=== PATIENT | female | born 1935 | race Caucasian/White ===

== ENCOUNTER 2017-06-03 12:30 | Outpatient (RCR) | payer MEDICARE, OTHER, SELFPAY ==
--- NOTE | 2017-04-06 16:16 | HP.OTEVAL_ITS ---
Patient's Visit Information Francie CAAL is a 81 year old F, referred to Occupational Therapy by [facility] Doctor,LOWELL, with a diagnosis of R Closed fx of distal radius. Date of Evaluation: 04/06/17 Occupational Therapist: Preeti Weiss - Subjective Subjective: Pt. arrived with son. Son left at start of session. Jossie noted that inital injury occured . She noted she fell on ice while walking 3 doors down to friends house. She noted had cast on for about three-four weeks and noteds that wrist cock up was placed on two weeks ago. She noted she is to be in wrist cock up for another 3 weeks. - Pain Right Wrist 5 Pain Intensity Range: 1, 10 - Objective Objective/Observation: Increased ulnar bowing to volar side. Atrophy of forearm and thenar eminence. Increased nodule over CMC of R thumb. Increased pain with mvmt. Pain increased from 4 to 5-6/10 post mvmt. Signitifcantly decreased strength and ROM compared to L unaffected hadn at this time. - ROM Wrist: Flex R 0-28, L 0-79; ext R 0-29, L 0-50 Radial Abduction: R 0-17, L 0-38 MP: R 2nd- 5th: 32-65, 29-77, 30-81, 24-90; L 2nd- 5th: 20-77, 9-83, 0-73,-8-89 PIP: WFL - Strength Manager Marketing Communication: R unable, L 44 Lateral Pinch: R unable, L 3 Tripod Pinch: R unable, L 9 Tip-to-Tip Pinch: R unable, L 7 - Edema Wrist: slight edema over volar aspect of wrist. - Sensation Sensation Comments: Notes some numbness and tingling intermittently in all five fingers in thumb. No numbness and tingling at this time. Will be monitored and further assessment to occur. - DASH-Disabilities of Arm, Shoulder& Hand DASH Sum: 120 - Goals Goal:: Jossie to increase R auto suspension and steering mechanic that that of equal value of L nonaffected hand 2/ 3 trials 75% of the time by to promote increased ADL/IADls by d/c. Goal:: Jossie to increase wrist ROM to that of L unaffected hand 2/3 trials 75% of the time by d/c. Goal:: Jossie to have pain no more than 1/10 for ADl/IADL related activities 4/5 trials 80% of the time to promote (i0 and QOL by d/c. Goal:: Jossie to be (I) for all ADL/IALDs 4/5 trials 80% of the time to promote increased ROM, strength, and ability to returnt o PLOF by d/c. Goal:: Jossie to be mod I to consisently complete HEP 4/5 trials 80% of the time by d/c. - Rehabilitation General Assessment: Pt., Jossie, arrived and noted original injury 2017. She has significantly decreased ROM, strength, and increased pain with all movements at this time. She presents with some decreased alignment of ulnar. OT to work on decreasing pain while increasing strength and ROM for ADL/ IADLs by d/c. Rehabilitation Potential: Good - Anticipated Interventions Anticipated Interventions: A/AAROM/PROM, Strengthening, Edema Control, Scar Care , Modalities, Orthoses, Joint Protection/Energy Conservation, Ergonomic Education, Fine Motor Coord/Jose Manuel, ADL Training, Caregiver Training, Home Program - Visit Plan Frequency: 2x /Week Duration: 4-6 Weeks General Plan: Jossie to complete OT servceisf or modlaities as needed for pain management, edema mamagement techniques as needed, ROM, strengthening and completing tasks to return to PLOF and all ADL/IADLs by d/c. TEXT: Thank you for the opportunity to evaluate your patient. For Medicare and Medicare HMO plans, please review the plan of care and approve it. It will need to be FAXED BACK to us at [phone] for Medicare purposes. Please let me know if there are questions or concerns regarding this plan of care. Physician Signature: Date:
--- NOTE | 2017-05-19 16:55 | HP.OTREVAL ---
LOWELL DANIEL It has been my pleasure to treat Francie CAAL over the last 13 visits for R Closed fx of distal radius. Please see the progress note below for an update on the occupational therapy plan of care! Subjective: Arrived and noted that she is doing well. She had to dump dehumidifer this today and let it get too full. Notes she had pain when dumping but wasn't terrible. She noted son is in [place] and unable to help this week. Pain otherwise is minimal most days. Notes majoir limitation is weakness. Objective/Function: Reassessment completed on this day. Ulnar bowing present and increased adduction of thumb presne ton R hand. Age related changes from arthitis noted on B hands. ROM of R wrist is as follows: flexion R 0-39, L WFL; ext R 0-25, L WFL; SUP R 0-63, L WFL. Strength measurements are as follows: physical medicine physician R 10, L 42; lateral R 8, L 8; three jaw R 5, L 12; tip pinch R 3, L 9 lbs. She has progressed from inital evaluation. Plan Frequency: 2x /Week Duration: 2-4 Weeks Plan: continue POC for 2x weekly for 30 mins session for 2-4 weeks. She is to continue HEP and focus will be on strengthening. She has progressed with OT since intial evaluation. Goals - Goals Goal:: Jossie to increase R physical medicine physician that that of equal value of L nonaffected hand 2/3 trials 75% of the time by to promote increased ADL/IADls by d/c. Goal:: Jossie to increase wrist ROM to that of L unaffected hand 2/3 trials 75% of the time by d/c. Goal:: Jossie to have pain no more than 1/10 for ADl/IADL related activities 4/5 trials 80% of the time to promote (i0 and QOL by d/c. Goal:: Jossie to be (I) for all ADL/IALDs 4/5 trials 80% of the time to promote increased ROM, strength, and ability to returnt o PLOF by d/c. Goal:: Jossie to be mod I to consisently complete HEP 4/5 trials 80% of the time by d/c. Anticipated Interventions Anticipated Interventions: A/AAROM/PROM, Strengthening, Edema Control, Scar Care, Modalities, Orthoses, Joint Protection/Energy Conservation, Ergonomic Education, Fine Motor Coord/Jose Manuel, ADL Training, Caregiver Training, Home Program Please do not hesitate to contact me at [phone] by phone or if you have questions or concerns regarding this new plan of care! Sincerely, Preeti Weiss
--- NOTE | 2017-06-03 13:14 | HP.OTDCSUM_ITS ---
HP - OT D/C Summary It has been my pleasure to treat Francie CAAL under orders from MOHIT MCMILLAN, for the diagnosis of R Closed fx of distal radius for a total of 17 visit(s). Progress has plateaued at this time. She presents with muscle atrophy in forearm which has been continually addressed through OT as well as through HEP. She is to continue HEP. Jossie continues to have achiness over ulna due to malalignment. Notes fingers go numb on occasion. She is to return to see doctor if symptoms persist. Please see the following information for a summary of their discharge status. - Objective Objective/Function: ROM of R flex: 0-23; Ext 0-30; sup 0-36 degrees; radial dev 0-12; ulnar dev 0-10. Strength assistant public defender R 11, L 43; lateral R 6, L 9; three jaw R 5 , L 11 lbs; tip pinch R 4, L 7 lbs. Monofilament test completed on this date on R hand: 2nd 2.83, 3rd, 3.22, 4th 2.83, 5th 2.83, thumb 3.22. A score of 2.83 is normal. Progress has plateaued at this time. She is to return to doctor. - Goals Patient Goals: Regain Mobility, Regain Strength, Decrease Pain, Decrease Swelling/Stiffness, Improve Fine Motor Skills, Use Hand/Wrist/Arm Normally Again , Increase ROM, Be More Independent in ADLS, Resume Former Household Responsibilities (Cooking,Cleaning,Yard, etc.), Resume Hobbies Goal:: Jossie to increase R assistant public defender that that of equal value of L nonaffected hand 2/ 3 trials 75% of the time by to promote increased ADL/IADls by d/c. Goal:: Jossie to increase wrist ROM to that of L unaffected hand 2/3 trials 75% of the time by d/c. Goal:: Jossie to have pain no more than 1/10 for ADl/IADL related activities 4/5 trials 80% of the time to promote (i0 and QOL by d/c. Goal:: Jossie to be (I) for all ADL/IALDs 4/5 trials 80% of the time to promote increased ROM, strength, and ability to returnt o PLOF by d/c. Goal:: Jossie to be mod I to consisently complete HEP 4/5 trials 80% of the time by d/c. - Plan Plan: she will be d/c'd. She is to return to see Dr. Torres for further follow up. Progress has plateaued at this time. She is to continue HEP. Jossie continues to have achiness over ulna due to malalignment. - D/C Information Discharge Comments: Edcuated and provided handouts on joint protection techniques for knittign and general ADLs to help decrease any residual pain. Educated on wrist mechanics and body mechanics to promote increased alignment of wrist during daily tasks. She notes she is not wearing prefabricated brace at home but community only. Brace no provided by OT. If pain occurs with liftng heavy objects she is to wear brace for support. If there are questions or concerns regarding this patient's occupational therapy , please fell free to call me at [phone]. Thank you for the referral of this patient. Sincerely, Preeti Weiss
== END 2017-06-03 19:00 | disposition home or self-care (01) ==
LOC: OT 12:30
PROVIDERS: Family Provider Family Medicine; PCP Family Medicine
DX: S52.501D Unspecified fracture of the lower end of right radius, subsequent encounter for closed fracture with routine healing (principal)
CPT/HCPCS: 97035; 97110; 97140; 97166; 97168; 97530; G8987; G8988

== ENCOUNTER → 2017-06-07 08:45 | Outpatient (CLI) | payer MEDICARE, OTHER, SELFPAY ==
[2017-06-07 09:50] LABS: AST(SGOT) 15 U/L (15-37); Alanine Aminotransfer ALT/SGPT 15 U/L (13-56); Albumin, Serum 3.9 g/dL (3.2-5.0); Alkaline Phosphatase 51 U/L (45-117); Bilirubin, Direct 0.12 mg/dL (0.00-0.30); Cholesterol 183 mg/dL (200); Globulin 3.1 g/dL (2.2-4.2); High Density Lipoprotein 60 mg/dL; Triglycerides 82 mg/dL; Very Low Density Lipoprotein 16 mg/dL (5-40)
== END ==
PROVIDERS: Family Provider Family Medicine; PCP Family Medicine; Visit Provider Physician Assistant Medical
DX: E78.5 Hyperlipidemia, unspecified (principal); Z79.899 Other long term (current) drug therapy
CPT/HCPCS: 36415; 80061; 80076

== ENCOUNTER → 2017-07-08 16:25 | Outpatient (CLI) | payer MEDICARE, OTHER, SELFPAY | PROVIDERS: Visit Provider Obstetrics & Gynecology | DX: N39.0 Urinary tract infection, site not specified (principal) | CPT/HCPCS: 87086; 87088; 87186 ==

== ENCOUNTER → 2017-08-08 10:04 | Outpatient (CLI) | payer MEDICARE, OTHER, SELFPAY | PROVIDERS: Visit Provider Obstetrics & Gynecology | DX: N39.0 Urinary tract infection, site not specified (principal) | CPT/HCPCS: 87086; 87088 ==

== ENCOUNTER → 2017-08-19 16:14 | Outpatient (CLI) | payer MEDICARE, OTHER, SELFPAY ==
[2017-08-19 16:16] LABS: Mucous, Urine 0 SEEN /hpf (<or=2+); Squamous Epithelial Cells - UA 0 SEEN /hpf (5-10)
[2017-08-19 18:54] LABS: Color, Urine Yellow (Yellow); Glucose, Dipstick Normal (Normal); Ketone-Dipstick Negative (Negative); Leukocyte Esterase-Dipstick 500 /ul (Negative); Nitrite-Dipstick Positive (Negative); Occult Blood-Urine 50 /ul (Negative); Protein-Dipstick 30 mg/dl (Negative); Specific Gravity, Urine 1.015 (1.002-1.030); Urine Bilirubin Dipstick Negative (Negative); Urine Clarity Turbid (Clear); Urine Urobilinogen Normal (Normal)
[2017-08-19 19:15] LABS: Bacteria 2+ /hpf (None Seen); Red Blood Cells-Urine 0-5 SEEN /hpf (0-5); White Blood Cells >100 SEEN /hpf (0-5)
== END ==
PROVIDERS: Visit Provider Obstetrics & Gynecology
DX: N39.0 Urinary tract infection, site not specified (principal)
CPT/HCPCS: 81001; 87086; 87088; 87186

== ENCOUNTER → 2017-08-24 10:54 | Outpatient (CLI) | payer MEDICARE, OTHER, SELFPAY ==
--- NOTE | 2017-08-24 10:56 | US_ITS ---
STUDY: RENAL ULTRASOUND - COMPLETE REASON FOR EXAM: Female, 82 years old. Cystitis. TECHNIQUE: Ultrasound evaluation of the kidneys was performed with real-time and static welch-scale imaging. COMPARISON: None. FINDINGS: RIGHT KIDNEY: Normal location of the right kidney, which is normal in size. The right kidney measures 8.6 cm. There is a normal cortex of the right kidney. The renal cortex measures 1.2 cm. There is no right renal mass or cyst. There are no right renal calculi. There is no right hydronephrosis. DISTAL RIGHT URETER: There is non-visualization of the distal right ureter. There is no demonstrated right ureterovesical junction calculus. There is no demonstrated right ureteral jet. LEFT KIDNEY: Normal location of the left kidney, which is normal in size. The left kidney measures 9.4 cm. There is a normal cortex of the left kidney. The renal cortex measures 1.5 cm. There is no left renal mass or cyst. There are no left renal calculi. There is no left hydronephrosis. DISTAL LEFT URETER: There is non-visualization of the distal left ureter. There is no demonstrated left ureterovesical junction calculus. There is a visualized left ureteral jet. BLADDER: The distended urinary bladder has a volume of 202 ml. There is a normal wall thickness of the distended urinary bladder. There is no demonstrated mass within the urinary bladder. There are no demonstrated bladder calculi. US/Kidney and Bladder IMPRESSION: Normal ultrasound of the kidneys and urinary bladder. Electronically Signed: Diaz Gambino MD at 0:16 EDT , Service support ,
== END ==
PROVIDERS: Family Provider Family Medicine; PCP Family Medicine; Visit Provider Obstetrics & Gynecology
DX: N30.00 Acute cystitis without hematuria (principal)
CPT/HCPCS: 76770

== ENCOUNTER → 2017-09-16 11:44 | Outpatient (CLI) | payer MEDICARE, OTHER, SELFPAY | PROVIDERS: Family Provider Family Medicine; PCP Family Medicine; Visit Provider Nurse Practitioner Adult Health | DX: R82.99 Other abnormal findings in urine (principal) | CPT/HCPCS: 87086; 87088; 87186 ==

== ENCOUNTER → 2017-10-31 15:09 | Outpatient (CLI) | payer MEDICARE, OTHER, SELFPAY | PROVIDERS: Family Provider Family Medicine; PCP Family Medicine; Visit Provider Nurse Practitioner Adult Health | DX: R30.0 Dysuria (principal) | CPT/HCPCS: 87086; 87088; 87186 ==

== ENCOUNTER → 2017-11-11 10:56 | Outpatient (CLI) | payer MEDICARE, OTHER, SELFPAY ==
--- NOTE | 2017-11-11 11:00 | ECHOD_ITS ---
Reason For Study: MV Insufficiency Procedure This was a 2D Doppler, Color Flow transthoracic echocardiogram. The exam was of adequate technical quality. Exam performed in department. Left Ventricle Normal LV size. Mid cavitary false tendon noted. Left ventricular systolic function is hyperdynamic. The estimated ejection fraction is 75 %. No regional wall motion abnormalities noted. Right Ventricle Normal RV size. Normal systolic function. Atria The left atrium is mildly enlarged. Normal right atrium. No doppler evidence for ASD. Mitral Valve There is no mitral annular calcification. Anterior leaflet diffuse mitral valve thickening. Severe (4+) mitral valve insufficiency. Tricuspid Valve Normal tricuspid valve. Trivial tricuspid valve insufficiency. Right ventricular systolic pressure estimated to be 22 mmHg. Aortic Valve Trisinus/trileaflet aortic valve. Mild diffuse aortic valve thickening. Mild aortic stenosis. Trivial aortic valve insufficiency. Pulmonic Valve The pulmonic valve is not well visualized. Trivial pulmonic valve insufficiency. Great Vessels Normal sized aortic root. Pericardium/Pleural No pericardial effusion. MMode/2D Measurements & Calculations LVIDd: 3.5 cm IVSd: 1.2 cm LVOT diam: 1.7 cm LVIDs: 2.2 cm LVPWd: 1.1 cm LVOT area: 2.2 cm2 RVDd: 2.7 cm FS: 37.4 % Ao root diam: 2.0 cm LAV(MOD-bp): 42.4 ml EDV(MOD-sp4): 44.1 ml LAV(MOD-bp) Indexed: 29.0 ml/m2 ESV(MOD-sp4): 12.8 ml LAV(MOD-sp2): 51.2 ml EF(MOD-sp4): 71.1 % LAV(MOD-sp4): 29.8 ml SV(MOD-sp4): 31.3 ml LA A4 area: 12.8 cm2 RA A4 area: 12.1 cm2 Doppler Measurements & Calculations MV E max david: 104.2 cm/sec Lat Peak E' David: 6.3 cm/sec Med Peak E' David: 3.5 cm/sec MV A max david: 86.9 cm/sec E/E' lat: 16.6 E/E' med: 29.3 MV E/A: 1.2 Ao V2 max: 281.3 cm/sec LV V1 max: 218.3 cm/sec SV(LVOT): 120.7 ml Ao max P.1 mmHg LV V1 max P.1 mmHg Ao V2 mean: 199.6 cm/sec LV V1 mean P.9 mmHg Ao mean P.2 mmHg LV V1 mean: 164.2 cm/sec Ao V2 VTI: 67.0 cm LV V1 VTI: 54.8 cm ANTONIO(I,D): 1.8 cm2 ANTONIO(V,D): 1.7 cm2 PA V2 max: 130.8 cm/sec TR max david: 218.1 cm/sec TR max P.0 mmHg Interpretation Summary Left ventricular systolic function is hyperdynamic. The estimated ejection fraction is 75 %. Mid cavitary false tendon noted. The left atrium is mildly enlarged. Anterior leaflet diffuse mitral valve thickening. Severe (4+) mitral valve insufficiency. Trivial tricuspid valve insufficiency. Mild aortic stenosis. Trivial aortic valve insufficiency. Trivial pulmonic valve insufficiency. Right ventricular systolic pressure estimated to be 22 mmHg. Transmitral diastolic flow velocities suggest diastolic dysfunction (pseudonormal pattern). Ordering Physician: Ran Nguyen Referring Physician: Frantz Mckinney Performed By: Sindy Murillo, ALLEN, RVT
== END ==
PROVIDERS: Family Provider Family Medicine; PCP Family Medicine; Referring Provider Thoracic Surgery (Cardiothoracic Vascular Surgery); Visit Provider Thoracic Surgery (Cardiothoracic Vascular Surgery)
DX: I34.0 Nonrheumatic mitral (valve) insufficiency (principal)
CPT/HCPCS: 93306

== ENCOUNTER → 2017-12-12 09:15 | Outpatient (CLI) | payer MEDICARE, OTHER, SELFPAY ==
[2017-12-12 10:27] LABS: AST(SGOT) 17 U/L (15-37); Alanine Aminotransfer ALT/SGPT 16 U/L (13-56); Alkaline Phosphatase 51 U/L (45-117); Bilirubin, Direct 0.16 mg/dL (0.00-0.30); Cholesterol 184 mg/dL (200); Globulin 3.3 g/dL (2.2-4.2); High Density Lipoprotein 56 mg/dL; Protein, Total 7.3 g/dL (6.4-8.2); Triglycerides 97 mg/dL; Very Low Density Lipoprotein 19 mg/dL (5-40)
== END ==
PROVIDERS: Nurse Practitioner Family; Family Provider Family Medicine; PCP Family Medicine; Referring Provider Internal Medicine Cardiovascular Disease; Visit Provider Internal Medicine Cardiovascular Disease
DX: E78.5 Hyperlipidemia, unspecified (principal)
CPT/HCPCS: 36415; 80061; 80076

== ENCOUNTER → 2018-04-14 11:14 | Outpatient (CLI) | payer MEDICARE, OTHER, SELFPAY ==
[2018-04-14 10:43] VITALS: BMI 23.0
--- NOTE | 2018-04-14 11:18 | RAD_ITS ---
STUDY: X-RAY - LEFT HAND, ATTENTION SECOND FINGER REASON FOR EXAM: Female, 83 years old. Soft tissue nodule TECHNIQUE: 3 view(s) of the finger were obtained. COMPARISON: None. FINDINGS: Normal metacarpal head. Normal metacarpophalangeal joint. Normal proximal phalanx. Normal middle phalanx. Normal distal phalanx. Normal proximal interphalangeal joint. Normal distal interphalangeal joint. There is minimal soft tissue swelling of the dorsal aspect of the distal second finger overlying the proximal shaft of the second distal phalanx. No radiopaque soft tissue foreign body is noted. RAD/Finger(s) Min 2 Views IMPRESSION: The osseous structures appear normal. There is minimal soft tissue swelling of the dorsal aspect of the distal second finger overlying the proximal shaft of the second distal phalanx. No radiopaque soft tissue foreign body is seen. Electronically Signed: Delgado Andrews MD at 23:56 EST , Service support ,
== END ==
PROVIDERS: Family Provider Family Medicine; PCP Family Medicine; Referring Provider Orthopaedic Surgery; Visit Provider Orthopaedic Surgery
DX: M79.645 Pain in left finger(s) (principal)
CPT/HCPCS: 73140

== ENCOUNTER → 2018-05-08 09:51 | Outpatient (CLI) | payer MEDICARE, OTHER, SELFPAY ==
[2018-04-24 07:54] VITALS: BMI 23.0
--- NOTE | 2018-05-08 09:56 | ECHOD_ITS ---
Reason For Study: MR Procedure This was a 2D Doppler, Color Flow transthoracic echocardiogram. Exam performed in department. Left Ventricle Normal LV size. Mid cavitary false tendon noted. Left ventricular systolic function is hyperdynamic. The estimated ejection fraction is 75 %. No regional wall motion abnormalities noted. Right Ventricle Normal RV size. Normal systolic function. Atria The left atrium is mildly enlarged. Normal right atrium. No doppler evidence for ASD. Mitral Valve There is no mitral annular calcification. Anterior leaflet diffuse mitral valve thickening. Severe (4+) mitral valve insufficiency. Tricuspid Valve Normal tricuspid valve. Mild tricuspid valve insufficiency. Right ventricular systolic pressure estimated to be 31 mmHg. Aortic Valve Trisinus/trileaflet aortic valve. Mild diffuse aortic valve thickening. Mild aortic stenosis. Trivial aortic valve insufficiency. Pulmonic Valve The pulmonic valve is not well visualized. Great Vessels Normal sized aortic root. Pericardium/Pleural No pericardial effusion. MMode/2D Measurements & Calculations LVIDd: 3.1 cm IVSd: 0.89 cm LVOT diam: 1.7 cm LVIDs: 1.8 cm LVPWd: 0.96 cm LVOT area: 2.2 cm2 RVDd: 3.1 cm FS: 44.2 % Ao root diam: 2.4 cm LAV(MOD-bp): 40.5 ml LVAd ap4: 18.5 cm2 LAV(MOD-bp) Indexed: 27.4 ml/m2 EDV(MOD-sp4): 41.7 ml LAV(MOD-sp2): 50.3 ml EDV(sp4-el): 43.3 ml LAV(MOD-sp4): 28.3 ml LVAs ap4: 9.0 cm2 ESV(MOD-sp4): 11.5 ml ESV(sp4-el): 11.4 ml EF(MOD-sp4): 72.5 % EF(sp4-el): 73.6 % SV(MOD-sp4): 30.2 ml SV(sp4-el): 31.9 ml LA A4 area: 12.7 cm2 LA dimension(2D): 4.3 cm RA A4 area: 12.2 cm2 Doppler Measurements & Calculations MV E max david: 110.5 cm/sec Lat Peak E' David: 7.0 cm/sec Med Peak E' David: 4.3 cm/sec MV A max david: 90.1 cm/sec E/E' lat: 15.9 E/E' med: 26.0 MV E/A: 1.2 MV V2 max: 134.4 cm/sec Ao V2 max: 253.3 cm/sec LV V1 max: 221.6 cm/sec MV max P.2 mmHg Ao max P.7 mmHg LV V1 max P.6 mmHg MV V2 mean: 70.7 cm/sec Ao V2 mean: 182.8 cm/sec LV V1 mean P.5 mmHg MV mean P.4 mmHg Ao mean P.6 mmHg LV V1 mean: 174.8 cm/sec MV V2 VTI: 44.7 cm Ao V2 VTI: 60.3 cm LV V1 VTI: 66.1 cm MVA(VTI): 3.2 cm2 ANTONIO(I,D): 2.4 cm2 ANTONIO(V,D): 1.9 cm2 SV(LVOT): 142.9 ml PA V2 max: 112.5 cm/sec TR max david: 262.5 cm/sec TR max P.6 mmHg Interpretation Summary Left ventricular systolic function is hyperdynamic. The estimated ejection fraction is 75 %. Mid cavitary false tendon noted. The left atrium is mildly enlarged. Anterior leaflet diffuse mitral valve thickening. Severe (4+) mitral valve insufficiency. Mild tricuspid valve insufficiency. Mild diffuse aortic valve thickening. Mild aortic stenosis. Trivial aortic valve insufficiency. Right ventricular systolic pressure estimated to be 31 mmHg. Transmitral diastolic flow velocities suggest diastolic dysfunction (pseudonormal pattern). Ordering Physician: Pelon Referring Physician: Frantz Mckinney Performed By: Sindy Murillo RDCS, RVT
== END ==
PROVIDERS: Family Provider Family Medicine; PCP Family Medicine; Referring Provider Thoracic Surgery (Cardiothoracic Vascular Surgery); Visit Provider Thoracic Surgery (Cardiothoracic Vascular Surgery)
DX: I34.0 Nonrheumatic mitral (valve) insufficiency (principal)
CPT/HCPCS: 93306

== ENCOUNTER 2018-06-04 17:37 | Observation (INO) | payer MEDICARE, OTHER, SELFPAY ==
[2018-04-24 07:54] VITALS: BMI 23.0
[2018-06-04] VITALS (10 sets, daily range): BP systolic 105–172; BP diastolic 47–71; PULSE 57–84; RESP 15–18; TEMP 36.4–36.8; O2SAT 96–977; BMI 22.4; BMI 23.1; BMI 23.2
--- NOTE | 2018-06-04 17:50 | EKG12_ITS ---
Test Reason : CP Blood Pressure : / mmHG Vent. Rate : 063 BPM Atrial Rate : 063 BPM P-R Int : 186 ms QRS Dur : 100 ms QT Int : 422 ms P-R-T Axes : 073 025 081 degrees QTc Int : 431 ms Normal sinus rhythm Left ventricular hypertrophy with repolarization abnormality Cannot rule out Septal infarct , age undetermined Abnormal ECG Confirmed by RENAE NGUYEN, SHAN ([id number]), scientific editor ODETTE GUILLERMO ([id number]) on 06/07/2018 1:25:46 PM Referred By: Ran Milan Confirmed By:SHAN MACDONALD MD
--- NOTE | 2018-06-04 17:51 | CT_ITS ---
STUDY: CTA CHEST REASON FOR EXAM: Female, 83 years old. Midsternal pain. Pain radiates to the back. Shortness of breath. Elevated d-dimer. RADIATION DOSAGE (If Supplied By Facility): CTDIvol = ( 5.2 ) mGy, DLP = ( 406.62 ) mGycm TECHNIQUE: The examination was performed with the intravenous administration of 75ML IV Isovue 370. Post-processing of the angiographic images was performed, with multiplanar reformation and 3D reconstruction. Individualized dose optimization techniques were used for this CT. COMPARISON: X-ray dated September 01, 2016. FINDINGS: HEART: Coronary artery disease. Mild cardiomegaly. No pericardial effusion. Valve calcifications. AORTA/GREAT VESSELS: Normal caliber aorta. No visualized dissection flap. Atherosclerotic disease. Normal caliber great vessels with atherosclerotic calcifications predominating at the left subclavian artery. Adequate contrast enhancement. PULMONARY ARTERIES: No acute pulmonary embolism. Adequate contrast enhancement. No pulmonary arterial hypertension. LUNGS/AIRWAYS/PLEURA: Mild paraseptal emphysema. No focal patchy airspace opacities. Right middle lobe granuloma. Central airways patent. Minimal subpleural atelectasis/scar. Rounded subpleural nodule measuring 7 mm (axial image 64 series 2) at the left lower lobe. Right middle lobe subpleural 5 mm nodule (axial image 75 series 2). No lung mass. No pleural effusion. No pneumothorax. MEDIASTINUM/THYROID: No pneumomediastinum. Normal-appearing thyroid. Shotty mediastinal lymph nodes, none of which appear pathologically enlarged. Shotty right hilar lymph node (axial image 59 series 2). SOFT TISSUES: Punctate right breast calcification (axial image 62 series 2). No acute process. OSSEOUS STRUCTURES: Slightly increased thoracic kyphosis. Mild degenerative changes with T1 hemangioma. Osteopenia/osteoporosis. No acute process. UPPER ABDOMEN/ESOPHAGUS: Normal esophagus. Nonvisualized gallbladder (possibly surgically absent). Remainder of the upper abdomen unremarkable. 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 Detected Incidentally at non-screening CT Nodule size > 6 - 8 mm low risk patients: initial follow-up CT at 6 - 12 months and then at 18 - 24 months if no change high risk patients: initial follow-up CT at 3 - 6 months and then at 9 - 12 and 24 months if no change Electronically Signed: Héctor Porter DO at 19:10 EDT Tel , Service support ,
--- NOTE | 2018-06-04 17:51 | CT_ITS ---
STUDY: CT ABDOMEN/PELVIS WITH/WITHOUT CONTRAST (ANGIOGRAM) REASON FOR EXAM: Female, 83 years old. Midsternal pain. Back pain. Elevated d-dimer. RADIATION DOSAGE (If Supplied By Facility): CTDIvol = ( 5.2 ) mGy, DLP = ( 406.62 ) mGycm. Individualized dose optimization techniques were used for this CT.? TECHNIQUE: Axial multidetector CT scan of the abdomen and pelvis. Coronal and sagittal reformatted images. 3-D reconstructions. Intravenous contrast demonstration with 75 mL Isovue-370. COMPARISON: None. FINDINGS: Lung bases: See dedicated chest CT. Heart: See dedicated chest CT. Liver: Unremarkable. Gallbladder/biliary ducts: Underdistended without biliary ductal dilatation or inflammatory changes (axial image 121 series 2). Pancreas: Mild atrophy. Spleen: Unremarkable. Adrenal glands: Unremarkable. Kidneys/ureters/bladder: Nondistended bladder. Nondistended ureters. Symmetric renal parenchymal enhancement. Uterus/adnexa/prostate: Bulky uterus with calcifications (axial image 168 series 2). Relatively symmetric adnexal regions. Air within the vagina. Large bowel/small bowel: Moderate constipation. Air distended rectum. No perforation. No pneumatosis. No obstruction. No significant bowel wall thickening. Appendix: Normal (axial image 172 series 2). Gastroesophageal junction/stomach: Distended stomach without focal wall thickening or inflammatory changes. Retroperitoneum/lymph nodes: No intra-abdominal free air. No ascites. No pathologically enlarged lymph nodes. Vascular: Vascular calcifications. No aneurysm. No dissection flap. No vascular occlusion. Osseous structures: Grade 1 spondylolisthesis at L4-5. Vacuum phenomenon at L4-5. Exaggerated lumbar lordosis. Osteopenia/osteoporosis. No acute process. Nonaggressive appearing sclerosis of the left iliac. Subcutaneous/soft tissues: Mild rectus diastasis. No acute process. CT/CT ANGIO ABD&PEL W/O&W/DYE IMPRESSION: No acute aortic aneurysm or dissection Moderate constipation without acute bowel findings RESOLUTION SPECIALIST structures statistically physiologic (suspected fibroid uterus; consider follow-up nonemergent ultrasound) Electronically Signed: Héctor Porter DO at 19:20 EDT Tel , Service support ,
--- NOTE | 2018-06-04 17:53 | ED.VISSUMM ---
- ER Visit Summary Date of Service: 06/04/18 Chief Complaint: Chest pain and shortness of breath History of Present Illness: The patient is a 83 F who presents for intermittent chest pain or shortness of breath for the last 3 hours. Patient was at dinner when she began having right-sided chest pressure and associated shortness of breath. She thought it was gas and did have associated belching. It lasted approximately 20 minutes and then subsided. Symptoms returned approximately 80 minutes ago and have been constant since. Patient is having waxing and waning right-sided pressure radiating into the mid back. She also continues to feel short of breath. She denies nausea, vomiting or any current abdominal pain. History of hypertension, hypercholesterolemia and coronary artery disease. He has history of left lung surgery. She took a baby aspirin today. Physical Examination: Vital signs: afebrile, hemodynamically stable, no hypoxia on room air General: well nourished, well developed, in mild distress Skin: warm, dry, no rash, no pallor HEENT: normocephalic and atraumatic; PERRL, EOMI, moist mucous membranes Cardiovascular: regular rate and rhythm without murmurs, no peripheral edema, 2+ pulses all distal extremities Respiratory: Mild increased work of breathing, tachypneic, lungs are clear to auscultation bilaterally, no rales, rhonchi or wheezing Abdominal: Abdomen is soft, nontender, mildly distended with constant hyperactive bowel sounds, no guarding or rebound, no masses MSK: Moves all extremities, no deformities, normal strength Neuro: Awake and alert, oriented ?4. No facial droop, sensation and motor function intact and symmetric Test Results: Abnormal Lab Results 06/04/18 06/04/18 06/04/18 18:00 18:00 18:00 WBC 6.7 RBC 3.51 L Hgb 11.2 L Hct 33.5 L MCV 95.4 MCH 31.9 MCHC 33.4 RDW 12.5 RDW Differential 43.2 Plt Count 215 MPV 9.9 Immature Gran % (Auto) 0.100 Neut % (Auto) 66.7 Lymph % (Auto) 19.9 Braxton % (Auto) 10.2 H Eos % (Auto) 2.8 Baso % (Auto) 0.3 Absolute Neuts (auto) 4.5 Absolute Lymphs (auto) 1.33 Total Counted Not Reportable PT 13.4 INR 1.0 APTT 26.6 D-Dimer Quant (PE/DVT) 3.25 H* Sodium 137 Potassium 4.1 Chloride 106 Carbon Dioxide 26.0 Anion Gap 5 BUN 27 H Creatinine 1.62 H Estim Creat Clear Calc 19.56 Est GFR (MDRD) Af Amer 39 L Est GFR (MDRD) Non-Af 32 L BUN/Creatinine Ratio 16.7 Glucose 122 H Calcium 9.0 Magnesium 2.2 Total Bilirubin 0.40 AST 18 ALT 16 Alkaline Phosphatase 57 Troponin I < 0.015 Total Protein 6.9 Albumin 3.7 Globulin 3.2 Albumin/Globulin Ratio 1.2 Lipase 168 Clinical Impression(s) from Imaging Studies Abdomen/Pelvis CTA 06/04/18 17:51 IMPRESSION: No acute aortic aneurysm or dissection Moderate constipation without acute bowel findings [employer] structures statistically physiologic (suspected fibroid uterus; consider follow-up nonemergent ultrasound) Electronically Signed: Héctor Porter DO at 19:20 EDT Tel , Service support , Chest CTA 06/04/18 17:51 IMPRESSION: No acute pulmonary embolism, aortic aneurysm or aortic dissection No pneumonia, pleural effusion or pneumothorax Cardiovascular disease, as above Punctate right breast calcification (correlate recent/nonemergent mammogram) 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 Detected Incidentally at non-screening CT Nodule size > 6 - 8 mm low risk patients: initial follow-up CT at 6 - 12 months and then at 18 - 24 months if no change high risk patients: initial follow-up CT at 3 - 6 months and then at 9 - 12 and 24 months if no change Electronically Signed: Héctor Porter DO at 19:10 EDT Tel , Service support , Medications Given Discontinued Medications Aspirin (Aspirin, Baby) 324 mg PO X1 STA Stop: 06/04/18 17:51 Last Admin: 06/04/18 18:18 Dose: Not Given Nitroglycerin (Nitrostat) 0.4 mg [facility]BL[facility] Q[facility] Stop: 06/04/18 18:01 Last Admin: 06/04/18 18:35 Dose: Not Given Admin: 06/04/18 18:35 Dose: Not Given Admin: 06/04/18 18:21 Dose: 0.4 mg Emergency Department Course and Treatment: Patient presents with episodic right-sided chest pain radiating into the back and shortness of breath. Patient appears uncomfortable and short of breath on initial evaluation. Differential includes cardiac etiology, vascular emergency, and pulmonary embolism. Patient had received aspirin prehospital. She received 1 nitroglycerin and had full resolution of her pain. EKG showed a sinus rhythm with LVH. No ischemic changes. Troponin negative. Because of the concern for possible pulmonary embolism or vascular etiology of her pain, a CTA of the chest abdomen pelvis was performed. It was negative for dissection or pulmonary embolism. It also showed no other acute process to explain patient's acute symptoms. There is no evidence of any bowel obstruction or other intra-abdominal process. Labs were otherwise unremarkable. On reevaluation patient remained pain-free. She appeared comfortable and had no further appearance of shortness of breath or tachypnea. Given patient's medical risk factors, age, and her concerning presentation, she would benefit from further chest pain workup and was discussed with the hospitalist for admission. Treatment Plan: [] Disposition: [] Impression: chest pain; shortness of breath This note was generated with [employer] dictation software. It may contain incorrect words, spelling, and punctuation that were not noted in review of the chart prior to signing ED Disposition - Plan for ED Patient: Disposition: Acute Care Hospital [facility]
[2018-06-04 18:07] LABS: Absolute Lymphocyte Count 1.33 X10^3/ul (0.83-4.51); Absolute Neutrophil Count 4.5 X10^3/uL (2.0-7.7); Basophil# 0.02 X10^3/uL; Basophil% 0.3 % (0-1); Eosinophil# 0.19 X10^3/uL; Eosinophils% 2.8 % (0-5); Hematocrit 33.5 % (37-47); Hemoglobin 11.2 g/dl (12.0-15.0); Lymphocyte # 1.33 X10^3/ul (4.0); Lymphocyte % 19.9 % (19-41); Mean Corp Hgb Conc 33.4 g/gl (32-36); Mean Corpuscular Hgb 31.9 pg (27.0-32.0); Mean Corpuscular Volume 95.4 fL (81-99); Mean Platelet Vol. 9.9 fl (6.2-12.0); Monocyte# 0.68 X10^3/uL; Monocyte% 10.2 % (0-10); Neutrophil # 4.45 X10^3/uL (2.7-7.7); Neutrophil % 66.7 % (47-70); Platelet Count 215 K/mm3 (150-450); RBC Distribution Width CV 12.5 % (11.6-14.6); RBC Distribution Width SD 43.2 fl (35.1-43.9); Red Blood Count 3.51 M/mm3 (4.2-5.4); White Blood Count 6.7 K/mm3 (4.4-11.0)
[2018-06-04 18:11] LABS: POSITIVE COUNT NO; POSITIVE DIFFERENTIAL NO; POSITIVE MORPHOLOGY NO
[2018-06-04 18:16] LABS: Partial Thromboplast Time 26.6 Seconds (24.1-36.2); Prothrombin Time (Protime)PT. 13.4 SECONDS (11.7-14.9)
[2018-06-04 18:24] LABS: D-Dimer Quantitative (DVT/PE) 3.25 FEU/ug/m (0.27-0.49)
[2018-06-04 18:25] LABS: BUN 27 mg/dL (7-18); Creatinine, Serum 1.62 mg/dL (0.55-1.02); Estimated Creatinine Clearance 19.56 ml/min; Glucose 122 mg/dL (74-106)
[2018-06-04 18:26] LABS: ALB/GLOB Ratio 1.2 RATIO (0.9-2.4); AST(SGOT) 18 U/L (15-37); Alanine Aminotransfer ALT/SGPT 16 U/L (13-56); Albumin, Serum 3.7 g/dL (3.2-5.0); Alkaline Phosphatase 57 U/L (45-117); Anion Gap 5 (5-15); BUN/Creat Ratio 16.7 RATIO (10-20); Chloride 106 mmol/L (98-107); EST Glomerular Filtration Rate 32 mL/min (>60); Est Glom Filt Rate - Afr Amer 39 mL/min (>60); Globulin 3.2 g/dL (2.2-4.2); Lipase 168 U/L (73-393); Magnesium 2.2 mg/dL (1.6-2.6); Potassium 4.1 mmol/L (3.5-5.1); Protein, Total 6.9 g/dL (6.4-8.2); Sodium Level 137 mmol/L (136-145)
--- NOTE | 2018-06-04 19:58 | HP.PCM_ITS ---
Problem List (1) Chest pain Status: Acute Qualifiers: Chest pain type: precordial pain Qualified Code(s): R07.2 - Precordial pain History of Present Illness Date of Admission: 06/04/18 Chief Complaint: chest pain The patient is a 83 year old F with a significant history of mitral valve disease; hypertension who presented to the emergency department with 2 episodes of excruciating substernal chest pain that started few hours before presentation. Her chest pain radiated to her back. It began while at the lunch table. Her initial chest pain resolved by itself only to re-occur. She denies any aggravating factor. She denies any nausea, vomiting or diaphoresis. Associated with her chest pain was shortness of breath. Her chest pain radiated to her back. She took her regular aspirin on the day of presentation. And upon instruction from paramedics she took four extra doses of baby aspirin. She was given nitroglycerin by the paramedics and then at the hospital. Reportedly the nitroglycerin helped with her chest pain. Also she reports some episodes of belching. At the emergency department d-dimer was elevated but CTPA was unremarkable. EKG was noted to have left ventricular hypertrophy which is unchanged from previous. Troponin was negative. A CTPA showed 2 lung nodules. At the time of my evaluation patient denied any chest pain. Past Medical History Past Medical History (Chronic Problems): Chronic Problems (Last Reviewed 06/04/18 @ 20:38 by Ran Milan MD) Non-rheumatic mitral valve disease (Chronic) Essential hypertension (Chronic) Atherosclerotic heart disease of [place] coronary artery without angina pectoris (Chronic) Palpitations (Chronic) Carotid bruit (Chronic) Nonrheumatic mitral valve regurgitation (Chronic) Aortic valve sclerosis (Chronic) HLD (hyperlipidemia) (Chronic) Lung abnormality (Chronic) left lung abrasion 1973 Arthritis (Chronic) GERD (gastroesophageal reflux disease) (Chronic) Medical History: Medical History (Last Reviewed 06/04/18 @ 20:38 by Ran Milan MD) Non-rheumatic mitral valve disease (Chronic) I34.9 Essential hypertension (Chronic) I10 Atherosclerotic heart disease of [place] coronary artery without angina pectoris (Chronic) I25.10 Palpitations (Chronic) R00.2 Carotid bruit (Chronic) R09.89 Nonrheumatic mitral valve regurgitation (Chronic) I34.0 Aortic valve sclerosis (Chronic) I35.8 HLD (hyperlipidemia) (Chronic) E78.5 Abnormal stress test (Acute) Encounter for long-term current use of high risk medication Z79.899 Hiatal hernia K44.9 IBS (irritable bowel syndrome) K58.9 CAD (coronary artery disease) (Inactive) I25.10 Hypertension (Inactive) I10 Mitral valve disease (Inactive) I05.9 Allergies chlorhexidine Allergy (Verified 02/27/18 14:59) Rash venom-honey bee [bee venom (honey bee)] Allergy (Verified 02/27/18 14:59) Anaphylaxis hydrocodone bitartrate [From Vicodin] Adverse Reaction (Verified 02/27/18 14:59) Other BLOATED AND CONSTIPATION quinine Adverse Reaction (Verified 02/27/18 14:59) Diarrhea Sulfa (Sulfonamide Antibiotics) Adverse Reaction (Verified 02/27/18 14:59) Unknown hospital bath blankets Allergy (Uncoded 02/27/18 14:59) Unknown Home Medications: Ambulatory Orders Medication Instructions Recorded Aspirin [Aspirin, Baby] 81 mg PO DAILY@0800 09/01/16 B Complex with Vitamin C 1 ea PO DAILY 09/01/16 [B-Complex Plus Vitamin C] Biotin 2,500 mcg PO DAILY 09/01/16 Calcium Carb/Mag Ox/Zinc Sulf 2 ea PO DAILY 09/01/16 [Qmiuzws-Kbziiuvyw-Bgtp Tablet] Cholecalciferol (Vitamin D3) 2,000 unit PO DAILY 09/01/16 [Vitamin D3] Flaxseed Oil 1,000 mg PO DAILY 09/01/16 Lactobac 41/B.bifid,Lactis/Fos 1 ea PO DAILY 09/01/16 [Ultimate Probiotic-10 25 Billn] Multivit-Min/Iron/Folic/Lutein 1 ea PO DAILY 09/01/16 [Centrum Silver Women Tablet] Oxybutynin [Ditropan] 5 mg PO DAILY 09/01/16 Pantoprazole Sodium [Protonix] 40 mg PO DAILY 09/01/16 krill oil 500 mg capsule mg PO 04/15/17 lisinopril 10 mg tablet 10 mg PO BID #180 tab 09/06/17 metoprolol tartrate 25 mg tablet 25 mg PO BID #180 tab 09/06/17 ascorbic acid (vitamin C) 500 mg 500 mg PO DAILY cap 01/14/19 capsule desonide 0.05 % lotion 1 applic TOPICAL BID 02/27/18 methenamine hippurate 1 gram tablet 1 g PO DAILY tab 02/27/18 metronidazole 0.75 % lotion 1 applic TOPICAL BID 02/27/18 selenium sulfide 2.25 % shampoo 5 ml TOPICAL 2XW 02/27/18 simvastatin 20 mg tablet 40 mg PO QHS tab 02/27/18 Surgical History: Surgical History (Last Reviewed 06/04/18 @ 20:38 by Ran Milan MD) History of hernia repair Onset Date: ~12/2006 Z98.890, Z87.19 History of tubal ligation Z98.51 Surgical History: cataract, - - D&C, pleurodesis of the long secondary to ruptured bleb Psychiatric History: No pertinent psych hx [employer]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 Smoking Status: Former smoker Alcohol: Occasional - *Family History Maternal Family History: Family History (Last Reviewed 06/04/18 @ 20:39 by Ran Milan MD) Father CAD (coronary artery disease) Myocardial infarction Mother Myocardial infarction CAD (coronary artery disease) History Items: No pertinent history Paternal Family History: Family History (Last Reviewed 06/04/18 @ 20:39 by Ran Milan MD) Father CAD (coronary artery disease) Myocardial infarction Mother Myocardial infarction CAD (coronary artery disease) History Items: No pertinent history Review of Systems Constitutional: Denies: Chills, Fever, Weight Change HEENT: Denies: Head Aches, Sinus Congestion, Sinus Drainage Cardiovascular: Reports: Chest Pain. Denies: Palpitations Respiratory: Reports: Shortness of Breath. Denies: Cough, Sputum production Gastrointestinal: Denies: Abdominal Pain, Nausea, Vomiting Genitourinary: Denies: Dysuria Musculoskeletal: Denies: Joint Pain, Joint Tenderness Skin: Denies: Rash, Wounds Neurological: Denies: Numbness, Tingling, Focal weakness Psychiatric: Denies: Anxiety, Depression, Homicidal Ideations, Suicidal Ideations Hematologic/ Lymphatic: Denies: Easy Bruising, Easy Bleeding VTE Information - Inpt Only VTE Present on Admission: No VTE Mechan Device Prophylaxis: None VTE Pharm Prophylaxis ordered?: Yes - Physical Exam General: Alert, Oriented x3, Cooperative HEENT: Atraumatic, PERRLA, EOMI, Normocephalic Neck: Supple, No JVD, Negative Carotid Bruits Lungs: Clear to auscultation, Normal air movement Cardiovascular: Regular rate, Murmur Abdomen: Bowel Sounds Present, Soft, Non Tender Extremities: No edema, Capillary Refill Less than 3 Seconds Skin: No rashes, No breakdown Musculoskeletal: No Tenderness to Palpation of Joints or Extremities Neurological: Cranial nerves II-XII grossly intact Psych/Mental Status: Normal Affect, Appropriate Vital Signs Temp Pulse Resp BP Pulse Ox 98.3 F 69 16 165/52 H 100 06/04/18 17:38 06/04/18 18:54 06/04/18 18:54 06/04/18 18:54 06/04/18 18:54 Oxygen Flow Rate (L/min) 98 Oxygen Delivery Method Room Air Weight: 52.163 kg Body Mass Index (BMI) 22.4 Laboratory Tests Past 24 Hrs 06/04/18 06/04/18 06/04/18 18:00 18:00 18:00 WBC 6.7 RBC 3.51 L Hgb 11.2 L Hct 33.5 L MCV 95.4 MCH 31.9 MCHC 33.4 RDW 12.5 RDW Differential 43.2 Plt Count 215 MPV 9.9 Immature Gran % (Auto) 0.100 Neut % (Auto) 66.7 Lymph % (Auto) 19.9 [place] % (Auto) 10.2 H Eos % (Auto) 2.8 Baso % (Auto) 0.3 Absolute Neuts (auto) 4.5 Absolute Lymphs (auto) 1.33 Total Counted Not Reportable PT 13.4 INR 1.0 APTT 26.6 D-Dimer Quant (PE/DVT) 3.25 H* Sodium 137 Potassium 4.1 Chloride 106 Carbon Dioxide 26.0 Anion Gap 5 BUN 27 H Creatinine 1.62 H Estim Creat Clear Calc 19.56 Est GFR (MDRD) Af Amer 39 L Est GFR (MDRD) Non-Af 32 L BUN/Creatinine Ratio 16.7 Glucose 122 H Calcium 9.0 Magnesium 2.2 Total Bilirubin 0.40 AST 18 ALT 16 Alkaline Phosphatase 57 Troponin I < 0.015 Total Protein 6.9 Albumin 3.7 Globulin 3.2 Albumin/Globulin Ratio 1.2 Lipase 168 Assessment/Plan All Active Problems (Last Reviewed 06/04/18 @ 20:38 by Ran Milan MD) Abnormal stress test (Acute) Chest pain (Acute) The patient is a 83 year old F with a significant history of mitral valve disease; hypertension who presented to the emergency department because with 2 episodes of excruciating substernal chest pain associated with shortness of breath.. Chest pain Admit to a monitored bed on PCU LETICIA score is 4 points: 20% all cause mortality risk. Age more equal to 65; >= 3 CAD risk factors (hypertension, hyperlipidemia, family history); aspirin use in the past 7 days; severe angina (more than 2 episodes in 24 hours). HEART Score: 5 points, Moderate score. Moderately suspicious; EKG was unchanged; age is more than or equal to 65; risk factors of >=3; initial troponin was normal. A chest CT showed 2 discrete subpleural lung nodules measuring up to [address] abdomen showed moderate constipation. However patient reports normal bowel movement on the same day of presentation. EKG independently reviewed confirms left ventricular hypertrophy. Review of previous records shows that EKG is unchanged. ASA 81 mg p.o. daily SL NTG 0.4 mg prn as needed for chest pain Morphine as needed for pain We will check lipid panel. We will change her home simvastatin to high intensity Lipitor. Serial cardiac enzymes Stat EKG as needed for chest pain Chemical Stress test in the AM if the cardiac enzymes are negative LEÓN On presentation her creatinine was was 1.62. Review of old records shows creatinine baseline of 0.8-1.0. BUN over creatinine was 16.7. We will check urine sodium; urine creatinine ; urine osmolality and serum osmolality. Gentle IV hydration ordered. Avoid nephrotoxics. Trend BMP. Lung nodules. Discussed with patient. Patient to follow-up longitudinally. GERD Protonix continued Hypertension: on presentation her blood pressure was not within goal Lisinopril continued PRN Hydralazine IV ordered. Trend blood pressure and adjust blood pressure meds Mitral valve Regurgitation Patient follows up with , CT surgery at [facility] and Dr. Shabazz. Review of old records: echocardiogram on 05/08/2018 showed hyperdynamic left ventricle with ejection fraction of 75%. Severe 4+ mitral valve insufficiency. Patient is a well established patient of Dr. Shabazz. Consider discussing case with Dr. Shabazz as her symptoms may be from mitral valve disease. DVT prophylaxis Subcutaneous heparin ordered. Code Visit OBSV E&M: 06694 Initial observation care L3
--- NOTE | 2018-06-04 21:05 | EKG12_ITS ---
Test Reason : ADMIT Blood Pressure : / mmHG Vent. Rate : 068 BPM Atrial Rate : 068 BPM P-R Int : 200 ms QRS Dur : 104 ms QT Int : 410 ms P-R-T Axes : 070 016 110 degrees QTc Int : 435 ms Normal sinus rhythm Left ventricular hypertrophy with repolarization abnormality Cannot rule out Septal infarct , age undetermined Abnormal ECG When compared with ECG of 03-SEP-2016 05:54, No significant change was found Confirmed by ISABEL SHAW ([id number]), fan mail editor ODETTE GUILLERMO ([id number]) on 06/08/2018 11:09:46 AM Referred By: Ran Milan Confirmed By:ISABEL SHAW
[2018-06-04 21:53] LABS: Osmolality, Serum 293 mOsm/KG (280-301)
[2018-06-04 22:57] LABS: Urine Sodium 57 mmol/L (Not Establ.)
[2018-06-04 23:06] LABS: Osmolality, Urine 444 mOsm/KG
[2018-06-04] MEDS: 0.9% Normal Saline 1,000 ML 75 ML IV (23:25)
[2018-06-04] MEDS: Atorvastatin Calcium 40 MG Tablet PO (23:26)
[2018-06-04] MEDS: Heparin Injection (Vial) 5,000 UNIT/ML VIAL 5000 UNIT SC (23:26)
[2018-06-04] MEDS: Metoprolol Tartrate 25 MG Tablet PO (23:26)
[2018-06-04] MEDS: Lisinopril 10 MG Tablet PO (23:26)
[2018-06-05 03:00] VITALS: PULSE 56
[2018-06-05 03:43] VITALS: BP 147/57; PULSE 61; RESP 18; TEMP 36.9; O2SAT 95
[2018-06-05 05:47] LABS: International Normalized Ratio 1.2; Prothrombin Time (Protime)PT. 14.6 SECONDS (11.7-14.9)
--- NOTE | 2018-06-05 05:55 | EKG12_ITS ---
Test Reason : AM EKG Blood Pressure : / mmHG Vent. Rate : 066 BPM Atrial Rate : 066 BPM P-R Int : 216 ms QRS Dur : 102 ms QT Int : 426 ms P-R-T Axes : 073 025 107 degrees QTc Int : 446 ms Sinus rhythm with 1st degree A-V block Left ventricular hypertrophy with repolarization abnormality Abnormal ECG When compared with ECG of 04-JUN-2018 22:25, MANUAL COMPARISON REQUIRED, DATA IS UNCONFIRMED Confirmed by ISABEL SHAW ([id number]), continuity editor ODETTE GUILLERMO ([id number]) on 06/08/2018 11:10:23 AM Referred By: Ran Milan Confirmed By:ISABEL SHAW
[2018-06-05 05:57] LABS: Absolute Lymphocyte Count 1.84 X10^3/ul (0.83-4.51); Absolute Neutrophil Count 3.6 X10^3/uL (2.0-7.7); Basophil# 0.03 X10^3/uL; Basophil% 0.5 % (0-1); Eosinophil# 0.35 X10^3/uL; Eosinophils% 5.5 % (0-5); Hematocrit 31.7 % (37-47); Hemoglobin 10.7 g/dl (12.0-15.0); Lymphocyte # 1.84 X10^3/ul (4.0); Mean Corp Hgb Conc 33.8 g/gl (32-36); Mean Corpuscular Hgb 32.2 pg (27.0-32.0); Mean Corpuscular Volume 95.5 fL (81-99); Mean Platelet Vol. 10.3 fl (6.2-12.0); Monocyte% 7.9 % (0-10); Neutrophil % 56.8 % (47-70); Platelet Count 193 K/mm3 (150-450); RBC Distribution Width CV 12.6 % (11.6-14.6); RBC Distribution Width SD 43.2 fl (35.1-43.9); Red Blood Count 3.32 M/mm3 (4.2-5.4); White Blood Count 6.3 K/mm3 (4.4-11.0)
[2018-06-05 06:07] LABS: Anion Gap 7 (5-15); BUN 22 mg/dL (7-18); BUN/Creat Ratio 22.9 RATIO (10-20); Calcium,Total 8.4 mg/dL (8.5-10.1); Chloride 111 mmol/L (98-107); Cholesterol 144 mg/dL (200); Creatinine, Serum 0.96 mg/dL (0.55-1.02); EST Glomerular Filtration Rate 59 mL/min (>60); Est Glom Filt Rate - Afr Amer 72 mL/min (>60); Estimated Creatinine Clearance 33.01 ml/min; Glucose 91 mg/dL (74-106); High Density Lipoprotein 49 mg/dL; Sodium Level 143 mmol/L (136-145); Triglycerides 77 mg/dL; Very Low Density Lipoprotein 15 mg/dL (5-40)
[2018-06-05 06:15] LABS: POSITIVE COUNT NO; POSITIVE DIFFERENTIAL NO; POSITIVE MORPHOLOGY NO
[2018-06-05 06:48] VITALS: PULSE 68
[2018-06-05 08:50] VITALS: BP 150/48; PULSE 70; RESP 16; TEMP 37; O2SAT 98
--- NOTE | 2018-06-05 09:43 | STRESSREP_ITS ---
Stress Test Report Date: Procedure: Exercise tolerance test/imaging study Indications: Chest pain; mitral valve regurgitation Consent: Per the patient Procedure: The patient exercised on a Frank protocol for 4 minutes completing Stage I and 1 minute of Stage II achieving a peak heart rate of 123 bpm (88 % predicted maximal heart rate) with a peak blood pressure 192/62 mmHg and a peak MET capacity of 6 METs. The baseline ECG demonstrated normal sinus rhythm; nonspecific ST/T wave abnormality. The peak exercise ECG demonstrated continued sinus rhythm with nonspecific ST/T wave abnormality appearing somewhat more prominent compared with baseline. There were no cardiac dysrhythmias pretest, during exercise, or recovery. The functional capacity was considered average. There was no complaint of chest discomfort during exercise or recovery. The examination was discontinued secondary to dyspnea. Impression: 1. Technically adequate (percent predicted maximal heart rate greater than 85%) exercise tolerance test 2. Peak exercise ECG with sinus rhythm with nonspecific ST/T wave abnormality appearing somewhat more prominent compared with baseline 3. There were no cardiac dysrhythmias pretest, during exercise, or recovery 4. Nuclear images pending Myocardial perfusion imaging study: Technique: The patient was injected with 12 mCi of technetium 99m Cardiolite and subsequently rest SPECT Cardiolite nuclear imaging was obtained in the horizontal long, vertical long, and short axis views. The patient exercised on a Frank protocol for 4 minutes completing Stage I and 1 minute of Stage II achieving a peak heart rate of 123 bpm (88 % predicted maximal heart rate) with a peak blood pressure 192/62 mmHg and a peak MET capacity of 6 METs. The patient was injected with 33 mCi of technetium 99m Cardiolite and subsequently stress SPECT Cardiolite nuclear imaging was obtained in the horizontal long, vertical long, and short axis views. A gated Cardiolite study at peak stress was obtained. Interpretation: Rest and stress SPECT Cardiolite nuclear imaging status post realignment, normalization, and attenuation correction, demonstrates relative uniform tracer uptake and myocardial perfusion appearing within normal limits. There is end systolic thickening and brightening. The gated Cardiolite study demonstrates myocardial thickening and inward wall motion. The reported LVEF is 71 %. Impression: 1. Rest and stress SPECT Cardiolite nuclear imaging demonstrate relative uniform tracer uptake and myocardial perfusion appearing within normal limits. 2. The gated Cardiolite study reports an LVEF of 71 %. This note was generated with [employer] software. It may contain incorrect words, spelling, and punctuation that were not noted in checking the note before signing.
[2018-06-05 10:10] VITALS: PULSE 72
[2018-06-05] MEDS: Vitamin B Comp W-C Capsule 1 CAP PO (10:10)
[2018-06-05] MEDS: Aspirin E.C. 81 MG Tablet PO (10:10)
[2018-06-05] MEDS: Pantoprazole Sodium 40 MG Tablet PO (10:10)
[2018-06-05] MEDS: Lisinopril 10 MG Tablet PO (10:10)
[2018-06-05] MEDS: Metoprolol Tartrate 25 MG Tablet PO (10:10)
[2018-06-05] MEDS: Tolterodine Tartrate 2 MG CAP.SA PO (10:10)
--- NOTE | 2018-06-05 11:30 | DCINST_ITS ---
You will use the following diet at home:: Cardiac Your food should be the consistency of: Regular Your liquids should be the consistency of: Regular/Thin Discharge Activity: Return to Normal Activity Allergies/Adverse Reactions: Allergies chlorhexidine Allergy (Verified 02/27/18 14:59) Rash venom-honey bee [bee venom (honey bee)] Allergy (Verified 02/27/18 14:59) Anaphylaxis hydrocodone bitartrate [From Vicodin] Adverse Reaction (Verified 02/27/18 14:59) Other BLOATED AND CONSTIPATION quinine Adverse Reaction (Verified 02/27/18 14:59) Diarrhea Sulfa (Sulfonamide Antibiotics) Adverse Reaction (Verified 02/27/18 14:59) Unknown hospital bath blankets Allergy (Uncoded 02/27/18 14:59) Unknown Medications to take at Discharge Aspirin [Aspirin, Baby] 81 mg PO DAILY@0800 09/01/16 B Complex with Vitamin C [B-Complex Plus Vitamin C] 1 ea PO DAILY 09/01/16 Biotin 2,500 mcg PO DAILY 09/01/16 Calcium Carb/Mag Ox/Zinc Sulf [Ypzziif-Bmbvkgtuw-Ohlp Tablet] 2 ea PO DAILY 09/01/16 Cholecalciferol (Vitamin D3) [Vitamin D3] 2,000 unit PO DAILY 09/01/16 Flaxseed Oil 1,000 mg PO DAILY 09/01/16 Lactobac 41/B.bifid,Lactis/Fos [Ultimate Probiotic-10 25 Billn] 1 ea PO DAILY 09/01/16 Multivit-Min/Iron/Folic/Lutein [Centrum Silver Women Tablet] 1 ea PO DAILY 09/01/16 Oxybutynin [Ditropan] 5 mg PO DAILY 09/01/16 Pantoprazole Sodium [Protonix] 40 mg PO DAILY 09/01/16 krill oil 500 mg capsule mg PO 04/15/17 lisinopril 10 mg tablet 10 mg PO BID #180 tab 09/06/17 metoprolol tartrate 25 mg tablet 25 mg PO BID #180 tab 09/06/17 ascorbic acid (vitamin C) 500 mg capsule 500 mg PO DAILY cap 02/27/18 desonide 0.05 % lotion 1 applic TOPICAL BID 02/27/18 methenamine hippurate 1 gram tablet 1 g PO DAILY tab 02/27/18 metronidazole 0.75 % lotion 1 applic TOPICAL BID 02/27/18 selenium sulfide 2.25 % shampoo 5 ml TOPICAL 2XW 02/27/18 simvastatin 20 mg tablet 40 mg PO QHS tab 02/27/18 Primary Care Physician: Frantz Mckinney MD [Primary Care Provider] - Please follow up with your Primary Care Physician in: 2 weeks Test Results: Test results from this visit will be discussed in further detail at your follow- up appointment, if applicable. Please Follow Up With: Shon Shabazz MD When: As directed Proposed Discharge Date: 06/05/18
--- NOTE | 2018-06-05 12:38 | PHA.DC.MR ---
Pharmacy Service has performed discharge medication reconciliation for this patient. No new medications given at time of discharge The patient's discharge medication list was reviewed for discrepancies and discrepancies were resolved. Home Medications Aspirin [Aspirin, Baby] 81 mg PO DAILY@0800 09/01/16 B Complex with Vitamin C [B-Complex Plus Vitamin C] 1 ea PO DAILY 09/01/16 Biotin 2,500 mcg PO DAILY 09/01/16 Calcium Carb/Mag Ox/Zinc Sulf [Okqvfzw-Avustaxxg-Nxic Tablet] 2 ea PO DAILY 09/01/16 Cholecalciferol (Vitamin D3) [Vitamin D3] 2,000 unit PO DAILY 09/01/16 Flaxseed Oil 1,000 mg PO DAILY 09/01/16 Lactobac 41/B.bifid,Lactis/Fos [Ultimate Probiotic-10 25 Billn] 1 ea PO DAILY 09/01/16 Multivit-Min/Iron/Folic/Lutein [Centrum Silver Women Tablet] 1 ea PO DAILY 09/01/16 Oxybutynin [Ditropan] 5 mg PO DAILY 09/01/16 Pantoprazole Sodium [Protonix] 40 mg PO DAILY 09/01/16 krill oil 500 mg capsule mg PO 04/15/17 lisinopril 10 mg tablet 10 mg PO BID #180 tab 09/06/17 metoprolol tartrate 25 mg tablet 25 mg PO BID #180 tab 09/06/17 ascorbic acid (vitamin C) 500 mg capsule 500 mg PO DAILY cap 02/27/18 desonide 0.05 % lotion 1 applic TOPICAL BID 02/27/18 methenamine hippurate 1 gram tablet 1 g PO DAILY tab 02/27/18 metronidazole 0.75 % lotion 1 applic TOPICAL BID 02/27/18 selenium sulfide 2.25 % shampoo 5 ml TOPICAL 2XW 02/27/18 simvastatin 20 mg tablet 40 mg PO QHS tab 02/27/18
--- NOTE | 2018-06-05 14:47 | PCM.DC.SUM ---
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) Palpitations (Chronic) Carotid bruit (Chronic) Nonrheumatic mitral valve regurgitation (Chronic) Aortic valve sclerosis (Chronic) HLD (hyperlipidemia) (Chronic) Lung abnormality (Chronic) left lung abrasion 1974 Arthritis (Chronic) GERD (gastroesophageal reflux disease) (Chronic) Hospital Course and Treatment Imaging Results: DIAGNOSTICS: CT/CT ANGIO ABD&PEL W/O&W/DYE IMPRESSION: No acute aortic aneurysm or dissection Moderate constipation without acute bowel findings [employer] END FINDER structures statistically physiologic (suspected fibroid uterus; consider follow-up nonemergent ultrasound) 06/05/18 05:55 Nuclear Stress Test - Treadmil [NM] Routine Interpretation: Rest and stress SPECT Cardiolite nuclear imaging status post realignment, normalization, and attenuation correction, demonstrates relative uniform tracer uptake and myocardial perfusion appearing within normal limits. There is end systolic thickening and brightening. The gated Cardiolite study demonstrates myocardial thickening and inward wall motion. The reported LVEF is 71 %. Impression: 1. Rest and stress SPECT Cardiolite nuclear imaging demonstrate relative uniform tracer uptake and myocardial perfusion appearing within normal limits. 2. The gated Cardiolite study reports an LVEF of 71 %. This note was generated with [employer] dictation software. It may contain incorrect words, spelling, and punctuation that were not noted in checking the note before signing. 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 Detected Incidentally at non-screening CT Operations: None Procedures: Stress test Summary of Care Provided: Hospital Course: The patient is a 83 year old F with past medical history of severe mitral insufficiency, hypertension, GERD, hyperlipidemia, hypertension, who presented to the emergency room with complaints of chest pain. She stated she had to episodes of excruciating substernal chest pain that occurred while she was eating lunch first, the other while she was standing. Both occurred the day of presentation. She has had associated shortness of breath and radiation to the back. It was relieved by sitting down at home. She was given nitro and aspirin and did have relief with this 2. In the emergency room she had CTA of the chest and abdomen. She had 2 lung nodules discovered that should be followed up as an outpatient. She had no PE. CTA showed evidence of emphysema. EKG and troponin were negative. Her creatinine was elevated and was felt to be acute kidney injury. She was given IV fluids for this and it resolved by the following day. D-dimer was checked which was negative. She was admitted to the PCU on telemetry for chest pain workup. Troponin was cycled and remained negative. She had no events on telemetry. Her EKGs remain negative. She underwent a stress test the following day which was negative. She had no further chest pain the following day. Her chest pain was felt to be musculoskeletal in nature. It may be also related to underlying GERD, as the pain occurred while eating, and she reported discontinuing zantac. She has never had a scope. I advised her to discuss this with her PCP. She was discharged home in stable condition. She need to follow-up with her medication assistant as directed and follow-up with her PCP in 1-2 weeks. This patient was seen by Bassem Fisher PA-C under the supervision of Doctor Leonard. [] - Physical Exam General: Alert, Oriented x3, Cooperative HEENT: Atraumatic, PERRLA, EOMI, Normocephalic Neck: Supple, No JVD, Negative Carotid Bruits Lungs: Clear to auscultation, Normal air movement Cardiovascular: Regular rate, No murmurs Abdomen: Bowel Sounds Present, Soft, Non Tender Extremities: No edema, Capillary Refill Less than 3 Seconds Skin: No rashes, No breakdown Musculoskeletal: No Tenderness to Palpation of Joints or Extremities Neurological: Cranial nerves II-XII grossly intact Psych/Mental Status: Appropriate, Anxious Vital Signs Temp Pulse Resp BP Pulse Ox 98.6 F 72 16 150/48 H 98 06/05/18 08:50 06/05/18 10:10 06/05/18 08:50 06/05/18 08:50 06/05/18 08:50 Oxygen Flow Rate (L/min) 98 Oxygen Delivery Method Room Air Weight: 118 lb 9.739 oz Body Mass Index (BMI) 23.1 Intake and Output for Last 24 Hours 06/03/18 06/04/18 06/05/18 23:59 23:59 23:59 Intake Total 240 / 240 465 / 465 Output Total 1450 / 1450 Balance 240 / 240 -985 / -985 Laboratory Tests Past 24 Hrs 06/04/18 06/04/18 06/04/18 18:00 18:00 18:00 WBC 6.7 RBC 3.51 L Hgb 11.2 L Hct 33.5 L MCV 95.4 MCH 31.9 MCHC 33.4 RDW 12.5 RDW Differential 43.2 Plt Count 215 MPV 9.9 Immature Gran % (Auto) 0.100 Neut % (Auto) 66.7 Lymph % (Auto) 19.9 Throckmorton % (Auto) 10.2 H Eos % (Auto) 2.8 Baso % (Auto) 0.3 Absolute Neuts (auto) 4.5 Absolute Lymphs (auto) 1.33 Total Counted Not Reportable PT 13.4 INR 1.0 APTT 26.6 D-Dimer Quant (PE/DVT) 3.25 H* Sodium 137 Potassium 4.1 Chloride 106 Carbon Dioxide 26.0 Anion Gap 5 BUN 27 H Creatinine 1.62 H Estim Creat Clear Calc 19.56 Est GFR (MDRD) Af Amer 39 L Est GFR (MDRD) Non-Af 32 L BUN/Creatinine Ratio 16.7 Glucose 122 H Serum Osmolality Calcium 9.0 Magnesium 2.2 Total Bilirubin 0.40 AST 18 ALT 16 Alkaline Phosphatase 57 Troponin I < 0.015 Total Protein 6.9 Albumin 3.7 Globulin 3.2 Albumin/Globulin Ratio 1.2 Triglycerides Cholesterol LDL Cholesterol VLDL Cholesterol HDL Cholesterol Lipase 168 Urine Osmolality Ur Random Sodium Urine Creatinine 06/04/18 06/04/18 06/04/18 21:20 21:20 22:25 WBC RBC Hgb Hct MCV MCH MCHC RDW RDW Differential Plt Count MPV Immature Gran % (Auto) Neut % (Auto) Lymph % (Auto) Throckmorton % (Auto) Eos % (Auto) Baso % (Auto) Absolute Neuts (auto) Absolute Lymphs (auto) Total Counted PT INR APTT D-Dimer Quant (PE/DVT) Sodium Potassium Chloride Carbon Dioxide Anion Gap BUN Creatinine Estim Creat Clear Calc Est GFR (MDRD) Af Amer Est GFR (MDRD) Non-Af BUN/Creatinine Ratio Glucose Serum Osmolality 293 Calcium Magnesium Total Bilirubin AST ALT Alkaline Phosphatase Troponin I < 0.015 Total Protein Albumin Globulin Albumin/Globulin Ratio Triglycerides Cholesterol LDL Cholesterol VLDL Cholesterol HDL Cholesterol Lipase Urine Osmolality Ur Random Sodium Urine Creatinine 67.60 06/04/18 06/04/18 06/05/18 22:25 22:25 00:15 WBC RBC Hgb Hct MCV MCH MCHC RDW RDW Differential Plt Count MPV Immature Gran % (Auto) Neut % (Auto) Lymph % (Auto) Throckmorton % (Auto) Eos % (Auto) Baso % (Auto) Absolute Neuts (auto) Absolute Lymphs (auto) Total Counted PT INR APTT D-Dimer Quant (PE/DVT) Sodium Potassium Chloride Carbon Dioxide Anion Gap BUN Creatinine Estim Creat Clear Calc Est GFR (MDRD) Af Amer Est GFR (MDRD) Non-Af BUN/Creatinine Ratio Glucose Serum Osmolality Calcium Magnesium Total Bilirubin AST ALT Alkaline Phosphatase Troponin I < 0.015 Total Protein Albumin Globulin Albumin/Globulin Ratio Triglycerides Cholesterol LDL Cholesterol VLDL Cholesterol HDL Cholesterol Lipase Urine Osmolality 444 Ur Random Sodium 57 Urine Creatinine 06/05/18 06/05/18 06/05/18 05:00 05:00 05:00 WBC 6.3 RBC 3.32 L Hgb 10.7 L Hct 31.7 L MCV 95.5 MCH 32.2 H MCHC 33.8 RDW 12.6 RDW Differential 43.2 Plt Count 193 MPV 10.3 Immature Gran % (Auto) 0.300 Neut % (Auto) 56.8 Lymph % (Auto) 29.0 Throckmorton % (Auto) 7.9 Eos % (Auto) 5.5 H Baso % (Auto) 0.5 Absolute Neuts (auto) 3.6 Absolute Lymphs (auto) 1.84 Total Counted Not Reportable PT 14.6 INR 1.2 APTT 32.0 D-Dimer Quant (PE/DVT) Sodium 143 Potassium 4.0 Chloride 111 H Carbon Dioxide 25.0 Anion Gap 7 BUN 22 H Creatinine 0.96 Estim Creat Clear Calc 33.01 Est GFR (MDRD) Af Amer 72 Est GFR (MDRD) Non-Af 59 L BUN/Creatinine Ratio 22.9 H Glucose 91 Serum Osmolality Calcium 8.4 L Magnesium Total Bilirubin AST ALT Alkaline Phosphatase Troponin I Total Protein Albumin Globulin Albumin/Globulin Ratio Triglycerides 77 Cholesterol 144 LDL Cholesterol 80 VLDL Cholesterol 15 HDL Cholesterol 49 Lipase Urine Osmolality Ur Random Sodium Urine Creatinine Discharge Diet: Low fat/ Low Cholesterol, 2000 mg Sodium Diet Discharge Activity: Return to Normal Activity Home Medications: Medications to take at Discharge Aspirin [Aspirin, Baby] 81 mg PO DAILY@0800 09/01/16 B Complex with Vitamin C [B-Complex Plus Vitamin C] 1 ea PO DAILY 09/01/16 Biotin 2,500 mcg PO DAILY 09/01/16 Calcium Carb/Mag Ox/Zinc Sulf [Coakfbq-Imqsdrcto-Mqzd Tablet] 2 ea PO DAILY 09/01/16 Cholecalciferol (Vitamin D3) [Vitamin D3] 2,000 unit PO DAILY 09/01/16 Flaxseed Oil 1,000 mg PO DAILY 09/01/16 Lactobac 41/B.bifid,Lactis/Fos [Ultimate Probiotic-10 25 Billn] 1 ea PO DAILY 09/01/16 Multivit-Min/Iron/Folic/Lutein [Centrum Silver Women Tablet] 1 ea PO DAILY 09/01/16 Oxybutynin [Ditropan] 5 mg PO DAILY 09/01/16 Pantoprazole Sodium [Protonix] 40 mg PO DAILY 09/01/16 krill oil 500 mg capsule mg PO 04/15/17 lisinopril 10 mg tablet 10 mg PO BID #180 tab 09/06/17 metoprolol tartrate 25 mg tablet 25 mg PO BID #180 tab 09/06/17 ascorbic acid (vitamin C) 500 mg capsule 500 mg PO DAILY cap 02/27/18 desonide 0.05 % lotion 1 applic TOPICAL BID 02/27/18 methenamine hippurate 1 gram tablet 1 g PO DAILY tab 02/27/18 metronidazole 0.75 % lotion 1 applic TOPICAL BID 02/27/18 selenium sulfide 2.25 % shampoo 5 ml TOPICAL 2XW 02/27/18 simvastatin 20 mg tablet 40 mg PO QHS tab 02/27/18 Primary Care Physician: Frantz Mckinney MD [Primary Care Provider] - Please follow up with your Primary Care Physician in: 2 weeks Please Follow Up With: Shon Shabazz MD When: As directed Disposition: Home Minutes spent on discharge:: 35 Patient Condition:: Stable Medical Necessity - Tobacco Use Smoking Status: Former smoker Meaningful Use Info Meaningful Use Diagnoses (Choose all that apply): None applicable <Trent Leonard - Last Filed: 06/05/18 17:33> Discharge Date and Diagnosis - Secondary Discharge Diagnosis Chronic Problems (Last Reviewed 06/04/18 @ 20:38 by Ran Milan MD) Non-rheumatic mitral valve disease (Chronic) Essential hypertension (Chronic) 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 I have independently interviewed and examined the patient and reviewed pertinent history, examination findings, laboratory and plan of management. I have reviewed the note and agree with the documented findings with the few additional points. In brief, patient is admitted for chest pain. She had serial troponin enzymes done which were negative. Thereafter she had pharmacological nuclear stress test which reported as negative stress-induced ischemia. She has history of GERD and was taking Protonix in the morning and Zantac in the evening and her symptoms of burping and belching and heartburn were well controlled. Recently received discontinued Zantac. She was advised to restart Zantac [id number] and follow with PCP in 1 to 2 weeks. Discharge medication reconciliation done. Discharge follow-up instructions completed. Discharge process discussed with the patient and all questions were answered to patient's satisfaction. Discharge plan was discussed with patient, patient's son and daughter near the bedside. I have discussed my assessment with Bassem SANTILLAN and orders have been reviewed. [] Subjective: Seen and examined. Patient is on baseline. No chest pain or shortness of breath. - Physical Exam General: Alert, Oriented x3, Cooperative HEENT: Atraumatic, PERRLA, EOMI, Normocephalic Neck: Supple, No JVD, Negative Carotid Bruits Lungs: Clear to auscultation, Normal air movement, No rhonchi, No wheeze, No rales Cardiovascular: Regular rate, Regular Rhythm, Normal S1, Normal S2, No murmurs Abdomen: Bowel Sounds Present, Soft, Non Tender, Non-Distended Extremities: No edema, Capillary Refill Less than 3 Seconds Skin: No rashes, No breakdown Musculoskeletal: No Tenderness to Palpation of Joints or Extremities, Arthritic Changes Neurological: Cranial nerves II-XII grossly intact, Deep Tendon Reflexes 2+/4 and Symmetrical, Neuro grossly intact Psych/Mental Status: Normal Affect, Appropriate Vital Signs Temp Pulse Resp BP Pulse Ox 98.6 F 72 16 150/48 H 98 06/05/18 08:50 06/05/18 10:10 06/05/18 08:50 06/05/18 08:50 06/05/18 08:50 Oxygen Flow Rate (L/min) 98 Oxygen Delivery Method Room Air Weight: 118 lb 9.739 oz Body Mass Index (BMI) 23.1 Intake and Output for Last 24 Hours 06/03/18 06/04/18 06/05/18 23:59 23:59 23:59 Intake Total 240 / 240 465 / 465 Output Total 1450 / 1450 Balance 240 / 240 -985 / -985 Laboratory Tests Past 24 Hrs 06/04/18 06/04/18 06/04/18 18:00 18:00 18:00 WBC 6.7 RBC 3.51 L Hgb 11.2 L Hct 33.5 L MCV 95.4 MCH 31.9 MCHC 33.4 RDW 12.5 RDW Differential 43.2 Plt Count 215 MPV 9.9 Immature Gran % (Auto) 0.100 Neut % (Auto) 66.7 Lymph % (Auto) 19.9 Throckmorton % (Auto) 10.2 H Eos % (Auto) 2.8 Baso % (Auto) 0.3 Absolute Neuts (auto) 4.5 Absolute Lymphs (auto) 1.33 Total Counted Not Reportable PT 13.4 INR 1.0 APTT 26.6 D-Dimer Quant (PE/DVT) 3.25 H* Sodium 137 Potassium 4.1 Chloride 106 Carbon Dioxide 26.0 Anion Gap 5 BUN 27 H Creatinine 1.62 H Estim Creat Clear Calc 19.56 Est GFR (MDRD) Af Amer 39 L Est GFR (MDRD) Non-Af 32 L BUN/Creatinine Ratio 16.7 Glucose 122 H Serum Osmolality Calcium 9.0 Magnesium 2.2 Total Bilirubin 0.40 AST 18 ALT 16 Alkaline Phosphatase 57 Troponin I < 0.015 Total Protein 6.9 Albumin 3.7 Globulin 3.2 Albumin/Globulin Ratio 1.2 Triglycerides Cholesterol LDL Cholesterol VLDL Cholesterol HDL Cholesterol Lipase 168 Urine Osmolality Ur Random Sodium Urine Creatinine 06/04/18 06/04/18 06/04/18 21:20 21:20 22:25 WBC RBC Hgb Hct MCV MCH MCHC RDW RDW Differential Plt Count MPV Immature Gran % (Auto) Neut % (Auto) Lymph % (Auto) Throckmorton % (Auto) Eos % (Auto) Baso % (Auto) Absolute Neuts (auto) Absolute Lymphs (auto) Total Counted PT INR APTT D-Dimer Quant (PE/DVT) Sodium Potassium Chloride Carbon Dioxide Anion Gap BUN Creatinine Estim Creat Clear Calc Est GFR (MDRD) Af Amer Est GFR (MDRD) Non-Af BUN/Creatinine Ratio Glucose Serum Osmolality 293 Calcium Magnesium Total Bilirubin AST ALT Alkaline Phosphatase Troponin I < 0.015 Total Protein Albumin Globulin Albumin/Globulin Ratio Triglycerides Cholesterol LDL Cholesterol VLDL Cholesterol HDL Cholesterol Lipase Urine Osmolality Ur Random Sodium Urine Creatinine 67.60 06/04/18 06/04/18 06/05/18 22:25 22:25 00:15 WBC RBC Hgb Hct MCV MCH MCHC RDW RDW Differential Plt Count MPV Immature Gran % (Auto) Neut % (Auto) Lymph % (Auto) Throckmorton % (Auto) Eos % (Auto) Baso % (Auto) Absolute Neuts (auto) Absolute Lymphs (auto) Total Counted PT INR APTT D-Dimer Quant (PE/DVT) Sodium Potassium Chloride Carbon Dioxide Anion Gap BUN Creatinine Estim Creat Clear Calc Est GFR (MDRD) Af Amer Est GFR (MDRD) Non-Af BUN/Creatinine Ratio Glucose Serum Osmolality Calcium Magnesium Total Bilirubin AST ALT Alkaline Phosphatase Troponin I < 0.015 Total Protein Albumin Globulin Albumin/Globulin Ratio Triglycerides Cholesterol LDL Cholesterol VLDL Cholesterol HDL Cholesterol Lipase Urine Osmolality 444 Ur Random Sodium 57 Urine Creatinine 06/05/18 06/05/18 06/05/18 05:00 05:00 05:00 WBC 6.3 RBC 3.32 L Hgb 10.7 L Hct 31.7 L MCV 95.5 MCH 32.2 H MCHC 33.8 RDW 12.6 RDW Differential 43.2 Plt Count 193 MPV 10.3 Immature Gran % (Auto) 0.300 Neut % (Auto) 56.8 Lymph % (Auto) 29.0 Throckmorton % (Auto) 7.9 Eos % (Auto) 5.5 H Baso % (Auto) 0.5 Absolute Neuts (auto) 3.6 Absolute Lymphs (auto) 1.84 Total Counted Not Reportable PT 14.6 INR 1.2 APTT 32.0 D-Dimer Quant (PE/DVT) Sodium 143 Potassium 4.0 Chloride 111 H Carbon Dioxide 25.0 Anion Gap 7 BUN 22 H Creatinine 0.96 Estim Creat Clear Calc 33.01 Est GFR (MDRD) Af Amer 72 Est GFR (MDRD) Non-Af 59 L BUN/Creatinine Ratio 22.9 H Glucose 91 Serum Osmolality Calcium 8.4 L Magnesium Total Bilirubin AST ALT Alkaline Phosphatase Troponin I Total Protein Albumin Globulin Albumin/Globulin Ratio Triglycerides 77 Cholesterol 144 LDL Cholesterol 80 VLDL Cholesterol 15 HDL Cholesterol 49 Lipase Urine Osmolality Ur Random Sodium Urine Creatinine Code Visit OBSV E&M: [id number] Observation care discharge
== END 2018-06-05 11:30 | disposition home or self-care (01) ==
LOC: ED 18:07 → PCU 20:43
PROVIDERS: Admitting Provider Hospitalist; Emergency Provider Emergency Medicine; Family Provider Family Medicine; PCP Family Medicine; Referring Provider Hospitalist; Visit Provider Internal Medicine
DX: R07.89 Other chest pain (principal); R06.02 Shortness of breath; I10 Essential (primary) hypertension; I25.10 Atherosclerotic heart disease of native coronary artery without angina pectoris; J44.9 Chronic obstructive pulmonary disease, unspecified; R91.8 Other nonspecific abnormal finding of lung field; E78.5 Hyperlipidemia, unspecified; K21.9 Gastro-esophageal reflux disease without esophagitis; M19.90 Unspecified osteoarthritis, unspecified site; Z79.899 Other long term (current) drug therapy; Z79.82 Long term (current) use of aspirin; Z87.891 Personal history of nicotine dependence; N17.9 Acute kidney failure, unspecified; I34.0 Nonrheumatic mitral (valve) insufficiency
CPT/HCPCS: 36415; 71275; 74174; 78452; 80048; 80053; 80061; 82570; 83690; 83735; 83930; 83935; 84300; 84484; 85025; 85379; 85610; 85730; 93005; 93017; 96360; 96361; 96372; 99218; 99285; A9500; J7030; Q9967; A4216; G0378

== ENCOUNTER → 2018-06-15 | Outpatient (CLI) | payer MEDICARE, OTHER, SELFPAY ==
[2018-06-04 21:43] VITALS: BMI 23.1
[2018-06-15 10:02] LABS: Absolute Lymphocyte Count 1.54 X10^3/ul (0.83-4.51); Absolute Neutrophil Count 3.4 X10^3/uL (2.0-7.7); Basophil# 0.04 X10^3/uL; Basophil% 0.6 % (0-1); Eosinophil# 0.47 X10^3/uL; Eosinophils% 7.6 % (0-5); Hematocrit 37.1 % (37-47); Hemoglobin 12.2 g/dl (12.0-15.0); Lymphocyte # 1.54 X10^3/ul (4.0); Lymphocyte % 24.9 % (19-41); Mean Corp Hgb Conc 32.9 g/gl (32-36); Mean Corpuscular Hgb 31.9 pg (27.0-32.0); Mean Corpuscular Volume 96.9 fL (81-99); Monocyte# 0.67 X10^3/uL; Monocyte% 10.8 % (0-10); Neutrophil # 3.44 X10^3/uL (2.7-7.7); Neutrophil % 55.8 % (47-70); Platelet Count 194 K/mm3 (150-450); RBC Distribution Width CV 12.3 % (11.6-14.6); RBC Distribution Width SD 42.2 fl (35.1-43.9); Red Blood Count 3.83 M/mm3 (4.2-5.4); White Blood Count 6.2 K/mm3 (4.4-11.0)
[2018-06-15 10:04] LABS: POSITIVE COUNT NO; POSITIVE DIFFERENTIAL NO; POSITIVE MORPHOLOGY NO
[2018-06-15 10:48] LABS: ALB/GLOB Ratio 1.1 RATIO (0.9-2.4); AST(SGOT) 21 U/L (15-37); Alanine Aminotransfer ALT/SGPT 18 U/L (13-56); Alkaline Phosphatase 60 U/L (45-117); Anion Gap 7 (5-15); BUN 24 mg/dL (7-18); BUN/Creat Ratio 17.9 RATIO (10-20); Bilirubin, Direct 0.15 mg/dL (0.00-0.30); Calcium,Total 9.1 mg/dL (8.5-10.1); Chloride 105 mmol/L (98-107); Cholesterol 176 mg/dL (200); Creatinine, Serum 1.34 mg/dL (0.55-1.02); EST Glomerular Filtration Rate 40 mL/min (>60); Est Glom Filt Rate - Afr Amer 49 mL/min (>60); Globulin 3.5 g/dL (2.2-4.2); Glucose 91 mg/dL (74-106); High Density Lipoprotein 53 mg/dL; Potassium 4.5 mmol/L (3.5-5.1); Protein, Total 7.5 g/dL (6.4-8.2); Sodium Level 140 mmol/L (136-145); Triglycerides 104 mg/dL; Very Low Density Lipoprotein 21 mg/dL (5-40)
== END | disposition home or self-care (01) ==
LOC: LAB 08:55
PROVIDERS: Family Provider Family Medicine; PCP Family Medicine; Referring Provider Nurse Practitioner Family; Visit Provider Nurse Practitioner Family
DX: I10 Essential (primary) hypertension (principal); E78.49 Other hyperlipidemia
CPT/HCPCS: 36415; 80053; 80061; 82248; 85025

== ENCOUNTER → 2018-09-11 | Outpatient (CLI) | payer MEDICARE, OTHER, SELFPAY ==
[2018-09-01 10:52] VITALS: BMI 22.6
--- NOTE | 2018-09-11 09:52 | CDU_ITS ---
Reason For Study: Carotid artery disease Rt. Velocities/BP Lt. Velocities/BP Prox CCA 98.6/9 cm/sec. Prox CCA 116.1/9.3 cm/sec. Mid CCA 83.9/6.5 cm/sec. Mid CCA 106.5/7.9 cm/sec. Dist CCA 79/9 cm/sec. Dist CCA 101/7.9 cm/sec. Prox ICA 59.7/8 cm/sec. Prox ICA 153.7/16.3 cm/sec. Mid ICA 94.8/13.5 cm/sec. Mid ICA 138.9/11.6 cm/sec. Dist ICA 124.8/11.3 cm/sec. Dist ICA 132.2/21.9 cm/sec. Rt. ICA/CCA = 1.5. Lt. ICA/CCA = 1.4. Prox ECA 107.2 cm/sec. Prox ECA 354.2 cm/sec. Rt. Vert. 70.6/8 cm/sec. Lt. Vert. 48.5/8.8 cm/sec. Right Extracranial There is homogeneous, smooth atherosclerotic plaque noted in the right common carotid artery. There is homogeneous, smooth atherosclerotic plaque noted in the right internal carotid artery. There is intimal thickening but no significant atherosclerotic plaque noted in the right external carotid artery. Antegrade flow is noted in the right vertebral artery. There is heterogeneous, irregular atherosclerotic plaque noted in the right bulb. Left Extracranial There is heterogeneous, irregular atherosclerotic plaque noted in the left common carotid artery. There is homogeneous, smooth atherosclerotic plaque noted in the left internal carotid artery. There is heterogeneous, irregular atherosclerotic plaque noted in the left external carotid artery. Antegrade flow is noted in the left vertebral artery. There is heterogeneous, irregular atherosclerotic plaque noted in the left bulb. Procedure Carotid Duplex 62027. Exam performed in department. Interpretation Summary Irregular calcific plague at the proximal right internal carotid with <50% stenosis. <50% stenosis right external carotid Calcific irregular plague at the proximal left internal and external carotids 50-69% stenosis left internal carotid >50% stenosis left external carotid Patent, antegrade, <50% stenosis bilateral vertebrals Findings are similar to 12/21/16 Ordering Physician: Shon Shabazz Referring Physician: Frantz Mckinney Performed By: Eden Kaplan RVT
== END | disposition home or self-care (01) ==
PROVIDERS: Family Provider Family Medicine; PCP Family Medicine; Referring Provider Internal Medicine Cardiovascular Disease; Visit Provider Internal Medicine Cardiovascular Disease
DX: I65.23 Occlusion and stenosis of bilateral carotid arteries (principal)
CPT/HCPCS: 93880

== ENCOUNTER → 2018-12-22 08:25 | Outpatient (CLI) | payer MEDICARE, OTHER, SELFPAY ==
[2018-09-01 10:52] VITALS: BMI 22.6
[2018-12-22 10:23] LABS: AST(SGOT) 19 U/L (15-37); Alanine Aminotransfer ALT/SGPT 18 U/L (13-56); Albumin, Serum 3.9 g/dL (3.2-5.0); Alkaline Phosphatase 49 U/L (45-117); Bilirubin, Direct 0.13 mg/dL (0.00-0.30); Cholesterol 200 mg/dL (200); Globulin 3.6 g/dL (2.2-4.2); High Density Lipoprotein 72 mg/dL; Protein, Total 7.5 g/dL (6.4-8.2); Triglycerides 74 mg/dL; Very Low Density Lipoprotein 15 mg/dL (5-40)
== END ==
PROVIDERS: Family Provider Family Medicine; PCP Family Medicine; Referring Provider Nurse Practitioner Family; Visit Provider Nurse Practitioner Family
DX: E78.5 Hyperlipidemia, unspecified (principal)
CPT/HCPCS: 36415; 80061; 80076

== ENCOUNTER → 2019-03-05 13:47 | Outpatient (CLI) | payer MEDICARE, OTHER, SELFPAY ==
[2018-09-01 10:52] VITALS: BMI 22.6
[2019-03-05 14:09] LABS: D-Dimer Quantitative (DVT/PE) 3.65 FEU/ug/m (0.27-0.49)
== END ==
PROVIDERS: PCP Family Medicine; Referring Provider Family Medicine; Visit Provider Family Medicine
DX: R07.9 Chest pain, unspecified (principal)
CPT/HCPCS: 84484; 85379

== ENCOUNTER → 2019-03-05 15:02 | Outpatient (CLI) | payer MEDICARE, OTHER, SELFPAY ==
[2018-09-01 10:52] VITALS: BMI 22.6
--- NOTE | 2019-03-05 15:14 | CT_ITS ---
STUDY: CTA CHEST REASON FOR EXAM: Female, 83 years old. CHEST AND BACK PAIN. Elevated d-dimer. Prev lt lung surgery. Mitral valve prolapse, arrythmia and HTN RADIATION DOSAGE (If Supplied By Facility): CTDIvol = ( 6.51 ) mGy, DLP = ( 129.24 ) mGycm TECHNIQUE: The examination was performed with the intravenous administration of Isovue 370 75ml. Post-processing of the angiographic images was performed, with multiplanar reformation and 3D reconstruction. Individualized dose optimization techniques were used for this CT. COMPARISON: 06/04/2018 FINDINGS: Normal enhancement of the main pulmonary artery and right and left pulmonary arteries. Normal enhancement of the bilateral peripheral pulmonary arteries. There is no demonstrated pulmonary embolism. There is atherosclerotic calcification of the aortic arch with tortuosity. There is no demonstrated aortic dissection. There is mild cardiac enlargement. There are coronary calcifications. Normal mediastinum. Normal hilar regions. There is stable atelectasis and/or peripheral thickening in the lingula. Normal visualized trachea and bronchi. There is stable biapical scarring. There few scattered emphysematous blebs. There is no focal consolidation. Normal pleura. Normal chest wall structures. The bones are osteopenic patient is kyphotic. Normal visualized upper abdomen. CT/CTA Chest W/WO Contrast IMPRESSION: Chronic apical scarring scattered areas of emphysematous change could consider chronic obstructive pulmonary disease. No evidence of pulmonary embolism. Mild cardiac enlargement. No evidence of aortic dissection. Electronically Signed: Halley Poole MD at 16:55 EST Tel , Service support ,
== END ==
PROVIDERS: PCP Family Medicine; Referring Provider Family Medicine; Visit Provider Family Medicine
DX: R07.89 Other chest pain (principal); R79.89 Other specified abnormal findings of blood chemistry
CPT/HCPCS: 71275; 84484; 85379; Q9967

== ENCOUNTER → 2019-04-04 12:54 | Outpatient (CLI) | payer MEDICARE, OTHER, SELFPAY ==
[2019-03-21 10:42] VITALS: BMI 22.9
--- NOTE | 2019-04-04 12:55 | ECHOD_ITS ---
Reason For Study: MURMUR Procedure This was a 2D Doppler, Color Flow transthoracic echocardiogram. The study was technically difficult. Exam performed in department. Left Ventricle Normal LV size. Mid cavitary false tendon noted. Left ventricular systolic function is hyperdynamic. The estimated ejection fraction is 75 %. No regional wall motion abnormalities noted. Right Ventricle Normal RV size. Normal systolic function. Atria Normal left atrium. Normal right atrium. No doppler evidence for ASD. Mitral Valve There is no mitral annular calcification. Anterior leaflet diffuse mitral valve thickening. Moderately severe (3+) mitral valve insufficiency. Tricuspid Valve Normal tricuspid valve. Trivial tricuspid valve insufficiency. Right ventricular systolic pressure estimated to be 43 mmHg. Aortic Valve Trisinus/trileaflet aortic valve. Mild diffuse aortic valve thickening. Mild aortic stenosis. Pulmonic Valve The pulmonic valve is not well visualized. Great Vessels Normal sized aortic root. Pericardium/Pleural No pericardial effusion. MMode/2D Measurements & Calculations LVIDd: 3.2 cm IVSd: 0.99 cm LVOT diam: 1.8 cm LVIDs: 1.9 cm LVPWd: 1.1 cm LVOT area: 2.6 cm2 RVDd: 3.0 cm FS: 40.0 % Ao root diam: 2.5 cm LAV(MOD-bp): 41.2 ml LVAd ap4: 25.0 cm2 LAV(MOD-bp) Indexed: 27.9 ml/m2 EDV(MOD-sp4): 67.8 ml LAV(MOD-sp2): 41.8 ml EDV(sp4-el): 71.1 ml LAV(MOD-sp4): 34.7 ml LVAs ap4: 11.4 cm2 ESV(MOD-sp4): 18.2 ml ESV(sp4-el): 18.5 ml EF(MOD-sp4): 73.2 % EF(sp4-el): 74.0 % SV(MOD-sp4): 49.6 ml SV(sp4-el): 52.6 ml LA A4 area: 14.1 cm2 LA dimension(2D): 3.2 cm RA A4 area: 11.8 cm2 Time Measurements MV dec time: 0.29 sec Doppler Measurements & Calculations MV E max david: 166.2 cm/sec Lat Peak E' David: 7.4 cm/sec Med Peak E' David: 4.4 cm/sec MV A max david: 85.3 cm/sec E/E' lat: 22.4 E/E' med: 37.8 MV E/A: 1.9 PA V2 max: 123.4 cm/sec TR max david: 316.5 cm/sec TR max P.2 mmHg Interpretation Summary The study was technically difficult. Left ventricular systolic function is hyperdynamic. The estimated ejection fraction is 75 %. Mid cavitary false tendon noted. Anterior leaflet diffuse mitral valve thickening. Moderately severe (3+) mitral valve insufficiency. Trivial tricuspid valve insufficiency. Mild aortic stenosis. (Planimetery: 1.9 cm^2) Right ventricular systolic pressure estimated to be 43 mmHg. Transmitral diastolic flow velocities suggest diastolic dysfunction (pseudonormal pattern). Ordering Physician: Shon Shabazz Referring Physician: PITA RICHARDS Performed By: Sybil Vieira RDCS
== END ==
PROVIDERS: PCP Family Medicine; Referring Provider Internal Medicine Cardiovascular Disease; Visit Provider Internal Medicine Cardiovascular Disease
DX: I25.10 Atherosclerotic heart disease of native coronary artery without angina pectoris (principal)
CPT/HCPCS: 93306

== ENCOUNTER 2019-04-10 10:34 | Inpatient (IN) | payer MEDICARE, OTHER, SELFPAY ==
[2019-03-21 10:42] VITALS: BMI 22.9
[2019-04-10] VITALS (9 sets, daily range): BP systolic 104–149; BP diastolic 37–66; PULSE 57–87; RESP 18–22; TEMP 36.6–37.7; O2SAT 88–99; BMI 22.4; BMI 22.7
--- NOTE | 2019-04-10 11:03 | RAD_ITS ---
STUDY: X-RAY CHEST REASON FOR EXAM: Female, 83 years old. DYSPNEA, SOB TECHNIQUE: Single AP portable view of the chest. COMPARISON: 09/01/2016 FINDINGS: Patchy alveolar opacities in the right lung including the right upper lobe and in the right cardiophrenic angle suggestive of multifocal pneumonia. There is no demonstrated pleural abnormality. There is moderate cardiac enlargement. Normal mediastinum and delfina. Normal visualized pulmonary arteries. Normal visualized aortic arch and descending thoracic aorta. Normal visualized thoracic spine. Normal visualized ribs, clavicles, and shoulders. There is no demonstrated abnormality of the visualized soft tissue structures of the upper abdomen. RAD/Chest 1 View (Portable) IMPRESSION: Multifocal right upper lobe and right lower lobe pneumonia. Electronically Signed: Omar Echols MD at 11:54 EST Tel , Service support ,
[2019-04-10 11:28] LABS: Absolute Lymphocyte Count 0.52 X10^3/uL (0.83-4.51); Absolute Neutrophil Count 4.4 X10^3/uL (2.0-7.7); Eosinophil# 0.16 X10^3/uL; Eosinophils% 2.8 % (0-5); Hemoglobin 11.1 g/dL (12.0-15.0); Lymphocyte # 0.52 X10^3/ul (4.0); Mean Corp Hgb Conc 33.6 g/dL (32-36); Mean Corpuscular Hgb 33.1 pg (27.0-32.0); Mean Corpuscular Volume 98.5 fL (81-99); Mean Platelet Vol. 10.4 fl (6.2-12.0); Monocyte# 0.67 X10^3/uL; Monocyte% 11.6 % (0-10); NRBC Flagged by Analyzer 0 % (0-5); Neutrophil # 4.38 X10^3/uL (2.7-7.7); Neutrophil % 76.1 % (47-70); POSITIVE DIFFERENTIAL YES; POSITIVE MORPHOLOGY YES; Platelet Count 131 K/mm3 (150-450); RBC Distribution Width CV 12.6 % (11.6-14.6); RBC Distribution Width SD 45.3 fl (35.1-43.9); Red Blood Count 3.35 M/mm3 (4.2-5.4); White Blood Count 5.8 K/mm3 (4.4-11.0)
[2019-04-10 11:30] LABS: Differential Indicated SCAN CRITERIA MET
[2019-04-10 11:39] LABS: Anion Gap 6 (5-15); BUN 29 mg/dL (7-18); BUN/Creat Ratio 23.4 RATIO (10-20); Calcium,Total 8.4 mg/dL (8.5-10.1); Chloride 104 mmol/L (98-107); Creatinine, Serum 1.24 mg/dL (0.55-1.02); EST Glomerular Filtration Rate 44 mL/min (>60); Est Glom Filt Rate - Afr Amer 53 mL/min (>60); Estimated Creatinine Clearance 25.56 ml/min; Glucose 108 mg/dL (74-106); Potassium 4.2 mmol/L (3.5-5.1); Sodium Level 136 mmol/L (136-145)
[2019-04-10 11:52] LABS: Ovalocyte RARE
--- NOTE | 2019-04-10 12:07 | ED.VISSUMM ---
- ER Visit Summary Date of Service: 04/10/19 Chief Complaint: [Shortness of breath] History of Present Illness: The patient is a 83 F [presents to the emergency department with 2-day history of shortness of breath. Patient complains of a cough. She is had fever up to 102 yesterday. Patient was seen by primary care physician's office yesterday and she had an influenza screen and chest x-ray. Patient tells me the chest x-ray looked clear. Today she was called and told that her influenza was positive for influenza A. After discussing with the patient how she was feeling today she was advised to come to the emergency department. Patient denies any chest pain. She does describe some dyspnea especially with activity. Patient does have history of hypertension. No prior surgical history.] Physical Examination: [HEENT-PERRLA, EOMI. Cranial nerves II through XII grossly intact. TMs clear. Mucous membranes moist. No adenopathy. Cardiovascular-regular rate and rhythm without murmur or ectopy Lungs-clear to auscultation, chest wall stable without crepitus or subcu emphysema Abdomen-normoactive bowel sounds, soft, nontender, no rebound or rigidity, no peritoneal signs. Extremities-intact ?4, normal range of motion, normal pulses, atraumatic] Test Results: [CBC with differential obtained showed a white count of 5.8, hemoglobin 11.1, hematocrit 33. Chemistries unremarkable. Chest x-ray showed right upper lobe and right lower lobe infiltrates] Emergency Department Course and Treatment: [Patient was started on Tamiflu 75 mg p.o. IV line established and patient was given normal saline. Patient had blood cultures ordered. Patient started on Rocephin and Zithromax IV. Lactate ordered and pending. Clinically I do not feel patient is septic.] Treatment Plan: [Admit for oxygen and IV antibiotics] Disposition: [Admit] Impression: [Influenza Community-acquired pneumonia Hypoxemia] This note was generated with [employer] dictation software. It may contain incorrect words, spelling, and punctuation that were not noted in review of the chart prior to signing ED Disposition - Plan for ED Patient: Referrals: Frantz Mckinney MD [Primary Care Provider] -
--- NOTE | 2019-04-10 12:08 | NURSING ---
MED SURG KITTOE HYPOXIA, PNEUMONIA, INFLUENZA
--- NOTE | 2019-04-10 12:15 | PCM.HP.STD ---
Problem List (1) Influenza A Status: Acute (2) Pneumonia Status: Acute (3) Bilateral carotid artery stenosis Status: Chronic (4) Pure hypercholesterolemia Status: Chronic (5) Non-rheumatic mitral valve disease Status: Chronic (6) Essential hypertension Status: Chronic (7) Atherosclerotic heart disease of [place] coronary artery without angina pectoris Status: Chronic Qualifiers: [place] vs. transplanted heart: [place] heart Qualified Code(s): I25.10 - Atherosclerotic heart disease of [place] coronary artery without angina pectoris (8) Palpitations Status: Chronic (9) Carotid bruit Status: Chronic (10) Nonrheumatic mitral valve regurgitation Status: Chronic (11) Aortic valve sclerosis Status: Chronic (12) Abnormal stress test Status: Acute (13) Lung abnormality Status: Chronic Comment: left lung abrasion 1974 (14) Arthritis Status: Chronic (15) GERD (gastroesophageal reflux disease) Status: Chronic (16) Chest pain Status: Acute Qualifiers: Chest pain type: precordial pain Qualified Code(s): R07.2 - Precordial pain History of Present Illness Date of Admission: 04/10/19 Chief Complaint: Generalized weakness and difficulty breathing The patient is a 83 year old F with multiple comorbidities who presented to the emergency department with generalized weakness and shortness of breathing. Patient symptoms started a couple of days prior to her admission. She did develop upper respiratory tract symptoms which she attributed to a cold. She also had a nonproductive cough. She did experience fever as well as chills. In view of worsening symptoms patient did follow-up with her PCP. As part of her management acute influenza assay was ordered. Patient was called the following day to present to the emergency department after the assay came back positive for acute influenza A. She presented to the emergency department where patient was found to be relatively hypoxic. Chest x-ray obtained in the ED demonstrated multi focal right upper lobe and right lower lobe pneumonia. Antibiotics were initiated per protocol admitted to regular nursing floor for further management Past Medical History Past Medical History (Chronic Problems): Chronic Problems (Last Reviewed 04/10/19 @ 12:[address] Bao Maher MD) Bilateral carotid artery stenosis (Chronic) Pure hypercholesterolemia (Chronic) Non-rheumatic mitral valve disease (Chronic) Essential hypertension (Chronic) Atherosclerotic heart disease of [place] coronary artery without angina pectoris (Chronic) Palpitations (Chronic) Carotid bruit (Chronic) Nonrheumatic mitral valve regurgitation (Chronic) Aortic valve sclerosis (Chronic) Lung abnormality (Chronic) left lung abrasion 1974 Arthritis (Chronic) GERD (gastroesophageal reflux disease) (Chronic) Medical History: Medical History (Last Reviewed 04/10/19 @ 12:[address] Bao Maher MD) Bilateral carotid artery stenosis (Chronic) I65.23 Pure hypercholesterolemia (Chronic) E78.00 Non-rheumatic mitral valve disease (Chronic) I34.9 Essential hypertension (Chronic) I10 Atherosclerotic heart disease of [place] coronary artery without angina pectoris (Chronic) I25.10 Palpitations (Chronic) R00.2 Carotid bruit (Chronic) R09.89 Nonrheumatic mitral valve regurgitation (Chronic) I34.0 Aortic valve sclerosis (Chronic) I35.8 Abnormal stress test (Acute) Encounter for long-term current use of high risk medication Z79.899 Hiatal hernia K44.9 IBS (irritable bowel syndrome) K58.9 CAD (coronary artery disease) (Inactive) I25.10 Hypertension (Inactive) I10 Mitral valve disease (Inactive) I05.9 Allergies chlorhexidine Allergy (Verified 04/10/19 10:38) Rash venom-honey bee [bee venom (honey bee)] Allergy (Verified 04/10/19 10:38) Anaphylaxis hydrocodone bitartrate [From Vicodin] Adverse Reaction (Verified 04/10/19 10:38) Other BLOATED AND CONSTIPATION quinine Adverse Reaction (Verified 04/10/19 10:38) Diarrhea Sulfa (Sulfonamide Antibiotics) Adverse Reaction (Verified 04/10/19 10:38) Unknown hospital bath blankets Allergy (Uncoded 04/10/19 10:38) Unknown Home Medications: Ambulatory Orders Medication Instructions Recorded Aspirin [Aspirin, Baby] 81 mg PO DAILY@0800 09/01/16 B Complex with Vitamin C 1 ea PO DAILY 09/01/16 [B-Complex Plus Vitamin C] Biotin 2,500 mcg PO DAILY 09/01/16 Calcium Carb/Mag Ox/Zinc Sulf 2 ea PO DAILY 09/01/16 [Tafwxpd-Dypjvitam-Jgam Tablet] Cholecalciferol (Vitamin D3) 2,000 unit PO DAILY 09/01/16 [Vitamin D3] Flaxseed Oil 1,000 mg PO DAILY 09/01/16 Lactobac 41/B.bifid,Lactis/Fos 1 ea PO DAILY 07/19/17 [Ultimate Probiotic-10 25 Billn] Multivit-Min/Iron/Folic/Lutein 1 ea PO DAILY 09/01/16 [Centrum Silver Women Tablet] Oxybutynin [Ditropan] 5 mg PO DAILY 09/01/16 ascorbic acid (vitamin C) 500 mg 500 mg PO DAILY cap 02/27/18 capsule desonide 0.05 % lotion 1 applic TOPICAL BID 02/27/18 methenamine hippurate 1 gram tablet 1 g PO DAILY tab 02/27/18 metronidazole 0.75 % lotion 1 applic TOPICAL BID 02/27/18 selenium sulfide 2.25 % shampoo 5 ml TOPICAL 2XW 02/27/18 lisinopril 20 mg tablet 20 mg PO BID #180 tab 09/26/18 metoprolol tartrate 25 mg tablet 25 mg PO BID #180 tab 09/26/18 simvastatin 20 mg tablet 20 mg PO QHS #90 tab 09/26/18 krill oil 500 mg capsule 500 mg PO DAILY cap 03/21/19 pantoprazole 40 mg tablet,delayed 80 mg PO DAILY tab 03/21/19 release Surgical History: Surgical History (Last Updated 03/21/19 @ 10:49 by Karuna Dixon) History of hernia repair Onset Date: ~12/2006 Z98.890, Z87.19 History of local excision of skin lesion Z98.890 Nose History of tubal ligation Z98.51 Surgical History: cataract, - - D&C, pleurodesis of the long secondary to ruptured bleb Psychiatric History: No pertinent psych hx [employer]ER History: No pertinent [employer] history Smoking Status: Former smoker - *Family History Maternal Family History: Family History (Last Reviewed 04/10/19 @ 12:[address] Bao Maher MD) Father CAD (coronary artery disease) Myocardial infarction Mother Myocardial infarction CAD (coronary artery disease) History Items: No pertinent history Paternal Family History: Family History (Last Reviewed 04/10/19 @ 12:[address] Bao Maher MD) Father CAD (coronary artery disease) Myocardial infarction Mother Myocardial infarction CAD (coronary artery disease) History Items: No pertinent history Review of Systems Constitutional: Reports: Chills, Fever, Malaise, Weakness HEENT: Reports: Sinus Congestion. Denies: Head Aches, Sinus Drainage Cardiovascular: Denies: Chest Pain, Orthopnea, Palpitations, Paroxysmal Noc. Dyspnea Respiratory: Reports: Cough, Shortness of Breath Gastrointestinal: Denies: Abdominal Pain, Hematemesis, Hematochezia, Nausea, Melena, Vomiting Genitourinary: Denies: Dysuria, Frequency, Hematuria, Urgency Musculoskeletal: Denies: Joint Pain, Joint Tenderness Skin: Denies: Rash Neurological: Denies: Focal weakness, Numbness, Tingling Psychiatric: Denies: Homicidal Ideations, Suicidal Ideations VTE Information - Inpt Only VTE Present on Admission: No VTE Mechan Device Prophylaxis: None VTE Pharm Prophylaxis ordered?: Yes Patient Problems: Active and Suspected Problems (Last Reviewed 04/10/19 @ 12:[address] Bao Maher MD) Influenza A (Acute) Pneumonia (Acute) Objective: GENERAL: Appears ill looking HEENT: Atraumatic; EYES; Anicteric, Normal Conjunctiva NECK; supple, normal thyroid, RESPIRATORY: Diminished to auscultation CARDIOVASCULAR: Regular S1 S2, GI: soft, normoactive bowel sounds, : No Renal angle tenderness; EXTREMITIES: No edema, no clubbing, MUSCULOSKELETAL: no muscle waisting NEURO: Awake; no lateralizing signs. SKIN: No Rash PSYCH; Flat affect - Physical Exam Vitals/I&O's: Vital Signs Temp Pulse Resp BP Pulse Ox 99.8 F H 87 20 H 149/54 H 91 04/10/19 10:38 04/10/19 10:38 04/10/19 10:38 04/10/19 10:38 04/10/19 10:38 Oxygen Delivery Method Room Air Weight: 52.163 kg Body Mass Index (BMI) 22.4 Laboratory Results 04/10/19 11:20: WBC 5.8, RBC 3.35 L, Hgb 11.1 L, Hct 33.0 L, MCV 98.5, MCH 33.1 H, MCHC 33.6, RDW Std Deviation 45.3 H, RDW Coeff of Wilner 12.6, Plt Count 131 L, MPV 10.4, Immature Gran % (Auto) 0.500, Neut % (Auto) 76.1 H, Lymph % (Auto) 9.0 L, [place] % (Auto) 11.6 H, Eos % (Auto) 2.8, Baso % (Auto) 0.0, Absolute Neuts (auto) 4.4, Absolute Lymphs (auto) 0.52 L, Nucleated RBC % 0, Ovalocytes RARE 04/10/19 11:20: Sodium 136, Potassium 4.2, Chloride 104, Carbon Dioxide 26.0, Anion Gap 6, BUN 29 H, Creatinine 1.24 H, Estim Creat Clear Calc 25.56, Est GFR (MDRD) Af Amer 53 L, Est GFR (MDRD) Non-Af 44 L, BUN/Creatinine Ratio 23.4 H, Glucose 108 H, Calcium 8.4 L Current Medications Sodium Chloride () 1,000 mls @ 150 mls/hr IV .Q6H40M KENDRA Ceftriaxone Sodium (Rocephin) 1 gm in 50 mls @ 100 mls/hr IV X1 ONE Stop: 04/10/19 12:24 Azithromycin 500 mg/ Dextrose 255 mls @ 250 mls/hr IV X1 ONE Stop: 04/10/19 12:56 Assessment/Plan All Active Problems (Last Reviewed 04/10/19 @ 12:[address] Bao Maher MD) Influenza A (Acute) Pneumonia (Acute) Abnormal stress test (Acute) Chest pain (Acute) An 83-year-old lady presented with progressive generalized weakness found to have acute influenza A with superimposed multifocal pneumonia 1. Acute respiratory insufficiency -secondary to combination of acute influenza A infection as well as superimposed pneumonia 2. Acute influenza A infection ?Admitted to regular nursing floor patient started on Tamiflu 3. Community-acquired pneumonia ?Patient is at risk for suspected MRSA in view of the underlying pneumonia with extensive infiltrate. Blood and sputum cultures sent. Patient placed on Rocephin and Zithromax in addition to vancomycin, MRSA PCR sent and placed on oxygen titrated to keep also is greater than 90 4. Valvular heart disease ?With history of aortic valve sclerosis as well as mitral valve insufficiency . Essential hypertension ?Patient blood pressure stable did continue with home meds 6. Dyslipidemia ~patient is on statin therapy, continued at home dose 7. DVT prophylaxis ?Lovenox Advance planning; did discuss with the patient and family regarding advanced directives as well as CODE STATUS. Did explain the various scenarios involved ( FULL CODE, DNR CCA, DNR CCA with no intubation, and DNR CC and what each meant) patient elected to be full code. Order was placed. Time spent on discussion 18 minutes. Code Visit Inpatient E&M: 31624 Subs Hosp L3 Procedures: 39806 Advncd Care Plan 30 Min
[2019-04-10] MEDS: 0.9% Normal Saline 1,000 ML 150 ML IV ×2 (12:47→21:30)
[2019-04-10] MEDS: Oseltamivir Phosphate 75 MG Capsule PO (12:47)
[2019-04-10] MEDS: Ceftriaxone 1 GM/50 ML BAG IV (12:48)
[2019-04-10 13:11] LABS: Lactic Acid 0.9 mmol/L (0.4-1.9)
[2019-04-10] MEDS: Albuterol 2.5 MG/3 ML VIAL.NEB. INHALATION (14:07)
[2019-04-10 16:47] LABS: M R Staph aureus DNA By PCR Negative (Negative); Probe Check PASS; Specimen Processing Control PASS
[2019-04-10] MEDS: Methenamine Hippurate 1 GM Tablet PO (18:19)
[2019-04-10] MEDS: Metoprolol Tartrate 25 MG Tablet PO (21:27)
[2019-04-10] MEDS: Atorvastatin Calcium 10 MG Tablet PO (21:27)
[2019-04-10] MEDS: Lisinopril 20 MG Tablet PO (21:28)
[2019-04-11] VITALS (12 sets, daily range): BP systolic 142–148; BP diastolic 55–88; PULSE 75–89; RESP 16–26; TEMP 36.4–37.5; O2SAT 92–98
[2019-04-11] MEDS: 0.9% Normal Saline 1,000 ML 150 ML IV ×3 (04:11→17:04)
[2019-04-11] MEDS: Albuterol 2.5 MG/3 ML VIAL.NEB. INHALATION (04:31)
[2019-04-11 06:10] LABS: Absolute Lymphocyte Count 1.16 X10^3/uL (0.83-4.51); Absolute Neutrophil Count 4.3 X10^3/uL (2.0-7.7); Basophil# 0.02 X10^3/uL; Basophil% 0.3 % (0-1); Eosinophil# 0.02 X10^3/uL; Eosinophils% 0.3 % (0-5); Hematocrit 32.8 % (37-47); Hemoglobin 10.6 g/dL (12.0-15.0); Lymphocyte # 1.16 X10^3/ul (4.0); Lymphocyte % 19.5 % (19-41); Mean Corp Hgb Conc 32.3 g/dL (32-36); Mean Corpuscular Hgb 32.5 pg (27.0-32.0); Mean Corpuscular Volume 100.6 fL (81-99); Mean Platelet Vol. 10.8 fl (6.2-12.0); Monocyte% 6.7 % (0-10); NRBC Flagged by Analyzer 0 % (0-5); Neutrophil # 4.32 X10^3/uL (2.7-7.7); Neutrophil % 72.7 % (47-70); POSITIVE MORPHOLOGY YES; Platelet Count 119 K/mm3 (150-450); RBC Distribution Width CV 12.9 % (11.6-14.6); RBC Distribution Width SD 47.7 fl (35.1-43.9); Red Blood Count 3.26 M/mm3 (4.2-5.4)
[2019-04-11 06:25] LABS: Differential Indicated SCAN CRITERIA MET
[2019-04-11 06:35] LABS: Anion Gap 7 (5-15); BUN 23 mg/dL (7-18); BUN/Creat Ratio 23.5 RATIO (10-20); Calcium,Total 7.8 mg/dL (8.5-10.1); Chloride 107 mmol/L (98-107); Creatinine, Serum 0.98 mg/dL (0.55-1.02); EST Glomerular Filtration Rate 58 mL/min (>60); Est Glom Filt Rate - Afr Amer 70 mL/min (>60); Estimated Creatinine Clearance 32.34 ml/min; Glucose 95 mg/dL (74-106); Potassium 3.8 mmol/L (3.5-5.1); Sodium Level 137 mmol/L (136-145)
[2019-04-11 06:53] LABS: Differential Comment SCANNED; Platelet Estimate SLT DEC (ADEQ); Red Cell Morphology NORM C+C NORMAL (NORM C&C)
[2019-04-11 06:54] LABS: Atypical Lymphocyte RARE %; Reactive Lymphocyte 1+
--- NOTE | 2019-04-11 09:42 | NURSING ---
O2 SAT 98% ON 3L NC - DECREASED TO 2L
[2019-04-11] MEDS: Metoprolol Tartrate 25 MG Tablet PO ×2 (09:43→21:36)
[2019-04-11] MEDS: Tolterodine Tartrate 2 MG CAP.SA PO (09:43)
[2019-04-11] MEDS: Aspirin 81 MG TAB.CHEW PO (09:43)
[2019-04-11] MEDS: Multivitamins,Ther W-Minerals Tablet 1 TABLET PO (09:43)
[2019-04-11] MEDS: Vitamin B Comp W-C Capsule 1 CAP PO (09:43)
[2019-04-11] MEDS: Pantoprazole Sodium 40 MG Tablet 80 MG PO (09:44)
[2019-04-11] MEDS: Calcium Carb/Vitamin D 1 TABLET Tablet PO (09:44)
[2019-04-11] MEDS: Enoxaparin 30 MG/0.3 ML Syringe SC (09:44)
[2019-04-11] MEDS: Oseltamivir Phosphate 30 MG Capsule PO (09:44)
[2019-04-11] MEDS: Lisinopril 20 MG Tablet PO ×2 (09:44→21:37)
--- NOTE | 2019-04-11 09:45 | PCM.PN.HOSP ---
Patient Problems: Active and Suspected Problems (Last Reviewed 04/10/19 @ 12:[address] Bao Maher MD) Influenza A (Acute) Pneumonia (Acute) Reason for Visit: Follow-up acute influenza A infection with superimposed pneumonia Subjective: An 83-year-old lady presented with progressive generalized weakness found to have acute influenza A with superimposed multifocal pneumonia ?Patient admitted to regular nursing floor started on Tamiflu in addition to Zithromax and Rocephin. Vancomycin was initiated on admission subsequently discontinued following her negative MRSA PCR. Patient still remains significantly dyspneic at rest using accessory muscles and breathing Objective: GENERAL: Appears ill looking HEENT: Atraumatic; EYES; Anicteric, Normal Conjunctiva NECK; supple, normal thyroid, RESPIRATORY: Diminished to auscultation CARDIOVASCULAR: Regular S1 S2, GI: soft, normoactive bowel sounds, : No Renal angle tenderness; EXTREMITIES: No edema, no clubbing, MUSCULOSKELETAL: no muscle waisting NEURO: Awake; no lateralizing signs. SKIN: No Rash PSYCH; Flat affect Vitals/I&O's: Vital Signs Temp Pulse Resp BP Pulse Ox 99.5 F H 83 24 H 142/64 H 98 04/11/19 09:37 04/11/19 09:43 04/11/19 09:37 04/11/19 09:43 04/11/19 09:37 Oxygen Flow Rate (L/min) 3 Oxygen Delivery Method Nasal Cannula Weight: 54.8 kg Body Mass Index (BMI) 22.7 Intake and Output for Last 24 Hours 04/09/19 04/10/19 04/11/19 23:59 23:59 23:59 Intake Total 2290 / 2290 1947.5 / 1947.5 Output Total 500 / 500 Balance 2290 / 2290 1447.5 / 1447.5 Microbiology Past 72 Hours 04/10/19 14:04 Mucosa - Nose Respiratory Panel (PCR) - Final Influenza A (Subtype H1) 04/10/19 14:32 Urine, Clean Catch Streptococcus pneumoniae Antigen (M - Final 04/10/19 14:32 Urine, Clean Catch Legionella Antigen - Final Laboratory Results 04/10/19 11:20: WBC 5.8, RBC 3.35 L, Hgb 11.1 L, Hct 33.0 L, MCV 98.5, MCH 33.1 H, MCHC 33.6, RDW Std Deviation 45.3 H, RDW Coeff of [place] 12.6, Plt Count 131 L, MPV 10.4, Immature Gran % (Auto) 0.500, Neut % (Auto) 76.1 H, Lymph % (Auto) 9.0 L, [place] % (Auto) 11.6 H, Eos % (Auto) 2.8, Baso % (Auto) 0.0, Absolute Neuts (auto) 4.4, Absolute Lymphs (auto) 0.52 L, Nucleated RBC % 0, Ovalocytes RARE 04/10/19 11:20: Sodium 136, Potassium 4.2, Chloride 104, Carbon Dioxide 26.0, Anion Gap 6, BUN 29 H, Creatinine 1.24 H, Estim Creat Clear Calc 25.56, Est GFR (MDRD) Af Amer 53 L, Est GFR (MDRD) Non-Af 44 L, BUN/Creatinine Ratio 23.4 H, Glucose 108 H, Calcium 8.4 L 04/10/19 12:40: Lactic Acid 0.9 04/10/19 14:32: MRSA (PCR) Negative 04/11/19 05:15: WBC 6.0, RBC 3.26 L, Hgb 10.6 L, Hct 32.8 L, MCV 100.6 H, MCH 32.5 H, MCHC 32.3, RDW Std Deviation 47.7 H, RDW Coeff of [place] 12.9, Plt Count 119 L, MPV 10.8, Immature Gran % (Auto) 0.500, Neut % (Auto) 72.7 H, Lymph % (Auto) 19.5, [place] % (Auto) 6.7, Eos % (Auto) 0.3, Baso % (Auto) 0.3, Absolute Neuts (auto) 4.3, Absolute Lymphs (auto) 1.16, Nucleated RBC % 0, Differential Comment SCANNED, Atypical Lymphocytes RARE, Reactive Lymphocytes 1+, Platelet Estimate SLT DEC, RBC Morphology NORM C+C 04/11/19 05:15: Sodium 137, Potassium 3.8, Chloride 107, Carbon Dioxide 23.0, Anion Gap 7, BUN 23 H, Creatinine 0.98, Estim Creat Clear Calc 32.34, Est GFR (MDRD) Af Amer 70, Est GFR (MDRD) Non-Af 58 L, BUN/Creatinine Ratio 23.5 H, Glucose 95, Calcium 7.8 L Current Medications Acetaminophen (Tylenol) 650 mg PO Q6H PRN PRN PRN Reason: Pain Score 1-10/Temp > 100.7 F Al Hydroxide/Mg Hydroxide (Mylanta Ii) 30 ml PO Q6H PRN PRN PRN Reason: Gastric Burning Albuterol Sulfate (Ventolin Aerosols) 2.5 mg INHALATION Q2H PRN PRN PRN Reason: Shortness of Breath/Wheezing Last Admin: 04/11/19 04:31 Dose: 2.5 mg Documented by: Ascorbic Acid (Vitamin C) 500 mg PO QODAY@1800 [facility] [place] Aspirin (Aspirin, Baby) 81 mg PO DAILY@0800 [facility] [place] Last Admin: 04/11/19 09:43 Dose: 81 mg Documented by: Atorvastatin Calcium (Lipitor) 10 mg PO QHS [facility] Last Admin: 04/10/19 21:27 Dose: 10 mg Documented by: Calcium/Vitamin D (Os-Emery 500mg + D) 1 tablet PO DAILY [facility] Last Admin: 04/11/19 09:44 Dose: 1 tablet Documented by: Cholecalciferol (Vitamin D (25mcg)) 2,000 unit PO DAILY [facility] Last Admin: 04/11/19 09:44 Dose: 2,000 unit Documented by: Enoxaparin Sodium (Lovenox) 30 mg SC DAILY [facility] [place] Last Admin: 04/11/19 09:44 Dose: 30 mg Documented by: Guaifenesin (Robitussin) 20 ml PO Q4H PRN PRN PRN Reason: COUGH Sodium Chloride () 1,000 mls @ 150 mls/hr IV .Q6H40M [facility] Last Admin: 04/11/19 09:42 Dose: 150 mls/hr Documented by: Ceftriaxone Sodium 2 gm/ (Sodium Chloride) 50 mls @ 100 mls/hr IV Q24 [facility] Stop: 04/18/19 10:01 Last Admin: 04/11/19 09:43 Dose: 100 mls/hr Documented by: Azithromycin 500 mg/ Dextrose 255 mls @ 250 mls/hr IV Q24 [facility] [place] Stop: 04/16/19 10:01 Vancomycin IV Pharmacy to Dose (1 ea/ Sodium Chloride) 500 mls @ 250 mls/hr IV X1 PRN; Protocol PRN Reason: Rx to Dose Vancomycin HCl () 500 mg in 100 mls @ 100 mls/hr IV Q24H [facility] Sodium Chloride () 250 mls @ 15 mls/hr IV .[id number] PRN PRN Reason: Saline Flush Sodium Chloride () 250 mls @ 15 mls/hr IV .[id number] PRN PRN Reason: Additional IVPB Infusion Lactobacillus Acidophilus (Acidophilus) 1 tablet PO DAILY [facility] [place] Last Admin: 04/11/19 09:43 Dose: 1 tablet Documented by: Lisinopril (Zestril) 20 mg PO BID [facility] [place] Last Admin: 04/11/19 09:44 Dose: 20 mg Documented by: Magnesium Hydroxide (Milk Of Magnesia) 30 ml PO DAILY PRN PRN PRN Reason: Constipation Melatonin (Melatonin) 3 mg PO QHS PRN PRN PRN Reason: INSOMNIA Methenamine Hippurate (Hiprex) 1 gm PO QODAY [facility] [place] Last Admin: 04/10/19 18:19 Dose: 1 gm Documented by: Metoprolol Tartrate (Lopressor (Beta Sagrario)) 25 mg PO BID [facility] [place] Last Admin: 04/11/19 09:43 Dose: 25 mg Documented by: Multivitamins (Allbee W/C Caplet, Thera B Comp/C) 1 capsule PO DAILY [facility] [place] Last Admin: 04/11/19 09:43 Dose: 1 capsule Documented by: Multivitamins/Minerals (Multivitamin With Minerals (Bkc)) 1 tablet PO DAILY@0800 [facility] [place] Last Admin: 04/11/19 09:43 Dose: 1 tablet Documented by: Ondansetron HCl (Zofran) 4 mg IV Q8H PRN PRN PRN Reason: NAUSEA/VOMITING Oseltamivir Phosphate (Tamiflu) 30 mg PO DAILY [facility] [place] Stop: 04/15/19 10:01 Last Admin: 04/11/19 09:44 Dose: 30 mg Documented by: Pantoprazole Sodium (Protonix) 80 mg PO DAILY [facility] [place] Last Admin: 04/11/19 09:44 Dose: 80 mg Documented by: Prochlorperazine Edisylate (Compazine Iv) 5 mg IV Q4H PRN PRN PRN Reason: Breakthrough nausea/vomiting Sodium Chloride () 10 - 40 ml IV UD PRN PRN Reason: SALINE FLUSH Throat Lozenges (Cepacol Sore Throat Lozenge) 1 lozenge MUCOUS MEM Q2H PRN PRN PRN Reason: SORE THROAT Tolterodine Tartrate (Detrol La) 2 mg PO DAILY KENDRA Last Admin: 04/11/19 09:43 Dose: 2 mg Documented by: STROKE Vital Signs/Narrative: Vital Signs Temp Pulse Resp BP Pulse Ox 04/11/19 09:43 83 142/64 H 04/11/19 09:37 99.5 F H 83 24 H 142/64 H 98 04/11/19 07:01 93 Medical Necessity - Tobacco Use Smoking Status: Former smoker Assessment/Plan All Active Problems (Last Reviewed 04/10/19 @ 12:[address] Bao Maher MD) Influenza A (Acute) Pneumonia (Acute) Abnormal stress test (Acute) Chest pain (Acute) An 83-year-old lady presented with progressive generalized weakness found to have acute influenza A with superimposed multifocal pneumonia 1. Acute respiratory insufficiency -secondary to combination of acute influenza A infection as well as superimposed pneumonia 04/11/2019 no clinical improvement in condition, Vancomycin was initiated on admission subsequently discontinued following her negative MRSA PCR. Patient still remains significantly dyspneic at rest using accessory muscles and breathing patient remains on supplemental oxygen as well as bronchodilator therapy as needed 2. Acute influenza A infection ?Admitted to regular nursing floor patient started on Tamiflu 3. Community-acquired pneumonia ?Patient is at risk for suspected MRSA in view of the underlying pneumonia with extensive infiltrate. Blood and sputum cultures sent. Patient placed on Rocephin and Zithromax in addition to vancomycin, MRSA PCR sent and placed on oxygen titrated to keep also is greater than 90 ?04/11/2019; vancomycin discontinued following negative MRSA PCR 4. Acute renal insufficiency ?Started on IV fluids with subsequent monitoring of electrolytes 5. Valvular heart disease ?With history of aortic valve sclerosis as well as mitral valve insufficiency 6. Essential hypertension ?Patient blood pressure stable did continue with home meds 7. Dyslipidemia ~patient is on statin therapy, continued at home dose 8. DVT prophylaxis ?Lovenox Code Visit Inpatient E&M: 17001 [facility] Hosp L3
--- NOTE | 2019-04-11 13:45 | CASEMGMT ---
RN CM Assessment Introduced role of RN CM to patient.? Patient is alert, oriented and able?to participate in RN CM Assessment. ?Care providers, pharmacy, and demographics verified. Presentation: Generalized weakness, SOB Admit Dx: Influenza A, Superimposed PNA Re-Admit: No Barriers/Issues: None, states that she has a good support system, four children. Son Hugo is retired and helps a lot and moved here to [place] from [place]- [facility] this is her primary HPOA. Dtr lives in [place], boogie Powell works over 60hrs/week, son Perico lives in [place], [place]. PCP: Frantz Mckinney or Guillermina Lee NP Specialists: Cardio- Dr Shabazz, Uro- Guillermina Coley. Elda Stockton, JENNIFER- has not seen in [facility]. Preferred Pharmacy: [facility] [place] Insurance: [employer], [employer] Rx Benefit:?Yes. Uses [facility] for maintenance medicaitons. ?LNOK: Boogie Rodriguez and boogie Rodriguez LW/HPOA: Both HPOA/LW on file. HPOA listed as boogie Rodriguez- however patient states now that her son Huog lives here in [place] he is her primary HPOA. Living Arrangements:? Lives alone in a SSH w/basement. 2 steps to enter the home. ADL?s: Independent with ambulation and ADLs Transportation: Patient drives DME: None HHC: None SNF: None Goal: Home and does not think will have any needs. DME list provided for possible Home O2- if needing preference is [employer]. Denies any concerns, issues, questions, or needs with DC planning at this time. Aware CM remains available for any emerging needs. DC PLAN: Home with possible Home O2. BRISSA Blanc
[2019-04-11] MEDS: Atorvastatin Calcium 10 MG Tablet PO (21:37)
[2019-04-12] VITALS (11 sets, daily range): BP systolic 109–167; BP diastolic 47–76; PULSE 66–87; RESP 16–24; TEMP 36.6–37.1; O2SAT 91–97
[2019-04-12] MEDS: 0.9% Normal Saline 1,000 ML 150 ML IV (00:15)
[2019-04-12] MEDS: Albuterol 2.5 MG/3 ML VIAL.NEB. INHALATION ×2 (02:26→18:37)
--- NOTE | 2019-04-12 03:08 | NURSING ---
dr called and notified of the pts sob, scattered crackels with insp/exp wheezing. pt assisted to the restroom. ivf dc'd, lasix iv x1 ordered with mucinex ordered. resp called for a breathing treatment. pt sitting up in the recliner chair to breath better.
[2019-04-12] MEDS: Furosemide 40 MG/4 ML Vial IV (03:20)
[2019-04-12 05:49] LABS: Absolute Lymphocyte Count 1.01 X10^3/uL (0.83-4.51); Absolute Neutrophil Count 5.9 X10^3/uL (2.0-7.7); Basophil# 0.02 X10^3/uL; Basophil% 0.3 % (0-1); Eosinophil# 0.01 X10^3/uL; Eosinophils% 0.1 % (0-5); Hematocrit 33.8 % (37-47); Hemoglobin 11.3 g/dL (12.0-15.0); Lymphocyte # 1.01 X10^3/ul (4.0); Mean Corp Hgb Conc 33.4 g/dL (32-36); Mean Corpuscular Hgb 32.8 pg (27.0-32.0); Mean Platelet Vol. 10.8 fl (6.2-12.0); Monocyte# 0.82 X10^3/uL; Monocyte% 10.5 % (0-10); NRBC Flagged by Analyzer 0 % (0-5); Neutrophil % 75.7 % (47-70); POSITIVE MORPHOLOGY YES; Platelet Count 150 K/mm3 (150-450); RBC Distribution Width CV 12.7 % (11.6-14.6); RBC Distribution Width SD 45.5 fl (35.1-43.9); Red Blood Count 3.45 M/mm3 (4.2-5.4); White Blood Count 7.8 K/mm3 (4.4-11.0)
[2019-04-12 05:50] LABS: Differential Indicated SCAN CRITERIA MET
[2019-04-12 06:08] LABS: Anion Gap 9 (5-15); BUN 15 mg/dL (7-18); BUN/Creat Ratio 16.7 RATIO (10-20); Chloride 104 mmol/L (98-107); EST Glomerular Filtration Rate 64 mL/min (>60); Est Glom Filt Rate - Afr Amer 78 mL/min (>60); Estimated Creatinine Clearance 35.21 ml/min; Glucose 94 mg/dL (74-106); Potassium 3.6 mmol/L (3.5-5.1); Sodium Level 133 mmol/L (136-145)
[2019-04-12 06:18] LABS: Differential Comment SCANNED; Platelet Estimate ADEQUATE (ADEQ); Reactive Lymphocyte RARE
[2019-04-12] MEDS: guaiFENesin 1,200 MG Tablet 1200 MG PO ×2 (08:52→21:02)
[2019-04-12] MEDS: Pantoprazole Sodium 40 MG Tablet 80 MG PO (08:52)
--- NOTE | 2019-04-12 08:54 | NURSING ---
Pt requesting to take only protonix and mucinex at this time and to wait for others until after she eats breakfast. Pt assisted with ordering breakfast at this time and assisted to bathroom. up to recliner and denies further needs.
--- NOTE | 2019-04-12 09:14 | PCM.PN.HOSP ---
Patient Problems: Active and Suspected Problems (Last Reviewed 04/10/19 @ 12:[address] Bao Maher MD) Influenza A (Acute) Pneumonia (Acute) Reason for Visit: Follow-up acute influenza A infection with superimposed pneumonia Subjective: Patient seen still remains dyspneic at rest. Patient also complains of feeling weak. Did discuss with patient about possibility of going to a group home facility for rehab when ready for discharge Objective: GENERAL: Appears ill looking HEENT: Atraumatic; EYES; Anicteric, Normal Conjunctiva NECK; supple, normal thyroid, RESPIRATORY: Diminished to auscultation CARDIOVASCULAR: Regular S1 S2, GI: soft, normoactive bowel sounds, : No Renal angle tenderness; EXTREMITIES: No edema, no clubbing, MUSCULOSKELETAL: no muscle waisting NEURO: Awake; no lateralizing signs. SKIN: No Rash PSYCH; Flat affect Vitals/I&O's: Vital Signs Temp Pulse Resp BP Pulse Ox 98.6 F 81 18 133/55 H 97 04/12/19 08:25 04/12/19 08:25 04/12/19 08:25 04/12/19 08:25 04/12/19 08:31 Oxygen Flow Rate (L/min) 2 Oxygen Delivery Method Nasal Cannula Weight: 57.2 kg Body Mass Index (BMI) 22.7 Intake and Output for Last 24 Hours 04/10/19 04/11/19 04/12/19 23:59 23:59 23:59 Intake Total 2290 / 2290 4952.5 / 4952.5 1000 / 1000 Output Total 1000 / 1900 2500 / 2500 Balance 2290 / 2290 3952.5 / 3052.5 -1500 / -1500 Microbiology Past 72 Hours 04/10/19 12:42 Blood Culture (Wb) - Left Hand Blood Culture - Preliminary No growth in 48 hours. 04/10/19 12:40 Blood Culture (Wb) - Anticubital Right Blood Culture - Preliminary No growth in 48 hours. 04/10/19 14:04 Mucosa - Nose Respiratory Panel (PCR) - Final Influenza A (Subtype H1) 04/10/19 14:32 Urine, Clean Catch Streptococcus pneumoniae Antigen (M - Final 04/10/19 14:32 Urine, Clean Catch Legionella Antigen - Final Laboratory Results 04/12/19 05:20: WBC 7.8, RBC 3.45 L, Hgb 11.3 L, Hct 33.8 L, MCV 98.0, MCH 32.8 H, MCHC 33.4, RDW Std Deviation 45.5 H, RDW Coeff of Wilner 12.7, Plt Count 150, MPV 10.8, Immature Gran % (Auto) 0.400, Neut % (Auto) 75.7 H, Lymph % (Auto) 13.0 L, [place] % (Auto) 10.5 H, Eos % (Auto) 0.1, Baso % (Auto) 0.3, Absolute Neuts (auto) 5.9, Absolute Lymphs (auto) 1.01, Nucleated RBC % 0, Differential Comment SCANNED, Reactive Lymphocytes RARE, Platelet Estimate ADEQUATE 04/12/19 05:20: Sodium 133 L, Potassium 3.6, Chloride 104, Carbon Dioxide 20.0 L, Anion Gap 9, BUN 15, Creatinine 0.90, Estim Creat Clear Calc 35.21, Est GFR (MDRD) Af Amer 78, Est GFR (MDRD) Non-Af 64, BUN/Creatinine Ratio 16.7, Glucose 94, Calcium 8.0 L Current Medications Acetaminophen (Tylenol) 650 mg PO Q6H PRN PRN PRN Reason: Pain Score 1-10/Temp > 100.7 F Al Hydroxide/Mg Hydroxide (Mylanta Ii) 30 ml PO Q6H PRN PRN PRN Reason: Gastric Burning Albuterol Sulfate (Ventolin Aerosols) 2.5 mg INHALATION Q2H PRN PRN PRN Reason: Shortness of Breath/Wheezing Last Admin: 04/12/19 02:26 Dose: 2.5 mg Documented by: Ascorbic Acid (Vitamin C) 500 mg PO QODAY@1800 [facility] Aspirin (Aspirin, Baby) 81 mg PO DAILY@0800 [facility] Last Admin: 04/11/19 09:43 Dose: 81 mg Documented by: Atorvastatin Calcium (Lipitor) 10 mg PO QHS [facility] Last Admin: 04/11/19 21:37 Dose: 10 mg Documented by: Calcium/Vitamin D (Os-Emery 500mg + D) 1 tablet PO DAILY [facility] Last Admin: 04/11/19 09:44 Dose: 1 tablet Documented by: Cholecalciferol (Vitamin D (25mcg)) 2,000 unit PO DAILY [facility] Last Admin: 04/11/19 09:44 Dose: 2,000 unit Documented by: Enoxaparin Sodium (Lovenox) 30 mg SC DAILY [facility] Last Admin: 04/11/19 09:44 Dose: 30 mg Documented by: Guaifenesin (Robitussin) 20 ml PO Q4H PRN PRN PRN Reason: COUGH Guaifenesin (Mucinex) 1,200 mg PO BID [facility] Last Admin: 04/12/19 08:52 Dose: 1,200 mg Documented by: Sodium Chloride () 1,000 mls @ 150 mls/hr IV .Q6H40M [facility] Last Infusion: 04/12/19 03:22 Dose: Infused Documented by: Ceftriaxone Sodium 2 gm/ (Sodium Chloride) 50 mls @ 100 mls/hr IV Q24 [facility] Stop: 04/18/19 10:01 Last Infusion: 04/11/19 10:13 Dose: Infused Documented by: Azithromycin 500 mg/ Dextrose 255 mls @ 250 mls/hr IV Q24 [facility] Stop: 04/16/19 10:01 Last Infusion: 04/11/19 11:02 Dose: Infused Documented by: Sodium Chloride () 250 mls @ 15 mls/hr IV .[id number] PRN PRN Reason: Saline Flush Sodium Chloride () 250 mls @ 15 mls/hr IV .[id number] PRN PRN Reason: Additional IVPB Infusion Lactobacillus Acidophilus (Acidophilus) 1 tablet PO DAILY [facility] Last Admin: 04/11/19 09:43 Dose: 1 tablet Documented by: Lisinopril (Zestril) 20 mg PO BID [facility] Last Admin: 04/11/19 21:37 Dose: 20 mg Documented by: Magnesium Hydroxide (Milk Of Magnesia) 30 ml PO DAILY PRN PRN PRN Reason: Constipation Melatonin (Melatonin) 3 mg PO QHS PRN PRN PRN Reason: INSOMNIA Methenamine Hippurate (Hiprex) 1 gm PO QODAY [facility] Last Admin: 04/10/19 18:19 Dose: 1 gm Documented by: Metoprolol Tartrate (Lopressor (Beta Sagrario)) 25 mg PO BID [facility] Last Admin: 04/11/19 21:36 Dose: 25 mg Documented by: Multivitamins (Allbee W/C Caplet, Thera B Comp/C) 1 capsule PO DAILY [facility] Last Admin: 04/11/19 09:43 Dose: 1 capsule Documented by: Multivitamins/Minerals (Multivitamin With Minerals (Bkc)) 1 tablet PO DAILY@0800 [facility] Last Admin: 04/11/19 09:43 Dose: 1 tablet Documented by: Ondansetron HCl (Zofran) 4 mg IV Q8H PRN PRN PRN Reason: NAUSEA/VOMITING Oseltamivir Phosphate (Tamiflu) 30 mg PO DAILY [facility] Stop: 04/15/19 10:01 Last Admin: 04/11/19 09:44 Dose: 30 mg Documented by: Pantoprazole Sodium (Protonix) 80 mg PO DAILY [facility] Last Admin: 04/12/19 08:52 Dose: 80 mg Documented by: Prochlorperazine Edisylate (Compazine Iv) 5 mg IV Q4H PRN PRN PRN Reason: Breakthrough nausea/vomiting Sodium Chloride () 10 - 40 ml IV UD PRN PRN Reason: SALINE FLUSH Throat Lozenges (Cepacol Sore Throat Lozenge) 1 lozenge MUCOUS MEM Q2H PRN PRN PRN Reason: SORE THROAT Tolterodine Tartrate (Detrol La) 2 mg PO DAILY [facility] Last Admin: 04/11/19 09:43 Dose: 2 mg Documented by: STROKE Vital Signs/Narrative: Vital Signs Temp Pulse Resp BP Pulse Ox 04/12/19 08:31 97 04/12/19 08:25 98.6 F 81 18 133/55 H 96 Medical Necessity - Tobacco Use Smoking Status: Former smoker Assessment/Plan All Active Problems (Last Reviewed 04/10/19 @ 12:[address] Bao Maher MD) Influenza A (Acute) Pneumonia (Acute) Abnormal stress test (Acute) Chest pain (Acute) An 83-year-old lady presented with progressive generalized weakness found to have acute influenza A with superimposed multifocal pneumonia 1. Acute respiratory insufficiency -secondary to combination of acute influenza A infection as well as superimposed pneumonia 04/11/2019 no clinical improvement in condition, Vancomycin was initiated on admission subsequently discontinued following her negative MRSA PCR. Patient still remains significantly dyspneic at rest using accessory muscles and breathing patient remains on supplemental oxygen as well as bronchodilator therapy as needed ?04/12/2019. Patient progress has rather been slow. Added inhaled corticosteroids to her treatments 2. Acute influenza A infection ?Admitted to regular nursing floor patient started on Tamiflu 3. Community-acquired pneumonia ?Patient is at risk for suspected MRSA in view of the underlying pneumonia with extensive infiltrate. Blood and sputum cultures sent. Patient placed on Rocephin and Zithromax in addition to vancomycin, MRSA PCR sent and placed on oxygen titrated to keep also is greater than 90 ?04/11/2019; vancomycin discontinued following negative MRSA PCR 4. Acute renal insufficiency ?Started on IV fluids with subsequent monitoring of electrolytes 5. Valvular heart disease ?With history of aortic valve sclerosis as well as mitral valve insufficiency 6. Essential hypertension ?Patient blood pressure stable did continue with home meds 7. Dyslipidemia ~patient is on statin therapy, continued at home dose 8. DVT prophylaxis ?Lovenox Code Visit Inpatient E&M: 30354 Subs Hosp L2
[2019-04-12] MEDS: Aspirin 81 MG TAB.CHEW PO (11:17)
[2019-04-12] MEDS: Metoprolol Tartrate 25 MG Tablet PO ×2 (11:17→21:02)
[2019-04-12] MEDS: Calcium Carb/Vitamin D 1 TABLET Tablet PO (11:17)
[2019-04-12] MEDS: Multivitamins,Ther W-Minerals Tablet 1 TABLET PO (11:17)
[2019-04-12] MEDS: Tolterodine Tartrate 2 MG CAP.SA PO (11:17)
[2019-04-12] MEDS: Oseltamivir Phosphate 30 MG Capsule PO (11:18)
[2019-04-12] MEDS: Methenamine Hippurate 1 GM Tablet PO (11:18)
[2019-04-12] MEDS: Enoxaparin 30 MG/0.3 ML Syringe SC (11:18)
[2019-04-12] MEDS: Vitamin B Comp W-C Capsule 1 CAP PO (11:18)
[2019-04-12] MEDS: 0.9% Saline Lock 10 ML Syringe IV (11:19)
--- NOTE | 2019-04-12 15:24 | CASEMGMT ---
Patient has a Healthcare POA and Healthcare LW on file at [facility]. Ronda [employer]
[2019-04-12] MEDS: Ascorbic Acid 500 MG Tablet PO (16:52)
[2019-04-12] MEDS: Budesonide Respules 0.5 MG/2 ML AMPUL.NEB. INHALATION (18:37)
[2019-04-12] MEDS: Lisinopril 20 MG Tablet PO (21:02)
[2019-04-12] MEDS: Atorvastatin Calcium 10 MG Tablet PO (21:02)
[2019-04-13 05:00] VITALS: BP 156/59; PULSE 74; RESP 20; TEMP 36.9; O2SAT 93
[2019-04-13 05:21] VITALS: PULSE 78; RESP 22
[2019-04-13] MEDS: Budesonide Respules 0.5 MG/2 ML AMPUL.NEB. INHALATION (05:21)
[2019-04-13] MEDS: Albuterol 2.5 MG/3 ML VIAL.NEB. INHALATION (05:21)
[2019-04-13 05:23] VITALS: O2SAT 88
[2019-04-13 06:55] LABS: Absolute Lymphocyte Count 1.25 X10^3/uL (0.83-4.51); Absolute Neutrophil Count 2.7 X10^3/uL (2.0-7.7); Basophil# 0.01 X10^3/uL; Basophil% 0.2 % (0-1); Eosinophil# 0.07 X10^3/uL; Eosinophils% 1.5 % (0-5); Hematocrit 28.1 % (37-47); Hemoglobin 9.5 g/dL (12.0-15.0); Lymphocyte # 1.25 X10^3/ul (4.0); Mean Corp Hgb Conc 33.8 g/dL (32-36); Mean Corpuscular Hgb 32.1 pg (27.0-32.0); Mean Corpuscular Volume 94.9 fL (81-99); Mean Platelet Vol. 10.3 fl (6.2-12.0); Monocyte# 0.54 X10^3/uL; Monocyte% 11.7 % (0-10); NRBC Flagged by Analyzer 0 % (0-5); Neutrophil # 2.74 X10^3/uL (2.7-7.7); Neutrophil % 59.2 % (47-70); Platelet Count 139 K/mm3 (150-450); RBC Distribution Width CV 12.5 % (11.6-14.6); RBC Distribution Width SD 44.1 fl (35.1-43.9); Red Blood Count 2.96 M/mm3 (4.2-5.4); White Blood Count 4.6 K/mm3 (4.4-11.0)
[2019-04-13 07:12] LABS: Anion Gap 8 (5-15); BUN 15 mg/dL (7-18); BUN/Creat Ratio 19.9 RATIO (10-20); Calcium,Total 8.3 mg/dL (8.5-10.1); Chloride 104 mmol/L (98-107); Creatinine, Serum 0.75 mg/dL (0.55-1.02); EST Glomerular Filtration Rate 78 mL/min (>60); Est Glom Filt Rate - Afr Amer 95 mL/min (>60); Estimated Creatinine Clearance 31.69 ml/min; Glucose 106 mg/dL (74-106); Potassium 3.4 mmol/L (3.5-5.1); Sodium Level 136 mmol/L (136-145)
[2019-04-13] MEDS: Multivitamins,Ther W-Minerals Tablet 1 TABLET PO (09:54)
[2019-04-13] MEDS: Lisinopril 20 MG Tablet PO (09:54)
[2019-04-13 09:55] VITALS: PULSE 72
[2019-04-13] MEDS: Metoprolol Tartrate 25 MG Tablet PO (09:55)
[2019-04-13] MEDS: Aspirin 81 MG TAB.CHEW PO (09:55)
[2019-04-13] MEDS: Calcium Carb/Vitamin D 1 TABLET Tablet PO (09:57)
[2019-04-13] MEDS: Tolterodine Tartrate 2 MG CAP.SA PO (09:57)
[2019-04-13] MEDS: Vitamin B Comp W-C Capsule 1 CAP PO (09:57)
[2019-04-13] MEDS: Oseltamivir Phosphate 30 MG Capsule PO (09:58)
[2019-04-13 10:05] VITALS: BP 162/69; PULSE 71; RESP 18; TEMP 36.9; O2SAT 100
[2019-04-13] MEDS: Pantoprazole Sodium 40 MG Tablet 80 MG PO (10:05)
[2019-04-13] MEDS: Enoxaparin 30 MG/0.3 ML Syringe SC (10:11)
[2019-04-13] MEDS: guaiFENesin 1,200 MG Tablet 1200 MG PO (10:52)
--- NOTE | 2019-04-13 10:58 | PCM.DC ---
- Discharge Diagnoses Current Active Problems: Current Active and Chronic Problems (Last Reviewed 04/10/19 @ 12:[address] Bao Maher MD) Influenza A (Acute) Pneumonia (Acute) You will use the following diet at home:: No restrictions Discharge Activity: Return to Normal Activity Allergies/Adverse Reactions: Allergies chlorhexidine Allergy (Verified 04/10/19 10:38) Rash venom-honey bee [bee venom (honey bee)] Allergy (Verified 04/10/19 10:38) Anaphylaxis hydrocodone bitartrate [From Vicodin] Adverse Reaction (Verified 04/10/19 10:38) Other BLOATED AND CONSTIPATION quinine Adverse Reaction (Verified 04/10/19 10:38) Diarrhea Sulfa (Sulfonamide Antibiotics) Adverse Reaction (Verified 04/10/19 10:38) Unknown hospital bath blankets Allergy (Uncoded 04/10/19 10:38) Unknown Medications to take at Discharge Aspirin [Aspirin, Baby] 81 mg PO DAILY@0800 09/01/16 B Complex with Vitamin C [B-Complex Plus Vitamin C] 1 ea PO DAILY 09/01/16 Biotin 2,500 mcg PO DAILY 09/01/16 Calcium Carb/Mag Ox/Zinc Sulf [Bifutyf-Naboyswiq-Ahep Tablet] 1 ea PO DAILY 09/01/16 Cholecalciferol (Vitamin D3) [Vitamin D3] 2,000 unit PO DAILY 09/01/16 Lactobac 41/B.bifid,Lactis/Fos [Ultimate Probiotic-10 25 Billn] 1 ea PO DAILY 09/01/16 Multivit-Min/Iron/Folic/Lutein [Centrum Silver Women Tablet] 1 ea PO DAILY 09/01/16 Oxybutynin [Ditropan] 5 mg PO DAILY 09/01/16 ascorbic acid (vitamin C) 500 mg capsule 500 mg PO QODAY cap 02/27/18 desonide 0.05 % lotion 1 applic TOPICAL DAILY 02/27/18 methenamine hippurate 1 gram tablet 1 g PO QODAY tab 02/27/18 metoprolol tartrate 25 mg tablet 25 mg PO BID #180 tab 09/26/18 simvastatin 20 mg tablet 20 mg PO QHS #90 tab 09/26/18 pantoprazole 40 mg tablet,delayed release 80 mg PO DAILY tab 03/21/19 Lisinopril 20 mg PO BID 04/10/19 Ranitidine HCl [Zantac 75] 10 mg PO DAILY 04/10/19 Acetaminophen [Tylenol Tablet] 650 mg PO Q6H PRN PRN tablet 04/13/19 Albuterol IH (ProAir) [Proair Hfa] 2 puff INHALATION Q4H PRN PRN #1 inhaler 04/13/19 Cefdinir 300 mg PO BID #10 cap 04/13/19 Guaifenesin [Mucinex] 1,200 mg PO BID #14 tab 04/13/19 Oseltamivir Phosphate [Tamiflu] 30 mg PO DAILY #2 cap 04/13/19 Prednisone 20 mg PO DAILY #5 tab 04/13/19 The following prescriptions were given: Cefdinir 300 mg PO BID #10 cap Transmission Status: Pending to [facility] Guaifenesin [Mucinex] 1,200 mg PO BID #14 tab Transmission Status: Pending to [facility] Prednisone 20 mg PO DAILY #5 tab Transmission Status: Pending to [facility] Albuterol IH (ProAir) [Proair Hfa] 2 puff INHALATION Q4H PRN PRN #1 inhaler PRN Reason: Dyspnea/Wheezing/Sob Transmission Status: Pending to [facility] Oseltamivir Phosphate [Tamiflu] 30 mg PO DAILY #2 cap Transmission Status: Pending to [facility] Primary Care Physician: Frantz Mckinney MD [Primary Care Provider] - Please follow up with your Primary Care Physician in: in 5-7 days Test Results: Test results from this visit will be discussed in further detail at your follow-up appointment, if applicable. Proposed Discharge Date: 04/13/19
--- NOTE | 2019-04-13 11:04 | PCM.DC.SUM ---
Discharge Date and Diagnosis Date of Admission: 04/10/19 Date of Discharge: 04/13/19 - Primary Discharge Diagnosis Active and Suspected Problems (Last Reviewed 04/10/19 @ 12:[address] Bao Maher MD) Influenza A (Acute) Pneumonia (Acute) - Secondary Discharge Diagnosis Chronic Problems (Last Reviewed 04/10/19 @ 12:[address] Bao Maher MD) Bilateral carotid artery stenosis (Chronic) Pure hypercholesterolemia (Chronic) Non-rheumatic mitral valve disease (Chronic) Essential hypertension (Chronic) Atherosclerotic heart disease of [place] coronary artery without angina pectoris (Chronic) Palpitations (Chronic) Carotid bruit (Chronic) Nonrheumatic mitral valve regurgitation (Chronic) Aortic valve sclerosis (Chronic) Lung abnormality (Chronic) left lung abrasion 1974 Arthritis (Chronic) GERD (gastroesophageal reflux disease) (Chronic) Hospital Course and Treatment Imaging Results: Clinical Impression(s) from Imaging Studies Chest X-Ray 04/10/19 11:03 IMPRESSION: Multifocal right upper lobe and right lower lobe pneumonia. Electronically Signed: Omar Echols MD at 11:54 EST Tel , Service support , Operations: None Summary of Care Provided: An 83-year-old lady presented with progressive generalized weakness found to have acute influenza A with superimposed multifocal pneumonia 1. Acute respiratory insufficiency -secondary to combination of acute influenza A infection as well as superimposed pneumonia 04/11/2019 no clinical improvement in condition, Vancomycin was initiated on admission subsequently discontinued following her negative MRSA PCR. Patient still remains significantly dyspneic at rest using accessory muscles and breathing patient remains on supplemental oxygen as well as bronchodilator therapy as needed ?04/12/2019. Patient progress has rather been slow. Added inhaled corticosteroids to her treatments -04/13/2019: Patient seen clinical condition remarkably improved compared to the day prior did discuss with patient about discharge. Plan is for patient to be discharged home with home PT. Prescription was written for prednisone 20 mg p.o. daily for 5 days, Tamiflu for 2 days and cefdinir for 5 days and albuterol HFA as needed. -Patient was assessed for home oxygen which she did qualify subsequently discharged home on oxygen. She will need portability at home as well as in the community since patient is mobile in both places. 2. Acute influenza A infection ?Admitted to regular nursing floor patient started on Tamiflu 3. Community-acquired pneumonia ?Patient is at risk for suspected MRSA in view of the underlying pneumonia with extensive infiltrate. Blood and sputum cultures sent. Patient placed on Rocephin and Zithromax in addition to vancomycin, MRSA PCR sent and placed on oxygen titrated to keep also is greater than 90 ?04/11/2019; vancomycin discontinued following negative MRSA PCR 4. Acute renal insufficiency ?Started on IV fluids with subsequent monitoring of electrolytes 5. Valvular heart disease ?With history of aortic valve sclerosis as well as mitral valve insufficiency 6. Essential hypertension ?Patient blood pressure stable did continue with home meds 7. Dyslipidemia ~patient is on statin therapy, continued at home dose 8. DVT prophylaxis ?Lovenox Objective: GENERAL: Appears ill looking HEENT: Atraumatic; EYES; Anicteric, Normal Conjunctiva NECK; supple, normal thyroid, RESPIRATORY: Diminished to auscultation CARDIOVASCULAR: Regular S1 S2, GI: soft, normoactive bowel sounds, : No Renal angle tenderness; EXTREMITIES: No edema, no clubbing, MUSCULOSKELETAL: no muscle waisting NEURO: Awake; no lateralizing signs. SKIN: No Rash PSYCH; Flat affect - Physical Exam Vitals/I&O's: Vital Signs Temp Pulse Resp BP Pulse Ox 98.5 F 72 22 H 156/59 H 88 04/13/19 05:00 04/13/19 09:55 04/13/19 05:21 04/13/19 05:00 04/13/19 05:23 Oxygen Flow Rate (L/min) 2 Oxygen Delivery Method Room Air Weight: 54.5 kg Body Mass Index (BMI) 22.7 Intake and Output for Last 24 Hours 04/11/19 04/12/19 04/13/19 23:59 23:59 23:59 Intake Total 4952.5 / 4952.5 2355 / 2555 458 / 458 Output Total 1000 / 1900 4700 / 5600 1300 / 1300 Balance 3952.5 / 3052.5 -2345 / -3045 -842 / -842 Microbiology Past 72 Hours 04/10/19 12:42 Blood Culture (Wb) - Left Hand Blood Culture - Preliminary No growth in 48 hours. 04/10/19 12:40 Blood Culture (Wb) - Anticubital Right Blood Culture - Preliminary No growth in 48 hours. 04/10/19 14:04 Mucosa - Nose Respiratory Panel (PCR) - Final Influenza A (Subtype H1) 04/10/19 14:32 Urine, Clean Catch Streptococcus pneumoniae Antigen (M - Final 04/10/19 14:32 Urine, Clean Catch Legionella Antigen - Final Laboratory Results 04/13/19 06:00: WBC 4.6, RBC 2.96 L, Hgb 9.5 L, Hct 28.1 L, MCV 94.9, MCH 32.1 H, MCHC 33.8, RDW Std Deviation 44.1 H, RDW Coeff of Wilner 12.5, Plt Count 139 L, MPV 10.3, Immature Gran % (Auto) 0.400, Neut % (Auto) 59.2, Lymph % (Auto) 27.0, Izard % (Auto) 11.7 H, Eos % (Auto) 1.5, Baso % (Auto) 0.2, Absolute Neuts (auto) 2.7, Absolute Lymphs (auto) 1.25, Nucleated RBC % 0 04/13/19 06:00: Sodium 136, Potassium 3.4 L, Chloride 104, Carbon Dioxide 24.0, Anion Gap 8, BUN 15, Creatinine 0.75, Estim Creat Clear Calc 31.69, Est GFR (MDRD) Af Amer 95, Est GFR (MDRD) Non-Af 78, BUN/Creatinine Ratio 19.9, Glucose 106, Calcium 8.3 L Current Medications Acetaminophen (Tylenol) 650 mg PO Q6H PRN PRN PRN Reason: Pain Score 1-10/Temp > 100.7 F Al Hydroxide/Mg Hydroxide (Mylanta Ii) 30 ml PO Q6H PRN PRN PRN Reason: Gastric Burning Albuterol Sulfate (Ventolin Aerosols) 2.5 mg INHALATION Q2H PRN PRN PRN Reason: Shortness of Breath/Wheezing Last Admin: 04/13/19 05:21 Dose: 2.5 mg Documented by: Ascorbic Acid (Vitamin C) 500 mg PO QODAY@1800 [facility] Last Admin: 04/12/19 16:52 Dose: 500 mg Documented by: Aspirin (Aspirin, Baby) 81 mg PO DAILY@0800 [facility] Last Admin: 04/13/19 09:55 Dose: 81 mg Documented by: Atorvastatin Calcium (Lipitor) 10 mg PO QHS [facility] Last Admin: 04/12/19 21:02 Dose: 10 mg Documented by: Budesonide (Pulmicort Aerosol) 0.5 mg INHALATION BID.RT [facility] Last Admin: 04/13/19 05:21 Dose: 0.5 mg Documented by: Calcium/Vitamin D (Os-Emery 500mg + D) 1 tablet PO DAILY [facility] Last Admin: 04/13/19 09:57 Dose: 1 tablet Documented by: Cholecalciferol (Vitamin D (25mcg)) 2,000 unit PO DAILY [facility] Last Admin: 04/13/19 09:54 Dose: 2,000 unit Documented by: Enoxaparin Sodium (Lovenox) 30 mg SC DAILY [facility] Last Admin: 04/13/19 10:11 Dose: 30 mg Documented by: Guaifenesin (Robitussin) 20 ml PO Q4H PRN PRN PRN Reason: COUGH Guaifenesin (Mucinex) 1,200 mg PO BID [facility] Last Admin: 04/13/19 10:52 Dose: 1,200 mg Documented by: Ceftriaxone Sodium 2 gm/ (Sodium Chloride) 50 mls @ 100 mls/hr IV Q24 [facility] Stop: 04/18/19 10:01 Last Infusion: 04/13/19 10:23 Dose: Infused Documented by: Azithromycin 500 mg/ Dextrose 255 mls @ 250 mls/hr IV Q24 [facility] Stop: 04/16/19 10:01 Last Admin: 04/13/19 10:52 Dose: 250 mls/hr Documented by: Sodium Chloride () 250 mls @ 15 mls/hr IV .[id number] PRN PRN Reason: Saline Flush Last Infusion: 04/13/19 10:52 Dose: 0 mls/hr Documented by: Sodium Chloride () 250 mls @ 15 mls/hr IV .[id number] PRN PRN Reason: Additional IVPB Infusion Lactobacillus Acidophilus (Acidophilus) 1 tablet PO DAILY [facility] Last Admin: 04/13/19 09:54 Dose: 1 tablet Documented by: Lisinopril (Zestril) 20 mg PO BID [facility] Last Admin: 04/13/19 09:54 Dose: 20 mg Documented by: Magnesium Hydroxide (Milk Of Magnesia) 30 ml PO DAILY PRN PRN PRN Reason: Constipation Melatonin (Melatonin) 3 mg PO QHS PRN PRN PRN Reason: INSOMNIA Methenamine Hippurate (Hiprex) 1 gm PO QODAY [facility] Last Admin: 04/12/19 11:18 Dose: 1 gm Documented by: Metoprolol Tartrate (Lopressor (Beta Sagrario)) 25 mg PO BID [facility] Last Admin: 04/13/19 09:55 Dose: 25 mg Documented by: Multivitamins (Allbee W/C Caplet, Thera B Comp/C) 1 capsule PO DAILY [facility] Last Admin: 04/13/19 09:57 Dose: 1 capsule Documented by: Multivitamins/Minerals (Multivitamin With Minerals (Bkc)) 1 tablet PO DAILY@0800 [facility] Last Admin: 04/13/19 09:54 Dose: 1 tablet Documented by: Ondansetron HCl (Zofran) 4 mg IV Q8H PRN PRN PRN Reason: NAUSEA/VOMITING Oseltamivir Phosphate (Tamiflu) 30 mg PO DAILY [facility] Stop: 04/15/19 10:01 Last Admin: 04/13/19 09:58 Dose: 30 mg Documented by: Pantoprazole Sodium (Protonix) 80 mg PO DAILY [facility] Last Admin: 04/13/19 10:05 Dose: 80 mg Documented by: Prochlorperazine Edisylate (Compazine Iv) 5 mg IV Q4H PRN PRN PRN Reason: Breakthrough nausea/vomiting Sodium Chloride () 10 - 40 ml IV UD PRN PRN Reason: SALINE FLUSH Last Admin: 04/12/19 11:19 Dose: 10 ml Documented by: Throat Lozenges (Cepacol Sore Throat Lozenge) 1 lozenge MUCOUS MEM Q2H PRN PRN PRN Reason: SORE THROAT Tolterodine Tartrate (Detrol La) 2 mg PO DAILY [facility] Last Admin: 04/13/19 09:57 Dose: 2 mg Documented by: Discharge Diet: No Restrictions Discharge Activity: Return to Normal Activity Home Medications: Medications to take at Discharge Aspirin [Aspirin, Baby] 81 mg PO DAILY@0800 09/01/16 B Complex with Vitamin C [B-Complex Plus Vitamin C] 1 ea PO DAILY 09/01/16 Biotin 2,500 mcg PO DAILY 09/01/16 Calcium Carb/Mag Ox/Zinc Sulf [Uewxioy-Apyekuacr-Nsdp Tablet] 1 ea PO DAILY 09/01/16 Cholecalciferol (Vitamin D3) [Vitamin D3] 2,000 unit PO DAILY 09/01/16 Lactobac 41/B.bifid,Lactis/Fos [Ultimate Probiotic-10 25 Billn] 1 ea PO DAILY 09/01/16 Multivit-Min/Iron/Folic/Lutein [Centrum Silver Women Tablet] 1 ea PO DAILY 09/01/16 Oxybutynin [Ditropan] 5 mg PO DAILY 09/01/16 ascorbic acid (vitamin C) 500 mg capsule 500 mg PO QODAY cap 02/27/18 desonide 0.05 % lotion 1 applic TOPICAL DAILY 02/27/18 methenamine hippurate 1 gram tablet 1 g PO QODAY tab 02/27/18 metoprolol tartrate 25 mg tablet 25 mg PO BID #180 tab 09/26/18 simvastatin 20 mg tablet 20 mg PO QHS #90 tab 09/26/18 pantoprazole 40 mg tablet,delayed release 80 mg PO DAILY tab 03/21/19 Lisinopril 20 mg PO BID 04/10/19 Ranitidine HCl [Zantac 75] 10 mg PO DAILY 04/10/19 Acetaminophen [Tylenol Tablet] 650 mg PO Q6H PRN PRN tab 04/13/19 Albuterol IH (ProAir) [Proair Hfa] 2 puff INHALATION Q4H PRN PRN #1 inhaler 04/13/19 Cefdinir 300 mg PO BID #10 cap 04/13/19 Guaifenesin [Mucinex] 1,200 mg PO BID #14 tab 04/13/19 Oseltamivir Phosphate [Tamiflu] 30 mg PO DAILY #2 cap 04/13/19 Prednisone 20 mg PO DAILY #5 tab 04/13/19 Following Prescrptions Were Given to Patient: Cefdinir 300 mg PO BID #10 cap Transmission Status: Received by NITA MARVIN RD Guaifenesin [Mucinex] 1,200 mg PO BID #14 tab Transmission Status: Received by NITA MARVIN RD Prednisone 20 mg PO DAILY #5 tab Transmission Status: Received by NITA MARVIN RD Albuterol IH (ProAir) [Proair Hfa] 2 puff INHALATION Q4H PRN PRN #1 inhaler PRN Reason: Dyspnea/Wheezing/Sob Transmission Status: Received by NITA MARVIN RD Oseltamivir Phosphate [Tamiflu] 30 mg PO DAILY #2 cap Transmission Status: Received by NITA IGNACIO-[address] YON ALVAREZ Primary Care Physician: Frantz Mckinney MD [Primary Care Provider] - Please follow up with your Primary Care Physician in: in 5-7 days Disposition: Home Minutes spent on discharge:: 35 Patient Condition:: Stable Medical Necessity - Tobacco Use Smoking Status: Former smoker Meaningful Use Info Meaningful Use Diagnoses (Choose all that apply): None applicable Code Visit Inpatient E&M: 49938 Disch Hosp
--- NOTE | 2019-04-13 11:38 | CASEMGMT ---
Addendum entered by Eden De La Fuente 04/13/19 12:01: Pt states she would like [facility] at this time and order placed for SN, PT/OT at this time. Call to Karuna at [facility] and she is aware of referral at this time and states they can take pt. Pt/son updated at this time and provided with [facility] pamphlet at this time. Pt/son voice no further questions/concerns/needs at this time. CM to follow for any further discharge planning/needs. Álvaro CHAPA CM Original Note: Therapy is recommending additional therapy at discharge and pt is agreeable to [facility] for SN, PT/OT at this time. List of local [facility] agencies to pt at this time and this RN ROSALINA will check back in regards to decision for [facility] agency. Pt is requesting local senior resources at this time and pt provided with senior resource book at this time. Cheryl CHAPA to do an ambulatory pulse ox for pt but pt does not have any qualifying chronic lung dx's at this time. Pt is aware of this at this time, voices understanding. Álvaro CHAPA CM
--- NOTE | 2019-04-13 11:47 | PHA.DC.MC ---
Pharmacy Service has performed discharge medication reconciliation and counseling for this patient. 1. ALBUTEROL INHALER 2PUFF Q4H PRN WHEEZING/SOB 2. CEFDINIR 300MG PO BID X 5 DAYS 3. GUAIFENESIN 1200MG PO BID X 7 DAYS 4. OSELTAMIVIR 30MG PO DAILY X 2 DAYS 5. PREDNISONE 20MG PO DAILY X 5 DAYS The patient's discharge medication list was reviewed for discrepancies and discrepancies were resolved. Home Medications Aspirin [Aspirin, Baby] 81 mg PO DAILY@0800 09/01/16 B Complex with Vitamin C [B-Complex Plus Vitamin C] 1 ea PO DAILY 09/01/16 Biotin 2,500 mcg PO DAILY 09/01/16 Calcium Carb/Mag Ox/Zinc Sulf [Ypqlubb-Qifzsmlei-Yftv Tablet] 1 ea PO DAILY 09/01/16 Cholecalciferol (Vitamin D3) [Vitamin D3] 2,000 unit PO DAILY 09/01/16 Lactobac 41/B.bifid,Lactis/Fos [Ultimate Probiotic-10 25 Billn] 1 ea PO DAILY 09/01/16 Multivit-Min/Iron/Folic/Lutein [Centrum Silver Women Tablet] 1 ea PO DAILY 09/01/16 Oxybutynin [Ditropan] 5 mg PO DAILY 09/01/16 ascorbic acid (vitamin C) 500 mg capsule 500 mg PO QODAY cap 02/27/18 desonide 0.05 % lotion 1 applic TOPICAL DAILY 02/27/18 methenamine hippurate 1 gram tablet 1 g PO QODAY tab 02/27/18 metoprolol tartrate 25 mg tablet 25 mg PO BID #180 tab 09/26/18 simvastatin 20 mg tablet 20 mg PO QHS #90 tab 09/26/18 pantoprazole 40 mg tablet,delayed release 80 mg PO DAILY tab 03/21/19 Lisinopril 20 mg PO BID 04/10/19 Ranitidine HCl [Zantac 75] 10 mg PO DAILY 04/10/19 Acetaminophen [Tylenol Tablet] 650 mg PO Q6H PRN PRN tab 04/13/19 Albuterol IH (ProAir) [Proair Hfa] 2 puff INHALATION Q4H PRN PRN #1 inhaler 04/13/19 Cefdinir 300 mg PO BID #10 cap 04/13/19 Guaifenesin [Mucinex] 1,200 mg PO BID #14 tab 04/13/19 Oseltamivir Phosphate [Tamiflu] 30 mg PO DAILY #2 cap 04/13/19 Prednisone 20 mg PO DAILY #5 tab 04/13/19 The patient was counseled on the following discharge medications and changes in medications for homegoing were reviewed. The Reason for Use, instructions for use, and potential side effects were reviewed for all new medications. The patient's questions regarding all of their medications were answered. The patient was able to verbally demonstrate an understanding of their discharge medications.
[2019-04-13 12:31] VITALS: O2SAT 93; O2SAT 95
== END 2019-04-13 13:46 | disposition home or self-care (01) | DRG 195 ==
LOC: ED 11:23 → PCU 12:32
PROVIDERS: Admitting Provider Internal Medicine; Emergency Provider Emergency Medicine; PCP Family Medicine; Visit Provider Internal Medicine
DX: J10.00 Influenza due to other identified influenza virus with unspecified type of pneumonia (principal); N28.9 Disorder of kidney and ureter, unspecified; I35.8 Other nonrheumatic aortic valve disorders; I34.0 Nonrheumatic mitral (valve) insufficiency; K58.9 Irritable bowel syndrome, unspecified; E78.00 Pure hypercholesterolemia, unspecified; I10 Essential (primary) hypertension; I65.23 Occlusion and stenosis of bilateral carotid arteries; I25.10 Atherosclerotic heart disease of native coronary artery without angina pectoris; M19.90 Unspecified osteoarthritis, unspecified site; K21.9 Gastro-esophageal reflux disease without esophagitis; Z79.82 Long term (current) use of aspirin; Z79.899 Other long term (current) drug therapy; Z87.891 Personal history of nicotine dependence
CPT/HCPCS: 36415; 71045; 80048; 83605; 85025; 87040; 87449; 87633; 87641; 94640; 94667; 94668; 97161; 97166; 99251; 99285; J7030; J7050; A4216; G0463; J0696; J1940

== ENCOUNTER 2019-05-07 15:35 | Emergency (ER) | payer MEDICARE, OTHER, SELFPAY ==
[2019-04-10 13:18] VITALS: BMI 22.7
[2019-05-07 15:36] VITALS: BP 152/67; PULSE 72; RESP 16; TEMP 36.7; O2SAT 98; BMI 23.5
--- NOTE | 2019-05-07 15:53 | RAD_ITS ---
STUDY: X-RAY CHEST REASON FOR EXAM: Female, 84 years old. chest pain,sob TECHNIQUE: AP portable COMPARISON: April 10, 2018 FINDINGS: The lungs are clear and expanded. There is no demonstrated pleural abnormality. Normal size heart. Normal mediastinum and delfina. Normal visualized pulmonary arteries. Mildly calcified aortic arch and descending thoracic aorta. Normal visualized thoracic spine. Normal visualized ribs, clavicles, and shoulders. There is no demonstrated abnormality of the visualized soft tissue structures of the upper abdomen. RAD/Chest 1 View (Portable) IMPRESSION: No acute cardiopulmonary pathology Electronically Signed: Villa Linares MD at 16:11 EDT , Service support ,
--- NOTE | 2019-05-07 15:53 | EKG12_ITS ---
Test Reason : SHORTNESS OF BREATH Blood Pressure : / mmHG Vent. Rate : 065 BPM Atrial Rate : 065 BPM P-R Int : 186 ms QRS Dur : 104 ms QT Int : 418 ms P-R-T Axes : 048 002 083 degrees QTc Int : 434 ms Sinus rhythm with occasional Premature ventricular complexes Left ventricular hypertrophy with repolarization abnormality Cannot rule out Septal infarct , age undetermined Abnormal ECG Confirmed by ROGER NGUYEN, FRANCINE ([id number]), fashion editor MARINE COSBY ([id number]) on 05/10/2019 1:07:11 PM Referred By: HEIDI Confirmed By:FRANCINE DURAN MD
--- NOTE | 2019-05-07 15:58 | ED.DCSUM_ITS ---
History of Present Illness Chief Complaint: Shortness of Breath Detail of Chief Complaint: Chest pain, shortness of breath cough Informant: Patient Onset: Today, Yesterday Context: Sudden Onset Timing: Intermittent Quality: Mid chest pressure Location: Mid central chest Current Severity: - - Presently no pain Maximum Severity: Moderate Worsened by: 2 episodes yesterday occurred after eating today after going down steps Relieved by: Nothing Associated Symptoms: Yesterday shortness of breath, nausea and diaphoresis today shortness of br Narrative: Patient is a 84-year-old woman who presents because of chest pain and shortness of breath. Patient was diagnosed in March with influenza. She has had a cough since then. She does not have a new cough. She has not had a fever in the last week. Yesterday approximately an hour after eating lunch she developed severe abdominal pain and made the, I think it is my gallbladder . She does not have history of gallbladder disease nor does she have history of intolerance to greasy or fried foods. The pain migrated to her chest and was associated with shortness of breath, nausea and diaphoresis. There is no radiation through to the back. This episode lasted 3 hours. Approximately 0.5 to 1-hour after eating dinner which was remarkable for her scrambling hamburger meat and having potatoes with butter. She developed again chest tightness with nausea and d iaphoresis. The pain did not radiate to her back. This lasted for approximately 2 hours. Today after eating lunch she went downstairs. She states she had to stop because she was afraid she was going to fall. She had to crawl up the steps because she did not feel well and was short of breath. Pain did not radiate through to her back. There was no other associated symptoms. She denies black or maroon-colored stool. She presently has no symptoms. She denies leg pain, swelling or discoloration. There is no history of VTE. She denies orthopnea or PND. She denies history of GERD. She states she had a cardiac catheterization May last year. There is record of a stress nuclear test that was normal. She also had an echo March 2019 that revealed mitral valve regurgitation, 3+. 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 (4) Bilateral carotid artery stenosis Status: Chronic (5) Essential hypertension Status: Chronic (6) GERD (gastroesophageal reflux disease) Status: Chronic (7) Lung abnormality Status: Chronic Comment: left lung abrasion 1974 (8) Nonrheumatic mitral valve regurgitation Status: Chronic (9) Pure hypercholesterolemia Status: Chronic Past Medical History - Allergies and Home Meds Allergies/Adverse Reactions: Allergies chlorhexidine Allergy (Verified 05/07/19 15:39) Rash venom-honey bee [bee venom (honey bee)] Allergy (Verified 05/07/19 15:39) Anaphylaxis hydrocodone bitartrate [From Vicodin] Adverse Reaction (Verified 05/07/19 15:39) Other BLOATED AND CONSTIPATION quinine Adverse Reaction (Verified 05/07/19 15:39) Diarrhea Sulfa (Sulfonamide Antibiotics) Adverse Reaction (Verified 05/07/19 15:39) Unknown hospital bath blankets Allergy (Uncoded 05/07/19 15:39) Unknown Primary Care Physician: Frantz Mckinney MD [Primary Care Provider] - Prior records reviewed: Yes - 2 spontaneous pneumothorax requiring VATS procedure Surgical History: noncontributory, cataract, - - D&C, pleurodesis of the long secondary to ruptured bleb Lives: Alone Smoking Status: Former smoker Alcohol: None Drugs: None - Family History Maternal Family History: Family History (Last Reviewed 04/10/19 @ 12:[address] Bao Maher MD) Father CAD (coronary artery disease) Myocardial infarction Mother Myocardial infarction CAD (coronary artery disease) Family History: Reports: No pertinent history Paternal Family History: Family History (Last Reviewed 04/10/19 @ 12:[address] Bao Maher MD) Father CAD (coronary artery disease) Myocardial infarction Mother Myocardial infarction CAD (coronary artery disease) Family History: Reports: No pertinent history Review of Systems General: Denies: Chills, Fever, Malaise, Subjective, Sweats Eyes: Denies: Visual changes - bilaterally, Blurred Vision - bilaterally ENT: Denies: Bilateral ear pain, Rhinorrhea, Sore throat Cardiovascular: Reports: Chest pain. Denies: Palpitations, Heart racing Respiratory: Reports: Dyspnea, Cough. Denies: Sputum, Dyspnea on exertion, Orthopnea, Paroxysmal nocturnal dyspnea Gastrointestinal: Reports: Nausea. Denies: Abdominal pain, Vomiting, Diarrhea, Constipation, Melena, Hematochezia Genitourinary: Denies: Dysuria, Hematuria, Frequency Musculoskeletal: Denies: Myalgias, Arthralgias, Neck pain, Back pain, Swelling, Extremity Pain, -, - Skin: Denies: Rash, Wounds Neurological: Denies: Headache, Weakness, Numbness Endocrine: Denies: Polyuria, Polydipsia Hematologic: Denies: Easy bruising, Easy bleeding Physical Exam Vital Signs/Narrative: Vital Signs Temp Pulse Resp BP Pulse Ox 05/07/19 15:36 98.1 F 72 16 152/67 H 98 Inital Vital Signs reviewed: Yes General: Well nourished, Well developed, No Acute Distress Head: Normocephalic, Atraumatic Eyes: Perrl, EOMI ENT: Moist mucous membranes, No rhinorrhea Neck: Supple, Nontender Cardiovascular: Regular rate, Regular rhythm, Normal S1, Normal S2, Murmur - Grade 2-3 systolic murmur heard best at the left lower sternal border with radiation to the axilla. Respiratory: No distress, CTA bilaterally, Chest nontender Abdomen: Soft, Nontender, Nondistended, Normal bowel sounds, No masses. Negative for: Rovsig's sign, Dickinson's sign Rectal: Deferred Back: Nontender, Normal Inspection. Negative for: CVA tenderness, Spinal tenderness Extremities: Nontender, No edema, - - There is no asymmetry, swelling, discolo ration, leg vein distention, palpable cords or tenderness along the distribution of the deep venous system.. Negative for: Calf Tenderness Skin: Normal color, No rash, No Trauma. Negative for: Cyanosis, Diaphoresis, Jaundice Neurological: Alert, Oriented x3, Cranial nerves II-XII grossly intact, Normal Strength, Normal Sensation Psychological: Normal affect, Normal Mood Diagnostic/Tx/Re-eval Chest X-Ray - ED: 1 View, Normal, Heart, Mediastinum, Bony Structures, No Acute Disease, Chronic Changes Impressions Chest X-Ray 05/07/19 15:53 IMPRESSION: No acute cardiopulmonary pathology Electronically Signed: Villa Linares MD at 16:11 EDT , Service support , 05/07/19 15:53 Chest 1 View (Portable) [RAD] Stat Laboratory Results 05/07/19 05/07/19 16:05 16:05 WBC 7.6 RBC 3.61 L Hgb 11.7 L Hct 35.1 L MCV 97.2 MCH 32.4 H MCHC 33.3 RDW Std Deviation 45.4 H RDW Coeff of Wilner 12.9 Plt Count 179 MPV 10.6 Immature Gran % (Auto) 0.400 Neut % (Auto) 61.0 Lymph % (Auto) 20.6 [place] % (Auto) 9.9 Eos % (Auto) 7.7 H Baso % (Auto) 0.4 Absolute Neuts (auto) 4.6 Absolute Lymphs (auto) 1.56 Nucleated RBC % 0 Sodium 136 Potassium 4.4 Chloride 104 Carbon Dioxide 25.0 Anion Gap 7 BUN 24 H Creatinine 1.12 H Estim Creat Clear Calc 32.28 Est GFR (MDRD) Af Amer 60 Est GFR (MDRD) Non-Af 50 L BUN/Creatinine Ratio 21.4 H Glucose 89 Calcium 9.1 Total Bilirubin 0.50 Direct Bilirubin 0.15 AST 20 ALT 19 Alkaline Phosphatase 50 Troponin I < 0.015 Total Protein 7.0 Albumin 3.7 Globulin 3.3 Lipase 189 Patient's work-up is unremarkable. Case was discussed with Dr. Abad on-call for Dr. Shon Shabazz. Plan is a delta troponin. If negative outpatient work- up - EKG Initial EKG Interpretation: Sinus Rhythm - EKG performed at 1545 reveals a sinus rhythm rate of 68. NV interval is 160 ms. QRS duration 96 ms. QT duration 398 ms. [place] is normal. There is evidence of LVH with repolarization changes. There is decreased anterior force. Follow-up EKG Interpretation: Sinus Rhythm - AG performed at 1908 reveals sinus rhythm with a ventricular rate of 65 and there is a premature ventricular beat noted. NV interval 186 ms. QRS duration 104 ms. QT duration 418 ms. [place] is normal. There is decreased anterior progression/forces. There is evidence of LVH. The EKG is essentially unchanged from first EKG. - Medical Decision Making Differential diagnosis includes biliary colic, cholelithiasis, cholecystitis, esophageal reflux, esophageal spasm, peptic ulcer disease also need to obtain possibility of coronary disease since she has history of coronary disease, which she denied. Work-up included EKG, CBC, hepatic panel, lipase, and basic metabolic panel. Patient work-up including troponin is normal. Liver panel and lipase normal. Case was discussed with Dr. Abad on-call for Dr. Samayoa. He states he does not have access to cath report either. I informed him that I found her last 2 str ess test but was not able to find her last cath authorization report. He requested a 3-hour delta. If the 3-hour delta is negative based on the results of her most recent nuclear stress test she can be followed up as an outpatient and have an outpatient work-up. 3-hour troponin is less than 0.015 with a delta of 0. Per discussion with Dr. Gonzalez patient to be discharged to home with outpatient follow-up. ED Disposition - Plan for ED Patient: Disposition: Home or Assisted Living Diagnosis: Central chest pain Instructions: CHEST PAIN, Uncertain Cause Referrals: Frantz Mckinney MD [Primary Care Provider] - Bandar Samayoa MD [STAFF PHYSICIAN] - 3-5 Days Additional Instructions: Call Dr. Samayoa's office in the morning for outpatient follow-up in the next several days.
[2019-05-07 16:18] LABS: Absolute Lymphocyte Count 1.56 X10^3/uL (0.83-4.51); Absolute Neutrophil Count 4.6 X10^3/uL (2.0-7.7); Basophil# 0.03 X10^3/uL; Basophil% 0.4 % (0-1); Eosinophil# 0.58 X10^3/uL; Eosinophils% 7.7 % (0-5); Hematocrit 35.1 % (37-47); Hemoglobin 11.7 g/dL (12.0-15.0); Lymphocyte # 1.56 X10^3/ul (4.0); Lymphocyte % 20.6 % (19-41); Mean Corp Hgb Conc 33.3 g/dL (32-36); Mean Corpuscular Hgb 32.4 pg (27.0-32.0); Mean Corpuscular Volume 97.2 fL (81-99); Mean Platelet Vol. 10.6 fl (6.2-12.0); Monocyte# 0.75 X10^3/uL; Monocyte% 9.9 % (0-10); NRBC Flagged by Analyzer 0 % (0-5); Neutrophil # 4.62 X10^3/uL (2.7-7.7); Platelet Count 179 K/mm3 (150-450); RBC Distribution Width CV 12.9 % (11.6-14.6); RBC Distribution Width SD 45.4 fl (35.1-43.9); Red Blood Count 3.61 M/mm3 (4.2-5.4); White Blood Count 7.6 K/mm3 (4.4-11.0)
[2019-05-07 16:37] LABS: AST(SGOT) 20 U/L (15-37); Alanine Aminotransfer ALT/SGPT 19 U/L (13-56); Albumin, Serum 3.7 g/dL (3.2-5.0); Alkaline Phosphatase 50 U/L (45-117); Anion Gap 7 (5-15); BUN 24 mg/dL (7-18); BUN/Creat Ratio 21.4 RATIO (10-20); Bilirubin, Direct 0.15 mg/dL (0.00-0.30); Calcium,Total 9.1 mg/dL (8.5-10.1); Chloride 104 mmol/L (98-107); Creatinine, Serum 1.12 mg/dL (0.55-1.02); EST Glomerular Filtration Rate 50 mL/min (>60); Est Glom Filt Rate - Afr Amer 60 mL/min (>60); Estimated Creatinine Clearance 32.28 ml/min; Globulin 3.3 g/dL (2.2-4.2); Glucose 89 mg/dL (74-106); Lipase 189 U/L (73-393); Potassium 4.4 mmol/L (3.5-5.1); Sodium Level 136 mmol/L (136-145)
[2019-05-07 19:00] VITALS: BP 148/76; PULSE 69; RESP 16; O2SAT 97
--- NOTE | 2019-05-07 19:00 | EKG12_ITS ---
Test Reason : CP Blood Pressure : / mmHG Vent. Rate : 068 BPM Atrial Rate : 068 BPM P-R Int : 168 ms QRS Dur : 096 ms QT Int : 398 ms P-R-T Axes : 068 034 076 degrees QTc Int : 423 ms Normal sinus rhythm Left ventricular hypertrophy with repolarization abnormality Abnormal ECG Confirmed by ROGER NGUYEN, FRANCINE ([id number]), food expeditor MARINE COSBY ([id number]) on 05/10/2019 1:07:23 PM Referred By: HEIDI Confirmed By:FRANCINE DURAN MD
[2019-05-07 20:23] VITALS: BP 151/86; PULSE 70; RESP 17; O2SAT 97
== END 2019-05-07 20:24 | disposition home or self-care (01) ==
PROVIDERS: Emergency Provider Emergency Medicine; PCP Family Medicine
DX: R07.89 Other chest pain (principal); I25.10 Atherosclerotic heart disease of native coronary artery without angina pectoris; I10 Essential (primary) hypertension; I34.0 Nonrheumatic mitral (valve) insufficiency; I65.23 Occlusion and stenosis of bilateral carotid arteries; E78.00 Pure hypercholesterolemia, unspecified; K21.9 Gastro-esophageal reflux disease without esophagitis; Z79.82 Long term (current) use of aspirin; Z79.899 Other long term (current) drug therapy; Z87.891 Personal history of nicotine dependence
CPT/HCPCS: 36415; 71045; 80048; 80076; 83690; 84484; 85025; 93005; 99283

== ENCOUNTER → 2019-06-07 13:30 | Outpatient (CLI) | payer MEDICARE, OTHER, SELFPAY | PROVIDERS: PCP Family Medicine; Referring Provider Urology; Visit Provider Urology | DX: N39.0 Urinary tract infection, site not specified (principal) | CPT/HCPCS: 87077; 87086; 87088; 87186 ==

== ENCOUNTER → 2019-07-04 08:11 | Outpatient (CLI) | payer MEDICARE, OTHER, SELFPAY ==
[2019-07-04 09:12] LABS: AST(SGOT) 19 U/L (15-37); Alanine Aminotransfer ALT/SGPT 18 U/L (13-56); Albumin, Serum 3.9 g/dL (3.2-5.0); Alkaline Phosphatase 48 U/L (45-117); Bilirubin, Direct 0.14 mg/dL (0.00-0.30); Cholesterol 189 mg/dL (200); Globulin 3.3 g/dL (2.2-4.2); High Density Lipoprotein 71 mg/dL; Protein, Total 7.2 g/dL (6.4-8.2); Triglycerides 74 mg/dL; Very Low Density Lipoprotein 15 mg/dL (5-40)
== END ==
PROVIDERS: PCP Family Medicine; Referring Provider Internal Medicine Cardiovascular Disease; Visit Provider Internal Medicine Cardiovascular Disease
DX: E78.00 Pure hypercholesterolemia, unspecified (principal)
CPT/HCPCS: 36415; 80061; 80076

== ENCOUNTER → 2019-09-28 09:49 | Outpatient (CLI) | payer MEDICARE, OTHER, SELFPAY ==
[2019-09-24 10:18] VITALS: BMI 22.8
--- NOTE | 2019-09-28 09:50 | CDU_ITS ---
Reason For Study: BRUIT Rt. Velocities/BP Lt. Velocities/BP Prox CCA 139/8 cm/sec. Prox CCA 179/19 cm/sec. Mid CCA 126/12 cm/sec. Mid CCA 109/12 cm/sec. Dist CCA 101/10 cm/sec. Dist CCA 111/12 cm/sec. Prox ICA 96/12 cm/sec. Prox ICA 160/22 cm/sec. Mid ICA 103/18 cm/sec. Mid ICA 153/20 cm/sec. Dist ICA 98/16 cm/sec. Dist ICA 97/13 cm/sec. Rt. ICA/CCA = .8. Lt. ICA/CCA = 1.4. Prox ECA 96/12 cm/sec. Prox ECA 304/0 cm/sec. Rt. Vert. 67/7 cm/sec. Lt. Vert. 101/0 cm/sec. Right Extracranial There is homogeneous, smooth atherosclerotic plaque noted in the right common carotid artery. There is homogeneous, smooth atherosclerotic plaque noted in the right internal carotid artery. There is heterogeneous, irregular atherosclerotic plaque noted in the right external carotid artery. Antegrade flow is noted in the right vertebral artery. There is heterogeneous, irregular atherosclerotic plaque noted in the right bulb. Left Extracranial There is homogeneous, smooth atherosclerotic plaque noted in the left common carotid artery. There is heterogeneous, irregular atherosclerotic plaque noted in the left internal carotid artery. There is heterogeneous, irregular atherosclerotic plaque noted in the left external carotid artery. Antegrade flow is noted in the left vertebral artery. There is heterogeneous, irregular atherosclerotic plaque noted in the left bulb. Procedure Carotid Duplex 21490. Exam performed in department. Interpretation Summary Minimal calcific plaque at the proximal right internal carotid artery with less than 50% stenosis. <50% stenosis right external carotid Irregular calcific plaque at the proximal left internal and external carotid arteries 50-69% stenosis left internal carotid >50% stenosis left external carotid Patent and antegrade vertebrals bilaterally with increased velocity on the left Ordering Physician: Karuna Gimenez Referring Physician: PITA RICHARDS Performed By: Sweta Salcedo, ALLEN, RVT
== END ==
PROVIDERS: PCP Family Medicine; Referring Provider Physician Assistant Medical; Visit Provider Physician Assistant Medical
DX: I65.23 Occlusion and stenosis of bilateral carotid arteries (principal)
CPT/HCPCS: 93880

== ENCOUNTER → 2019-11-01 14:18 | Outpatient (CLI) | payer MEDICARE, OTHER, SELFPAY ==
[2019-09-24 10:18] VITALS: BMI 22.8
== END ==
PROVIDERS: PCP Family Medicine; Referring Provider Nurse Practitioner Adult Health; Visit Provider Nurse Practitioner Adult Health
DX: R30.9 Painful micturition, unspecified (principal)
CPT/HCPCS: 87086; 87088; 87186

== ENCOUNTER 2019-11-07 08:51 | Emergency (ER) | payer MEDICARE, OTHER, SELFPAY ==
[2019-09-24 10:18] VITALS: BMI 22.8
[2019-11-07 08:52] VITALS: BP 153/50; PULSE 74; RESP 16; TEMP 36.1; O2SAT 99; BMI 23.2
--- NOTE | 2019-11-07 09:21 | ED.VIS.GEN ---
History of Present Illness Chief Complaint: Nosebleed Informant: Patient Narrative: Patient states that yesterday she intermittently had some nasal bleeding from the right naris through most of the day. It resolved and this morning she had bleeding from the left nostril. She states that it was continue to drop so she called her doctor's office. They recommended that she come to the emergency room. She has had some nosebleeds in the past but none recently. She has never had any intranasal surgery. She is not on blood thinners. She denies any trauma. Nasal clamp was applied in triage. - Past Medical History (1) Aortic valve sclerosis Status: Chronic (2) Atherosclerotic heart disease of [place] coronary artery without angina pectoris Status: Chronic (3) Bilateral carotid artery stenosis Status: Chronic (4) Essential hypertension Status: Chronic (5) GERD (gastroesophageal reflux disease) Status: Chronic (6) Pure hypercholesterolemia Status: Chronic Past Medical History - Allergies and Home Meds Allergies/Adverse Reactions: Allergies chlorhexidine Allergy (Verified 11/07/19 08:51) Rash venom-honey bee [bee venom (honey bee)] Allergy (Verified 11/07/19 08:51) Anaphylaxis hydrocodone bitartrate [From Vicodin] Adverse Reaction (Verified 11/07/19 08:51) Other BLOATED AND CONSTIPATION quinine Adverse Reaction (Verified 11/07/19 08:51) Diarrhea Sulfa (Sulfonamide Antibiotics) Adverse Reaction (Verified 11/07/19 08:51) Unknown hospital bath blankets Allergy (Uncoded 11/07/19 08:51) Unknown Primary Care Physician: Franck Moncada MD [STAFF PHYSICIAN] - (call to arrange early follow up) Surgical History: noncontributory, cataract, - - D&C, pleurodesis of the long secondary to ruptured bleb Lives: Alone Smoking Status: Never smoker Drugs: None - Family History Maternal Family History: Family History (Last Reviewed 09/24/19 @ 10:32 by Karuna SANTILLAN, PA) Father CAD (coronary artery disease) Myocardial infarction Mother Myocardial infarction CAD (coronary artery disease) Family History: Reports: No pertinent history Paternal Family History: Family History (Last Reviewed 09/24/19 @ 10:32 by Karuna SANTILLAN, PA) Father CAD (coronary artery disease) Myocardial infarction Mother Myocardial infarction CAD (coronary artery disease) Family History: Reports: No pertinent history Review of Systems General: Denies: Chills, Fever, Sweats Eyes: Denies: Visual changes - bilaterally, Diplopia ENT: Reports: - - Epistaxis. Denies: Rhinorrhea, Sore throat Cardiovascular: Denies: Chest pain, Palpitations Respiratory: Denies: Dyspnea, Cough, Dyspnea on exertion Gastrointestinal: Denies: Abdominal pain, Nausea, Vomiting, Diarrhea, Melena, Hematochezia Genitourinary: Denies: Dysuria, Hematuria, Frequency Musculoskeletal: Denies: Back pain, Extremity Pain Skin: Denies: Rash, Wounds Neurological: Denies: Headache, Weakness, Numbness Physical Exam Vital Signs/Narrative: Vital Signs Temp Pulse Resp BP Pulse Ox 11/07/19 08:52 97 F L 74 16 153/50 H 99 Inital Vital Signs reviewed: Yes General: Well nourished, Well developed, No Acute Distress Head: Normocephalic, Atraumatic Eyes: Perrl, EOMI ENT: Moist mucous membranes, No rhinorrhea, - - I do not see any blood active or dried in the right nares. The left nares has some old blood. There is a clot on the very inferior aspect of the naris in the anterior plexus region. There is a blood vessel that appears to have recently bled. I do not see any active bleeding from the anterior plexus. No blood in the oropharynx. Neck: Supple, Nontender Cardiovascular: Regular rate, Regular rhythm, No murmurs Respiratory: No distress, CTA bilaterally, Chest nontender Abdomen: Soft, Nontender, Nondistended, Normal bowel sounds Back: Nontender, Normal Inspection Extremities: Nontender, No edema Skin: Normal color, No rash Neurological: Alert, Oriented x3, Cranial nerves II-XII grossly intact, Normal Strength, Normal Sensation Psychological: Normal affect, Normal Mood Diagnostic/Tx/Re-eval - Medical Decision Making Matter max was placed in a cottonball instilled into the left naris. Nasal pincer was applied for 10 minutes. Cottonball was removed and patient reassessed. Silver nitrate was used to cauterize the vessel. She was observed for 30 minutes and there is been no further bleeding. She will be discharged home. I gave her home instructions for what to do if she starts to bleed again including phenylephrine soaked cotton ball and nasal pincers for 15 minutes. ED Disposition - Plan for ED Patient: Disposition: Home or Assisted Living Diagnosis: Left-sided epistaxis Instructions: ED Epistaxis Adult Referrals: Franck Moncada MD [STAFF PHYSICIAN] - (call to arrange early follow up) Additional Instructions: Please orange picking supervisor a bottle of Afrin from the drugstore. If bleeding returns, place phenylephrine soaked cottonball into the naris and apply nasal pincers for a minimum of 15 minutes without touching your nose. If bleeding continues return to emergency department and you would most likely require nasal packing at that time.
[2019-11-07 10:59] VITALS: BP 142/64; PULSE 62; RESP 17
[2019-11-07] MEDS: Mixture 30 ML Bottle TOPICAL (11:00)
[2019-11-07] MEDS: Silver Nitrate (BKC) 1 EACH TOPICAL (11:01)
== END 2019-11-07 11:01 | disposition home or self-care (01) ==
LOC: ED 09:42
PROVIDERS: Emergency Provider Emergency Medicine
DX: R04.0 Epistaxis (principal); I25.10 Atherosclerotic heart disease of native coronary artery without angina pectoris; I65.23 Occlusion and stenosis of bilateral carotid arteries; I35.8 Other nonrheumatic aortic valve disorders; I10 Essential (primary) hypertension; K21.9 Gastro-esophageal reflux disease without esophagitis; E78.00 Pure hypercholesterolemia, unspecified; Z82.49 Family history of ischemic heart disease and other diseases of the circulatory system; Z88.2 Allergy status to sulfonamides; Z88.5 Allergy status to narcotic agent
CPT/HCPCS: 30901; 99282

== ENCOUNTER → 2019-12-14 13:46 | Outpatient (CLI) | payer MEDICARE, OTHER, SELFPAY | PROVIDERS: Visit Provider Obstetrics & Gynecology | DX: N30.01 Acute cystitis with hematuria (principal); Z87.440 Personal history of urinary (tract) infections | CPT/HCPCS: 87077; 87086; 87088; 87186 ==

== ENCOUNTER → 2020-01-01 08:52 | Outpatient (CLI) | payer MEDICARE, OTHER, SELFPAY ==
[2020-01-01 09:58] LABS: AST(SGOT) 18 U/L (15-37); Alanine Aminotransfer ALT/SGPT 20 U/L (13-56); Albumin, Serum 3.8 g/dL (3.2-5.0); Alkaline Phosphatase 53 U/L (45-117); Bilirubin, Direct 0.17 mg/dL (0.00-0.30); Cholesterol 191 mg/dL (200); Globulin 3.2 g/dL (2.2-4.2); High Density Lipoprotein 70 mg/dL; Triglycerides 68 mg/dL; Very Low Density Lipoprotein 14 mg/dL (5-40)
== END ==
PROVIDERS: Referring Provider Internal Medicine Cardiovascular Disease; Visit Provider Internal Medicine Cardiovascular Disease
DX: E78.00 Pure hypercholesterolemia, unspecified (principal)
CPT/HCPCS: 36415; 80061; 80076

== ENCOUNTER → 2020-03-26 10:46 | Outpatient (CLI) | payer MEDICARE, OTHER, SELFPAY ==
--- NOTE | 2020-03-26 10:49 | ECHOD_ITS ---
Reason For Study: MV DISEASE Procedure This was a 2D Doppler, Color Flow transthoracic echocardiogram. The study was technically difficult. Exam performed in department. Left Ventricle Normal LV size. Moderate concentric left ventricular hypertrophy. Left ventricular systolic function is hyperdynamic. The estimated ejection fraction is 75 %. Diastolic function is indeterminate. No regional wall motion abnormalities noted. Right Ventricle Normal RV size. Normal systolic function. Atria Normal left atrium. Normal right atrium. No doppler evidence for ASD. Mitral Valve There is mild mitral annular calcification. Anterior leaflet diffuse mitral valve thickening. Moderately severe (3+) mitral valve insufficiency. Tricuspid Valve Normal tricuspid valve. Trivial tricuspid valve insufficiency. Right ventricular systolic pressure estimated to be 22 mmHg. Aortic Valve Trisinus/trileaflet aortic valve. Mild diffuse aortic valve thickening. Mild focal aortic valve calcification. Mild aortic stenosis. Trivial aortic valve insufficiency. Pulmonic Valve The pulmonic valve is not well visualized. Great Vessels Normal sized aortic root. Pericardium/Pleural No pericardial effusion. MMode/2D Measurements & Calculations LVIDd: 3.6 cm IVSd: 1.3 cm LVOT diam: 1.8 cm LVIDs: 2.3 cm LVPWd: 1.3 cm LVOT area: 2.5 cm2 RVDd: 3.3 cm FS: 35.8 % Ao root diam: 2.9 cm LAV(MOD-bp): 42.9 ml LVAd ap4: 24.3 cm2 LAV(MOD-bp) Indexed: 29.1 ml/m2 EDV(MOD-sp4): 63.1 ml LAV(MOD-sp2): 39.7 ml EDV(sp4-el): 65.7 ml LAV(MOD-sp4): 41.4 ml LVAs ap4: 10.8 cm2 ESV(MOD-sp4): 15.0 ml ESV(sp4-el): 15.9 ml EF(MOD-sp4): 76.3 % EF(sp4-el): 75.7 % SV(MOD-sp4): 48.2 ml SV(sp4-el): 49.8 ml LA A4 area: 15.7 cm2 LA dimension(2D): 3.5 cm RA A4 area: 10.8 cm2 Time Measurements MV dec time: 0.32 sec Doppler Measurements & Calculations MV E max david: 91.0 cm/sec Lat Peak E' David: 6.3 cm/sec Med Peak E' David: 3.8 cm/sec MV A max david: 89.5 cm/sec E/E' lat: 14.5 E/E' med: 23.9 MV E/A: 1.0 Ao V2 max: 233.9 cm/sec AI max david: 345.5 cm/sec LV V1 max: 142.4 cm/sec Ao max P.9 mmHg AI max P.8 mmHg LV V1 max P.2 mmHg Ao V2 mean: 155.2 cm/sec LV V1 mean P.3 mmHg Ao mean P.2 mmHg AI dec slope: 314.6 cm/sec2 LV V1 mean: 83.8 cm/sec Ao V2 VTI: 44.6 cm AI P1/2t: 321.6 msec LV V1 VTI: 35.2 cm ANTONIO(I,D): 2.0 cm2 ANTONIO(V,D): 1.5 cm2 SV(LVOT): 87.4 ml TR max david: 219.9 cm/sec TR max P.3 mmHg Interpretation Summary The study was technically difficult. Left ventricular systolic function is hyperdynamic. The estimated ejection fraction is 75 %. Moderate concentric left ventricular hypertrophy. There is mild mitral annular calcification. Anterior leaflet diffuse mitral valve thickening. Moderately severe (3+) mitral valve insufficiency. Trivial tricuspid valve insufficiency. Mild aortic stenosis. Trivial aortic valve insufficiency. Right ventricular systolic pressure estimated to be 22 mmHg. Diastolic function is indeterminate. Ordering Physician: Karuna Gimenez Referring Physician: PITA RICHARDS Performed By: Sweta Salcedo, ALLEN, RVT
== END ==
PROVIDERS: Referring Provider Physician Assistant Medical; Visit Provider Physician Assistant Medical
DX: I25.10 Atherosclerotic heart disease of native coronary artery without angina pectoris (principal)
CPT/HCPCS: 93306

== ENCOUNTER 2020-05-10 14:21 | Emergency (ER) | payer MEDICARE, OTHER, SELFPAY ==
[2020-05-10 14:22] VITALS: BP 141/55; PULSE 65; RESP 14; TEMP 36.4; O2SAT 97; BMI 24.3
--- NOTE | 2020-05-10 14:39 | US_ITS ---
STUDY: ABDOMINAL ULTRASOUND - RIGHT UPPER QUADRANT REASON FOR VISIT: Female, 85 years old intermittent nausea with right upper quadrant pain TECHNIQUE: Ultrasound evaluation of the right upper quadrant was performed with real-time and static tran-scale imaging. TECHNICAL QUALITY: Limited. Examination limited by bowel gas. COMPARISON: None. FINDINGS: Liver: The liver measures 12.8 cm. There is normal echogenicity of the liver. The bile ducts are within normal limits. There is hepatic color flow. The direction of portal flow is hepatopetal. There is no demonstrated mass lesion. Gallbladder: Normal distended gallbladder. The gallbladder wall measures mm. There is a negative sonographic Dickinson''s sign. There is no pericholecystic fluid. There are no gallstones. Common Bile Duct (C.B.D.): The common bile duct measures 8.3 mm. Pancreas: Pancreatic ductal dilation measuring 3 mm. 10 mm anechoic cyst of the pancreatic body. Right Kidney: Normal size of the right kidney. There is no demonstrated renal mass or cyst. There is no right hydronephrosis. US/Gallbladder IMPRESSION: 1. No gallstones. 2. Mild intrahepatic and extrahepatic (including pancreatic duct) bile duct dilation may suggest central biliary obstruction. MRCP recommended. 3. 10 mm pancreatic body cyst. Electronically Signed: Glen Sousa MD ([place]) at 16:03 EDT , Service support ,
--- NOTE | 2020-05-10 14:39 | EKG12_ITS ---
Test Reason : Blood Pressure : / mmHG Vent. Rate : 064 BPM Atrial Rate : 064 BPM P-R Int : 204 ms QRS Dur : 096 ms QT Int : 416 ms P-R-T Axes : 077 036 078 degrees QTc Int : 429 ms Normal sinus rhythm Left ventricular hypertrophy with repolarization abnormality Abnormal ECG Confirmed by ROGER NGUYEN, FRANCINE ([id number]), video tape editor ODETTE GUILLERMO ([id number]) on 05/12/2020 1:42:03 PM Referred By: KEHINDE Confirmed By:FRANCINE DURAN MD
[2020-05-10] MEDS: Metoclopramide 10 MG/2 ML Vial IV (14:55)
[2020-05-10] MEDS: 0.9% Normal Saline 1,000 ML 125 ML IV (14:58)
[2020-05-10] MEDS: Morphine 4 MG/ML Syringe IV (15:00)
[2020-05-10 15:08] LABS: Basophil# 0.04 X10^3/uL; Basophil% 0.6 % (0-1); Eosinophil# 0.31 X10^3/uL; Eosinophils% 4.5 % (0-5); Hemoglobin 12.6 g/dL (12.0-15.0); Lymphocyte % 24.4 % (19-41); Mean Corp Hgb Conc 34.1 g/dL (32-36); Mean Corpuscular Hgb 33.2 pg (27.0-32.0); Mean Corpuscular Volume 97.4 fL (81-99); Mean Platelet Vol. 10.7 fl (6.2-12.0); Monocyte# 0.93 X10^3/uL; Monocyte% 13.4 % (0-10); NRBC Flagged by Analyzer 0 % (0-5); Neutrophil # 3.95 X10^3/uL (2.7-7.7); Neutrophil % 56.7 % (47-70); Platelet Count 167 K/mm3 (150-450); RBC Distribution Width SD 43.5 fl (35.1-43.9)
[2020-05-10 15:11] LABS: Mucous, Urine 0 SEEN /hpf (<or=2+)
[2020-05-10 15:19] LABS: Color, Urine Yellow (Yellow); Glucose, Dipstick Normal (Normal); Ketone-Dipstick Negative (Negative); Leukocyte Esterase-Dipstick 500 /ul (Negative); Nitrite-Dipstick Negative (Negative); Occult Blood-Urine 10 /ul (Negative); Protein-Dipstick 15 mg/dl (Negative); Urine Bilirubin Dipstick Negative (Negative); Urine Clarity Cloudy (Clear); Urine Urobilinogen Normal (Normal)
[2020-05-10 15:23] LABS: ALB/GLOB Ratio 1.2 RATIO (0.9-2.4); AST(SGOT) 14 U/L (15-37); Alanine Aminotransfer ALT/SGPT 21 U/L (13-56); Albumin, Serum 4.1 g/dL (3.2-5.0); Alkaline Phosphatase 59 U/L (45-117); Anion Gap 6 (5-15); BUN 42 mg/dL (7-18); Calcium,Total 9.4 mg/dL (8.5-10.1); Chloride 98 mmol/L (98-107); Creatinine, Serum 1.75 mg/dL (0.55-1.02); EST Glomerular Filtration Rate 30 mL/min (>60); Est Glom Filt Rate - Afr Amer 36 mL/min (>60); Estimated Creatinine Clearance 21.03 ml/min; Globulin 3.5 g/dL (2.2-4.2); Glucose 121 mg/dL (74-106); Lipase 199 U/L (73-393); Protein, Total 7.6 g/dL (6.4-8.2); Sodium Level 134 mmol/L (136-145)
[2020-05-10 15:30] LABS: Red Blood Cells-Urine 0 SEEN /hpf (0-5); Squamous Epithelial Cells - UA 10-25 SEEN /hpf (5-10); White Blood Cells 10-25 SEEN /hpf (0-5)
[2020-05-10 15:31] LABS: Bacteria 1+ /hpf (None Seen); Hyaline Cast 0-5 SEEN /lpf (0-5)
[2020-05-10 15:32] LABS: Yeast-Urine 1+ /hpf (None Seen)
--- NOTE | 2020-05-10 15:34 | ED.DCSUM_ITS ---
- ER Visit Summary Date of Service: 05/10/20 Chief Complaint: Abdominal pain History of Present Illness: The patient is a [address] Shabazz and Dr. Mckinney. She reports has been nauseated on and off for the past 6 days. However, she has epigastric and right upper quadrant abdominal pain that began yesterday. She had an episode yesterday last approximately 30 minutes. States that at 1230 today she had cranberry bread, lopez, and fried eggs an approximate hour later the pain began again. The sharp pain is 10 of 10 at worst and 4-10 currently. Is worsened by nothing. She took antacids with minimal relief. Patient has had nausea without vomiting. No diarrhea. Her last bowel was yesterday. No mono medic easier. No dysuria or frequency. Physical Examination: Vitals: Stable. Afebrile. General: Well-nourished and well-developed. Head: Normocephalic atraumatic. Neck: Supple, no lymphadenopathy. No JVD. Nontender. Cardiovascular: Regular rate and rhythm. 2 out of 6 systolic murmur. Respiratory: No respiratory distress. Clear to auscultation bilaterally. Abdominal: Soft, moderate epigastric and right upper quadrant tenderness to palpation, nondistended, normal bowel sounds. No guarding, rebound, or peritoneal signs. Back: Nontender. Extremities: Nontender, no edema. Skin: Normal color, no rash. Neurologic: Alert and oriented ?3. Cranial nerves II through XII are intact. Normal strength and sensation. Psych: Normal affect. Test Results: EKG is sinus at 64. Has LVH with repolarization changes. It is unchanged from previous. CBC shows monocytes 13. Chem-7 shows sodium 134, glucose 121, again a 42, creatinine 1.75. LFTs show any T AST of 14. Lipase is normal. UA shows 10-25 white blood cells, but also 10-25 epithelial cells and no bacteria. Troponin is negative. Clinical Impression(s) from Imaging Studies Gallbladder Ultrasound 05/10/20 14:39 IMPRESSION: 1. No gallstones. 2. Mild intrahepatic and extrahepatic (including pancreatic duct) bile duct dilation may suggest central biliary obstruction. MRCP recommended. 3. 10 mm pancreatic body cyst. Electronically Signed: Glen Sousa MD (Brooks) at 16:03 EDT , Service support , Abdomen/Pelvis CT 05/10/20 16:11 IMPRESSION: 1. No CT evidence of pancreatic mass or pancreatitis. 2. Mild biliary distention. Nondistended gallbladder. Recommend correlating with laboratory values/bilirubin levels for clinical significance. Electronically Signed: Glen Sousa MD (Brooks) at 17:03 EDT , Service support , Emergency Department Course and Treatment: Patient was given a single dose of morphine and Zofran IV. She is resting comfortably. She denies any pain at this time. Treatment Plan: Patient was discussed with Dr. Jackson. She will be discharged with [place], Zofran, and senna. Instructed to follow-up with Dr. Jackson in 3 days for another exam. Return to the emergency department for any worsening symptoms. Disposition: To home in improved and stable condition. Impression: 1. Abdominal pain, suspect biliary. This note was generated with [employer] dictation software. It may contain incorrect words, spelling, and punctuation that were not noted in review of the chart prior to signing ED Disposition - Plan for ED Patient: Instructions: ED Abdominal Pain Unkn Cause Fem Prescriptions: Oxycodone HCl/Acetaminophen [Percocet 5/325] 1 tablet PO Q6H PRN PRN 3 Days #12 tablet PRN Reason: Pain Sennosides [Senna] 8.6 mg PO QHS #10 tablet Ondansetron [Zofran Odt] 4 mg PO Q8H PRN PRN #10 tablet PRN Reason: Nausea Referrals: Sade Jackson MD [STAFF PHYSICIAN] - 05/13/20
--- NOTE | 2020-05-10 16:11 | CT_ITS ---
STUDY: CT ABDOMEN AND PELVIS WITH CONTRAST REASON FOR EXAM: Female, 85 years old. Epigastric pain -- IV PO Contrast RADIATION DOSAGE (If Supplied By Facility): CTDIvol = ( 7.49 ) mGy, DLP = ( 380.31 ) mGycm TECHNIQUE: Transaxial images were obtained from the dome of the diaphragm to the symphysis pubis with oral contrast. 75mL Isovue-370 was administered. Sagittal and coronal images were reconstructed. Individualized dose optimization techniques were used for this CT. COMPARISON: None. FINDINGS: The visualized lung bases are unremarkable. The visualized portions of the heart are within normal limits. No hepatic masses. Gallbladder is contracted but no gallbladder wall thickening. Minimal fullness of the intrahepatic bile ducts but the common duct is normal for age measuring 6.2 mm. No pancreatic head mass. Normal spleen. Mild dilation of the pancreatic body/tail duct. Normal bilateral adrenal glands. Normal right kidney. Normal left kidney. Normal visualized stomach. Normal small intestine. Normal colon. The appendix is visualized and appears normal. There is diffuse atherosclerotic calcification of the abdominal aorta, without a demonstrated aneurysm. Normal inferior vena cava. Normal retroperitoneum. Normal urinary bladder. Uterus is retroverted. Normal abdominal wall. Grade 1 anterolisthesis of L4-L5 due to facet arthropathy. CT/Abdomen/Pelvis WITH Contrast IMPRESSION: 1. No CT evidence of pancreatic mass or pancreatitis. 2. Mild biliary distention. Nondistended gallbladder. Recommend correlating with laboratory values/bilirubin levels for clinical significance. Electronically Signed: Glen Sousa MD (Brooks) at 17:03 EDT , Service support ,
[2020-05-10 18:07] VITALS: BP 134/54; PULSE 67; RESP 16; O2SAT 98
== END 2020-05-10 18:08 | disposition home or self-care (01) ==
LOC: ED 15:08
PROVIDERS: Emergency Provider Emergency Medicine
DX: R10.11 Right upper quadrant pain (principal); R10.13 Epigastric pain; R11.0 Nausea; M54.9 Dorsalgia, unspecified; R06.00 Dyspnea, unspecified; R07.9 Chest pain, unspecified; R53.1 Weakness; I10 Essential (primary) hypertension; E78.00 Pure hypercholesterolemia, unspecified
CPT/HCPCS: 74177; 76705; 80053; 81001; 83690; 84484; 85025; 93005; 96361; 96374; 96375; 99283; J7030; Q9967; A4216

== ENCOUNTER → 2020-07-25 08:17 | Outpatient (CLI) | payer MEDICARE, OTHER, SELFPAY ==
[2020-07-21 11:30] VITALS: BMI 23.8
[2020-07-25 10:11] LABS: AST(SGOT) 16 U/L (15-37); Alanine Aminotransfer ALT/SGPT 19 U/L (13-56); Alkaline Phosphatase 48 U/L (45-117); Bilirubin, Direct 0.19 mg/dL (0.00-0.30); Cholesterol 206 mg/dL (200); Globulin 3.4 g/dL (2.2-4.2); High Density Lipoprotein 71 mg/dL; Protein, Total 7.4 g/dL (6.4-8.2); Triglycerides 92 mg/dL; Very Low Density Lipoprotein 18 mg/dL (5-40)
== END ==
PROVIDERS: Referring Provider Internal Medicine Cardiovascular Disease; Visit Provider Internal Medicine Cardiovascular Disease
DX: E78.00 Pure hypercholesterolemia, unspecified (principal)
CPT/HCPCS: 36415; 80061; 80076

== ENCOUNTER 2020-07-31 16:12 | Emergency (ER) | payer MEDICARE, OTHER, SELFPAY ==
[2020-07-21 11:30] VITALS: BMI 23.8
[2020-07-31 16:12] VITALS: BP 137/38
[2020-07-31 16:13] VITALS: BP 130/38; PULSE 60; RESP 18; TEMP 36.4; O2SAT 100; BMI 24.7
--- NOTE | 2020-07-31 16:27 | EKG12_ITS ---
Test Reason : ABNL PAIN Blood Pressure : / mmHG Vent. Rate : 063 BPM Atrial Rate : 063 BPM P-R Int : 218 ms QRS Dur : 102 ms QT Int : 436 ms P-R-T Axes : 073 034 082 degrees QTc Int : 446 ms Sinus rhythm with 1st degree A-V block Left ventricular hypertrophy with repolarization abnormality Abnormal ECG Confirmed by BJ NGUYEN, SANJAY ([id number]), continuity editor ODETTE GUILLERMO ([id number]) on 08/04/2020 10:53:20 A M Referred By: ARI Confirmed By:VICKIE LORENZO MD
--- NOTE | 2020-07-31 16:28 | ED.VIS.GI ---
HPI HPI - GI History of Present Illness Chief Complaint: Abd Pain Informant: patient Abdominal Pain/Flank Pain Onset: Today Context: Sudden Onset Timing: Intermittent Quality: Cramping, Sharp and Stabbing Location: Diffuse Current Severity: Gone Maximum Severity: Moderate Worsened by: Nothing Nausea/Vomiting/Emesis GI Symptom: Positive for Nausea; Negative for Vomiting Onset: Today Severity: Mild Diarrhea/Melena/Hematochezia GI Symptom: Negative for Diarrhea, Melena and Hematochezia Associated Symptoms Associated Symptoms: Negative for Dysuria and Frequency Narrative Narrative: 85-year-old female past medical history of CAD and hypertension. Prior umbilical hernia surgery and prior lung surgery for pneumothorax. Still has her gallbladder appendix and her uterus. Patient states she has been having normal bowel movements. Denies any blood or melena. Denies any dysuria or fever. Today after lunch had crampy abdominal pain and 3 bowel movements. Denied any fever. She had chills. She had nausea but no vomiting no diarrhea or recent constipation. States she is feeling much better now. Had a similar episode in April and was evaluated at that time. No specific diagnosis at that time. Prior similar symptoms: Yes Recent Illness/Hospitalization: No [facility] Medical History (Updated 07/31/20 @ 18:[address] Richard Haile MD) Abnormal stress test Aortic valve sclerosis Atherosclerotic heart disease of [place] coronary artery without angina pectoris Bilateral carotid artery stenosis CAD (coronary artery disease) Carotid bruit Encounter for long-term current use of high risk medication Essential hypertension Hiatal hernia Hypertension IBS (irritable bowel syndrome) Mitral valve disease Non-rheumatic mitral valve disease Nonrheumatic mitral valve regurgitation Palpitations Pure hypercholesterolemia Home Medications B-complex with vitamin C 1 each PO DAILY 09/01/16 [History Last Taken 04/09/19] Lactobac 41-B.bifid,lactis-FOS 1 each PO DAILY 09/01/16 [History Last Taken 04/09/19] aspirin 81 mg PO DAILY@0800 09/01/16 [History Last Taken 04/09/19] biotin 2,500 mcg PO DAILY 09/01/16 [History Last Taken 04/09/19] calcium carb-mag ox-zinc sulf 1 each PO DAILY 09/01/16 [History Last Taken 04/09/19] aiblacnq-cdn-xpda-FA-lutein 1 each PO DAILY 09/01/16 [History Last Taken 04/09/19] oxybutynin chloride 5 mg PO DAILY 09/01/16 [History Last Taken 04/09/19] ascorbic acid (vitamin C) 500 mg capsule 500 mg PO QODAY cap 02/27/18 [History Last Taken 04/09/19] desonide 0.05 % lotion 1 applic TOPICAL DAILY 02/27/18 [History Last Taken 04/09/19] methenamine hippurate 1 gram tablet 1 gm PO QODAY tablet 02/27/18 [History Last Taken 04/08/19] simvastatin 20 mg tablet 20 mg PO QHS #90 tablet 09/10/19 [Rx Last Taken Unknown] famotidine 20 mg tablet 20 mg PO DAILY 09/24/19 [History Last Taken Unknown] metoprolol tartrate 25 mg tablet 25 mg PO BID #180 tablet 12/07/19 [Rx Last Taken Unknown] lisinopril 20 mg PO BID 05/10/20 [History Last Taken Unknown] furosemide 40 mg tablet 40 mg PO Q OTHER DAY #90 tablet 05/19/20 [Rx Last Taken Unknown] cholecalciferol (vitamin D3) 25 mcg (1,000 unit) tablet 25 mcg PO DAILY 07/21/20 [History Last Taken Unknown] metronidazole 0.75 % topical gel 1 applic TOPICAL BID PRN 07/21/20 [History Last Taken Unknown] pantoprazole 40 mg tablet,delayed release 40 mg PO DAILY 07/21/20 [History Last Taken Unknown] selenium sulfide 2.5 % shampoo 1 ea TOPICAL 2XW 07/21/20 [History Last Taken Unknown] Allergy/AdvReac Type Severity Reaction Status Date / Time chlorhexidine Allergy Rash Verified 07/31/20 16:19 venom-honey bee Allergy Anaphylaxis Verified 07/31/20 16:19 [bee venom (honey bee)] hydrocodone bitartrate AdvReac Other Verified 07/31/20 16:19 [From Vicodin] quinine AdvReac Diarrhea Verified 07/31/20 16:19 Sulfa (Sulfonamide AdvReac Unknown Verified 07/31/20 16:19 Antibiotics) hospital bath blankets Allergy Unknown Uncoded 07/31/20 16:19 Family History Father CAD (coronary artery disease) Hx CABG Myocardial infarction Mother Myocardial infarction CAD (coronary artery disease) Surgical History History of hernia repair (~12/2006) History of local excision of skin lesion History of tubal ligation Social History Smoking Status: Former smoker alcohol intake: current alcohol intake frequency: 0-2 drinks per day Alcohol type: other details: Few swigs of Kendal's per day substance use type: does not use caffeine: Yes Type: carbonated beverages and tea what type of physical activity do you participate in: other frequency: daily duration: 15-30 minutes/day seatbelt use: always do you feel safe at home: Yes ROS ROS ED ROS Narrative Denies any recent illness. Review of Systems ROS Unobtainable: Denies due to encephalopathy Constitutional Constitutional ED: Reports chills; Denies fever(s) ENT ENT ED: Denies ear pain or sore throat Cardiovascular Cardiovascular: Denies chest pain Respiratory/Chest Respiratory/Chest: Denies cough or dyspnea Gastrointestinal Gastrointestinal: Reports abdominal pain and nausea; Denies constipation, diarrhea, melena or vomiting Genitourinary Genitourinary ED: Denies dysuria or hematuria Musculoskeletal Musculoskeletal: Denies arthralgias or myalgias Integumentary Denies rash Neurologic Neurologic: Denies headache(s) Psychiatric Psychiatric: Denies depression Endocrine Endocrinology: Denies polyuria Hematologic/Lymphatic Hematologic/Lymphatic: Denies easy bruising Allergic/Immunologic Allergic/Immunologic ED: Denies urticaria EXAM Physical Exam Narrative Exam Narrative: Older female no acute distress. HEENT exam unremarkable. Lungs are clear equal symmetrical bilaterally. Heart regular rate and rhythm no murmur. Abdomen soft. Nondistended. Normal bowel sounds. No peritoneal signs. No signs of obstruction. Right upper and right lower quadrants are unremarkable. There is no hernia or mass. No pulsatile mass. No peritoneal signs. Moving all 4 extremities. Back nontender. Neurologically awake and alert. Benign exam. Const Vital Signs: 07/31/20 16:12 07/31/20 16:13 Temperature 97.6 F L Temperature Source Oral Pulse Rate 60 Respiratory Rate 18 Blood Pressure 137/38 H 130/38 H Blood Pressure Mean 71 68 Pulse Ox 100 HEENT Reports moist mucous membranes normocephalic and atraumatic; Negative for trauma or tenderness Eyes PERRL and EOMs intact bilaterally Neck no lymphadenopathy, supple and no JVD General: Negative for tenderness Resp normal respiratory effort and clear to auscultation bilaterally Cardio regular rate, regular rhythm and no murmurs GI non-tender, non-distended and no masses Inspection: Negative for abdominal distention Auscultation: normoactive bowel sounds Palpation: soft; Negative for tender, guarding, rigid or rebound tenderness present Back/Spine no CVA tenderness Extremity full ROM General Extremety ED: Negative for edema or tenderness General Extremity: Negative for edema Neuro CN's II-XII intact bilaterally and moves all extremities Sensorium / Orientation: alert, oriented to person, oriented to place and oriented to time Motor Exam: strength 5/5 throughout Psych mental status grossly normal and thought process normal Skin Lesions: no lesions Rashes: no rashes MDM MDM MDM Narrative Medical decision making narrative: Elderly female with abdominal pain today and multiple bowel movements. Currently feeling much better. Currently is not nauseated. She has no reproducible abdominal pain and is currently pain-free. Screening labs are being obtained. I will review her prior work-up for similar event in April. Repeat exam at 6:25 PM patient is doing well abdomen is benign. She and I discussed all of her test results and she wants to be discharged to home. Clinically I am comfortable with that and she will follow-up with her primary care physician if not improving return if worse. Currently she is pain-free, Lab Data Attestation: I reviewed the patient's lab results. Lab results narrative: CBC unremarkable white count 7. H&H 11 and 35 consistent with prior anemia. Electrolytes unremarkable gap 11. BUN of 56 creatinine 2.1. Liver enzymes normal. Lipase normal. UA 5-10 white cells otherwise unremarkable. No bacteria or nitrites I will send a culture but she is not to treat her at this time with no urinary symptoms. I also reviewed her CAT scan results from late April and they were unremarkable. I do not think she needs repeat imaging. Labs: Laboratory Results - last 24 hr 07/31/20 07/31/20 07/31/20 16:15 16:15 16:31 WBC 7.8 RBC 3.57 L Hgb 11.8 L Hct 35.6 L MCV 99.7 H MCH 33.1 H MCHC 33.1 RDW Std Deviation 45.2 H RDW Coeff of Wilner 12.2 Plt Count 201 MPV 11.0 Immature Gran % (Auto) 0.400 Neut % (Auto) 68.5 Lymph % (Auto) 18.5 L Cataño % (Auto) 7.8 Eos % (Auto) 4.0 Baso % (Auto) 0.8 Absolute Neuts (auto) 5.4 Absolute Lymphs (auto) 1.45 Nucleated RBC % 0 Sodium 136 Potassium 4.6 Chloride 103 Carbon Dioxide 22.0 Anion Gap 11 BUN 56 H Creatinine 2.10 H Estim Creat Clear Calc 14.58 Est GFR (MDRD) Af Amer 29 L Est GFR (MDRD) Non-Af 24 L BUN/Creatinine Ratio 26.7 H Glucose 133 H Calcium 9.4 Total Bilirubin 0.50 AST 17 ALT 15 Alkaline Phosphatase 48 Total Protein 7.4 Albumin 3.9 Globulin 3.5 Albumin/Globulin Ratio 1.1 Lipase 210 Urine Color Yellow Urine Clarity Sl. Cloudy Urine pH 6.0 Ur Specific [place] 1.010 Urine Protein Negative Urine Glucose (UA) Normal Urine Ketones Negative Urine Occult Blood 10 H Urine Nitrite Negative Urine Bilirubin Negative Urine Urobilinogen Normal Ur Leukocyte Esterase 100 H Urine RBC 0-5 SEEN Urine WBC 5-10 SEEN Ur Squamous Epith Cells 0-5 SEEN Amorphous Sediment 1+ URATE Urine Bacteria 0 SEEN Urine Mucus 0 SEEN Rhythm Strip Rhythm Strip: Sinus Rhythm Rate: 63 Ectopy: None EKG Initial EKG: Attestation: I personally reviewed and interpreted this EKG as follows: Interpretation: Sinus Rhythm and No Acute Injury Pattern Comments: Sinus rhythm rate of 63 first-degree AV block. LVH. Prior EKG tracings: not available for review Discharge Plan Triage Chief Complaint: Abd Pain ED Provider: Richard Haile Dx/Rx/DC Orders Clinical Impression: Abdominal pain Instructions: ED Abdominal Pain Unkn Cause Fem Prescriptions: No Action desonide 0.05 % lotion 1 applic TOPICAL DAILY RF: 0 methenamine hippurate [Hiprex] 1 gram tablet 1 gm PO QODAY RF: 0 ascorbic acid (vitamin C) 500 mg capsule 500 mg PO QODAY RF: 0 famotidine [Acid Miter Grinder Operator (famotidine)] 20 mg tablet 20 mg PO DAILY RF: 0 metronidazole 0.75 % gel 1 applic topical BID PRN (Reason: Itching) RF: 0 pantoprazole 40 mg tablet,delayed release (DR/EC) 40 mg PO DAILY RF: 0 selenium sulfide 2.5 % shampoo 1 ea topical 2XW RF: 0 cholecalciferol (vitamin D3) 25 mcg (1,000 unit) tablet 25 mcg PO DAILY RF: 0 furosemide 40 mg tablet 40 mg PO Q OTHER DAY Qty: 90 RF: 3 aspirin 81 MG tablet,chewable 81 mg PO DAILY@0800 RF: 0 oxybutynin chloride 5 MG tablet 5 mg PO DAILY RF: 0 B-complex with vitamin C 1 EACH tablet 1 each PO DAILY RF: 0 biotin 2,500 MCG capsule 2,500 mcg PO DAILY RF: 0 adwxarar-nyz-qjhk-FA-lutein 1 EACH tablet 1 each PO DAILY RF: 0 calcium carb-mag ox-zinc sulf 1 EACH tablet 1 each PO DAILY RF: 0 Lactobac 41-B.bifid,lactis-FOS 1 EACH capsule 1 each PO DAILY RF: 0 lisinopril 20 MG tablet 20 mg PO BID RF: 0 simvastatin 20 mg tablet 20 mg PO QHS Qty: 90 RF: 3 metoprolol tartrate 25 mg tablet 25 mg PO BID Qty: 180 RF: 3 Primary Care Provider: Frantz Mckinney Referrals: Frantz Mckinney [Primary Care Provider] - 3-5 Days if not improving Activity Restrictions/Additional Instructions: May resume a regular diet. Disposition Disposition: Home, self care
[2020-07-31] MEDS: 0.9% Normal Saline 1,000 ML 1000 ML IV (16:38)
[2020-07-31 16:42] LABS: Absolute Lymphocyte Count 1.45 X10^3/uL (0.83-4.51); Absolute Neutrophil Count 5.4 X10^3/uL (2.0-7.7); Basophil# 0.06 X10^3/uL; Basophil% 0.8 % (0-1); Eosinophil# 0.31 X10^3/uL; Hematocrit 35.6 % (37-47); Hemoglobin 11.8 g/dL (12.0-15.0); Lymphocyte # 1.45 X10^3/ul (0.83-4.51); Lymphocyte % 18.5 % (19-41); Mean Corp Hgb Conc 33.1 g/dL (32-36); Mean Corpuscular Hgb 33.1 pg (27.0-32.0); Mean Corpuscular Volume 99.7 fL (81-99); Monocyte# 0.61 X10^3/uL; Monocyte% 7.8 % (0-10); NRBC Flagged by Analyzer 0 % (0-5); Neutrophil # 5.37 X10^3/uL (2.7-7.7); Neutrophil % 68.5 % (47-70); Platelet Count 201 K/mm3 (150-450); RBC Distribution Width CV 12.2 % (11.6-14.6); RBC Distribution Width SD 45.2 fl (35.1-43.9); Red Blood Count 3.57 M/mm3 (4.2-5.4); White Blood Count 7.8 K/mm3 (4.4-11.0)
[2020-07-31 16:46] LABS: Bacteria 0 SEEN /hpf (None Seen); Mucous, Urine 0 SEEN /hpf (<or=2+)
[2020-07-31 16:49] LABS: Color, Urine Yellow (Yellow); Glucose, Dipstick Normal (Normal); Ketone-Dipstick Negative (Negative); Leukocyte Esterase-Dipstick 100 /ul (Negative); Nitrite-Dipstick Negative (Negative); Occult Blood-Urine 10 /ul (Negative); Protein-Dipstick Negative (Negative); Urine Bilirubin Dipstick Negative (Negative); Urine Clarity Sl. Cloudy (Clear); Urine Urobilinogen Normal (Normal)
[2020-07-31 16:59] LABS: ALB/GLOB Ratio 1.1 RATIO (0.9-2.4); AST(SGOT) 17 U/L (15-37); Alanine Aminotransfer ALT/SGPT 15 U/L (13-56); Albumin, Serum 3.9 g/dL (3.2-5.0); Alkaline Phosphatase 48 U/L (45-117); Anion Gap 11 (5-15); BUN 56 mg/dL (7-18); BUN/Creat Ratio 26.7 RATIO (10-20); Calcium,Total 9.4 mg/dL (8.5-10.1); Chloride 103 mmol/L (98-107); EST Glomerular Filtration Rate 24 mL/min (>60); Est Glom Filt Rate - Afr Amer 29 mL/min (>60); Estimated Creatinine Clearance 14.58 ml/min; Globulin 3.5 g/dL (2.2-4.2); Glucose 133 mg/dL (74-106); Lipase 210 U/L (73-393); Potassium 4.6 mmol/L (3.5-5.1); Protein, Total 7.4 g/dL (6.4-8.2); Sodium Level 136 mmol/L (136-145)
[2020-07-31 17:09] LABS: Red Blood Cells-Urine 0-5 SEEN /hpf (0-5); Squamous Epithelial Cells - UA 0-5 SEEN /hpf (5-10); White Blood Cells 5-10 SEEN /hpf (0-5)
[2020-07-31 17:10] LABS: Amorphous Sediment 1+ URATE
[2020-07-31 18:48] VITALS: BP 132/46; PULSE 73; RESP 14; O2SAT 98
== END 2020-07-31 18:49 | disposition home or self-care (01) ==
PROVIDERS: Emergency Provider Emergency Medicine
DX: R10.9 Unspecified abdominal pain (principal); I44.0 Atrioventricular block, first degree; Z87.891 Personal history of nicotine dependence; I25.10 Atherosclerotic heart disease of native coronary artery without angina pectoris; E78.00 Pure hypercholesterolemia, unspecified; I10 Essential (primary) hypertension; Z79.82 Long term (current) use of aspirin
CPT/HCPCS: 80053; 81001; 83690; 85025; 87086; 87088; 93005; 96360; 99285; J7030; A4216

== ENCOUNTER 2020-10-20 11:36 | Emergency (ER) | payer MEDICARE, OTHER, SELFPAY ==
[2020-10-20 11:37] VITALS: BP 110/44; PULSE 50; RESP 16; TEMP 36.8; O2SAT 100; BMI 22.4
--- NOTE | 2020-10-20 12:33 | CT_ITS ---
HISTORY: dizziness TECHNIQUE: Multiple axial images were obtained of the brain without intravenous contrast. A radiation dose optimization technique was used for this scan. IV Contrast dosage and agent: None. COMPARISON: None FINDINGS: # of images incl. paperwork: 227 PARANASAL SINUSES AND MASTOID AIR CELLS: Clear. INTRACRANIAL HEMORRHAGE: None. BRAIN PARENCHYMA: No CT evidence of stroke. No intracranial masses. There is preservation of the tran/white matter interface. Posterior fossa structures are unremarkable. There is hypoattenuation of the periventricular white matter. Chronic involutional changes are noted. CSF SPACES: Appropriate for age. There is no hydrocephalus. MASS EFFECT: None. CALVARIUM: No acute fracture. CT/Brain/Head without Contrast IMPRESSION: Chronic involutional and white matter changes. No acute intracranial process. Individualized dose optimization techniques were used for this CT. at 1353 Reported and signed by: Bryson Edwards MD Electronically Signed: Bryson Edwards MD at 13:52 EDT Tel , Service support ,
--- NOTE | 2020-10-20 12:34 | EKG12_ITS ---
Test Reason : DIZZINESS Blood Pressure : / mmHG Vent. Rate : 045 BPM Atrial Rate : 045 BPM P-R Int : 200 ms QRS Dur : 110 ms QT Int : 488 ms P-R-T Axes : 067 012 059 degrees QTc Int : 422 ms Sinus bradycardia Left ventricular hypertrophy Nonspecific ST and T wave abnormality Abnormal ECG Confirmed by RENAE NGUYEN, SHAN ([id number]), script editor ODETTE GUILLERMO ([id number]) on 10/22/2020 9:11:50 AM Referred By: VERITO Confirmed By:SHAN MACDONALD MD
[2020-10-20 12:53] LABS: Absolute Neutrophil Count 3.5 X10^3/uL (2.0-7.7); Basophil# 0.05 X10^3/uL; Basophil% 0.8 % (0-1); Eosinophil# 0.43 X10^3/uL; Hematocrit 32.4 % (37-47); Hemoglobin 10.6 g/dL (12.0-15.0); Lymphocyte % 25.9 % (19-41); Mean Corp Hgb Conc 32.7 g/dL (32-36); Mean Corpuscular Hgb 33.1 pg (27.0-32.0); Mean Corpuscular Volume 101.3 fL (81-99); Mean Platelet Vol. 10.4 fl (6.2-12.0); Monocyte# 0.59 X10^3/uL; Monocyte% 9.6 % (0-10); NRBC Flagged by Analyzer 0 % (0-5); Neutrophil # 3.48 X10^3/uL (2.7-7.7); Neutrophil % 56.4 % (47-70); Platelet Count 166 K/mm3 (150-450); RBC Distribution Width CV 12.1 % (11.6-14.6); RBC Distribution Width SD 45.1 fl (35.1-43.9); White Blood Count 6.2 K/mm3 (4.4-11.0)
--- NOTE | 2020-10-20 12:55 | RAD_ITS ---
STUDY: X-RAY CHEST REASON FOR EXAM: Female, 85 years old. Dizziness. TECHNIQUE: Single frontal view of the chest. COMPARISON: 05/07/2019. FINDINGS: Stable mild hyperexpansion. Stable cardiomegaly with aortic tortuosity and calcification. There is no demonstrated abnormality of the visualized soft tissue structures of the upper abdomen. RAD/Chest 1 View (Portable) IMPRESSION: Cardiomegaly with mild hyperexpansion unchanged. No active or acute cardiopulmonary disease. Electronically Signed: Bar Quach MD at 13:14 EDT , Service support ,
[2020-10-20 13:09] LABS: Anion Gap 4 (5-15); BUN 39 mg/dL (7-18); BUN/Creat Ratio 26.9 RATIO (10-20); Calcium,Total 9.3 mg/dL (8.5-10.1); Chloride 108 mmol/L (98-107); Creatinine, Serum 1.45 mg/dL (0.55-1.02); EST Glomerular Filtration Rate 37 mL/min (>60); Est Glom Filt Rate - Afr Amer 44 mL/min (>60); Estimated Creatinine Clearance 21.12 ml/min; Glucose 100 mg/dL (74-106); Potassium 4.7 mmol/L (3.5-5.1); Sodium Level 139 mmol/L (136-145); Troponin-I HS 14 pg/mL (3.0-54.0)
[2020-10-20 15:11] LABS: Mucous, Urine 0 SEEN /hpf (<or=2+)
[2020-10-20 15:12] LABS: Color, Urine Yellow (Yellow); Glucose, Dipstick Normal (Normal); Ketone-Dipstick Negative (Negative); Leukocyte Esterase-Dipstick 100 /ul (Negative); Nitrite-Dipstick Negative (Negative); Occult Blood-Urine Negative /ul (Negative); Protein-Dipstick Negative (Negative); Urine Bilirubin Dipstick Negative (Negative); Urine Clarity Sl. Cloudy (Clear); Urine Urobilinogen Normal (Normal)
[2020-10-20 15:25] LABS: Bacteria RARE /hpf (None Seen); Red Blood Cells-Urine 0-5 SEEN /hpf (0-5); Squamous Epithelial Cells - UA 0-5 SEEN /hpf (5-10); White Blood Cells 5-10 SEEN /hpf (0-5)
--- NOTE | 2020-10-20 15:31 | EX.ED.DYSGE1 ---
HPI History of Present Illness Chief Complaint: Dizziness Informant: patient and family Narrative Narrative: Patient presents for vertigo symptoms at 7:50 AM this morning. States the like she is spinning. Increasing tinnitus from her chronic tinnitus symptoms. Denies chest pains. Denies shortness of breath. She states she has had previous similar symptoms however would not be as significant. Denies any stroke history. Denies ear pain or sinus congestion. Denies vomiting or diarrhea. Denies any urinary symptoms. She reports she called the hospital line was referred over and spoke with her director epidemiology Dr. Shabazz was told to come to the hospital for evaluation. She states she has history of mitral valve prolapse, denies any coronary disease history. Prior similar symptoms: Yes [facility] Medical History (Updated 10/20/20 @ 15:[address] Bob Becerril DO) Abnormal stress test Aortic valve sclerosis Atherosclerotic heart disease of robinson coronary artery without angina pectoris Bilateral carotid artery stenosis CAD (coronary artery disease) Carotid bruit Encounter for long-term current use of high risk medication Essential hypertension Hiatal hernia Hypertension IBS (irritable bowel syndrome) Mitral valve disease Non-rheumatic mitral valve disease Nonrheumatic mitral valve regurgitation Palpitations Pure hypercholesterolemia Home Medications B-complex with vitamin C 1 each PO DAILY 09/01/16 [History Last Taken 04/09/19] Lactobac 41-B.bifid,lactis-FOS 1 each PO DAILY 09/01/16 [History Last Taken 04/09/19] aspirin 81 mg PO DAILY@0800 09/01/16 [History Last Taken 04/09/19] biotin 2,500 mcg PO DAILY 09/01/16 [History Last Taken 04/09/19] calcium carb-mag ox-zinc sulf 1 each PO DAILY 09/01/16 [History Last Taken 04/09/19] pviujccf-fon-mrtz-FA-lutein 1 each PO DAILY 09/01/16 [History Last Taken 04/09/19] oxybutynin chloride 5 mg PO DAILY 09/01/16 [History Last Taken 04/09/19] ascorbic acid (vitamin C) 500 mg capsule 500 mg PO QODAY cap 02/27/18 [History Last Taken 04/09/19] desonide 0.05 % lotion 1 applic TOPICAL DAILY 02/27/18 [History Last Taken 04/09/19] methenamine hippurate 1 gram tablet 1 gm PO QODAY tablet 02/27/18 [History Last Taken 04/08/19] famotidine 20 mg tablet 20 mg PO DAILY 09/24/19 [History Last Taken Unknown] metoprolol tartrate 25 mg tablet 25 mg PO BID #180 tablet 12/07/19 [Rx Last Taken Unknown] lisinopril 20 mg PO BID 05/10/20 [History Last Taken Unknown] furosemide 40 mg tablet 40 mg PO Q OTHER DAY #90 tablet 05/19/20 [Rx Last Taken Unknown] cholecalciferol (vitamin D3) 25 mcg (1,000 unit) tablet 25 mcg PO DAILY 07/21/20 [History Last Taken Unknown] metronidazole 0.75 % topical gel 1 applic TOPICAL BID PRN 07/21/20 [History Last Taken Unknown] pantoprazole 40 mg tablet,delayed release 40 mg PO DAILY 07/21/20 [History Last Taken Unknown] selenium sulfide 2.5 % shampoo 1 ea TOPICAL 2XW 07/21/20 [History Last Taken Unknown] simvastatin 20 mg tablet 20 mg PO QHS #90 tablet 09/02/20 [Rx Last Taken Unknown] Allergy/AdvReac Type Severity Reaction Status Date / Time chlorhexidine Allergy Rash Verified 10/20/20 11:38 venom-honey bee Allergy Anaphylaxis Verified 10/20/20 11:38 [bee venom (honey bee)] hydrocodone bitartrate AdvReac Other Verified 10/20/20 11:38 [From Vicodin] quinine AdvReac Diarrhea Verified 10/20/20 11:38 Sulfa (Sulfonamide AdvReac Unknown Verified 10/20/20 11:38 Antibiotics) hospital bath blankets Allergy Unknown Uncoded 10/20/20 11:38 Family History Father CAD (coronary artery disease) Hx CABG Myocardial infarction Mother Myocardial infarction CAD (coronary artery disease) Surgical History History of hernia repair (~12/2006) History of local excision of skin lesion History of tubal ligation Social History Smoking Status: Former smoker alcohol intake: current alcohol intake frequency: 0-2 drinks per day Alcohol type: other details: Few swigs of Kendal's per day substance use type: does not use caffeine: Yes Type: carbonated beverages and tea what type of physical activity do you participate in: other frequency: daily duration: 15-30 minutes/day seatbelt use: always do you feel safe at home: Yes ROS ROS ED Constitutional Constitutional ED: Denies chills, fever(s) or sweats Eyes Eyes: Denies change in vision ENT ENT ED: Denies dysphagia or sore throat Cardiovascular Cardiovascular: Denies chest pain, leg edema, palpitations or racing heartbeat Respiratory/Chest Respiratory/Chest: Denies cough, dyspnea or dyspnea on exertion Gastrointestinal Gastrointestinal: Denies abdominal pain, diarrhea, nausea or vomiting Genitourinary Genitourinary ED: Denies dysuria, hematuria or urinary frequency Musculoskeletal Musculoskeletal: Denies back pain, extremity pain or neck pain Integumentary Denies rash or wounds Neurologic Neurologic: Reports other Details: Dizziness ; Denies headache(s), paresthesias or weakness EXAM Physical Exam Const Vital Signs: 10/20/20 11:37 10/20/20 12:49 Temperature 98.2 F Temperature Source Temporal Pulse Rate 50 L Respiratory Rate 16 Respiratory Effort Normal Non-Labored Respiratory Pattern Normal Blood Pressure 110/44 L Blood Pressure Mean 66 Pulse Ox 100 Oxygen Delivery Method Room Air Positive well nourished and well developed General Appearance ED: well developed and NAD HEENT Reports moist mucous membranes normocephalic and atraumatic Eyes PERRL, EOMs intact bilaterally and conjunctivae normal General Eye ED: Yes normal appearance of both eyes Neck no lymphadenopathy and supple General: Negative for tenderness Chest Wall Chest: Negative for tenderness Resp normal respiratory effort and normal air movement Effort and Inspection: symmetric chest movement; Negative for respiratory distress Cardio regular rate, regular rhythm and no murmurs Peripheral Pulses: pulses 2+ throughout GI normal to inspection, nondistended, normoactive bowel sounds and non-tender Palpation: Negative for guarding or rebound tenderness present Back/Spine no CVA tenderness and no thoracic nor lumbar tenderness Extremity normal to inspection General Extremety ED: Negative for edema or tenderness General Extremity: Negative for edema Neuro oriented x3 and no sensory deficits noted Neuro Narrative: NIH of 0. [place]-Hallpike was negative. Sensorium / Orientation: awake and alert Skin no rashes or lesions noted and no wounds MDM MDM MDM Narrative Medical decision making narrative: Patient with resolving symptoms on my evaluation no focal neurological deficits. NIH of 0, [place]-Hallpike was negative. With her symptoms and age, work-up was initiated. CT head notes chronic changes lab studies were stable anemia along with CKD. Urine noted 100 leukocytes and mild WBCs, she is asymptomatic. We will send a urine culture and not treat at this time. She ambulated in the department with no return of symptoms. She would like to go home. Discussed with patient strict return precautions. Close follow-up with her PCP. All questions were answered. Lab Data Attestation: I reviewed the patient's lab results. Labs: Laboratory Results - last 24 hr 10/20/20 10/20/20 10/20/20 12:45 12:45 15:06 WBC 6.2 RBC 3.20 L Hgb 10.6 L Hct 32.4 L MCV 101.3 H MCH 33.1 H MCHC 32.7 RDW Std Deviation 45.1 H RDW Coeff of Wilner 12.1 Plt Count 166 MPV 10.4 Immature Gran % (Auto) 0.300 Neut % (Auto) 56.4 Lymph % (Auto) 25.9 [place] % (Auto) 9.6 Eos % (Auto) 7.0 H Baso % (Auto) 0.8 Absolute Neuts (auto) 3.5 Absolute Lymphs (auto) 1.60 Nucleated RBC % 0 Sodium 139 Potassium 4.7 Chloride 108 H Carbon Dioxide 27.0 Anion Gap 4 L BUN 39 H Creatinine 1.45 H Estim Creat Clear Calc 21.12 Est GFR (MDRD) Af Amer 44 L Est GFR (MDRD) Non-Af 37 L BUN/Creatinine Ratio 26.9 H Glucose 100 Calcium 9.3 Troponin I High Sens 14 Urine Color Yellow Urine Clarity Sl. Cloudy Urine pH 7.0 Ur Specific [place] 1.010 Urine Protein Negative Urine Glucose (UA) Normal Urine Ketones Negative Urine Occult Blood Negative Urine Nitrite Negative Urine Bilirubin Negative Urine Urobilinogen Normal Ur Leukocyte Esterase 100 H Urine RBC 0-5 SEEN Urine WBC 5-10 SEEN Ur Squamous Epith Cells 0-5 SEEN Urine Bacteria RARE Urine Mucus 0 SEEN Radiography Chest X-Ray - ED: 1 View, Read by ED Physician and Read by Radiologist Diagnostic Testing: Radiology Impression Brain CT 10/20/20 12:33 IMPRESSION: Chronic involutional and white matter changes. No acute intracranial process. Individualized dose optimization techniques were used for this CT. at 1353 Reported and signed by: Bryson Edwards MD Electronically Signed: Bryson Edwards MD at 13:52 EDT Tel , Service support , Chest X-Ray 10/20/20 12:55 IMPRESSION: Cardiomegaly with mild hyperexpansion unchanged. No active or acute cardiopulmonary disease. Electronically Signed: Bar Quach MD at 13:14 EDT , Service support , EKG Initial EKG: Attestation: I personally reviewed and interpreted this EKG as follows: Comments: Sinus rate of 45, no ST or T wave changes. Discharge Plan Triage Chief Complaint: Dizziness ED Provider: Bob Becerril Dx/Rx/DC Orders Clinical Impression: Vertigo, CKD (chronic kidney disease), Anemia Instructions: CKD Dc, ED Vertigo, Unspecified Prescriptions: No Action desonide 0.05 % lotion 1 applic TOPICAL DAILY RF: 0 methenamine hippurate [Hiprex] 1 gram tablet 1 gm PO QODAY RF: 0 ascorbic acid (vitamin C) 500 mg capsule 500 mg PO QODAY RF: 0 famotidine [Acid Dietetics Director (famotidine)] 20 mg tablet 20 mg PO DAILY RF: 0 metronidazole 0.75 % gel 1 applic topical BID PRN (Reason: Itching) RF: 0 pantoprazole 40 mg tablet,delayed release (DR/EC) 40 mg PO DAILY RF: 0 selenium sulfide 2.5 % shampoo 1 ea topical 2XW RF: 0 cholecalciferol (vitamin D3) 25 mcg (1,000 unit) tablet 25 mcg PO DAILY RF: 0 furosemide 40 mg tablet 40 mg PO Q OTHER DAY Qty: 90 RF: 3 aspirin 81 MG tablet,chewable 81 mg PO DAILY@0800 RF: 0 oxybutynin chloride 5 MG tablet 5 mg PO DAILY RF: 0 B-complex with vitamin C 1 EACH tablet 1 each PO DAILY RF: 0 biotin 2,500 MCG capsule 2,500 mcg PO DAILY RF: 0 caamtysu-vri-zfzi-FA-lutein 1 EACH tablet 1 each PO DAILY RF: 0 calcium carb-mag ox-zinc sulf 1 EACH tablet 1 each PO DAILY RF: 0 Lactobac 41-B.bifid,lactis-FOS 1 EACH capsule 1 each PO DAILY RF: 0 lisinopril 20 MG tablet 20 mg PO BID RF: 0 metoprolol tartrate 25 mg tablet 25 mg PO BID Qty: 180 RF: 3 simvastatin 20 mg tablet 20 mg PO QHS Qty: 90 RF: 3 Primary Care Provider: Frantz Mckinney Referrals: Frantz Mckinney [Primary Care Provider] - 3-5 Days if not improving Disposition Disposition: Home, Self Care
[2020-10-20 15:49] VITALS: BP 128/75; PULSE 67; RESP 18; O2SAT 98
[2020-10-20 15:50] VITALS: BP 128/75; PULSE 76; RESP 18; O2SAT 98
== END 2020-10-20 15:55 | disposition home or self-care (01) ==
PROVIDERS: Emergency Provider Emergency Medicine
DX: R42 Dizziness and giddiness (principal); D64.9 Anemia, unspecified; N18.9 Chronic kidney disease, unspecified; E78.00 Pure hypercholesterolemia, unspecified; I12.9 Hypertensive chronic kidney disease with stage 1 through stage 4 chronic kidney disease, or unspecified chronic kidney disease; I25.10 Atherosclerotic heart disease of native coronary artery without angina pectoris; I34.1 Nonrheumatic mitral (valve) prolapse; K44.9 Diaphragmatic hernia without obstruction or gangrene; K58.9 Irritable bowel syndrome, unspecified; Z79.82 Long term (current) use of aspirin; Z87.891 Personal history of nicotine dependence; Z79.899 Other long term (current) drug therapy
CPT/HCPCS: 70450; 71045; 80048; 81001; 84484; 85025; 87086; 87088; 93005; 99284; A4216

== ENCOUNTER → 2020-12-24 11:32 | Outpatient (CLI) | payer MEDICARE, OTHER, SELFPAY ==
--- NOTE | 2020-12-24 11:35 | US_ITS ---
STUDY: RENAL ULTRASOUND - COMPLETE REASON FOR EXAM: Female, 85 years old. CKD TECHNIQUE: Ultrasound evaluation of the kidneys was performed with real-time and static welch-scale imaging. COMPARISON: None. FINDINGS: RIGHT KIDNEY: Normal location of the right kidney, which is normal in size. The right kidney measures 7.7 x 4 x 4 cm. There is a normal cortex of the right kidney. The renal cortex measures 9 cm. There is no right renal mass or cyst. There are no right renal calculi. Mild right renal pelviectasis DISTAL RIGHT URETER: There is non-visualization of the distal right ureter. There is no demonstrated right ureterovesical junction calculus. There is a visualized right ureteral jet. LEFT KIDNEY: Normal location of the left kidney, which is normal in size. The left kidney measures 9 .4 x 4 by 4.6 cm. There is a normal cortex of the left kidney. The renal cortex measures 1 cm. There is no left renal mass or cyst. There are no left renal calculi. Mild left renal pelviectasis DISTAL LEFT URETER: There is non-visualization of the distal left ureter. There is no demonstrated left ureterovesical junction calculus. There is a visualized left ureteral jet. BLADDER: The distended urinary bladder has a volume of 62 ml.. There is a normal wall thickness of the distended urinary bladder. There is no demonstrated mass within the urinary bladder. There are no demonstrated bladder calculi. US/Kidney and Bladder IMPRESSION: Atrophic right kidney. Mild bilateral renal pelviectasis. No gross hydronephrosis Electronically Signed: Villa Linares MD at 16:55 EST , Service support ,
== END ==
PROVIDERS: Referring Provider Internal Medicine Nephrology; Visit Provider Internal Medicine Nephrology
DX: N18.31 Chronic kidney disease, stage 3a (principal)
CPT/HCPCS: 76770

== ENCOUNTER → 2021-01-23 08:49 | Outpatient (CLI) | payer MEDICARE, OTHER, SELFPAY ==
[2021-01-23 09:41] LABS: Absolute Lymphocyte Count 1.54 X10^3/uL (0.83-4.51); Absolute Neutrophil Count 3.7 X10^3/uL (2.0-7.7); Basophil# 0.07 X10^3/uL; Basophil% 1.1 % (0-1); Eosinophil# 0.38 X10^3/uL; Eosinophils% 5.9 % (0-5); Hematocrit 33.7 % (37-47); Hemoglobin 11.3 g/dL (12.0-15.0); Lymphocyte # 1.54 X10^3/ul (0.83-4.51); Lymphocyte % 23.7 % (19-41); Mean Corp Hgb Conc 33.5 g/dL (32-36); Mean Corpuscular Hgb 33.1 pg (27.0-32.0); Mean Corpuscular Volume 98.8 fL (81-99); Mean Platelet Vol. 10.6 fl (6.2-12.0); Monocyte% 12.3 % (0-10); NRBC Flagged by Analyzer 0 % (0-5); Neutrophil # 3.68 X10^3/uL (2.7-7.7); Neutrophil % 56.7 % (47-70); Platelet Count 174 K/mm3 (150-450); RBC Distribution Width SD 43.8 fl (35.1-43.9); RET-HE 36.2 pg (30-35); Red Blood Count 3.41 M/mm3 (4.2-5.4); Reticulocyte Count 1.63 % (0.5-1.5); White Blood Count 6.5 K/mm3 (4.4-11.0)
[2021-01-23 10:06] LABS: AST(SGOT) 19 U/L (15-37); Alanine Aminotransfer ALT/SGPT 20 U/L (13-56); Albumin, Serum 3.8 g/dL (3.2-5.0); Alkaline Phosphatase 49 U/L (45-117); Bilirubin, Direct 0.14 mg/dL (0.00-0.30); Cholesterol 176 mg/dL (200); Globulin 3.5 g/dL (2.2-4.2); High Density Lipoprotein 66 mg/dL; Protein, Total 7.3 g/dL (6.4-8.2); Triglycerides 69 mg/dL; Very Low Density Lipoprotein 14 mg/dL (5-40)
== END ==
PROVIDERS: Referring Provider Internal Medicine Cardiovascular Disease; Visit Provider Internal Medicine Cardiovascular Disease
DX: N18.30 Chronic kidney disease, stage 3 unspecified (principal); D63.1 Anemia in chronic kidney disease; E78.00 Pure hypercholesterolemia, unspecified
CPT/HCPCS: 36415; 80061; 80076; 85025; 85045

== ENCOUNTER 2021-02-04 11:19 | Inpatient (IN) | payer MEDICARE, OTHER, SELFPAY ==
[2021-02-04] VITALS (12 sets, daily range): BP systolic 159–192; BP diastolic 53–99; PULSE 68–91; RESP 18–30; TEMP 36.1–37.6; O2SAT 92–96; BMI 25.4; BMI 23.8
--- NOTE | 2021-02-04 11:47 | EKG12_ITS ---
Test Reason : SOB Blood Pressure : / mmHG Vent. Rate : 078 BPM Atrial Rate : 078 BPM P-R Int : 172 ms QRS Dur : 102 ms QT Int : 388 ms P-R-T Axes : 066 025 066 degrees QTc Int : 442 ms Normal sinus rhythm Left ventricular hypertrophy with repolarization abnormality Abnormal ECG Confirmed by RENAE NGUYEN, SHAN ([id number]), editorial clerk ODETTE GUILLERMO ([id number]) on 02/09/2021 10:14:36 AM Referred By: STEPHEN Confirmed By:SHAN MACDONALD MD
--- NOTE | 2021-02-04 11:48 | ED.VIS.DYS ---
HPI <Dr. Tavon Campuzano MD - Last Filed: 02/04/21 15:23> History of Present Illness Chief Complaint: Shortness of Breath Detail of Chief Complaint: Symptoms started approximately 2 to 3 weeks ago. Informant: patient Onset/Context/Timing Onset: Days (Increase shortness of breath over the past 2 days) and Weeks Context: gradual Timing: Continuous and Waxes and wanes Quality: Positive for Dyspnea on exertion; Negative for Orthopnea, PND and Wheezing Current Severity: Mild Maximum Severity: Severe Worsened by: Exertion and - (Cannot walk across the room without becoming short of breath and having to stop) Relieved by: Nothing Associated Symptoms cough, rhinorrhea and other; Negative for post nasal drip, ear pain, fever, sore throat, subjective, chills, sweats, clear sputum, white sputum, yellow sputum or green sputum Narrative Narrative: Patient is a 85-year-old woman with history of spontaneous pneumothorax in 1973 who sees a geothermal production manager. She states she sees a geothermal production manager because of the spontaneous pneumothorax. She denies history of asthma or COPD. She denies history of VTE. She has no risk factors for VTE. She denies history of CHF, orthopnea or PND. She denies history of coronary disease. She denies abdominal pain, nausea, vomiting diarrhea. She states she has decreased appetite. PE Risk Factors: Negative for Cancer, OCP + Smoking + > 35, Prior DVT or PE, Recent immobilization, Recent surgery and Recent travel Prior similar symptoms: No Recent Illness/Hospitalization: No PFSH <Dr. Tavon Campuzano MD - Last Filed: 02/04/21 15:23> [facility] Medical History (Updated 02/04/21 @ 20:[address] Richard Haile MD) Abnormal stress test Aortic valve sclerosis Atherosclerotic heart disease of [place] coronary artery without angina pectoris Bilateral carotid artery stenosis CAD (coronary artery disease) Carotid bruit Encounter for long-term current use of high risk medication Essential hypertension Hiatal hernia Hypertension IBS (irritable bowel syndrome) Mitral valve disease Non-rheumatic mitral valve disease Nonrheumatic mitral valve regurgitation Palpitations Pure hypercholesterolemia Home Medications B-complex with vitamin C 1 each PO DAILY 09/01/16 [History Last Taken 04/09/19] Lactobac 41-B.bifid,lactis-FOS 1 each PO DAILY 09/01/16 [History Last Taken 04/09/19] aspirin 81 mg PO DAILY@0800 09/01/16 [History Last Taken 04/09/19] calcium carb-mag ox-zinc sulf 1 each PO DAILY 09/01/16 [History Last Taken 04/09/19] ibvisynw-ejr-dqis-FA-lutein 1 each PO DAILY 09/01/16 [History Last Taken 04/09/19] desonide 0.05 % lotion 1 applic TOPICAL DAILY 02/27/18 [History Last Taken 04/09/19] metronidazole 0.75 % topical gel 1 applic TOPICAL BID PRN 07/21/20 [History Last Taken Unknown] pantoprazole 40 mg tablet,delayed release 40 mg PO DAILY 07/21/20 [History Last Taken Unknown] selenium sulfide 2.5 % shampoo 1 ea TOPICAL 2XW 07/21/20 [History Last Taken Unknown] simvastatin 20 mg tablet 20 mg PO QHS #90 tablet 09/02/20 [Rx Last Taken Unknown] lisinopril 20 mg tablet 20 mg PO BID #180 tab 12/01/20 [Rx Last Taken Unknown] metoprolol tartrate 25 mg tablet 25 mg PO BID #180 tablet 12/01/20 [Rx Last Taken Unknown] ascorbic acid (vitamin C) 500 mg capsule 1,000 mg PO DAILY cap 02/02/21 [History Last Taken Unknown] biotin 5,000 mcg-silicon dioxide 10 kg-Q-ifmagjav 50 mg tablet ER 1 tab PO DAILY tab 02/02/21 [History Last Taken Unknown] cholecalciferol (vitamin D3) 25 mcg (1,000 unit) tablet 50 mcg PO DAILY tab 02/02/21 [History Last Taken Unknown] oxybutynin chloride 5 mg tablet,extended release 24 hr 5 mg PO DAILY tab 02/02/21 [History Last Taken Unknown] Allergy/AdvReac Type Severity Reaction Status Date / Time chlorhexidine Allergy Rash Verified 02/04/21 11:20 venom-honey bee Allergy Anaphylaxis Verified 02/04/21 11:20 [bee venom (honey bee)] hydrocodone bitartrate AdvReac Other Verified 02/04/21 11:20 [From Vicodin] quinine AdvReac Diarrhea Verified 02/04/21 11:20 Sulfa (Sulfonamide AdvReac Unknown Verified 02/04/21 11:20 Antibiotics) hospital bath blankets Allergy Unknown Uncoded 02/04/21 11:20 Family History Father CAD (coronary artery disease) Hx CABG Myocardial infarction Mother Myocardial infarction CAD (coronary artery disease) Surgical History History of hernia repair (~12/2006) History of local excision of skin lesion History of tubal ligation Social History (Updated 02/04/21 @ 11:[address] Tavon Campuzano MD) household members: none Smoking Status: Former smoker alcohol intake: current alcohol intake frequency: 0-2 drinks per day Alcohol type: other details: Few swigs of Kendal's per day substance use type: does not use caffeine: Yes Type: carbonated beverages and tea what type of physical activity do you participate in: other frequency: daily duration: 15-30 minutes/day seatbelt use: always do you feel safe at home: Yes ROS <Dr. Tavon Campuzano MD - Last Filed: 02/04/21 15:23> ROS ED Constitutional Constitutional ED: Reports weight loss; Denies chills, fever(s) or sweats Eyes Eyes: Denies blurry vision, change in vision or diplopia ENT ENT ED: Reports rhinorrhea; Denies ear pain or sore throat Cardiovascular Cardiovascular: Denies chest pain, orthopnea, palpitations, paroxysmal nocturnal dyspnea or racing heartbeat Respiratory/Chest Respiratory/Chest: Reports cough, dyspnea, dyspnea on exertion, sputum and other Details: Patient states she does not know the color of her sputum because she swallows it. She states that she attempted to cough it up she would vomit. ; Denies orthopnea or paroxysmal nocturnal dyspnea Gastrointestinal Gastrointestinal: Reports nausea; Denies abdominal pain, constipation, diarrhea or vomiting Genitourinary Genitourinary ED: Denies dysuria, hematuria or urinary frequency Musculoskeletal Musculoskeletal: Denies arthralgias, back pain, myalgias or neck pain Integumentary Denies rash Neurologic Neurologic: Denies headache(s) or weakness Endocrine Endocrinology: Denies polydipsia, polyphagia or polyuria Hematologic/Lymphatic Hematologic/Lymphatic: Denies easy bleeding or easy bruising EXAM <Dr. Tavon Campuzano MD - Last Filed: 02/04/21 15:23> Physical Exam Const Vital Signs: 02/04/21 11:21 02/04/21 11:36 02/04/21 11:56 Temperature 97.0 F L 97.0 F L Temperature Source Temporal Temporal Pulse Rate 91 80 Respiratory Rate 24 H 24 H Respiratory Effort Short of Breath Respiratory Depth Normal Respiratory Pattern Tachypnea Blood Pressure 192/99 H 172/62 H Blood Pressure Mean 130 98 Pulse Ox 95 96 Oxygen Delivery Method Room Air Room Air Room Air 02/04/21 12:29 02/04/21 13:45 02/04/21 14:26 Temperature 97.2 F L 97.2 F L Temperature Source Temporal Temporal Pulse Rate 73 68 82 Respiratory Rate 25 H 20 H 28 H Respiratory Effort Respiratory Depth Respiratory Pattern Blood Pressure 159/59 H 162/56 H 161/53 H Blood Pressure Mean 92 91 89 Pulse Ox 96 95 96 Oxygen Delivery Method Room Air Room Air Room Air 02/04/21 17:25 02/04/21 19:05 Temperature Temperature Source Pulse Rate 81 89 Respiratory Rate 25 H 29 H Respiratory Effort Respiratory Depth Respiratory Pattern Blood Pressure 175/55 H 179/58 H Blood Pressure Mean 95 98 Pulse Ox 92 93 Oxygen Delivery Method Room Air Room Air Positive well nourished and well developed General Appearance ED: well developed, pallor and other Patient is in mild respiratory distress with use of accessory muscles and mild retractions. ; Negative for NAD HEENT Reports TM's clear and dry mucous membranes atraumatic; Negative for tenderness Tympanic Membrane ED: Yes TM's clear Mouth ED: Yes dry mucous membranes Mouth: dry mucous membranes Eyes PERRL and EOMs intact bilaterally General Eye ED: Negative for pale conjunctiva or scleral icterus Neck no lymphadenopathy, supple, no meningeal signs and no JVD Resp No normal respiratory effort and No clear to auscultation bilaterally Effort and Inspection: Negative for pain with movement Auscultation: rales left base; Negative for rhonchi, wheezes or diminished lung sounds Cardio regular rate and regular rhythm; Negative for S1 normal heart sound, S2 normal heart sound or no murmurs Cardio Narrative: Patient has a mitral regurgitant murmur noted. GI non-tender, non-distended and no masses Auscultation: normoactive bowel sounds Palpation: soft; Negative for hepatomegaly or splenomegaly Back/Spine no CVA tenderness and normal to inspection General Back: Negative for CVA tenderness or tenderness Extremity normal to inspection General Extremety ED: Negative for edema or tenderness General Extremity: Negative for edema Neuro oriented x3 and CN's II-XII intact bilaterally Sensorium / Orientation: alert Psych mental status grossly normal Thought Process: normal thought process Skin no wounds General Skin Exam: pallor; Negative for jaundice Lesions: no lesions Rashes: no rashes <Dr. Richard Haile MD - Last Filed: 02/04/21 20:20> Physical Exam Const Vital Signs: 02/04/21 11:21 02/04/21 11:36 02/04/21 11:56 Temperature 97.0 F L 97.0 F L Temperature Source Temporal Temporal Pulse Rate 91 80 Respiratory Rate 24 H 24 H Respiratory Effort Short of Breath Respiratory Depth Normal Respiratory Pattern Tachypnea Blood Pressure 192/99 H 172/62 H Blood Pressure Mean 130 98 Pulse Ox 95 96 Oxygen Delivery Method Room Air Room Air Room Air 02/04/21 12:29 02/04/21 13:45 02/04/21 14:26 Temperature 97.2 F L 97.2 F L Temperature Source Temporal Temporal Pulse Rate 73 68 82 Respiratory Rate 25 H 20 H 28 H Respiratory Effort Respiratory Depth Respiratory Pattern Blood Pressure 159/59 H 162/56 H 161/53 H Blood Pressure Mean 92 91 89 Pulse Ox 96 95 96 Oxygen Delivery Method Room Air Room Air Room Air 02/04/21 17:25 02/04/21 19:05 Temperature Temperature Source Pulse Rate 81 89 Respiratory Rate 25 H 29 H Respiratory Effort Respiratory Depth Respiratory Pattern Blood Pressure 175/55 H 179/58 H Blood Pressure Mean 95 98 Pulse Ox 92 93 Oxygen Delivery Method Room Air Room Air MDM <Dr. Tavon Campuzano MD - Last Filed: 02/04/21 15:23> [facility] Narrative Medical decision making narrative: With increasing shortness of breath need to rule out infectious cause versus pulmonary embolus versus cardiac cause. EKG, chest x-ray and appropriate blood work was obtained. Since patient symptoms started 3 weeks ago awaiting Covid PCR test. If PCR test is negative will treat for multilobar pneumonia with antibiotics otherwise we will treat with Decadron and patient would be a potential candidate for home oxygen. PCR still pending. Since patient's findings are unilateral and she has an elevated D-dimer will obtain CTA which will evaluate for the extent and severity of her pneumonia and rule out PE. Once the CAT scan has been interpreted radiologist the evening physician Dr. Villa Haile will contact hospitalist for admission. If Covid PCR is negative patient will require admission for IV antibiotics. Antibiotics were not initiated since there is concern patient has Covid. Since patient's lactate is normal and there is no evidence of endorgan dysfunction blood cultures do not need to be drawn. Lab Data Attestation: I reviewed the patient's lab results. Labs: Laboratory Results - last 24 hr 02/04/21 02/04/21 02/04/21 12:00 12:00 12:00 WBC 9.4 RBC 3.11 L Hgb 10.0 L Hct 30.4 L MCV 97.7 MCH 32.2 H MCHC 32.9 RDW Std Deviation 42.9 RDW Coeff of Wilner 11.9 Plt Count 229 MPV 10.0 Immature Gran % (Auto) 0.400 Neut % (Auto) 80.4 H Lymph % (Auto) 6.5 L Potter % (Auto) 11.3 H Eos % (Auto) 1.1 Baso % (Auto) 0.3 Absolute Neuts (auto) 7.6 Absolute Lymphs (auto) 0.61 L Nucleated RBC % 0 D-Dimer Quant (PE/DVT) 2.29 H* Sodium 136 Potassium 4.4 Chloride 100 Carbon Dioxide 24.0 Anion Gap 12 BUN 23 H Creatinine 1.14 H Estim Creat Clear Calc 26.86 Est GFR (MDRD) Af Amer 58 L Est GFR (MDRD) Non-Af 48 L BUN/Creatinine Ratio 20.2 H Glucose 124 H Lactic Acid Calcium 8.7 COVID-19 (MAMADOU) 02/04/21 02/04/21 12:00 13:19 WBC RBC Hgb Hct MCV MCH MCHC RDW Std Deviation RDW Coeff of Wilner Plt Count MPV Immature Gran % (Auto) Neut % (Auto) Lymph % (Auto) Potter % (Auto) Eos % (Auto) Baso % (Auto) Absolute Neuts (auto) Absolute Lymphs (auto) Nucleated RBC % D-Dimer Quant (PE/DVT) Sodium Potassium Chloride Carbon Dioxide Anion Gap BUN Creatinine Estim Creat Clear Calc Est GFR (MDRD) Af Amer Est GFR (MDRD) Non-Af BUN/Creatinine Ratio Glucose Lactic Acid 1.3 Calcium COVID-19 (MAMADOU) Not Detected Radiography Chest X-Ray - ED: 1 View and Read by ED Physician (Chronic changes noted. Cardiac silhouette size normal. There appears to be some haziness infiltrate left upper lobe. Osseous structures are unremarkable. Reviewed the radiologist report and he raises concern for left lower lobe infiltrate as well.) Diagnostic Testing: Clinical Impression(s) from Imaging Studies Chest X-Ray 02/04/21 12:04 IMPRESSION: Patchy left upper lobe and left lower lobe infiltrates with blunting of the left costophrenic angle. Electronically Signed: Mikel Saha MD at 12:19 EST , Service support , Chest CTA 02/04/21 15:08 IMPRESSION: ASHD and coexisting COPD with probable superimposed inflammatory disease.. Neoplasm is less likely. Clinical correlation recommended to exclude Covid 19 pneumonia Bilateral pleural effusions slightly larger on the right with compressive atelectasis in the lower lobes No evidence for aortic aneurysm or pulmonary embolus Electronically Signed: Villa Linraes MD at 17:02 EST , Service support , EKG Initial EKG: Attestation: I personally reviewed and interpreted this EKG as follows: Interpretation: Sinus Rhythm (Normal sinus rhythm with ventricular 78. [place] interval 272 ms. Cures duration under 2 ms. QT duration 388 ms. Hurley is normal. There is evidence of LVH with repolarization abnormality. There is no acute ischemic changes noted.) <Dr. Richard Haile MD - Last Filed: 02/04/21 20:20> [facility] Narrative Medical decision making narrative: Patient turned over to me from Dr. Tavon Campuzano from his initial evaluation. Concern was possible pneumonia versus Covid. Her Covid PCR test came back negative. Her CT of her chest showed bilateral pleural effusions no pneumonia or PE. The patient was ambulated she became hypoxic in the mid 90s and had labored breathing and will be admitted for further evaluation and possible drainage of these pleural effusions. Have already spoken to the hospitalist. Lab Data Attestation: I reviewed the patient's lab results. Lab results narrative: CBC showed a white count 9. Hemoglobin is 10. D-dimer is elevated 2.29. A CT of the chest was obtained. Electrolytes unremarkable. With a gap of 12 BUN 23 creatinine 1.1. Covid PCR was negative. Lactic acid was normal at 1.3. Labs: Laboratory Results - last 24 hr 02/04/21 02/04/21 02/04/21 12:00 12:00 12:00 WBC 9.4 RBC 3.11 L Hgb 10.0 L Hct 30.4 L MCV 97.7 MCH 32.2 H MCHC 32.9 RDW Std Deviation 42.9 RDW Coeff of Wilner 11.9 Plt Count 229 MPV 10.0 Immature Gran % (Auto) 0.400 Neut % (Auto) 80.4 H Lymph % (Auto) 6.5 L Potter % (Auto) 11.3 H Eos % (Auto) 1.1 Baso % (Auto) 0.3 Absolute Neuts (auto) 7.6 Absolute Lymphs (auto) 0.61 L Nucleated RBC % 0 D-Dimer Quant (PE/DVT) 2.29 H* Sodium 136 Potassium 4.4 Chloride 100 Carbon Dioxide 24.0 Anion Gap 12 BUN 23 H Creatinine 1.14 H Estim Creat Clear Calc 26.86 Est GFR (MDRD) Af Amer 58 L Est GFR (MDRD) Non-Af 48 L BUN/Creatinine Ratio 20.2 H Glucose 124 H Lactic Acid Calcium 8.7 COVID-19 (MAMADOU) 02/04/21 02/04/21 12:00 13:19 WBC RBC Hgb Hct MCV MCH MCHC RDW Std Deviation RDW Coeff of Wilner Plt Count MPV Immature Gran % (Auto) Neut % (Auto) Lymph % (Auto) Potter % (Auto) Eos % (Auto) Baso % (Auto) Absolute Neuts (auto) Absolute Lymphs (auto) Nucleated RBC % D-Dimer Quant (PE/DVT) Sodium Potassium Chloride Carbon Dioxide Anion Gap BUN Creatinine Estim Creat Clear Calc Est GFR (MDRD) Af Amer Est GFR (MDRD) Non-Af BUN/Creatinine Ratio Glucose Lactic Acid 1.3 Calcium COVID-19 (MAMADOU) Not Detected Radiography Chest X-Ray - ED: 1 View, Read by ED Physician, Read by Radiologist, Right Infiltrate and Left Infiltrate Diagnostic Testing: Clinical Impression(s) from Imaging Studies Chest X-Ray 02/04/21 12:04 IMPRESSION: Patchy left upper lobe and left lower lobe infiltrates with blunting of the left costophrenic angle. Electronically Signed: Mikel Saha MD at 12:19 EST , Service support , Chest CTA 02/04/21 15:08 IMPRESSION: ASHD and coexisting COPD with probable superimposed inflammatory disease.. Neoplasm is less likely. Clinical correlation recommended to exclude Covid 19 pneumonia Bilateral pleural effusions slightly larger on the right with compressive atelectasis in the lower lobes No evidence for aortic aneurysm or pulmonary embolus Electronically Signed: Villa Linares MD at 17:02 EST , Service support , Single portable chest x-ray interpreted by myself was questionable for infiltrates versus chronic changes. The CTA of the chest showed no pneumonia, no PE and appeared to have bilateral pleural effusions which most likely accounts for her hypoxia and shortness of breath. Discharge Plan Triage Chief Complaint: Shortness of Breath ED Provider: Richard Haile Dx/Rx/DC Orders Clinical Impression: Anemia, Acute kidney insufficiency, Pleural effusion, Hypoxia Prescriptions: No Action desonide 0.05 % lotion 1 applic TOPICAL DAILY RF: 0 ascorbic acid (vitamin C) 500 mg capsule 1,000 mg PO DAILY RF: 0 metronidazole 0.75 % gel 1 applic topical BID PRN (Reason: Itching) RF: 0 pantoprazole 40 mg tablet,delayed release (DR/EC) 40 mg PO DAILY RF: 0 selenium sulfide 2.5 % shampoo 1 ea topical 2XW RF: 0 cholecalciferol (vitamin D3) 25 mcg (1,000 unit) tablet 50 mcg PO DAILY RF: 0 biotin-silicon gslf-D-jwbtreeb 5,000 mcg -10 mg-50 mg tablet extended release 1 tab PO DAILY RF: 0 oxybutynin chloride 5 mg tablet extended release 24hr 5 mg PO DAILY RF: 0 aspirin 81 MG tablet,chewable 81 mg PO DAILY@0800 RF: 0 B-complex with vitamin C 1 EACH tablet 1 each PO DAILY RF: 0 jouwjdkb-hlb-lidz-FA-lutein 1 EACH tablet 1 each PO DAILY RF: 0 calcium carb-mag ox-zinc sulf 1 EACH tablet 1 each PO DAILY RF: 0 Lactobac 41-B.bifid,lactis-FOS 1 EACH capsule 1 each PO DAILY RF: 0 simvastatin 20 mg tablet 20 mg PO QHS Qty: 90 RF: 3 metoprolol tartrate 25 mg tablet 25 mg PO BID Qty: 180 RF: 3 lisinopril 20 mg tablet 20 mg PO BID Qty: 180 RF: 3 Primary Care Provider: Frantz Mckinney Referrals: Frantz Mckinney [Primary Care Provider] -
--- NOTE | 2021-02-04 12:04 | RAD_ITS ---
STUDY: X-RAY CHEST REASON FOR EXAM: Female, 85 years old. One month history of dyspnea. TECHNIQUE: Single AP portable view of the chest. COMPARISON: Comparison is made with prior study of 10/20/2020. FINDINGS: EKG electrodes are seen. Patchy infiltrate is seen in the lateral aspect of the left lower lobe as well as in the left upper lobe. There is blunting of the left costophrenic angle. Normal size heart. Normal mediastinum and delfina. Normal visualized pulmonary arteries. There is atherosclerotic calcification of the aortic arch with tortuosity. There are degenerative changes of the visualized thoracic spine. Normal visualized ribs, clavicles, and shoulders. There is no demonstrated abnormality of the visualized soft tissue structures of the upper abdomen. RAD/Chest 1 View (Portable) IMPRESSION: Patchy left upper lobe and left lower lobe infiltrates with blunting of the left costophrenic angle. Electronically Signed: Mikel Saha MD at 12:19 EST , Service support ,
[2021-02-04 12:13] LABS: Absolute Lymphocyte Count 0.61 X10^3/uL (0.83-4.51); Absolute Neutrophil Count 7.6 X10^3/uL (2.0-7.7); Basophil# 0.03 X10^3/uL; Basophil% 0.3 % (0-1); Eosinophils% 1.1 % (0-5); Hematocrit 30.4 % (37-47); Lymphocyte # 0.61 X10^3/ul (0.83-4.51); Lymphocyte % 6.5 % (19-41); Mean Corp Hgb Conc 32.9 g/dL (32-36); Mean Corpuscular Hgb 32.2 pg (27.0-32.0); Mean Corpuscular Volume 97.7 fL (81-99); Monocyte# 1.06 X10^3/uL; Monocyte% 11.3 % (0-10); NRBC Flagged by Analyzer 0 % (0-5); Neutrophil # 7.56 X10^3/uL (2.7-7.7); Neutrophil % 80.4 % (47-70); Platelet Count 229 K/mm3 (150-450); RBC Distribution Width CV 11.9 % (11.6-14.6); RBC Distribution Width SD 42.9 fl (35.1-43.9); Red Blood Count 3.11 M/mm3 (4.2-5.4); White Blood Count 9.4 K/mm3 (4.4-11.0)
[2021-02-04 12:28] LABS: D-Dimer Quantitative (DVT/PE) 2.29 FEU/ug/m (0.27-0.49)
[2021-02-04 12:31] LABS: Anion Gap 12 (5-15); BUN 23 mg/dL (7-18); BUN/Creat Ratio 20.2 RATIO (10-20); Calcium,Total 8.7 mg/dL (8.5-10.1); Chloride 100 mmol/L (98-107); Creatinine, Serum 1.14 mg/dL (0.55-1.02); EST Glomerular Filtration Rate 48 mL/min (>60); Est Glom Filt Rate - Afr Amer 58 mL/min (>60); Estimated Creatinine Clearance 26.86 ml/min; Glucose 124 mg/dL (74-106); Potassium 4.4 mmol/L (3.5-5.1); Sodium Level 136 mmol/L (136-145)
[2021-02-04 12:37] LABS: Lactic Acid 1.3 mmol/L (0.4-1.9)
--- NOTE | 2021-02-04 15:08 | CT_ITS ---
STUDY: CTA CHEST REASON FOR EXAM: Female, 85 years old. Dyspnea, elevated D-dimer RADIATION DOSAGE (If Supplied By Facility): CTDIvol = ( 6.64 ) mGy, DLP = ( 192.56 ) mGycm TECHNIQUE: The examination was performed with the intravenous administration of IV 100mL [id number]-[id number]. Post-processing of the angiographic images was performed, with multiplanar reformation and 3D reconstruction. Individualized dose optimization techniques were used for this CT. COMPARISON: None. FINDINGS: Normal enhancement of the main pulmonary artery and right and left pulmonary arteries. Normal enhancement of the bilateral peripheral pulmonary arteries. There is no demonstrated pulmonary embolism. Mild atherosclerotic changes of the aorta without evidence for aneurysm There is no demonstrated aortic dissection. The heart is enlarged and there is coronary artery calcification.. Normal mediastinum. Normal hilar regions. Normal visualized trachea and bronchi. The lungs are well expanded. There is mild generalized interstitial thickening and scattered emphysematous changes. There is a moderate size right pleural effusion and a smaller effusion on the left with atelectasis in the dependent portion of the lungs. Patchy areas of nodular increased parenchymal density are seen in the right lower lobe, right suprahilar region, and left upper lobe likely inflammatory. There is pleural parenchymal scarring in the pulmonary apices. There is calcified granuloma in the right middle lobe Normal chest wall structures. Dorsal spine demonstrates degenerative changes. Normal visualized upper abdomen. CT/CTA Chest W/WO Contrast IMPRESSION: ASHD and coexisting COPD with probable superimposed inflammatory disease.. Neoplasm is less likely. Clinical correlation recommended to exclude Covid 19 pneumonia Bilateral pleural effusions slightly larger on the right with compressive atelectasis in the lower lobes No evidence for aortic aneurysm or pulmonary embolus Electronically Signed: Villa Linares MD at 17:02 EST , Service support ,
--- NOTE | 2021-02-04 20:28 | HP.PCM.HOS_ITS ---
HPI - General General Date of Admission: 02/04/21 HPI Narrative CHRISTOPHER PINA, is a 85 F with a significant history of mitral valve disease who presents to the emergency department with a 3-week history of shortness of breath. Her shortness of breath is at rest but it increases with mild exertion. Typically with moving her arms around and coughing her shortness of breath goes away. However on the day of presentation despite these maneuvers/manipulations her shortness of breath persistent. Associated with symptoms is a wheezes, and coughing. The cough is productive but she swallows the sputum. At the emergency department reportedly with ambulation her oxygen saturation dropped to 84%. Patient denies fever or chills. She has had her COVID-19 vaccination with booster. She has had her influenza vaccination. [facility] Medical History (Updated 02/04/21 @ 21:[address] Ran Milan MD) Abnormal stress test Aortic valve sclerosis Atherosclerotic heart disease of [place] coronary artery without angina pectoris Bilateral carotid artery stenosis CAD (coronary artery disease) Carotid bruit Encounter for long-term current use of high risk medication Essential hypertension Hiatal hernia Hypertension IBS (irritable bowel syndrome) Mitral valve disease Non-rheumatic mitral valve disease Nonrheumatic mitral valve regurgitation Palpitations Pure hypercholesterolemia Home Medications B-complex with vitamin C 1 each PO DAILY 09/01/16 [History Last Taken 04/09/19] Lactobac 41-B.bifid,lactis-FOS 1 each PO DAILY 09/01/16 [History Last Taken 04/09/19] aspirin 81 mg PO DAILY@0800 09/01/16 [History Last Taken 04/09/19] calcium carb-mag ox-zinc sulf 1 each PO DAILY 09/01/16 [History Last Taken 04/09/19] qxasyoco-ijb-blhd-FA-lutein 1 each PO DAILY 09/01/16 [History Last Taken 04/09/19] desonide 0.05 % lotion 1 applic TOPICAL DAILY 02/27/18 [History Last Taken 04/09/19] metronidazole 0.75 % topical gel 1 applic TOPICAL BID PRN 07/21/20 [History Last Taken Unknown] pantoprazole 40 mg tablet,delayed release 40 mg PO DAILY 07/21/20 [History Last Taken Unknown] selenium sulfide 2.5 % shampoo 1 ea TOPICAL 2XW 07/21/20 [History Last Taken Unknown] simvastatin 20 mg tablet 20 mg PO QHS #90 tablet 09/02/20 [Rx Last Taken Unknown] lisinopril 20 mg tablet 20 mg PO BID #180 tab 12/01/20 [Rx Last Taken Unknown] metoprolol tartrate 25 mg tablet 25 mg PO BID #180 tablet 12/01/20 [Rx Last Taken Unknown] ascorbic acid (vitamin C) 500 mg capsule 1,000 mg PO DAILY cap 02/02/21 [History Last Taken Unknown] biotin 5,000 mcg-silicon dioxide 10 yc-V-hnbhzbxb 50 mg tablet ER 1 tab PO DAILY tab 02/02/21 [History Last Taken Unknown] cholecalciferol (vitamin D3) 25 mcg (1,000 unit) tablet 50 mcg PO DAILY tab 02/02/21 [History Last Taken Unknown] oxybutynin chloride 5 mg tablet,extended release 24 hr 5 mg PO DAILY tab 02/02/21 [History Last Taken Unknown] Allergy/AdvReac Type Severity Reaction Status Date / Time chlorhexidine Allergy Rash Verified 02/04/21 11:20 venom-honey bee Allergy Anaphylaxis Verified 02/04/21 11:20 [bee venom (honey bee)] hydrocodone bitartrate AdvReac Other Verified 02/04/21 11:20 [From Vicodin] quinine AdvReac Diarrhea Verified 02/04/21 11:20 Sulfa (Sulfonamide AdvReac Unknown Verified 02/04/21 11:20 Antibiotics) hospital bath blankets Allergy Unknown Uncoded 02/04/21 11:20 Family History Father CAD (coronary artery disease) Hx CABG Myocardial infarction Mother Myocardial infarction CAD (coronary artery disease) Surgical History History of hernia repair (~12/2006) History of local excision of skin lesion History of tubal ligation Social History household members: none Smoking Status: Former smoker alcohol intake: current alcohol intake frequency: 0-2 drinks per day Alcohol type: other details: Few swigs of Kendal[employer] per day substance use type: does not use caffeine: Yes Type: carbonated beverages and tea what type of physical activity do you participate in: other frequency: daily duration: 15-30 minutes/day seatbelt use: always do you feel safe at home: Yes ROS ROS Narrative Constitutional: Reports fatigue. Denies fever, chills, and change in weight Eyes: Denies blurry vision, change in eye color, change in vision, discharge from eye(s), double vision, erythema, eye pain, loss of vision or other HEENT: Denies abnormal hearing, dysphagia, ear pain, epistaxis, headache(s), hearing loss, nasal congestion, nasal discharge, post nasal drip, sinus pressure, sore throat or other Cardiovascular: Denies chest pain or palpitations. Uses 1 pillow to sleep and that has not changed. Denies paroxysmal nocturnal dyspnea Respiratory/Chest: Reports cough, wheezing and sputum production. Reports shortness of breath. Gastrointestinal: Denies abdominal pain, coffee ground emesis, constipation, diarrhea, dyspepsia, hematemesis, hematochezia, loose stools, melena, nausea, vomiting or other Genitourinary: Denies burning urination, difficulty urinating, dysuria, hematur ia, nocturia, urinary frequency, urinary hesitancy, urinary incontinence, urinary urgency or other Musculoskeletal: Denies arthralgias, back pain, joint pain, joint stiffness, joint swelling, myalgias, neck pain or other Neurologic: Denies abnormal gait, abnormal speech, confusion, disequilibrium, dizziness, focal weakness, headache(s), numbness, paresthesias, seizure-like activity, seizures, syncope, tingling, tremor(s) or other Psychiatric: Denies anxiety, depression, homicidal ideation, suicidal ideation or other Endocrinology: Denies change in body appearance, cold intolerance, excessive sweating, heat intolerance, polydipsia, polyuria or other Hematologic/Lymphatic: Denies anemia, easy bleeding, easy bruising, lymphadenopathy or other Integumentary: Denies rashes Allergic/Immunologic: Denies rhinitis, hives, eczema, asthma or other Vital Signs Vital Signs Vital Signs: 02/04/21 11:21 02/04/21 11:36 02/04/21 11:56 Temperature 97.0 F L 97.0 F L Temperature Source Temporal Temporal Pulse Rate 91 80 Respiratory Rate 24 H 24 H Respiratory Effort Short of Breath Respiratory Depth Normal Respiratory Pattern Tachypnea Blood Pressure 192/99 H 172/62 H Blood Pressure Mean 130 98 Pulse Ox 95 96 Oxygen Delivery Method Room Air Room Air Room Air 02/04/21 12:29 02/04/21 13:45 02/04/21 14:26 Temperature 97.2 F L 97.2 F L Temperature Source Temporal Temporal Pulse Rate 73 68 82 Respiratory Rate 25 H 20 H 28 H Respiratory Effort Respiratory Depth Respiratory Pattern Blood Pressure 159/59 H 162/56 H 161/53 H Blood Pressure Mean 92 91 89 Pulse Ox 96 95 96 Oxygen Delivery Method Room Air Room Air Room Air 02/04/21 17:25 02/04/21 19:05 02/04/21 20:14 Temperature 99.6 F H Temperature Source Temporal Pulse Rate 81 89 80 Respiratory Rate 25 H 29 H 30 H Respiratory Effort Respiratory Depth Respiratory Pattern Blood Pressure 175/55 H 179/58 H 159/76 H Blood Pressure Mean 95 98 103 Pulse Ox 92 93 93 Oxygen Delivery Method Room Air Room Air Room Air Weight Weight: 59 kg Body Mass Index (BMI) 25.4 Physical Exam Narrative Physical exam: General: Well-nourished, well-developed. Head: Normocephalic, atraumatic, no tenderness Eyes: PERRLA, EOMI ENT, no trauma, moist mucous membranes, no rhinorrhea Neck: Nontender, full range of motion, no spinal tenderness, deformities, step- off CVS: Regular rate and rhythm. S1-S2 present. No murmur, gallop or rub. Respiratory : Scattered mild rales. Mild wheezes. Chest wall nontender. Abdomen: Soft, nontender, nondistended, normal bowel sounds, no masses : Deferred Back: Nontender, no CVA tenderness, no midline spinal tenderness, deformities, step-offs Extremities: Nontender full range of motion, no trauma Skin: Normal color, no trauma, abrasions Neuro: Alert, oriented, cranial nerves II through XII grossly intact. Psychiatry: Normal mood. Normal affect. Not depressed. Not anxious. Results Lab / Micro Data Result Diagrams: 02/04/21 12:00 02/04/21 12:00 Labs: Laboratory Results - last 24 hr 02/04/21 12:00: WBC 9.4, RBC 3.11 L, Hgb 10.0 L, Hct 30.4 L, MCV 97.7, MCH 32.2 H, MCHC 32.9, RDW Std Deviation 42.9, RDW Coeff of Wilner 11.9, Plt Count 229, MPV 10.0, Immature Gran % (Auto) 0.400, Neut % (Auto) 80.4 H, Lymph % (Auto) 6.5 L, [place] % (Auto) 11.3 H, Eos % (Auto) 1.1, Baso % (Auto) 0.3, Absolute Neuts (auto) 7.6, Absolute Lymphs (auto) 0.61 L, Nucleated RBC % 0 02/04/21 12:00: D-Dimer Quant (PE/DVT) 2.29 H* 02/04/21 12:00: Sodium 136, Potassium 4.4, Chloride 100, Carbon Dioxide 24.0, Anion Gap 12, BUN 23 H, Creatinine 1.14 H, Estim Creat Clear Calc 26.86, Est GFR (MDRD) Af Amer 58 L, Est GFR (MDRD) Non-Af 48 L, BUN/Creatinine Ratio 20.2 H, Glucose 124 H, Calcium 8.7 02/04/21 12:00: Lactic Acid 1.3 02/04/21 13:19: COVID-19 ([facility]) Not Detected Radiology Impression Chest X-Ray 02/04/21 12:04 IMPRESSION: Patchy left upper lobe and left lower lobe infiltrates with blunting of the left costophrenic angle. Electronically Signed: Mikel Saha MD at 12:19 EST , Service support , Chest CTA 02/04/21 15:08 IMPRESSION: ASHD and coexisting COPD with probable superimposed inflammatory disease.. Neoplasm is less likely. Clinical correlation recommended to exclude Covid 19 pneumonia Bilateral pleural effusions slightly larger on the right with compressive atelectasis in the lower lobes No evidence for aortic aneurysm or pulmonary embolus Electronically Signed: Villa Linares MD at 17:02 EST , Service support , Assessment & Plan Assessment/Plan (1) Dyspnea: QUALIFIERS: Dyspnea type: shortness of breath Qualified Code(s): R06.02 - Shortness of breath (2) Bilateral pleural effusion: PLAN: Bilateral pleural effusion/dyspnea Chest x-ray and chest CTA was independently interpreted and agree radiologist interpretation above. Ultrasound thoracentesis ordered. PT/INR ordered. Fluid studies to check light criteria and cytology ordered. MRSA nares ordered. Check serum LDH and serum protein light criteria. Strep pneumonia antigen and Legionella urine antigen ordered. Incentive spirometer and Acapella ordered. Review of labs showed elevated D-dimer. Mucinex ordered. As needed albuterol for wheezes and shortness of breath ordered. CBC showed white count of 9.4. There is neutrophilia and lymphopenia as well as monocytosis. Trend CBC and BMP. Pulmonology consult to optimize management. Hypertension Blood pressure is not within goal Metoprolol continued. As needed hydralazine ordered. Trend blood pressure and adjust blood pressure medications. DVT prophylaxis: SCD ordered. Charges/Coding Visit Charges Inpatient E&M: 02522 Init Hosp L3
--- NOTE | 2021-02-04 21:37 | PCS.PANDOC ---
PANDEMIC DOCUMENTATION INITIATED: Date: 02/04/2021 Time: 2136
[2021-02-04] MEDS: guaiFENesin 600 MG Tablet PO (22:34)
[2021-02-04] MEDS: Lisinopril 20 MG Tablet PO (22:34)
[2021-02-04] MEDS: Metoprolol Tartrate 25 MG Tablet PO (22:34)
[2021-02-04] MEDS: Atorvastatin Calcium 10 MG Tablet PO (22:35)
[2021-02-05] VITALS (11 sets, daily range): BP systolic 110–175; BP diastolic 54–98; PULSE 75–84; RESP 18–20; TEMP 36.6–37.1; O2SAT 87–100
[2021-02-05 02:20] LABS: M R Staph aureus DNA By PCR Negative (Negative); Probe Check PASS; Specimen Processing Control PASS
[2021-02-05] MEDS: Acetaminophen 325 MG Tablet 650 MG PO (03:40)
[2021-02-05] MEDS: hydrALAZINE 20 MG/ML Vial 5 MG IV (03:40)
[2021-02-05 05:53] LABS: Absolute Lymphocyte Count 0.98 X10^3/uL (0.83-4.51); Basophil# 0.04 X10^3/uL; Basophil% 0.5 % (0-1); Eosinophil# 0.29 X10^3/uL; Eosinophils% 3.4 % (0-5); Hematocrit 28.5 % (37-47); Hemoglobin 9.7 g/dL (12.0-15.0); Lymphocyte # 0.98 X10^3/ul (0.83-4.51); Lymphocyte % 11.6 % (19-41); Mean Corpuscular Hgb 32.3 pg (27.0-32.0); Mean Platelet Vol. 10.3 fl (6.2-12.0); Monocyte# 1.07 X10^3/uL; Monocyte% 12.7 % (0-10); NRBC Flagged by Analyzer 0 % (0-5); Neutrophil # 6.02 X10^3/uL (2.7-7.7); Neutrophil % 71.2 % (47-70); Platelet Count 218 K/mm3 (150-450); RBC Distribution Width CV 11.8 % (11.6-14.6); RBC Distribution Width SD 40.7 fl (35.1-43.9); White Blood Count 8.5 K/mm3 (4.4-11.0)
[2021-02-05 06:04] LABS: International Normalized Ratio 1.2; Prothrombin Time (Protime)PT. 14.1 SECONDS (11.7-14.9)
[2021-02-05 06:23] LABS: ALB/GLOB Ratio 0.7 RATIO (0.9-2.4); Anion Gap 9 (5-15); BUN 19 mg/dL (7-18); BUN/Creat Ratio 19.5 RATIO (10-20); Calcium,Total 8.3 mg/dL (8.5-10.1); Chloride 102 mmol/L (98-107); Creatinine, Serum 0.97 mg/dL (0.55-1.02); EST Glomerular Filtration Rate 58 mL/min (>60); Est Glom Filt Rate - Afr Amer 70 mL/min (>60); Estimated Creatinine Clearance 31.56 ml/min; Globulin 3.7 g/dL (2.2-4.2); Glucose 103 mg/dL (74-106); LDH 251 U/L (84-246); Potassium 4.1 mmol/L (3.5-5.1); Protein, Total 6.4 g/dL (6.4-8.2); Sodium Level 135 mmol/L (136-145)
[2021-02-05] MEDS: Tolterodine Tartrate 2 MG CAP.SA PO (10:17)
[2021-02-05] MEDS: Aspirin 81 MG TAB.CHEW PO (10:17)
[2021-02-05] MEDS: Multivitamin (Healthy Eyes) Capsule 1 CAP PO (10:18)
[2021-02-05] MEDS: Lisinopril 20 MG Tablet PO ×2 (10:18→20:30)
[2021-02-05] MEDS: Ascorbic Acid 500 MG Tablet 1000 MG PO (10:18)
[2021-02-05] MEDS: Metoprolol Tartrate 25 MG Tablet PO ×2 (10:18→20:30)
[2021-02-05] MEDS: Pantoprazole Sodium 40 MG Tablet PO (10:18)
[2021-02-05] MEDS: Vitamin B Comp W-C Capsule 1 CAP PO (10:18)
[2021-02-05] MEDS: Hydrocortisone 2.5% Crm 1 APPLIC TOPICAL (10:19)
[2021-02-05] MEDS: Cholecalciferol (VIT D3) 25 MCG TABLET (1,000 UNITS) 50 MCG PO (10:20)
[2021-02-05] MEDS: guaiFENesin 600 MG Tablet PO ×2 (10:20→20:30)
--- NOTE | 2021-02-05 10:31 | PCM.PN.HOSP ---
Subjective Subjective Feels better today than when she came in. Still a bit short of breath and she does not normally wear oxygen at home. Objective Data Objective Data Vital Signs: Vital Signs Temp Pulse Resp BP Pulse Ox 98.3 F 79 20 H 164/57 H 100 02/05/21 10:16 02/05/21 10:18 02/05/21 10:16 02/05/21 10:18 02/05/21 10:16 Oxygen Flow Rate (L/min) [1 ( 2 Initial Baseline)] Oxygen Flow Rate (L/min) 2 Oxygen Delivery Method [1 ( Nasal Cannula Initial Baseline)] Oxygen Delivery Method Nasal Cannula Weight: 121 lb 11.123 oz Body Mass Index (BMI) 23.8 Lab / Micro Data Result Diagrams: 02/05/21 05:02 02/05/21 05:02 Labs: Laboratory Results - last 24 hr 02/04/21 12:00: WBC 9.4, RBC 3.11 L, Hgb 10.0 L, Hct 30.4 L, MCV 97.7, MCH 32.2 H, MCHC 32.9, RDW Std Deviation 42.9, RDW Coeff of Wilner 11.9, Plt Count 229, MPV 10.0, Immature Gran % (Auto) 0.400, Neut % (Auto) 80.4 H, Lymph % (Auto) 6.5 L, [place] % (Auto) 11.3 H, Eos % (Auto) 1.1, Baso % (Auto) 0.3, Absolute Neuts (auto) 7.6, Absolute Lymphs (auto) 0.61 L, Nucleated RBC % 0 02/04/21 12:00: D-Dimer Quant (PE/DVT) 2.29 H* 02/04/21 12:00: Sodium 136, Potassium 4.4, Chloride 100, Carbon Dioxide 24.0, Anion Gap 12, BUN 23 H, Creatinine 1.14 H, Estim Creat Clear Calc 26.86, Est GFR (MDRD) Af Amer 58 L, Est GFR (MDRD) Non-Af 48 L, BUN/Creatinine Ratio 20.2 H, Glucose 124 H, Calcium 8.7 02/04/21 12:00: Lactic Acid 1.3 02/04/21 13:19: COVID-19 ([facility]) Not Detected 02/04/21 22:50: MRSA (PCR) Negative 02/05/21 05:02: WBC 8.5, RBC 3.00 L, Hgb 9.7 L, Hct 28.5 L, MCV 95.0, MCH 32.3 H, MCHC 34.0, RDW Std Deviation 40.7, RDW Coeff of Wilner 11.8, Plt Count 218, MPV 10.3, Immature Gran % (Auto) 0.600, Neut % (Auto) 71.2 H, Lymph % (Auto) 11.6 L, [place] % (Auto) 12.7 H, Eos % (Auto) 3.4, Baso % (Auto) 0.5, Absolute Neuts (auto) 6.0, Absolute Lymphs (auto) 0.98, Nucleated RBC % 0 02/05/21 05:02: Sodium 135 L, Potassium 4.1, Chloride 102, Carbon Dioxide 24.0, Anion Gap 9, BUN 19 H, Creatinine 0.97, Estim Creat Clear Calc 31.56, Est GFR (MDRD) Af Amer 70, Est GFR (MDRD) Non-Af 58 L, BUN/Creatinine Ratio 19.5, Glucose 103, Calcium 8.3 L, Lactate Dehydrogenase 251 H, Total Protein 6.4, Globulin 3.7, Albumin/Globulin Ratio 0.7 L 02/05/21 05:02: PT 14.1, INR 1.2 Micro: Microbiology 02/04/21 22:40 Urine, Clean Catch Legionella Antigen - Final 02/04/21 22:40 Urine, Clean Catch Streptococcus pneumoniae Antigen (M - Final Radiography Diagnostic Testing: Radiology Impression Chest X-Ray 02/04/21 12:04 IMPRESSION: Patchy left upper lobe and left lower lobe infiltrates with blunting of the left costophrenic angle. Electronically Signed: Mkiel Saha MD at 12:19 EST , Service support , Chest CTA 02/04/21 15:08 IMPRESSION: ASHD and coexisting COPD with probable superimposed inflammatory disease.. Neoplasm is less likely. Clinical correlation recommended to exclude Covid 19 pneumonia Bilateral pleural effusions slightly larger on the right with compressive atelectasis in the lower lobes No evidence for aortic aneurysm or pulmonary embolus Electronically Signed: Villa Linares MD at 17:02 EST , Service support , Physical Exam Const alert, oriented x3 and no apparent distress General Appearance: cooperative HEENT normocephalic and moist oral mucous membranes Eyes PERRL, EOMs intact bilaterally and conjunctivae normal Neck supple and no JVD Resp normal respiratory effort, no retractions and no use of accessory muscles Auscultation: rales, wheezes and diminished lung sounds; Negative for crackles or rhonchi Cardio regular rate, regular rhythm, S1 normal heart sound, S2 normal heart sound and no murmurs GI soft to palpation, non-tender and non-distended; Negative for hepatosplenomegaly Extremity no clubbing, cyanosis or edema Skin no rashes or lesions noted Neuro no focal motor deficits and no sensory deficits noted Psych affect normal Appearance: appropriate Assessment & Plan Assessment/Plan (1) Dyspnea: QUALIFIERS: Dyspnea type: shortness of breath Qualified Code(s): R06.02 - Shortness of breath (2) Bilateral pleural effusion: PLAN: 1. Bilateral mild pleural effusion/dyspnea on exertion ?Some this could be related to COPD versus bronchiectasis versus heart failure. She did have an transesophageal echo done at [facility] in August which did not show any systolic or diastolic dysfunction ?We will continue with steroids also give her a dose of Lasix and will start her on antibiotics ?Appreciate pulmonology's assistance ?CTA was negative for PEs ?Continue with oxygen and wean as able 2 HTN/HLD ?Blood pressures are stable ?Continue with home Toprol all and lisinopril ?Continue with statin 3. GERD ?Stable ?Continue with PPI DVT: SCDs Charges/Coding Visit Charges Inpatient E&M: 68113 Subs Hosp L2
--- NOTE | 2021-02-05 10:55 | CON.PCM.CC_ITS ---
Assessment & Plan Assessment/Plan (1) Hypoxia: (2) Pleural effusion: (3) Pneumonia: PLAN: RECOMMENDATIONS: 1. Agree with empiric antibiotics, steroids and bronchodilators 2. Obtain sputum culture 3. Doubt patient will have enough fluid for thoracentesis 4. Wean oxygen as tolerated 5. Outpatient follow-up for pulmonary function testing 6. Aggressive pulmonary toileting with Acapella 7. Could consider evaluation for respiratory viruses IMPRESSIONS: 1. Acute hypoxic respiratory insufficiency with bilateral pleural effusions Patient is COVID-19 negative. However, patient does appear to have significant bronchiectasis and emphysematous changes. Groundglass opacities could be secondary to a viral pneumonia, but this likely would not change overall course of therapy. Agree with empiric steroids and bronchodilators. Patient would likely have an atypical bacteria, so Levaquin is appropriate. Patient likely does not require therapeutic Lovenox given negative CTA. Patient will need a walking oximetry prior to discharge. Outpatient follow-up with pulmonary may be helpful to avoid future complications. Patient should be initiated on pulmonary toileting techniques with an Acapella. This could be continued as an outpatient to avoid future complications. 2. Hypertension/hyperlipidemia/GERD/history of pneumothorax/advanced age/carotid artery stenosis Complicates care, management, recovery and prognosis. Okay to continue with baseline medications from my perspective. Anticipate patient likely has an element of diastolic dysfunction given age. HPI Consult Data Date of Consult: 02/05/21 HPI Narrative HPI Narrative: CHRISTOPHER PINA is an 85 F, with past medical history listed below, who presents to [facility] on 02/04/2021 secondary to progressive shortness of breath over the last 2 to 3 weeks. Patient reported that she had had shortness of breath 2 to 3 weeks ago, but this rapidly progressed over the last 2 days. Patient states that she was essentially unable to walk around the room. Patient reported that she was having a decreased appetite, but did not have any abdominal pain, nausea, vomiting or diarrhea. Patient does not have any previous pulmonary history except for a protracted hospitalization 2 years ago with influenza. Patient does not use supplemental oxygen at baseline. In the ER, patient was noted to be hypertensive at 192/99, but saturating 95% on room air. No fever was reported. Laboratory data showed a white blood cell count of 9.4, hemoglobin of 10, D-dimer of 2.29 and a creatinine of 1.14. Lactate was normal at 1.3 and COVID was negative. Chest x-ray showed a patchy left sided infiltrate. Patient was subsequently sent for a CTA showing COPD with bilateral groundglass opacities and small bilateral pleural effusions. Personal review of the CT also shows multiple areas of bronchiectasis Since being admitted to the hospital, patient reports subjective improvement in overall condition. Patient states her cough is productive, but she is not expressing any sputum. Patient states that she has been swallowing it. Patient states this feels very similar to the previous time that she had influenza. Patient does not use supplemental oxygen at baseline. Patient does have a history of a spontaneous pneumothorax in 1973, but does not report that she sees a project accountant at baseline. Patient is unclear if she is ever had a previous pulmonary function test. Review of systems otherwise negative from a constitutional, HEENT, respiratory, cardiovascular, GI, genitourinary, musculoskeletal, skin, neurologic, psychiatric and hematologic system unless stated above. [facility] Medical History Abnormal stress test Anemia Anxiety Aortic valve sclerosis Atherosclerotic heart disease of [place] coronary artery without angina pectoris Bilateral carotid artery stenosis CAD (coronary artery disease) Carotid bruit Coronary artery disease Depression Encounter for long-term current use of high risk medication Essential hypertension Former smoker GERD (gastroesophageal reflux disease) Hiatal hernia Hypertension IBS (irritable bowel syndrome) Kidney disease Mitral valve disease Non-rheumatic mitral valve disease Nonrheumatic mitral valve regurgitation Palpitations Pure hypercholesterolemia Home Medications B-complex with vitamin C 1 each PO DAILY 09/01/16 [History Last Taken 04/09/19] Lactobac 41-B.bifid,lactis-FOS 1 each PO DAILY 09/01/16 [History Last Taken 04/09/19] aspirin 81 mg PO DAILY@0800 09/01/16 [History Last Taken 04/09/19] calcium carb-mag ox-zinc sulf 1 each PO DAILY 09/01/16 [History Last Taken 04/09/19] ztkzqsgf-fpa-luwg-FA-lutein 1 each PO DAILY 09/01/16 [History Last Taken 03/18 06/03] desonide 0.05 % lotion 1 applic TOPICAL DAILY 02/27/18 [History Last Taken 04/09/19] metronidazole 0.75 % topical gel 1 applic TOPICAL BID PRN 07/21/20 [History Last Taken Unknown] pantoprazole 40 mg tablet,delayed release 40 mg PO DAILY 07/21/20 [History Last Taken Unknown] selenium sulfide 2.5 % shampoo 1 ea TOPICAL 2XW 07/21/20 [History Last Taken Unknown] simvastatin 20 mg tablet 20 mg PO QHS #90 tablet 09/02/20 [Rx Last Taken Unknown] lisinopril 20 mg tablet 20 mg PO BID #180 tab 12/01/20 [Rx Last Taken Unknown] metoprolol tartrate 25 mg tablet 25 mg PO BID #180 tablet 12/01/20 [Rx Last Taken Unknown] ascorbic acid (vitamin C) 500 mg capsule 1,000 mg PO DAILY cap 02/02/21 [Histor y Last Taken Unknown] biotin 5,000 mcg-silicon dioxide 10 qg-S-hrlavxmj 50 mg tablet ER 1 tab PO DAILY tab 02/02/21 [History Last Taken Unknown] cholecalciferol (vitamin D3) 25 mcg (1,000 unit) tablet 50 mcg PO DAILY tab 02/02/21 [History Last Taken Unknown] oxybutynin chloride 5 mg tablet,extended release 24 hr 5 mg PO DAILY tab 02/02/21 [History Last Taken Unknown] famotidine 20 mg PO DAILY 02/04/21 [History Last Taken Unknown] Allergy/AdvReac Type Severity Reaction Status Date / Time chlorhexidine Allergy Rash Verified 02/04/21 11:20 venom-honey bee Allergy Anaphylaxis Verified 02/04/21 11:20 [bee venom (honey bee)] hydrocodone bitartrate AdvReac Other Verified 02/04/21 11:20 [From Vicodin] quinine AdvReac Diarrhea Verified 02/04/21 11:20 Sulfa (Sulfonamide AdvReac Unknown Verified 02/04/21 11:20 Antibiotics) hospital bath blankets Allergy Unknown Uncoded 02/04/21 11:20 Family History Father CAD (coronary artery disease) Hx CABG Myocardial infarction Mother Myocardial infarction CAD (coronary artery disease) Surgical History History of hernia repair (~12/2006) History of local excision of skin lesion History of tubal ligation Social History household members: none Smoking Status: Former smoker alcohol intake: current alcohol intake frequency: 0-2 drinks per day Alcohol type: other details: Few swigs of Kendal[employer] per day substance use type: does not use caffeine: Yes Type: carbonated beverages and tea what type of physical activity do you participate in: other frequency: daily duration: 15-30 minutes/day seatbelt use: always do you feel safe at home: Yes ROS ROS Narrative See HPI Physical Exam Const alert, oriented x3 and no apparent distress General Appearance: cooperative HEENT normocephalic and moist oral mucous membranes Eyes PERRL, EOMs intact bilaterally and conjunctivae normal Neck supple and no JVD Resp normal respiratory effort, no retractions and no use of accessory muscles Auscultation: rales left base, wheezes and diminished lung sounds; Negative for crackles or rhonchi Cardio regular rate, regular rhythm, S1 normal heart sound, S2 normal heart sound and no murmurs GI soft to palpation, non-tender and non-distended; Negative for hepatosplenomegaly Extremity no clubbing, cyanosis or edema Skin no rashes or lesions noted Neuro no focal motor deficits and no sensory deficits noted Psych affect normal Appearance: appropriate Lab / Micro Data Result Diagrams: 02/05/21 05:02 02/05/21 05:02 Labs: Laboratory Results - last 24 hr 02/04/21 12:00: WBC 9.4, RBC 3.11 L, Hgb 10.0 L, Hct 30.4 L, MCV 97.7, MCH 32.2 H, MCHC 32.9, RDW Std Deviation 42.9, RDW Coeff of [place] 11.9, Plt Count 229, MPV 10.0, Immature Gran % (Auto) 0.400, Neut % (Auto) 80.4 H, Lymph % (Auto) 6.5 L, [place] % (Auto) 11.3 H, Eos % (Auto) 1.1, Baso % (Auto) 0.3, Absolute Neuts (auto) 7.6, Absolute Lymphs (auto) 0.61 L, Nucleated RBC % 0 02/04/21 12:00: D-Dimer Quant (PE/DVT) 2.29 H* 02/04/21 12:00: Sodium 136, Potassium 4.4, Chloride 100, Carbon Dioxide 24.0, Anion Gap 12, BUN 23 H, Creatinine 1.14 H, Estim Creat Clear Calc 26.86, Est GFR (MDRD) Af Amer 58 L, Est GFR (MDRD) Non-Af 48 L, BUN/Creatinine Ratio 20.2 H, Glucose 124 H, Calcium 8.7 02/04/21 12:00: Lactic Acid 1.3 02/04/21 13:19: COVID-19 (MAMADOU) Not Detected 02/04/21 22:50: MRSA (PCR) Negative 02/05/21 05:02: WBC 8.5, RBC 3.00 L, Hgb 9.7 L, Hct 28.5 L, MCV 95.0, MCH 32.3 H , MCHC 34.0, RDW Std Deviation 40.7, RDW Coeff of [place] 11.8, Plt Count 218, MPV 10.3, Immature Gran % (Auto) 0.600, Neut % (Auto) 71.2 H, Lymph % (Auto) 11.6 L, [place] % (Auto) 12.7 H, Eos % (Auto) 3.4, Baso % (Auto) 0.5, Absolute Neuts (auto) 6.0, Absolute Lymphs (auto) 0.98, Nucleated RBC % 0 02/05/21 05:02: Sodium 135 L, Potassium 4.1, Chloride 102, Carbon Dioxide 24.0, Anion Gap 9, BUN 19 H, Creatinine 0.97, Estim Creat Clear Calc 31.56, Est GFR (MDRD) Af Amer 70, Est GFR (MDRD) Non-Af 58 L, BUN/Creatinine Ratio 19.5, Glucose 103, Calcium 8.3 L, Lactate Dehydrogenase 251 H, Total Protein 6.4, Globulin 3.7, Albumin/Globulin Ratio 0.7 L 02/05/21 05:02: PT 14.1, INR 1.2 Micro: Microbiology 02/04/21 22:40 Urine, Clean Catch Legionella Antigen - Final 02/04/21 22:40 Urine, Clean Catch Streptococcus pneumoniae Antigen (M - Final Radiology Impression Chest X-Ray 02/04/21 12:04 IMPRESSION: Patchy left upper lobe and left lower lobe infiltrates with blunting of the left costophrenic angle. Electronically Signed: Mikel Saha MD at 12:19 EST , Service support , Chest CTA 02/04/21 15:08 IMPRESSION: ASHD and coexisting COPD with probable superimposed inflammatory disease.. Neoplasm is less likely. Clinical correlation recommended to exclude Covid 19 pneumonia Bilateral pleural effusions slightly larger on the right with compressive atelectasis in the lower lobes No evidence for aortic aneurysm or pulmonary embolus Electronically Signed: Villa Linares MD at 17:02 EST , Service support , Charges/Coding Visit Charges Inpatient E&M: 35283 Init Hosp L2
[2021-02-05] MEDS: 0.9% Saline Lock 10 ML Syringe IV ×2 (12:30→14:53)
[2021-02-05] MEDS: Furosemide 20 MG/2 ML VIAL IV (12:30)
--- NOTE | 2021-02-05 13:17 | CHAPLAIN ---
Type of Pastoral Visit _x__ Initial Visit ___ Follow-up Visit ___ On-call Visit ___ General Patient Visit ___ Spiritual Assessment ___ Family Conference ___ Bereavement ___ Rapid Response ___ Code Blue ___ Other (describe below) Pastoral Care Referral From _x__ Patient ___ Family ___ Nurse ___ Physician ___ Head Start Coordinator ___ Automation Tech ___ Other (describe below) Sacrament/Intervention _x__ Active listening ___ Anointing ___ Sabianism ___ Bereavement ___ Communion _x__ Gail exploration ___ Funera _x__ Life review _x__ Prayer ___ Reconciliation ___ Sacrament of Sick _x__ Supportive presence ___ Wedding ___ Other (describe below) Pastoral Comments patient is very talkative and asks several questions concerning her current spiritual practices amidst COVID and poor health; lots of life review
--- NOTE | 2021-02-05 13:25 | CASEMGMT ---
Addendum entered by Vanita Boyer 02/05/21 14:22: 1405: Call placed to [facility] for referral at this time, spoke with Sherly. Original Note: EDUARD ROMANO Assessment: Face to Face with pt for initial transition planning/care coordination assessment. RN ROSALINA introduced self and role at [facility], pt voices understanding and consents to assessment. Patient sitting up in bed with oxygen on, in no apparent distress. Pt is A/O x4 and answers all questions appropriately at this time. Care providers, pharmacy, and demographics verified/updated. Admitting Dx: Bilateral pleural effusion PCP: Hank Specialists: Dr. Joel- nephro, Dr. Shabazz- cardio, Dr. Nguyen- cardiology at [facility], Guillermina Coley- urology, Dr. Virgie Marie- MARRIAGE AND FAMILY COUNSELOR Preferred [facility]acy: [facility] Insurance: Medicare & [employer] Commercial Prescription Benefit: yes LW/HPOA: Patient has LW/HPOA on file at [facility]. LNOK: Hugo Rodriguez, son Living Arrangements: Pt lives alone in one story home with 2 steps to enter with railing. Patient states she was independent with ADLs prior to hospitalization but admits that she fatigues easily and feels somewhat weak. Son lives close by and checks in frequently. Transportation: Pt drives self and denies concerns with transportation. DME/HHC/SNF: Patient has cane and grab bars in home. Typically ambulates using a walking stick. Previous HHC with [facility] in March 2019. Denies previous SNF stays. Patient has no DME company preference if home oxygen needed upon discharge. Patient does not want to go to SNF at this time. Agreeable to HHC following hospital discharge. CM to follow. Advised pt to ask CM if any further question/concerns/needs arise, voices understanding. Pt Goal: home with HHC Plan: home with C
--- NOTE | 2021-02-05 15:24 | CASEMGMT ---
Received tc back from Sherly at [facility] who states they are able to accept pt for SOC next week pending dc.
[2021-02-05] MEDS: levoFLOXacin IV 750 MG/150 ML BAG 100 MG IV (16:09)
[2021-02-05] MEDS: Atorvastatin Calcium 10 MG Tablet PO (20:31)
--- NOTE | 2021-02-05 21:37 | US_ITS ---
STUDY: SUPERFICIAL ULTRASOUND - RIGHT PLEURAL CAVITY REASON FOR EXAM: Female, 85 years old. Pleural effusion TECHNIQUE: A superficial ultrasound was performed with real-time and static tran-scale imaging. COMPARISON: None. FINDINGS: Imaging of the right pleural cavity was obtained. No significant effusion is present for safe thoracentesis. US/Chest IMPRESSION: Not enough pleural effusion present for safe thoracentesis. Electronically Signed: Mikel Saha MD at 11:06 EST , Service support ,
[2021-02-06] VITALS (7 sets, daily range): BP systolic 144–149; BP diastolic 63–73; PULSE 70–76; RESP 16–18; TEMP 36.4–36.6; O2SAT 92–99
[2021-02-06 06:25] LABS: Absolute Lymphocyte Count 0.67 X10^3/uL (0.83-4.51); Absolute Neutrophil Count 6.7 X10^3/uL (2.0-7.7); Basophil# 0.01 X10^3/uL; Basophil% 0.1 % (0-1); Hemoglobin 11.2 g/dL (12.0-15.0); Lymphocyte # 0.67 X10^3/ul (0.83-4.51); Lymphocyte % 8.8 % (19-41); Mean Corpuscular Hgb 33.2 pg (27.0-32.0); Mean Platelet Vol. 10.2 fl (6.2-12.0); Monocyte# 0.25 X10^3/uL; Monocyte% 3.3 % (0-10); NRBC Flagged by Analyzer 0 % (0-5); Neutrophil # 6.65 X10^3/uL (2.7-7.7); Neutrophil % 87.1 % (47-70); Platelet Count 282 K/mm3 (150-450); RBC Distribution Width CV 11.7 % (11.6-14.6); RBC Distribution Width SD 40.5 fl (35.1-43.9); Red Blood Count 3.37 M/mm3 (4.2-5.4); White Blood Count 7.6 K/mm3 (4.4-11.0)
[2021-02-06 06:49] LABS: Anion Gap 10 (5-15); BUN 28 mg/dL (7-18); BUN/Creat Ratio 27.2 RATIO (10-20); Chloride 103 mmol/L (98-107); Creatinine, Serum 1.03 mg/dL (0.55-1.02); EST Glomerular Filtration Rate 54 mL/min (>60); Est Glom Filt Rate - Afr Amer 66 mL/min (>60); Estimated Creatinine Clearance 29.73 ml/min; Glucose 147 mg/dL (74-106); Potassium 4.5 mmol/L (3.5-5.1); Sodium Level 136 mmol/L (136-145)
[2021-02-06] MEDS: Multivitamin (Healthy Eyes) Capsule 1 CAP PO (07:52)
[2021-02-06] MEDS: Aspirin 81 MG TAB.CHEW PO (07:52)
[2021-02-06] MEDS: Vitamin B Comp W-C Capsule 1 CAP PO (10:17)
[2021-02-06] MEDS: Metoprolol Tartrate 25 MG Tablet PO (10:18)
[2021-02-06] MEDS: Tolterodine Tartrate 2 MG CAP.SA PO (10:18)
[2021-02-06] MEDS: guaiFENesin 600 MG Tablet PO (10:18)
[2021-02-06] MEDS: Cholecalciferol (VIT D3) 25 MCG TABLET (1,000 UNITS) 50 MCG PO (10:19)
[2021-02-06] MEDS: Ascorbic Acid 500 MG Tablet 1000 MG PO (10:19)
[2021-02-06] MEDS: Lisinopril 20 MG Tablet PO (10:19)
[2021-02-06] MEDS: Pantoprazole Sodium 40 MG Tablet PO (10:19)
--- NOTE | 2021-02-06 11:58 | PCM.PN.INT ---
Assessment & Plan Assessment/Plan (1) Hypoxia: (2) Pleural effusion: (3) Pneumonia: PLAN: RECOMMENDATIONS: 1. Agree with empiric antibiotics, steroids and bronchodilators 2. Complete a 5-day burst of prednisone 3. Obtain walking oximetry. Potential discharge if able to tolerate room air 4. Encourage incentive spirometer 5. Outpatient follow-up for pulmonary function testing 6. Aggressive pulmonary toileting with Acapella 7. Could consider evaluation for respiratory viruses IMPRESSIONS: 1. Acute hypoxic respiratory insufficiency with bilateral pleural effusions Patient is COVID-19 negative. However, patient does appear to have significant bronchiectasis and emphysematous changes. Groundglass opacities could be secondary to a viral pneumonia, but this likely would not change overall course of therapy. Agree with empiric steroids and bronchodilators. Patient would likely have an atypical bacteria, so Levaquin is appropriate. Patient likely does not require therapeutic Lovenox given negative CTA. Obtain a walking oximetry. If patient is able to ambulate without supplemental oxygen, can likely be discharged on a 5-day burst of prednisone and complete a 7-day course of Levaquin. Patient can follow-up as an outpatient for quantification clarification of lung function. 2. Hypertension/hyperlipidemia/GERD/history of pneumothorax/advanced age/carotid artery stenosis Complicates care, management, recovery and prognosis. Okay to continue with baseline medications from my perspective. Anticipate patient likely has an element of diastolic dysfunction given age. Subjective Subjective Patient did well overnight. Patient states that she feels strong enough to go home. Oxygenation has continued to improve. Patient is not reporting any chest pain, nausea or vomiting. Patient feels that she is ambulating well with therapy. Objective Data Objective Data Vital Signs: Vital Signs Temp Pulse Resp BP Pulse Ox 36.6 C 70 16 145/68 H 99 02/06/21 07:41 02/06/21 10:18 02/06/21 07:41 02/06/21 07:41 02/06/21 07:41 Oxygen Flow Rate (L/min) [1 ( 2 Initial Baseline)] Oxygen Flow Rate (L/min) 2 Oxygen Delivery Method [1 ( Nasal Cannula Initial Baseline)] Oxygen Delivery Method Nasal Cannula Weight: 55.2 kg Body Mass Index (BMI) 23.8 Intake & Output: Intake and Output for Last 24 Hours 02/04/21 02/05/21 02/06/21 23:59 23:59 23:59 Intake Total 910 / 910 Balance 910 / 910 Lab / Micro Data Result Diagrams: 02/06/21 05:10 02/06/21 05:10 Labs: Laboratory Results - last 24 hr 02/06/21 05:10: WBC 7.6, RBC 3.37 L, Hgb 11.2 L, Hct 32.0 L, MCV 95.0, MCH 33.2 H, MCHC 35.0, RDW Std Deviation 40.5, RDW Coeff of [place]ner 11.7, Plt Count 282, MPV 10.2, Immature Gran % (Auto) 0.700, Neut % (Auto) 87.1 H, Lymph % (Auto) 8.8 L, [place] % (Auto) 3.3, Eos % (Auto) 0.0, Baso % (Auto) 0.1, Absolute Neuts (auto) 6.7, Absolute Lymphs (auto) 0.67 L, Nucleated RBC % 0 02/06/21 05:10: Sodium 136, Potassium 4.5, Chloride 103, Carbon Dioxide 23.0, Anion Gap 10, BUN 28 H, Creatinine 1.03 H, Estim Creat Clear Calc 29.73, Est GFR (MDRD) Af Amer 66, Est GFR (MDRD) Non-Af 54 L, BUN/Creatinine Ratio 27.2 H, Glucose 147 H, Calcium 9.0 Micro: Microbiology 02/04/21 22:40 Urine, Clean Catch Legionella Antigen - Final 02/04/21 22:40 Urine, Clean Catch Streptococcus pneumoniae Antigen (M - Final Physical Exam Const alert, oriented x3 and no apparent distress General Appearance: cooperative HEENT normocephalic and moist oral mucous membranes Eyes PERRL, EOMs intact bilaterally and conjunctivae normal Neck supple and no JVD Resp normal respiratory effort, no retractions and no use of accessory muscles Auscultation: diminished lung sounds; Negative for rales, rhonchi or wheezes Cardio regular rate, regular rhythm, S1 normal heart sound, S2 normal heart sound and no murmurs GI soft to palpation, non-tender and non-distended; Negative for hepatosplenomegaly Extremity no clubbing, cyanosis or edema Skin no rashes or lesions noted Neuro no focal motor deficits and no sensory deficits noted Psych affect normal Appearance: appropriate Charges/Coding Visit Charges Inpatient E&M: 69237 Subs Hosp L2
[2021-02-06] MEDS: 0.9% Saline Lock 10 ML Syringe IV (13:41)
--- NOTE | 2021-02-06 14:16 | DS.PCM_ITS ---
Providers Date of Admission: 02/04/21 Primary Care Physician: Frantz Mckinney Consultations 02/04/21 21:37 Consult: Radio Interference Expert / Pulmonary Medicine Routine Consulting Provider: Frank Reyes Reason for Consult: Bilateral pleural effusion EMERGENT Consult: No MD Notified: Yes Date Notified: 02/05/21 Time Notified: 06:37 Method of Notification: Page Reason For Visit: BILATERAL PLEURAL EFFUSION Diagnosis Discharge Diagnosis (1) Hypoxia: Status: Acute Code(s): R09.02 - Hypoxemia (2) Pleural effusion: Status: Acute Code(s): J90 - Pleural effusion, not elsewhere classified (3) Pneumonia: Status: Acute Code(s): J18.9 - Pneumonia, unspecified organism Medications at Discharge Home Medications B-complex with vitamin C 1 each PO DAILY 09/01/16 Lactobac 41-B.bifid,lactis-FOS 1 each PO DAILY 09/01/16 aspirin 81 mg PO DAILY@0800 09/01/16 calcium carb-mag ox-zinc sulf 1 each PO DAILY 09/01/16 lllfirxs-khy-zdmm-FA-lutein 1 each PO DAILY 09/01/16 desonide 0.05 % lotion 1 applic TOPICAL DAILY 02/27/18 metronidazole 0.75 % topical gel 1 applic TOPICAL BID PRN 07/21/20 pantoprazole 40 mg tablet,delayed release 40 mg PO DAILY 07/21/20 selenium sulfide 2.5 % shampoo 1 ea TOPICAL 2XW 07/21/20 simvastatin 20 mg tablet 20 mg PO QHS #90 tablet 09/02/20 lisinopril 20 mg tablet 20 mg PO BID #180 tab 12/01/20 metoprolol tartrate 25 mg tablet 25 mg PO BID #180 tablet 12/01/20 ascorbic acid (vitamin C) 500 mg capsule 1,000 mg PO DAILY cap 02/02/21 biotin 5,000 mcg-silicon dioxide 10 oa-M-cwqxhtce 50 mg tablet ER 1 tab PO DAILY tab 02/02/21 cholecalciferol (vitamin D3) 25 mcg (1,000 unit) tablet 50 mcg PO DAILY tab 02/02/21 oxybutynin chloride 5 mg tablet,extended release 24 hr 5 mg PO DAILY tab 02/02/21 famotidine 20 mg PO DAILY 02/04/21 levofloxacin 750 mg PO DAILY #5 tab 02/06/21 prednisone 40 mg PO DAILY #10 tab 02/06/21 Hospital Course Operations None Procedures None Summary of Care Provided Minutes Spent on Discharge: 45 Hospital Course: Patient is an 85-year-old female with a past medical history as outlined who was admitted through the ED on 02/04/2021 with a 3-week history of progressively worsening shortness of breath which improved at rest but worsened with exertion. She had associated cough and wheezing. Cough was productive. She had had her COVID-19 and influenza vaccinations. Chest x-ray showed patchy left upper lobe and lower lobe infiltrates with blunting at the left costophrenic angle and CTA of the chest showed ASHD and coexisting COPD with probable superimposed inflammatory disease and bilateral pleural effusions with compressive atelectasis. She was admitted and managed for bilateral pleural effusion which was thought to be possibly due to pneumonia. She was started on IV levaquin. Urine for strep and Legionella done were negative. Pulmonology was consulted and patient had thoracentesis ordered. She could however not do the thoracentesis as there was not enough fluid to drain per Radiology. Shortness of breath gradually improved and she was weaned off of oxygen. She had ambulatory pulse ox on 02/06/2021 which showed that she did not require any oxygen. She was discharged home on 02/06/2021 on p.o. Levaquin to complete a 7- day course as well as a 5-day course of prednisone. She is to follow-up with pulmonology on outpatient basis as well as her primary care doctor. Patient seen and examined prior to discharge. She felt well and had no active complaints. Review of systems otherwise negative. Labs and vitals reviewed. Medication reviewed and reconciled. Physical Exam Const alert, oriented x3 and no apparent distress General Appearance: cooperative and comfortable Orientation / Consciousness: awake Exam Limitations: no limitations HEENT normocephalic, head/scalp atraumatic, hearing grossly normal bilaterally, moist oral mucous membranes and oropharynx normal Eyes PERRL, EOMs intact bilaterally and conjunctivae normal Neck no lymphadenopathy, supple and no JVD Resp Resp Narrative: diminished breath sounds bibasally, no wheezes or crackles. on room air. Cardio regular rate, regular rhythm, S1 normal heart sound, S2 normal heart sound and no murmurs GI normal to inspection, nondistended, normoactive bowel sounds, soft to palpation, non-tender and non-distended Extremity normal to inspection, full ROM and no clubbing, cyanosis or edema Skin no rashes or lesions noted Neuro oriented x3 and CN's II-XII intact bilaterally Sensorium / Orientation: awake and alert Psych affect normal Weight / BMI Weight Weight: 121 lb 11.123 oz Body Mass Index (BMI) 23.8 ABG / Lab / Microbiology Data Result Diagrams: 02/06/21 05:10 02/06/21 05:10 Laboratory: Laboratory Results - last 24 hr 02/06/21 05:10: WBC 7.6, RBC 3.37 L, Hgb 11.2 L, Hct 32.0 L, MCV 95.0, MCH 33.2 H, MCHC 35.0, RDW Std Deviation 40.5, RDW Coeff of Wilner 11.7, Plt Count 282, MPV 10.2, Immature Gran % (Auto) 0.700, Neut % (Auto) 87.1 H, Lymph % (Auto) 8.8 L, [place] % (Auto) 3.3, Eos % (Auto) 0.0, Baso % (Auto) 0.1, Absolute Neuts (auto) 6.7, Absolute Lymphs (auto) 0.67 L, Nucleated RBC % 0 02/06/21 05:10: Sodium 136, Potassium 4.5, Chloride 103, Carbon Dioxide 23.0, Anion Gap 10, BUN 28 H, Creatinine 1.03 H, Estim Creat Clear Calc 29.73, Est GFR (MDRD) Af Amer 66, Est GFR (MDRD) Non-Af 54 L, BUN/Creatinine Ratio 27.2 H, Glucose 147 H, Calcium 9.0 Microbiology: Microbiology 02/04/21 22:40 Urine, Clean Catch Legionella Antigen - Final 02/04/21 22:40 Urine, Clean Catch Streptococcus pneumoniae Antigen (M - Final D/C Instructions Discharge Diet: Low fat / Low cholesterol Discharge Activity: Return to Normal Activity Weight Bearing Status: Weight bearing as tolerated Call your doctor if you observe: Fever of 101 or Higher, Shortness of breath, Dizziness, Swelling in the ankles, Chest pain and Increased palpitations (irregu lar heartbeat) Meaningful Use Info Meaningful Use Diagnoses (Choose all that apply): None applicable Discharge Plan Admission Admit Date/Time: 02/04/21 20:14 Primary Reason for Your Visit: acute hypoxic respiratory insufficiency de to bilateral pleural effusion Attending Provider: Bita Cruz Primary Care Provider: Frantz Mckinney Consulting Providers: Frank Reyes Instructions Patient Instructions: Thoracentesis Dc Discharge Orders/Prescriptions Prescriptions: New prednisone 20 mg tablet 40 mg PO DAILY Qty: 10 RF: 0 levofloxacin 750 mg tablet 750 mg PO DAILY Qty: 5 RF: 0 Continued desonide 0.05 % lotion 1 applic TOPICAL DAILY RF: 0 ascorbic acid (vitamin C) 500 mg capsule 1,000 mg PO DAILY RF: 0 metronidazole 0.75 % gel 1 applic topical BID PRN (Reason: Itching) RF: 0 pantoprazole 40 mg tablet,delayed release (DR/EC) 40 mg PO DAILY RF: 0 selenium sulfide 2.5 % shampoo 1 ea topical 2XW RF: 0 cholecalciferol (vitamin D3) 25 mcg (1,000 unit) tablet 50 mcg PO DAILY RF: 0 biotin-silicon eyqb-I-zmdedhsz 5,000 mcg -10 mg-50 mg tablet extended release 1 tab PO DAILY RF: 0 oxybutynin chloride 5 mg tablet extended release 24hr 5 mg PO DAILY RF: 0 aspirin 81 MG tablet,chewable 81 mg PO DAILY@0800 RF: 0 B-complex with vitamin C 1 EACH tablet 1 each PO DAILY RF: 0 syxedxqx-zvf-vwlc-FA-lutein 1 EACH tablet 1 each PO DAILY RF: 0 calcium carb-mag ox-zinc sulf 1 EACH tablet 1 each PO DAILY RF: 0 Lactobac 41-B.bifid,lactis-FOS 1 EACH capsule 1 each PO DAILY RF: 0 famotidine 20 mg tablet 20 mg PO DAILY RF: 0 simvastatin 20 mg tablet 20 mg PO QHS Qty: 90 RF: 3 metoprolol tartrate 25 mg tablet 25 mg PO BID Qty: 180 RF: 3 lisinopril 20 mg tablet 20 mg PO BID Qty: 180 RF: 3 Referrals / Follow Up: Frank Reyes MD [STAFF PHYSICIAN] - Within 2 Weeks Frantz Mckinney [Primary Care Provider] - Within 2 Weeks Disposition Disposition (needs filled in before D/C Order can be placed): Home Health Service Charges/Coding Visit Charges Inpatient E&M: 70151 Disch Hosp
== END 2021-02-06 15:58 | disposition home health service (06) | DRG 186 ==
LOC: ED 20:17 → MS3 20:35
PROVIDERS: Emergency Medicine; Family Medicine; Admitting Provider Hospitalist; Emergency Provider Emergency Medicine; Visit Provider Student in an Organized Health Care Education/Training Program
DX: J90 Pleural effusion, not elsewhere classified (principal); J18.9 Pneumonia, unspecified organism; J98.11 Atelectasis; I10 Essential (primary) hypertension; E78.5 Hyperlipidemia, unspecified; K21.9 Gastro-esophageal reflux disease without esophagitis; R09.02 Hypoxemia; I25.10 Atherosclerotic heart disease of native coronary artery without angina pectoris; J44.9 Chronic obstructive pulmonary disease, unspecified; Z87.891 Personal history of nicotine dependence; Z82.49 Family history of ischemic heart disease and other diseases of the circulatory system; Z98.51 Tubal ligation status; Z95.1 Presence of aortocoronary bypass graft; I25.2 Old myocardial infarction
CPT/HCPCS: 36415; 71045; 71275; 76604; 80048; 83605; 83615; 84156; 85025; 85379; 85610; 87449; 87635; 87641; 93005; 94667; 97162; 97166; 97530; 99251; 99285; Q9967; U0005; A4216; G0463; J1940; U0003

== ENCOUNTER 2021-02-16 10:50 | Emergency (ER) | payer MEDICARE, OTHER, SELFPAY ==
[2021-02-16] VITALS (10 sets, daily range): BP systolic 105–148; BP diastolic 36–73; PULSE 62–80; RESP 16–22; TEMP 36.2–37.3; O2SAT 94–100; BMI 22.1
--- NOTE | 2021-02-16 11:28 | EKG12_ITS ---
Test Reason : Blood Pressure : / mmHG Vent. Rate : 061 BPM Atrial Rate : 061 BPM P-R Int : 190 ms QRS Dur : 100 ms QT Int : 402 ms P-R-T Axes : -29 039 079 degrees QTc Int : 404 ms Normal sinus rhythm with sinus arrhythmia Left ventricular hypertrophy with repolarization abnormality Abnormal ECG Confirmed by RENAE NGUYEN, SHAN ([id number]), script editor JAZMINE CRENSHAW ([id number]) on 02/18/2021 9:47:12 AM Referred By: HAYLEE/KEMAL Confirmed By:SHAN MACDONALD MD
--- NOTE | 2021-02-16 11:29 | EDS_ITS ---
HPI History of Present Illness Chief Complaint: Shortness of Breath Informant: patient Onset/Context/Timing Onset: Days (2) Context: gradual Timing: Continuous Quality: Positive for Dyspnea on exertion Current Severity: Mild Maximum Severity: Moderate Worsened by: Exertion; Not Worsened By Lying flat Relieved by: Rest Associated Symptoms Chest Pain: Positive for None Narrative Narrative: Patient presenting with shortness of breath for couple days. No orthopnea or PND. She denies having a cough except for when I am choking. No swelling in the legs. No pleuritic or other chest discomfort. No history of blood clots, she takes no anticoagulation. She had pneumonia recently and associated pleural effusions, however the thoracentesis was not performed due to not enough fluid being present according to compensation consultant/radiology. Patient has been vaccinated against Covid, influenza, pneumonia. She has had a Covid miranda ster. She denies any known Covid exposures recently. [facility] Medical History Abnormal stress test Anemia Anemia Anxiety Aortic valve sclerosis Atherosclerotic heart disease of [place] coronary artery without angina pectoris Bilateral carotid artery stenosis CAD (coronary artery disease) Carotid bruit Coronary artery disease Depression Encounter for long-term current use of high risk medication Essential hypertension Former smoker GERD (gastroesophageal reflux disease) Hiatal hernia Hypertension IBS (irritable bowel syndrome) Kidney disease Mitral valve disease Non-rheumatic mitral valve disease Nonrheumatic mitral valve regurgitation Palpitations Pure hypercholesterolemia Home Medications B-complex with vitamin C 1 each PO DAILY 09/01/16 [History Last Taken 04/09/19] Lactobac 41-B.bifid,lactis-FOS 1 each PO DAILY 09/01/16 [History Last Taken 04/09/19] aspirin 81 mg PO DAILY@0800 09/01/16 [History Last Taken 04/09/19] calcium carb-mag ox-zinc sulf 1 each PO DAILY 09/01/16 [History Last Taken 04/09/19] yixzbgoi-vvu-ykrl-FA-lutein 1 each PO DAILY 09/01/16 [History Last Taken 04/09/19] desonide 0.05 % lotion 1 applic TOPICAL DAILY 02/27/18 [History Last Taken 04/09/19] metronidazole 0.75 % topical gel 1 applic TOPICAL BID PRN 07/21/20 [History Last Taken Unknown] pantoprazole 40 mg tablet,delayed release 40 mg PO DAILY 07/21/20 [History Last Taken Unknown] selenium sulfide 2.5 % shampoo 1 ea TOPICAL 2XW 07/21/20 [History Last Taken Unknown] simvastatin 20 mg tablet 20 mg PO QHS #90 tablet 09/02/20 [Rx Last Taken Unknown] lisinopril 20 mg tablet 20 mg PO BID #180 tab 12/01/20 [Rx Last Taken Unknown] metoprolol tartrate 25 mg tablet 25 mg PO BID #180 tablet 12/01/20 [Rx Last Taken Unknown] ascorbic acid (vitamin C) 500 mg capsule 1,000 mg PO DAILY cap 02/02/21 [History Last Taken Unknown] biotin 5,000 mcg-silicon dioxide 10 sf-E-xmbsndft 50 mg tablet ER 1 tab PO DAILY tab 02/02/21 [History Last Taken Unknown] cholecalciferol (vitamin D3) 25 mcg (1,000 unit) tablet 50 mcg PO DAILY tab 02/02/21 [History Last Taken Unknown] oxybutynin chloride 5 mg tablet,extended release 24 hr 5 mg PO DAILY tab 02/02/21 [History Last Taken Unknown] famotidine 20 mg PO DAILY 02/04/21 [History Last Taken Unknown] levofloxacin 750 mg PO DAILY #5 tab 02/06/21 [Rx Last Taken Unknown] prednisone 40 mg PO DAILY #10 tab 02/06/21 [Rx Last Taken Unknown] furosemide [Lasix] 20 mg PO DAILY #30 tab 02/16/21 [Rx Last Taken Unknown] Allergy/AdvReac Type Severity Reaction Status Date / Time chlorhexidine Allergy Rash Verified 02/16/21 10:53 venom-honey bee Allergy Anaphylaxis Verified 02/16/21 10:53 [bee venom (honey bee)] hydrocodone bitartrate AdvReac Other Verified 02/16/21 10:53 [From Vicodin] quinine AdvReac Diarrhea Verified 02/16/21 10:53 Sulfa (Sulfonamide AdvReac Unknown Verified 02/16/21 10:53 Antibiotics) hospital bath blankets Allergy Unknown Uncoded 02/16/21 10:53 Family History Father CAD (coronary artery disease) Hx CABG Myocardial infarction Mother Myocardial infarction CAD (coronary artery disease) Surgical History History of hernia repair (~12/2006) History of local excision of skin lesion History of tubal ligation Social History household members: none Smoking Status: Former smoker alcohol intake: current alcohol intake frequency: 0-2 drinks per day Alcohol type: other details: Few swigs of Kendal's per day substance use type: does not use caffeine: Yes Type: carbonated beverages and tea what type of physical activity do you participate in: other frequency: daily duration: 15-30 minutes/day seatbelt use: always do you feel safe at home: Yes ROS ROS ED Constitutional Constitutional ED: Denies chills or fever(s) Eyes Eyes: Denies change in vision or diplopia ENT ENT ED: Denies rhinorrhea or sore throat Cardiovascular Cardiovascular: Denies chest pain or palpitations Respiratory/Chest Respiratory/Chest: Reports as per HPI and dyspnea; Denies cough Gastrointestinal Gastrointestinal: Denies abdominal pain, diarrhea, nausea or vomiting Genitourinary Genitourinary ED: Denies dysuria or hematuria Musculoskeletal Musculoskeletal: Denies back pain or neck pain Integumentary Denies abscess or rash Neurologic Neurologic: Denies headache(s), paresthesias or weakness Psychiatric Psychiatric: Denies anxiety or suicidal thoughts EXAM Physical Exam Const Vital Signs: 02/16/21 10:51 02/16/21 11:17 02/16/21 11:19 Temperature 97.2 F L 97.2 F L Temperature Source Temporal Temporal Pulse Rate 80 80 Respiratory Rate 18 18 Respiratory Effort Non-Labored Short of Breath Respiratory Depth Normal Respiratory Pattern Normal Blood Pressure 148/44 H 148/44 H Blood Pressure Mean 78 78 Pulse Ox 98 98 Oxygen Delivery Method Room Air Room Air Room Air 02/16/21 11:21 02/16/21 12:05 02/16/21 13:24 Temperature 97.2 F L 99.2 F H Temperature Source Temporal Temporal Pulse Rate 78 69 64 Respiratory Rate 16 20 H 20 H Respiratory Effort Respiratory Depth Respiratory Pattern Blood Pressure 118/73 105/43 L 128/39 H Blood Pressure Mean 88 63 68 Pulse Ox 100 97 99 Oxygen Delivery Method Room Air Room Air Room Air 02/16/21 14:00 02/16/21 14:14 Temperature 99.2 F H Temperature Source Temporal Pulse Rate 62 62 Respiratory Rate 22 H 22 H Respiratory Effort Respiratory Depth Respiratory Pattern Blood Pressure 121/42 H 121/42 H Blood Pressure Mean 68 68 Pulse Ox 99 99 Oxygen Delivery Method Room Air Positive well nourished and well developed General Appearance ED: well developed and NAD HEENT Reports moist mucous membranes normocephalic and atraumatic Eyes PERRL and EOMs intact bilaterally Neck full ROM and supple Resp normal respiratory effort and clear to auscultation bilaterally Cardio regular rate and regular rhythm Cardio Narrative: Soft systolic ejection murmur GI non-tender and non-distended Auscultation: normoactive bowel sounds Palpation: soft Back/Spine no CVA tenderness General Back: other FROM Extremity normal to inspection General Extremety ED: Negative for edema, pulses abnormal or tenderness General Extremity: Negative for edema or pulses abnormal Neuro oriented x3, CN's II-XII intact bilaterally and no sensory deficits noted Sensorium / Orientation: awake and alert Motor Exam: strength 5/5 throughout Skin no rashes or lesions noted and no wounds MDM MDM MDM Narrative Medical decision making narrative: Patient's work-up is essentially negative except for an elevated BNP. Chest x-ray shows nothing acute including lack of pneumonia, she may have very mild blunting of the costophrenic angles, she definitely does not have worsening effusions compared with last month, at which point she had a CTA showing no pulmonary emboli, and bilateral small pleural effusions. Her EKG shows nothing acute and is unchanged compared with her old. She is doing well sitting here at rest. She states she took her medications prior to coming here including her lisinopril. Her vital signs are stable and normal. We ambulated her in a test walk, she did well did not become hypoxemic, bottoming out at 93% on room air. She does have a history of COPD as well, her last echo did not show congestive heart failure and was in 2019, its purpose was to continue monitoring her aortic regurg. Sees cardiology Dr. Shabazz; I discussed with the on-call Dr. Abad. He agrees with sending the patient home on Lasix 20 mg once daily, she currently is on no diuretics. I gave her a dose here prior to discharge, she has home health coming on weekdays, she is okay with this plan. Lab Data Attestation: I reviewed the patient's lab results. Labs: Laboratory Results - last 24 hr 02/16/21 02/16/21 02/16/21 12:21 12:21 12:21 WBC 11.2 H RBC 3.02 L Hgb 10.0 L Hct 29.2 L MCV 96.7 MCH 33.1 H MCHC 34.2 RDW Std Deviation 44.5 H RDW Coeff of Wilner 12.6 Plt Count 173 MPV 10.2 Immature Gran % (Auto) 1.400 H Neut % (Auto) 77.2 H Lymph % (Auto) 7.3 L [place] % (Auto) 10.8 H Eos % (Auto) 3.0 Baso % (Auto) 0.3 Absolute Neuts (auto) 8.6 H Absolute Lymphs (auto) 0.81 L Nucleated RBC % 0 Sodium 135 L Potassium 4.9 Chloride 103 Carbon Dioxide 26.0 Anion Gap 6 BUN 40 H Creatinine 1.62 H Estim Creat Clear Calc 18.90 Est GFR (MDRD) Af Amer 39 L Est GFR (MDRD) Non-Af 32 L BUN/Creatinine Ratio 24.7 H Glucose 119 H Calcium 9.0 Troponin I High Sens 17 B-Natriuretic Peptide 486.2 H Radiography Diagnostic Testing: Clinical Impression(s) from Imaging Studies Chest X-Ray 02/16/21 11:35 IMPRESSION: Normal x-ray examination of the chest. Electronically Signed: Omar Echols MD at 11:48 EST Tel , Service support , EKG Initial EKG: Attestation: I personally reviewed and interpreted this EKG as follows: Interpretation: Sinus Rhythm, No Acute Injury Pattern and Non-Specific ST Changes (lateral ST-T abn c/w LVH) Prior EKG tracings: available for review Prior: Unchanged Discharge Plan Triage Chief Complaint: Shortness of Breath ED Provider: Diaz Rodriguez Dx/Rx/DC Orders Clinical Impression: Exertional dyspnea, Aortic valve sclerosis, Nonrheumatic mitral valve regurgitation Instructions: Heart Valve Problems Prescriptions: New furosemide [Lasix] 20 mg tablet 20 mg PO DAILY Qty: 30 RF: 0 No Action desonide 0.05 % lotion 1 applic TOPICAL DAILY RF: 0 ascorbic acid (vitamin C) 500 mg capsule 1,000 mg PO DAILY RF: 0 metronidazole 0.75 % gel 1 applic topical BID PRN (Reason: Itching) RF: 0 pantoprazole 40 mg tablet,delayed release (DR/EC) 40 mg PO DAILY RF: 0 selenium sulfide 2.5 % shampoo 1 ea topical 2XW RF: 0 cholecalciferol (vitamin D3) 25 mcg (1,000 unit) tablet 50 mcg PO DAILY RF: 0 biotin-silicon ohqm-V-pgzatwgf 5,000 mcg -10 mg-50 mg tablet extended release 1 tab PO DAILY RF: 0 oxybutynin chloride 5 mg tablet extended release 24hr 5 mg PO DAILY RF: 0 aspirin 81 MG tablet,chewable 81 mg PO DAILY@0800 RF: 0 B-complex with vitamin C 1 EACH tablet 1 each PO DAILY RF: 0 mdjeavvi-kcx-vutg-FA-lutein 1 EACH tablet 1 each PO DAILY RF: 0 calcium carb-mag ox-zinc sulf 1 EACH tablet 1 each PO DAILY RF: 0 Lactobac 41-B.bifid,lactis-FOS 1 EACH capsule 1 each PO DAILY RF: 0 famotidine 20 mg tablet 20 mg PO DAILY RF: 0 prednisone 20 mg tablet 40 mg PO DAILY Qty: 10 RF: 0 levofloxacin 750 mg tablet 750 mg PO DAILY Qty: 5 RF: 0 simvastatin 20 mg tablet 20 mg PO QHS Qty: 90 RF: 3 metoprolol tartrate 25 mg tablet 25 mg PO BID Qty: 180 RF: 3 lisinopril 20 mg tablet 20 mg PO BID Qty: 180 RF: 3 Primary Care Provider: Frantz Mckinney Referrals: Shon Shabazz MD [STAFF PHYSICIAN] - As soon as possible (call for appt and take the new Rx in the meantime) Frantz Mckinney [Primary Care Provider] - Disposition Disposition: Home, Self Care
--- NOTE | 2021-02-16 11:35 | RAD_ITS ---
STUDY: X-RAY CHEST REASON FOR EXAM: Female, 85 years old. sob TECHNIQUE: Single AP portable view of the chest. COMPARISON: 02/04/2021 FINDINGS: The lungs are clear and expanded. There is no demonstrated pleural abnormality. Normal size heart. Normal mediastinum and delfina. Normal visualized pulmonary arteries. Normal visualized aortic arch and descending thoracic aorta. Normal visualized thoracic spine. Normal visualized ribs, clavicles, and shoulders. There is no demonstrated abnormality of the visualized soft tissue structures of the upper abdomen. RAD/Chest 1 View (Portable) IMPRESSION: Normal x-ray examination of the chest. Electronically Signed: Omar Echols MD at 11:48 EST Tel , Service support ,
[2021-02-16] MEDS: 0.9% Normal Saline 1,000 ML 150 ML IV (12:20)
[2021-02-16 12:36] LABS: Absolute Lymphocyte Count 0.81 X10^3/uL (0.83-4.51); Absolute Neutrophil Count 8.6 X10^3/uL (2.0-7.7); Basophil# 0.03 X10^3/uL; Basophil% 0.3 % (0-1); Eosinophil# 0.33 X10^3/uL; Hematocrit 29.2 % (37-47); Lymphocyte # 0.81 X10^3/ul (0.83-4.51); Lymphocyte % 7.3 % (19-41); Mean Corp Hgb Conc 34.2 g/dL (32-36); Mean Corpuscular Hgb 33.1 pg (27.0-32.0); Mean Corpuscular Volume 96.7 fL (81-99); Mean Platelet Vol. 10.2 fl (6.2-12.0); Monocyte# 1.21 X10^3/uL; Monocyte% 10.8 % (0-10); NRBC Flagged by Analyzer 0 % (0-5); Neutrophil # 8.63 X10^3/uL (2.7-7.7); Neutrophil % 77.2 % (47-70); Platelet Count 173 K/mm3 (150-450); RBC Distribution Width CV 12.6 % (11.6-14.6); RBC Distribution Width SD 44.5 fl (35.1-43.9); Red Blood Count 3.02 M/mm3 (4.2-5.4); White Blood Count 11.2 K/mm3 (4.4-11.0)
[2021-02-16 12:50] LABS: Anion Gap 6 (5-15); BUN 40 mg/dL (7-18); BUN/Creat Ratio 24.7 RATIO (10-20); Chloride 103 mmol/L (98-107); Creatinine, Serum 1.62 mg/dL (0.55-1.02); EST Glomerular Filtration Rate 32 mL/min (>60); Est Glom Filt Rate - Afr Amer 39 mL/min (>60); Glucose 119 mg/dL (74-106); Potassium 4.9 mmol/L (3.5-5.1); Sodium Level 135 mmol/L (136-145); Troponin-I HS 17 pg/mL (3.0-54.0)
[2021-02-16 13:00] LABS: BNP,B-Type NATRIURETIC PEPTIDE 486.2 pg/mL (0-100)
[2021-02-16] MEDS: Furosemide 20 MG/2 ML VIAL IV (16:18)
== END 2021-02-16 16:32 | disposition home or self-care (01) ==
PROVIDERS: Emergency Provider Emergency Medicine; Visit Provider Emergency Medicine
DX: R06.00 Dyspnea, unspecified (principal); J44.9 Chronic obstructive pulmonary disease, unspecified; I08.0 Rheumatic disorders of both mitral and aortic valves; E78.00 Pure hypercholesterolemia, unspecified; I10 Essential (primary) hypertension; I25.10 Atherosclerotic heart disease of native coronary artery without angina pectoris; Z87.891 Personal history of nicotine dependence; R06.02 Shortness of breath
CPT/HCPCS: 71045; 80048; 83880; 84484; 85025; 87426; 93005; 96361; 96374; 99285; J7030; A4216; J1940

== ENCOUNTER 2021-02-25 14:31 | Emergency (ER) | payer MEDICARE, OTHER, SELFPAY ==
[2021-02-25 14:33] VITALS: BP 103/41; PULSE 70; RESP 16; TEMP 37.3; O2SAT 96; BMI 23.9
--- NOTE | 2021-02-25 15:03 | EX.ED.DYSGE1 ---
HPI History of Present Illness Chief Complaint: Nosebleed Narrative Narrative: Patient presents with her son because of intermittent nosebleeds that she has had over the last 10 days. She states that she has had bleeding alternatively out of both nostrils. They usually stop after pressure. She does take 81 mg of aspirin daily. Today, a few hours ago she started having nosebleed out of the left nares. Home health has been helping her with this. They tried to pack her nose, but were unsuccessful and states that she has had continued bleeding out of her left nares. She denies any bleeding down the back of her throat or tasting any blood. She states they called Dr. Jacome who told her to come to the emergency department for evaluation. She denies any other bleeding diathesis. No chest pain or shortness of breath that is new to her. No lightheadedness. PFSH PFS Medical History Abnormal stress test Anemia Anemia Anxiety Aortic valve sclerosis Atherosclerotic heart disease of [place] coronary artery without angina pectoris Bilateral carotid artery stenosis CAD (coronary artery disease) Carotid bruit Coronary artery disease Depression Encounter for long-term current use of high risk medication Essential hypertension Former smoker GERD (gastroesophageal reflux disease) Hiatal hernia Hypertension IBS (irritable bowel syndrome) Kidney disease Mitral valve disease Non-rheumatic mitral valve disease Nonrheumatic mitral valve regurgitation Palpitations Pure hypercholesterolemia Home Medications B-complex with vitamin C 1 each PO DAILY 09/01/16 [History Last Taken 04/09/19] Lactobac 41-B.bifid,lactis-FOS 1 each PO DAILY 09/01/16 [History Last Taken 04/09/19] aspirin 81 mg PO DAILY@0800 09/01/16 [History Last Taken 04/09/19] calcium carb-mag ox-zinc sulf 1 each PO DAILY 09/01/16 [History Last Taken 04/09/19] lrsgfwxq-iaf-jvmz-FA-lutein 1 each PO DAILY 09/01/16 [History Last Taken 04/09/19] desonide 0.05 % lotion 1 applic TOPICAL DAILY 02/27/18 [History Last Taken 04/09/19] metronidazole 0.75 % topical gel 1 applic TOPICAL BID PRN 07/21/20 [History Last Taken Unknown] pantoprazole 40 mg tablet,delayed release 40 mg PO DAILY 07/21/20 [History Last Taken Unknown] selenium sulfide 2.5 % shampoo 1 ea TOPICAL 2XW 07/21/20 [History Last Taken Unknown] simvastatin 20 mg tablet 20 mg PO QHS #90 tablet 09/02/20 [Rx Last Taken Unknown] metoprolol tartrate 25 mg tablet 25 mg PO BID #180 tablet 12/01/20 [Rx Last Taken Unknown] ascorbic acid (vitamin C) 500 mg capsule 1,000 mg PO DAILY cap 02/02/21 [History Last Taken Unknown] biotin 5,000 mcg-silicon dioxide 10 gr-M-zrlmzooh 50 mg tablet ER 1 tab PO DAILY tab 02/02/21 [History Last Taken Unknown] cholecalciferol (vitamin D3) 25 mcg (1,000 unit) tablet 50 mcg PO DAILY tab 02/02/21 [History Last Taken Unknown] oxybutynin chloride 5 mg tablet,extended release 24 hr 5 mg PO DAILY tab 02/02/21 [History Last Taken Unknown] famotidine 20 mg PO DAILY 02/04/21 [History Last Taken Unknown] budesonide-formoterol HFA 160 mcg-4.5 mcg/actuation aerosol inhaler 2 puff INHALATION BID #1 ea 02/19/21 [Rx Last Taken Unknown] spacer #1 ea 02/19/21 [Rx Last Taken Unknown] lisinopril 20 mg tablet 10 mg PO BID tab 02/23/21 [History Last Taken Unknown] furosemide 20 mg tablet See Rx Instructions PO .COMPLEX #30 tab 02/24/21 [Rx Last Taken Unknown] Allergy/AdvReac Type Severity Reaction Status Date / Time chlorhexidine Allergy Rash Verified 02/25/21 14:32 venom-honey bee Allergy Anaphylaxis Verified 02/25/21 14:32 [bee venom (honey bee)] hydrocodone bitartrate AdvReac Other Verified 02/25/21 14:32 [From Vicodin] quinine AdvReac Diarrhea Verified 02/25/21 14:32 Sulfa (Sulfonamide AdvReac Unknown Verified 02/25/21 14:32 Antibiotics) hospital bath blankets Allergy Unknown Uncoded 02/25/21 14:32 Family History Father CAD (coronary artery disease) Hx CABG Myocardial infarction Mother Myocardial infarction CAD (coronary artery disease) Surgical History History of hernia repair (~12/2006) History of local excision of skin lesion History of lung surgery History of tubal ligation Social History household members: none Smoking Status: Former smoker alcohol intake: current alcohol intake frequency: 0-2 drinks per day Alcohol type: other details: Few swigs of Kendal's per day substance use type: does not use caffeine: Yes Type: carbonated beverages and tea what type of physical activity do you participate in: other frequency: daily duration: 15-30 minutes/day seatbelt use: always do you feel safe at home: Yes ROS ROS ED ROS Narrative Constitutional: No fever, no chills. HEENT: No sore throat. No neck pain. No loss of vision. No rhinorrhea. Bleeding from left nares. Cardiovascular: No chest pain. No palpitations. No pedal edema. Respiratory: No cough, no shortness of breath. Abdominal: No abdominal pain. No nausea. No vomiting. Genitourinary: No dysuria. No hematuria. Musculoskeletal: No myalgias. No arthralgias. Neurologic: No headaches. No dizziness. No lightheadedness. Skin: No rash. No change in color. Psychiatric: No depression. No anxiety. EXAM Physical Exam Narrative Exam Narrative: Afebrile. Vital signs noted. HEENT: Normocephalic. Atraumatic. PERRL, EOMI. Neck soft and supple. No point tenderness or step off. Inspection of the left nares shows no active bleeding, no evidence of large clot. No posterior pharynx bleeding. Cardiovascular: Regular rate and rhythm. No murmurs, rubs, or gallops appreciated. Respiratory: No tachypnea. Lungs clear to auscultation bilaterally. Gastrointestinal: Abdomen soft, nontender, with normoactive bowel sounds. No rebound or guarding. Neurological: Awake. Alert. Nonfocal, nonlateralizing. Skin: No rash. Normal color. No pallor. Musculoskeletal: No pedal edema. Full range of motion extremities. Const Vital Signs: 02/25/21 14:33 Temperature 99.1 F Temperature Source Temporal Pulse Rate 70 Respiratory Rate 16 Blood Pressure 103/41 L Blood Pressure Mean 61 Pulse Ox 96 Oxygen Delivery Method Room Air MDM MDM MDM Narrative Medical decision making narrative: She had worn a nasal clamp for approximately 15 minutes. Currently there is no apparent bleeding. I will reexamine her. I had discussed with the patient and her son the possibility of a Rhino Rocket/nasal packing. After 30 minutes with the clamp off her nose, there is no evidence of rebleed. She was able to ambulate in the ED without evidence of rebleed also. I feel she be discharged safely home with follow-up to Dr. Moncada. Given her age I do not feel that she would necessarily be comfortable with Rhino Rocket. Packing was not performed. Should she have rebleed they were instructed to hold pressure for at least 10 to 15 minutes. Return instructions were reviewed. Disposition is discharged home in stable condition. Discharge Plan Triage Chief Complaint: Nosebleed ED Provider: Gunner Nathan Dx/Rx/DC Orders Clinical Impression: Left-sided nosebleed Instructions: ED Epistaxis (Adult) Prescriptions: No Action desonide 0.05 % lotion 1 applic TOPICAL DAILY RF: 0 ascorbic acid (vitamin C) 500 mg capsule 1,000 mg PO DAILY RF: 0 metronidazole 0.75 % gel 1 applic topical BID PRN (Reason: Itching) RF: 0 pantoprazole 40 mg tablet,delayed release (DR/EC) 40 mg PO DAILY RF: 0 selenium sulfide 2.5 % shampoo 1 ea topical 2XW RF: 0 cholecalciferol (vitamin D3) 25 mcg (1,000 unit) tablet 50 mcg PO DAILY RF: 0 biotin-silicon njyn-H-sljkgofq 5,000 mcg -10 mg-50 mg tablet extended release 1 tab PO DAILY RF: 0 oxybutynin chloride 5 mg tablet extended release 24hr 5 mg PO DAILY RF: 0 budesonide-formoterol [Symbicort] 160-4.5 mcg/actuation HFA aerosol inhaler 2 puff inhalation BID Qty: 1 RF: 3 (DME) spacer See Rx Instructions .ROUTE .MEDSUPPLY Qty: 1 RF: 0 lisinopril 20 mg tablet 10 mg PO BID RF: 0 aspirin 81 MG tablet,chewable 81 mg PO DAILY@0800 RF: 0 B-complex with vitamin C 1 EACH tablet 1 each PO DAILY RF: 0 xjzyapmk-sey-phgq-FA-lutein 1 EACH tablet 1 each PO DAILY RF: 0 calcium carb-mag ox-zinc sulf 1 EACH tablet 1 each PO DAILY RF: 0 Lactobac 41-B.bifid,lactis-FOS 1 EACH capsule 1 each PO DAILY RF: 0 famotidine 20 mg tablet 20 mg PO DAILY RF: 0 simvastatin 20 mg tablet 20 mg PO QHS Qty: 90 RF: 3 metoprolol tartrate 25 mg tablet 25 mg PO BID Qty: 180 RF: 3 furosemide [Lasix] 20 mg tablet See Rx Instructions PO .COMPLEX Qty: 30 RF: 0 Primary Care Provider: Frantz Mckinney Referrals: Franck Moncada MD [STAFF PHYSICIAN] - Frantz Mckinney [Primary Care Provider] - Disposition Disposition: Home, Self Care
[2021-02-25 16:02] VITALS: BP 137/45
== END 2021-02-25 16:02 | disposition home or self-care (01) ==
PROVIDERS: Emergency Provider Emergency Medicine; Visit Provider Emergency Medicine
DX: R04.0 Epistaxis (principal); I25.10 Atherosclerotic heart disease of native coronary artery without angina pectoris; I10 Essential (primary) hypertension; E78.00 Pure hypercholesterolemia, unspecified; Z87.891 Personal history of nicotine dependence; Z79.82 Long term (current) use of aspirin; Z79.899 Other long term (current) drug therapy
CPT/HCPCS: 99282

== ENCOUNTER 2021-02-28 15:14 | Emergency (ER) | payer MEDICARE, OTHER, SELFPAY ==
[2021-02-28] VITALS (7 sets, daily range): BP systolic 104–111; BP diastolic 37–52; PULSE 56–71; RESP 13–20; TEMP 36.6; O2SAT 96–99; BMI 23.2
--- NOTE | 2021-02-28 15:59 | EKG12_ITS ---
Test Reason : SOB Blood Pressure : / mmHG Vent. Rate : 062 BPM Atrial Rate : 062 BPM P-R Int : 188 ms QRS Dur : 108 ms QT Int : 446 ms P-R-T Axes : 070 013 042 degrees QTc Int : 452 ms Normal sinus rhythm Left ventricular hypertrophy with repolarization abnormality Abnormal ECG Confirmed by RENAE NGUYEN, SHAN ([id number]), film editor supervisor ODETTE GUILLERMO ([id number]) on 03/02/2021 10:56:46 AM Referred By: Confirmed By:SHAN MACDONALD MD
--- NOTE | 2021-02-28 15:59 | RAD_ITS ---
STUDY: X-RAY CHEST REASON FOR EXAM: Female, 85 years old. Dyspnea TECHNIQUE: AP portable COMPARISON: 02/16/2021 FINDINGS: The lungs are clear and expanded. There is no demonstrated pleural abnormality. Normal size heart. Normal mediastinum and delfina. Normal visualized pulmonary arteries. Mildly calcified aortic arch and descending thoracic aorta. Normal visualized thoracic spine. Normal visualized ribs, clavicles, and shoulders. There is no demonstrated abnormality of the visualized soft tissue structures of the upper abdomen. No significant change since prior exam RAD/Chest 1 View (Portable) IMPRESSION: No acute cardiopulmonary pathology Electronically Signed: Villa Linares MD at 16:55 EST , Service support ,
[2021-02-28] MEDS: Ipratropium/Albuterol Sulfate 3 ML AMPUL.NEB INHALATION (16:12)
[2021-02-28 16:41] LABS: Absolute Lymphocyte Count 1.74 X10^3/uL (0.83-4.51); Absolute Neutrophil Count 4.3 X10^3/uL (2.0-7.7); Basophil# 0.02 X10^3/uL; Basophil% 0.3 % (0-1); Eosinophil# 0.37 X10^3/uL; Eosinophils% 5.1 % (0-5); Hematocrit 26.7 % (37-47); Lymphocyte # 1.74 X10^3/ul (0.83-4.51); Lymphocyte % 23.8 % (19-41); Mean Corp Hgb Conc 33.7 g/dL (32-36); Mean Corpuscular Hgb 32.3 pg (27.0-32.0); Mean Corpuscular Volume 95.7 fL (81-99); Mean Platelet Vol. 10.3 fl (6.2-12.0); Monocyte# 0.84 X10^3/uL; Monocyte% 11.5 % (0-10); NRBC Flagged by Analyzer 0 % (0-5); Neutrophil % 58.8 % (47-70); Platelet Count 212 K/mm3 (150-450); RBC Distribution Width CV 12.8 % (11.6-14.6); RBC Distribution Width SD 45.1 fl (35.1-43.9); Red Blood Count 2.79 M/mm3 (4.2-5.4); White Blood Count 7.3 K/mm3 (4.4-11.0)
[2021-02-28 17:01] LABS: ALB/GLOB Ratio 0.9 RATIO (0.9-2.4); AST(SGOT) 17 U/L (15-37); Alanine Aminotransfer ALT/SGPT 17 U/L (13-56); Albumin, Serum 3.2 g/dL (3.2-5.0); Alkaline Phosphatase 41 U/L (45-117); Anion Gap 7 (5-15); BUN 78 mg/dL (7-18); BUN/Creat Ratio 35.5 RATIO (10-20); Calcium,Total 9.5 mg/dL (8.5-10.1); Chloride 107 mmol/L (98-107); EST Glomerular Filtration Rate 23 mL/min (>60); Est Glom Filt Rate - Afr Amer 27 mL/min (>60); Estimated Creatinine Clearance 13.92 ml/min; Globulin 3.4 g/dL (2.2-4.2); Glucose 106 mg/dL (74-106); Potassium 4.4 mmol/L (3.5-5.1); Protein, Total 6.6 g/dL (6.4-8.2); Sodium Level 138 mmol/L (136-145); Troponin-I HS 25 pg/mL (3.0-54.0)
--- NOTE | 2021-02-28 17:19 | ED.VIS.DYS ---
HPI History of Present Illness Chief Complaint: Shortness of Breath Informant: patient and family Onset/Context/Timing Onset: Weeks (2-3) Context: gradual Timing: Waxes and wanes Quality: Positive for Dyspnea on exertion Worsened by: Exertion Relieved by: Nothing Associated Symptoms cough Chest Pain: Positive for Intermittent and Pressure Narrative Narrative: Patient presents with shortness of breath that has been waxing and waning over the past 2 to 3 weeks. Patient states her breathing is worse with any exertion, especially going up stairs. Patient admits to a cough but denies any sputum production. Patient denies any sore throat, rhinorrhea, fevers, or chills. Patient admits to some intermittent substernal chest pain. Patient denies any nausea or vomiting. Patient denies any exposures to COVID-19. Patient has been vaccinated against COVID-19. [facility] Medical History Abnormal stress test Anemia Anemia Anxiety Aortic valve sclerosis Atherosclerotic heart disease of [place] coronary artery without angina pectoris Bilateral carotid artery stenosis CAD (coronary artery disease) Carotid bruit Coronary artery disease Depression Encounter for long-term current use of high risk medication Essential hypertension Former smoker GERD (gastroesophageal reflux disease) Hiatal hernia Hypertension IBS (irritable bowel syndrome) Kidney disease Mitral valve disease Non-rheumatic mitral valve disease Nonrheumatic mitral valve regurgitation Palpitations Pure hypercholesterolemia Home Medications B-complex with vitamin C 1 each PO DAILY 09/01/16 [History Last Taken 04/09/19] Lactobac 41-B.bifid,lactis-FOS 1 each PO DAILY 09/01/16 [History Last Taken 04/09/19] aspirin 81 mg PO DAILY@0800 09/01/16 [History Last Taken 04/09/19] calcium carb-mag ox-zinc sulf 1 each PO DAILY 09/01/16 [History Last Taken 04/09/19] anezzrmq-pib-nhpd-FA-lutein 1 each PO DAILY 09/01/16 [History Last Taken 04/09/19] desonide 0.05 % lotion 1 applic TOPICAL DAILY 02/27/18 [History Last Taken 04/09/19] metronidazole 0.75 % topical gel 1 applic TOPICAL BID PRN 07/21/20 [History Last Taken Unknown] pantoprazole 40 mg tablet,delayed release 40 mg PO DAILY 07/21/20 [History Last Taken Unknown] selenium sulfide 2.5 % shampoo 1 ea TOPICAL 2XW 07/21/20 [History Last Taken Unknown] simvastatin 20 mg tablet 20 mg PO QHS #90 tablet 09/02/20 [Rx Last Taken Unknown] metoprolol tartrate 25 mg tablet 25 mg PO BID #180 tablet 12/01/20 [Rx Last Taken Unknown] ascorbic acid (vitamin C) 500 mg capsule 1,000 mg PO DAILY cap 02/02/21 [History Last Taken Unknown] biotin 5,000 mcg-silicon dioxide 10 ra-A-msuyniez 50 mg tablet ER 1 tab PO DAILY tab 02/02/21 [History Last Taken Unknown] cholecalciferol (vitamin D3) 25 mcg (1,000 unit) tablet 50 mcg PO DAILY tab 02/02/21 [History Last Taken Unknown] oxybutynin chloride 5 mg tablet,extended release 24 hr 5 mg PO DAILY tab 02/02/21 [History Last Taken Unknown] famotidine 20 mg PO DAILY 02/04/21 [History Last Taken Unknown] spacer #1 ea 02/19/21 [Rx Last Taken Unknown] lisinopril 20 mg tablet 10 mg PO BID tab 02/23/21 [History Last Taken Unknown] furosemide 20 mg tablet See Rx Instructions PO .COMPLEX #30 tab 02/24/21 [Rx Last Taken Unknown] budesonide 1 mg/2 mL suspension for nebulization 1 mg INHALATION BID #60 ml 02/26/21 [Rx Last Taken Unknown] cephalexin 500 mg PO Q6 #20 capsule 02/28/21 [Rx Last Taken Unknown] Allergy/AdvReac Type Severity Reaction Status Date / Time chlorhexidine Allergy Rash Verified 02/25/21 14:32 venom-honey bee Allergy Anaphylaxis Verified 02/25/21 14:32 [bee venom (honey bee)] hydrocodone bitartrate AdvReac Other Verified 02/25/21 14:32 [From Vicodin] quinine AdvReac Diarrhea Verified 02/25/21 14:32 Sulfa (Sulfonamide AdvReac Unknown Verified 02/25/21 14:32 Antibiotics) hospital bath blankets Allergy Unknown Uncoded 02/25/21 14:32 Family History Father CAD (coronary artery disease) Hx CABG Myocardial infarction Mother Myocardial infarction CAD (coronary artery disease) Surgical History History of hernia repair (~12/2006) History of local excision of skin lesion History of lung surgery History of tubal ligation Social History household members: none Smoking Status: Former smoker alcohol intake: current alcohol intake frequency: 0-2 drinks per day Alcohol type: other details: Few swigs of Kendal's per day substance use type: does not use caffeine: Yes Type: carbonated beverages and tea what type of physical activity do you participate in: other frequency: daily duration: 15-30 minutes/day seatbelt use: always do you feel safe at home: Yes ROS ROS ED Constitutional Constitutional ED: Denies chills or fever(s) Eyes Eyes: Denies blurry vision or change in vision ENT ENT ED: Denies rhinorrhea or sore throat Cardiovascular Cardiovascular: Reports chest pain; Denies palpitations Respiratory/Chest Respiratory/Chest: Reports cough and dyspnea Gastrointestinal Gastrointestinal: Denies nausea or vomiting Genitourinary Genitourinary ED: Denies dysuria or hematuria Musculoskeletal Musculoskeletal: Reports back pain; Denies neck pain Integumentary Denies abscess or rash Neurologic Neurologic: Denies headache(s) or weakness Allergic/Immunologic Allergic/Immunologic ED: Denies mouth swelling or urticaria EXAM Physical Exam Const Vital Signs: 02/28/21 15:16 02/28/21 15:21 02/28/21 16:13 Temperature 98 F Temperature Source Oral Pulse Rate 56 L 64 Respiratory Rate 13 20 H Respiratory Effort Non-Labored Short of Breath Respiratory Pattern Tachypnea Blood Pressure 106/52 L Blood Pressure Mean 70 Pulse Ox 97 Oxygen Delivery Method Room Air Room Air 02/28/21 16:36 02/28/21 17:02 02/28/21 18:07 Temperature Temperature Source Pulse Rate 67 68 71 Respiratory Rate 19 H 17 15 Respiratory Effort Respiratory Pattern Blood Pressure 111/37 L 104/46 L Blood Pressure Mean 61 65 Pulse Ox 96 97 98 Oxygen Delivery Method Room Air Room Air Room Air Positive well nourished and well developed General Appearance ED: well developed and NAD HEENT Reports moist mucous membranes Neck supple and no JVD Resp normal respiratory effort and clear to auscultation bilaterally Cardio regular rate, regular rhythm and no murmurs GI normal to inspection, nondistended, normoactive bowel sounds and non-tender Palpation: soft Extremity normal to inspection General Extremety ED: Negative for edema or tenderness General Extremity: Negative for edema Neuro oriented x3, CN's II-XII intact bilaterally and no sensory deficits noted Sensorium / Orientation: alert Motor Exam: strength 5/5 throughout Psych mental status grossly normal Skin no rashes or lesions noted MDM MDM MDM Narrative Medical decision making narrative: EKG was obtained. On my interpretation, it showed a normal sinus rhythm with a rate of 62. IA interval, QRS interval, and QTc intervals were all normal. [place] was normal. There are no acute ST or T wave changes. CBC shows a mild anemia with a hemoglobin of 9.0 and hematocrit 26.7. Comprehensive metabolic profile showed a slightly increased creatinine of 2.2 and BUN of 78. Patient has a history of chronic kidney disease. Portable 1 view chest x-ray was obtained. On my interpretation, lung riddle are clear. There is normal cardiac silhouette. Bony thorax is normal. There is no acute process noted. Radiologist also interpreted the x-ray and agrees. Urinalysis shows leukocyte esterase of 500 with 25-50 white blood cells and 3+ bacteria. Patient was given a dose of Rocephin here. Stool Hemoccult was negative. Patient ambulated without difficulty. Patient's oxygen saturations remained in the upper 90s while ambulating. Patient feels better and wants to go home. Patient was given a prescription for Keflex. Patient was instructed to follow-up with her primary care physician in 3 to 5 days. Patient was instructed return if worse in any way. Patient and family understood and was agreeable with the plan. All questions were answered. Lab Data Attestation: I reviewed the patient's lab results. Labs: Laboratory Results - last 24 hr 02/28/21 02/28/21 02/28/21 16:30 16:30 17:16 WBC 7.3 RBC 2.79 L Hgb 9.0 L Hct 26.7 L MCV 95.7 MCH 32.3 H MCHC 33.7 RDW Std Deviation 45.1 H RDW Coeff of Wilner 12.8 Plt Count 212 MPV 10.3 Immature Gran % (Auto) 0.500 Neut % (Auto) 58.8 Lymph % (Auto) 23.8 [place] % (Auto) 11.5 H Eos % (Auto) 5.1 H Baso % (Auto) 0.3 Absolute Neuts (auto) 4.3 Absolute Lymphs (auto) 1.74 Nucleated RBC % 0 Sodium 138 Potassium 4.4 Chloride 107 Carbon Dioxide 24.0 Anion Gap 7 BUN 78 H Creatinine 2.20 H Estim Creat Clear Calc 13.92 Est GFR (MDRD) Af Amer 27 L Est GFR (MDRD) Non-Af 23 L BUN/Creatinine Ratio 35.5 H Glucose 106 Calcium 9.5 Total Bilirubin 0.40 AST 17 ALT 17 Alkaline Phosphatase 41 L Troponin I High Sens 25 Total Protein 6.6 Albumin 3.2 Globulin 3.4 Albumin/Globulin Ratio 0.9 Urine Color Yellow Urine Clarity Clear Urine pH 5.0 Ur Specific [place] 1.020 Urine Protein Negative Urine Glucose (UA) Normal Urine Ketones Negative Urine Occult Blood 10 H Urine Nitrite Negative Urine Bilirubin Negative Urine Urobilinogen Normal Ur Leukocyte Esterase 500 H Urine RBC 5-10 SEEN Urine WBC 25-50 SEEN Ur Squamous Epith Cells 0-5 SEEN Urine Bacteria 3+ Urine Mucus 0 SEEN Radiography Chest X-Ray - ED: 1 View, Read by ED Physician, Read by Radiologist and Normal Diagnostic Testing: Clinical Impression(s) from Imaging Studies Chest X-Ray 02/28/21 15:59 IMPRESSION: No acute cardiopulmonary pathology Electronically Signed: Villa Linares MD at 16:55 EST , Service support , EKG Initial EKG: Attestation: I personally reviewed and interpreted this EKG as follows: Interpretation: Sinus Rhythm (62) and No Acute Injury Pattern Comments: Left ventricular hypertrophy with strain pattern Prior EKG tracings: available for review Prior: Unchanged (02/16/2021) Discharge Plan Triage Chief Complaint: Shortness of Breath ED Provider: Héctor Hancock Dx/Rx/DC Orders Clinical Impression: Urinary tract infection, CKD (chronic kidney disease) Instructions: ED Chronic Kidney Disease (CKD), ED CYSTITIS Female Adult Prescriptions: New cephalexin [cephalexin] 500 MG capsule 500 mg PO Q6 Qty: 20 RF: 0 No Action desonide 0.05 % lotion 1 applic TOPICAL DAILY RF: 0 ascorbic acid (vitamin C) 500 mg capsule 1,000 mg PO DAILY RF: 0 metronidazole 0.75 % gel 1 applic topical BID PRN (Reason: Itching) RF: 0 pantoprazole 40 mg tablet,delayed release (DR/EC) 40 mg PO DAILY RF: 0 selenium sulfide 2.5 % shampoo 1 ea topical 2XW RF: 0 cholecalciferol (vitamin D3) 25 mcg (1,000 unit) tablet 50 mcg PO DAILY RF: 0 biotin-silicon wxnk-D-yxbmmnae 5,000 mcg -10 mg-50 mg tablet extended release 1 tab PO DAILY RF: 0 oxybutynin chloride 5 mg tablet extended release 24hr 5 mg PO DAILY RF: 0 (DME) spacer See Rx Instructions .ROUTE .MEDSUPPLY Qty: 1 RF: 0 lisinopril 20 mg tablet 10 mg PO BID RF: 0 aspirin 81 MG tablet,chewable 81 mg PO DAILY@0800 RF: 0 B-complex with vitamin C 1 EACH tablet 1 each PO DAILY RF: 0 zxvhmefr-elu-yudr-FA-lutein 1 EACH tablet 1 each PO DAILY RF: 0 calcium carb-mag ox-zinc sulf 1 EACH tablet 1 each PO DAILY RF: 0 Lactobac 41-B.bifid,lactis-FOS 1 EACH capsule 1 each PO DAILY RF: 0 famotidine 20 mg tablet 20 mg PO DAILY RF: 0 simvastatin 20 mg tablet 20 mg PO QHS Qty: 90 RF: 3 metoprolol tartrate 25 mg tablet 25 mg PO BID Qty: 180 RF: 3 furosemide [Lasix] 20 mg tablet See Rx Instructions PO .COMPLEX Qty: 30 RF: 0 budesonide 1 mg/2 mL suspension for nebulization 1 mg inhalation BID Qty: 60 RF: 6 Primary Care Provider: Frantz Mckinney Referrals: Frantz Mckinney [Primary Care Provider] - 3-5 Days Disposition Disposition: Home, Self Care
[2021-02-28 17:21] LABS: Mucous, Urine 0 SEEN /hpf (<or=2+)
[2021-02-28 17:25] LABS: Color, Urine Yellow (Yellow); Glucose, Dipstick Normal (Normal); Ketone-Dipstick Negative (Negative); Leukocyte Esterase-Dipstick 500 /ul (Negative); Nitrite-Dipstick Negative (Negative); Occult Blood-Urine 10 /ul (Negative); Protein-Dipstick Negative (Negative); Urine Bilirubin Dipstick Negative (Negative); Urine Clarity Clear (Clear); Urine Urobilinogen Normal (Normal)
[2021-02-28 17:31] LABS: Bacteria 3+ /hpf (None Seen); Red Blood Cells-Urine 5-10 SEEN /hpf (0-5); Squamous Epithelial Cells - UA 0-5 SEEN /hpf (5-10); White Blood Cells 25-50 SEEN /hpf (0-5)
[2021-02-28] MEDS: Ceftriaxone 1 GM/50 ML BAG IV (18:24)
== END 2021-02-28 19:42 | disposition home or self-care (01) ==
PROVIDERS: Emergency Provider Emergency Medicine; Visit Provider Emergency Medicine
DX: N39.0 Urinary tract infection, site not specified (principal); I12.9 Hypertensive chronic kidney disease with stage 1 through stage 4 chronic kidney disease, or unspecified chronic kidney disease; N18.9 Chronic kidney disease, unspecified; D63.1 Anemia in chronic kidney disease; E78.00 Pure hypercholesterolemia, unspecified; I25.10 Atherosclerotic heart disease of native coronary artery without angina pectoris; K21.9 Gastro-esophageal reflux disease without esophagitis; Z79.82 Long term (current) use of aspirin; Z79.899 Other long term (current) drug therapy; Z87.891 Personal history of nicotine dependence
CPT/HCPCS: 71045; 80053; 81001; 82274; 84484; 85025; 87426; 93005; 94640; 96365; 99285; J7030; A4216

== ENCOUNTER 2021-03-04 10:02 | Outpatient (CLI) | payer MEDICARE, OTHER, SELFPAY ==
--- NOTE | 2021-03-04 10:01 | ECHOD_ITS ---
Reason For Study: SOB Procedure This was a 2D Doppler, Color Flow transthoracic echocardiogram. The exam was of adequate technical quality. Exam performed in department. Left Ventricle Normal LV size. Moderate concentric left ventricular hypertrophy. Left ventricular systolic function is hyperdynamic. The estimated ejection fraction is 75 %. Diastolic function is indeterminate. No regional wall motion abnormalities noted. Right Ventricle Normal RV size. Normal systolic function. Atria Normal left atrium. Normal right atrium. No doppler evidence for ASD. Mitral Valve There is mild mitral annular calcification. Anterior leaflet diffuse mitral valve thickening. Severe (4+) mitral valve insufficiency. Tricuspid Valve Normal tricuspid valve. Trivial tricuspid valve insufficiency. Unable to estimate RV systolic pressure due to insufficient tricuspid regurgitant envelope. Aortic Valve Trisinus/trileaflet aortic valve. Mild diffuse aortic valve thickening. Mild focal aortic valve calcification. Pulmonic Valve The pulmonic valve is not well visualized. Great Vessels Normal sized aortic root. Pericardium/Pleural No pericardial effusion. MMode/2D Measurements & Calculations LVIDd: 2.5 cm IVSd: 1.3 cm Ao root diam: 2.0 cm LVIDs: 1.5 cm LVPWd: 1.3 cm RVDd: 2.8 cm FS: 42.3 % LAV(MOD-bp): 31.1 ml LVAd ap4: 18.0 cm2 SV(MOD-sp4): 25.9 ml LAV(MOD-bp) Indexed: 20.9 ml/m2 LVLd ap4: 7.4 cm LAV(MOD-sp2): 34.8 ml EDV(MOD-sp4): 35.7 ml LAV(MOD-sp4): 25.7 ml EDV(sp4-el): 36.9 ml LVAs ap4: 8.5 cm2 LVLs ap4: 6.6 cm ESV(MOD-sp4): 9.8 ml ESV(sp4-el): 9.3 ml EF(MOD-sp4): 72.5 % EF(sp4-el): 74.8 % SV(sp4-el): 27.6 ml LA A4 area: 11.6 cm2 LA dimension(2D): 3.8 cm RA A4 area: 8.6 cm2 Doppler Measurements & Calculations MV E max david: 88.0 cm/sec Lat Peak E' David: 5.2 cm/sec Med Peak E' David: 3.4 cm/sec MV A max david: 111.7 cm/sec E/E' lat: 16.8 E/E' med: 26.2 MV E/A: 0.79 Ao V2 max: 210.7 cm/sec PA V2 max: 144.6 cm/sec Ao max P.8 mmHg Ao V2 mean: 145.7 cm/sec Ao mean P.5 mmHg Ao V2 VTI: 45.4 cm ECHO/Echo Complete Interpretation Summary Left ventricular systolic function is hyperdynamic. The estimated ejection fraction is 75 %. Moderate concentric left ventricular hypertrophy. There is mild mitral annular calcification. Anterior leaflet diffuse mitral valve thickening. Severe (4+) mitral valve insufficiency. Trivial tricuspid valve insufficiency. Mild diffuse aortic valve thickening. Mild focal aortic valve calcification. Unable to estimate RV systolic pressure due to insufficient tricuspid regurgita nt envelope. Diastolic function is indeterminate. Ordering Physician: Karuna Gimenez/Shon Shabazz Referring Physician: Frantz Mckinney Performed By: Anisa Lima RDCS
== END 2021-03-04 23:59 | disposition short-term general hospital (02) ==
LOC: CVS 10:02
PROVIDERS: Referring Provider Physician Assistant Medical; Visit Provider Physician Assistant Medical
DX: R07.2 Precordial pain (principal); R06.02 Shortness of breath; R06.00 Dyspnea, unspecified
CPT/HCPCS: 93306

== ENCOUNTER 2021-03-04 11:21 | Emergency (ER) | payer MEDICARE, OTHER, SELFPAY ==
[2021-03-04] VITALS (10 sets, daily range): BP systolic 103–128; BP diastolic 35–56; PULSE 66–84; RESP 12–189; TEMP 36.4–37.1; O2SAT 96–98; BMI 22.4
--- NOTE | 2021-03-04 11:00 | RAD_ITS ---
STUDY: X-RAY CHEST REASON FOR EXAM: Female, 85 years old. SOB . Near syncopal episode. Mitral regurgitation. TECHNIQUE: Single AP portable view of the chest. COMPARISON: Comparison is made with prior study dated 02/28/2021. FINDINGS: EKG electrodes are seen. The lungs are clear and expanded. There is no demonstrated pleural abnormality. Normal size heart. Normal mediastinum and delfina. Normal visualized pulmonary arteries. There is atherosclerotic calcification of the aortic arch with tortuosity. There are diffuse degenerative changes of the visualized thoracic spine. Normal visualized ribs, clavicles, and shoulders. There is no demonstrated abnormality of the visualized soft tissue structures of the upper abdomen. RAD/Chest 1 View (Portable) IMPRESSION: No acute abnormality is seen. Electronically Signed: Mikel Saha MD at 12:34 EST , Service support ,
--- NOTE | 2021-03-04 11:53 | EKG12_ITS ---
Test Reason : SOB Blood Pressure : / mmHG Vent. Rate : 064 BPM Atrial Rate : 064 BPM P-R Int : 186 ms QRS Dur : 106 ms QT Int : 412 ms P-R-T Axes : 066 016 055 degrees QTc Int : 425 ms Normal sinus rhythm Left ventricular hypertrophy with repolarization abnormality Abnormal ECG Confirmed by RENAE NGUYEN, SHAN ([id number]), legal editor ODETTE GUILLERMO ([id number]) on 03/05/2021 9:28:46 AM Referred By: JIMBO/MONSTER Confirmed By:SHAN MACDONALD MD
[2021-03-04 12:13] LABS: Absolute Lymphocyte Count 1.35 X10^3/uL (0.83-4.51); Absolute Neutrophil Count 4.6 X10^3/uL (2.0-7.7); Basophil# 0.05 X10^3/uL; Basophil% 0.7 % (0-1); Eosinophil# 0.44 X10^3/uL; Eosinophils% 5.9 % (0-5); Hematocrit 32.2 % (37-47); Hemoglobin 10.5 g/dL (12.0-15.0); Lymphocyte # 1.35 X10^3/ul (0.83-4.51); Lymphocyte % 18.1 % (19-41); Mean Corp Hgb Conc 32.6 g/dL (32-36); Mean Corpuscular Hgb 31.7 pg (27.0-32.0); Mean Corpuscular Volume 97.3 fL (81-99); Mean Platelet Vol. 10.4 fl (6.2-12.0); Monocyte# 0.88 X10^3/uL; Monocyte% 11.8 % (0-10); NRBC Flagged by Analyzer 0 % (0-5); Neutrophil # 4.63 X10^3/uL (2.7-7.7); Neutrophil % 62.3 % (47-70); Platelet Count 268 K/mm3 (150-450); RBC Distribution Width CV 12.6 % (11.6-14.6); Red Blood Count 3.31 M/mm3 (4.2-5.4); White Blood Count 7.4 K/mm3 (4.4-11.0)
[2021-03-04 12:32] LABS: AST(SGOT) 20 U/L (15-37); Alanine Aminotransfer ALT/SGPT 20 U/L (13-56); Albumin, Serum 3.6 g/dL (3.2-5.0); Alkaline Phosphatase 44 U/L (45-117); Anion Gap 9 (5-15); BUN 92 mg/dL (7-18); BUN/Creat Ratio 34.5 RATIO (10-20); Chloride 103 mmol/L (98-107); Creatinine, Serum 2.67 mg/dL (0.55-1.02); EST Glomerular Filtration Rate 18 mL/min (>60); Est Glom Filt Rate - Afr Amer 22 mL/min (>60); Estimated Creatinine Clearance 12.69 ml/min; Globulin 3.7 g/dL (2.2-4.2); Glucose 101 mg/dL (74-106); Potassium 4.8 mmol/L (3.5-5.1); Protein, Total 7.3 g/dL (6.4-8.2); Sodium Level 138 mmol/L (136-145); Troponin-I HS 30 pg/mL (3.0-54.0)
--- NOTE | 2021-03-04 12:32 | EDS_ITS ---
HPI History of Present Illness Chief Complaint: Shortness of Breath Informant: patient Narrative Narrative: Patient is an 85-year-old female presenting with worsening shortness of breath since February 04. Patient had an echocardiogram performed today that showed severe mitral regurg. Cardiology, Dr. Shabazz, sent the patient over to the emergency room to arrange admission/transfer to [facility] where she will need evaluation by CT surgery. Apparently he spoke to Dr. Nguyen. Patient continues to go very short of breath with even conversation. Denies any edema. Denies any other complaints at this time. [facility] Medical History Abnormal stress test Anemia Anemia Anxiety Aortic valve sclerosis Atherosclerotic heart disease of [place] coronary artery without angina pectoris Bilateral carotid artery stenosis CAD (coronary artery disease) Carotid bruit Coronary artery disease Depression Encounter for long-term current use of high risk medication Essential hypertension Former smoker GERD (gastroesophageal reflux disease) Hiatal hernia Hypertension IBS (irritable bowel syndrome) Kidney disease Mitral valve disease Non-rheumatic mitral valve disease Nonrheumatic mitral valve regurgitation Palpitations Pure hypercholesterolemia Home Medications B-complex with vitamin C 1 each PO DAILY 09/01/16 [History Last Taken 04/09/19] Lactobac 41-B.bifid,lactis-FOS 1 each PO DAILY 09/01/16 [History Last Taken 04/09/19] aspirin 81 mg PO DAILY@0800 09/01/16 [History Last Taken 04/09/19] calcium carb-mag ox-zinc sulf 1 each PO DAILY 09/01/16 [History Last Taken 04/09/19] olkprjmw-xpn-dfjo-FA-lutein 1 each PO DAILY 09/01/16 [History Last Taken 04/09/19] desonide 0.05 % lotion 1 applic TOPICAL DAILY 02/27/18 [History Last Taken 04/09/19] metronidazole 0.75 % topical gel 1 applic TOPICAL BID PRN 07/21/20 [History Last Taken Unknown] pantoprazole 40 mg tablet,delayed release 40 mg PO DAILY 07/21/20 [History Last Taken Unknown] selenium sulfide 2.5 % shampoo 1 ea TOPICAL 2XW 07/21/20 [History Last Taken Unknown] simvastatin 20 mg tablet 20 mg PO QHS #90 tablet 09/02/20 [Rx Last Taken Unknown] metoprolol tartrate 25 mg tablet 25 mg PO BID #180 tablet 12/01/20 [Rx Last Taken Unknown] ascorbic acid (vitamin C) 500 mg capsule 1,000 mg PO DAILY cap 02/02/21 [History Last Taken Unknown] biotin 5,000 mcg-silicon dioxide 10 wl-F-nqgucibp 50 mg tablet ER 1 tab PO DAILY tab 02/02/21 [History Last Taken Unknown] cholecalciferol (vitamin D3) 25 mcg (1,000 unit) tablet 50 mcg PO DAILY tab 02/02/21 [History Last Taken Unknown] oxybutynin chloride 5 mg tablet,extended release 24 hr 5 mg PO DAILY tab 02/02/21 [History Last Taken Unknown] famotidine 20 mg PO DAILY 02/04/21 [History Last Taken Unknown] spacer #1 ea 02/19/21 [Rx Last Taken Unknown] lisinopril 20 mg tablet 10 mg PO BID tab 02/23/21 [History Last Taken Unknown] furosemide 20 mg tablet See Rx Instructions PO .COMPLEX #30 tab 02/24/21 [Rx Last Taken Unknown] budesonide 1 mg/2 mL suspension for nebulization 1 mg INHALATION BID #60 ml 02/26/21 [Rx Last Taken Unknown] cephalexin 500 mg PO Q6 #20 capsule 02/28/21 [Rx Last Taken Unknown] Allergy/AdvReac Type Severity Reaction Status Date / Time chlorhexidine Allergy Rash Verified 03/04/21 11:23 venom-honey bee Allergy Anaphylaxis Verified 03/04/21 11:23 [bee venom (honey bee)] hydrocodone bitartrate AdvReac Other Verified 03/04/21 11:23 [From Vicodin] quinine AdvReac Diarrhea Verified 03/04/21 11:23 Sulfa (Sulfonamide AdvReac Unknown Verified 03/04/21 11:23 Antibiotics) hospital bath blankets Allergy Unknown Uncoded 03/04/21 11:23 Family History Father CAD (coronary artery disease) Hx CABG Myocardial infarction Mother Myocardial infarction CAD (coronary artery disease) Surgical History History of hernia repair (~12/2006) History of local excision of skin lesion History of lung surgery History of tubal ligation Social History household members: none Smoking Status: Former smoker alcohol intake: current alcohol intake frequency: 0-2 drinks per day Alcohol type: other details: Few swigs of Kendal's per day substance use type: does not use caffeine: Yes Type: carbonated beverages and tea what type of physical activity do you participate in: other frequency: daily duration: 15-30 minutes/day seatbelt use: always do you feel safe at home: Yes ROS ROS ED Constitutional Constitutional ED: Denies chills or fever(s) Eyes Eyes: Denies change in vision Cardiovascular Cardiovascular: Denies chest pain or palpitations Respiratory/Chest Respiratory/Chest: Reports dyspnea and dyspnea on exertion; Denies cough Gastrointestinal Gastrointestinal: Denies abdominal pain, nausea or vomiting Musculoskeletal Musculoskeletal: Denies arthralgias or myalgias Integumentary Denies rash Neurologic Neurologic: Denies headache(s) or weakness Psychiatric Psychiatric: Denies depression EXAM Physical Exam Const Vital Signs: 03/04/21 11:23 03/04/21 11:53 03/04/21 12:22 Temperature 98 F 98.4 F 98.4 F Temperature Source Temporal Temporal Temporal Pulse Rate 73 66 66 Respiratory Rate 12 18 16 Respiratory Effort Short of Breath Respiratory Depth Shallow Respiratory Pattern Tachypnea Blood Pressure 104/43 L 116/50 L 104/46 L Blood Pressure Mean 63 72 65 Pulse Ox 97 96 96 Oxygen Delivery Method Room Air Room Air Room Air 03/04/21 13:02 03/04/21 14:00 03/04/21 15:00 Temperature 98.4 F 98.4 F 98.4 F Temperature Source Temporal Temporal Temporal Pulse Rate 69 73 72 Respiratory Rate 16 18 14 Respiratory Effort Respiratory Depth Respiratory Pattern Blood Pressure 103/43 L 128/48 H 124/35 H Blood Pressure Mean 63 74 64 Pulse Ox 96 97 96 Oxygen Delivery Method Room Air Room Air Room Air 03/04/21 16:00 03/04/21 17:13 Temperature 97.6 F L 98.4 F Temperature Source Temporal Temporal Pulse Rate 73 83 Respiratory Rate 189 H 20 H Respiratory Effort Respiratory Depth Respiratory Pattern Blood Pressure 106/56 L 112/51 L Blood Pressure Mean 72 71 Pulse Ox 96 Oxygen Delivery Method Room Air Room Air Positive well nourished and well developed General Appearance ED: well developed HEENT Reports moist mucous membranes atraumatic Eyes PERRL and EOMs intact bilaterally Neck supple and no JVD Resp Resp Narrative: Increased respiratory effort with conversational dyspnea. He a ble to say 2 words before she has to take a breath Auscultation: diminished lung sounds; Negative for rales, rhonchi or wheezes Cardio regular rate, regular rhythm and no murmurs GI non-tender and non-distended Palpation: soft Back/Spine normal to inspection Extremity normal to inspection Neuro oriented x3 Sensorium / Orientation: alert Motor Exam: general weakness Psych mental status grossly normal Thought Process: normal thought process Skin no wounds Lesions: no lesions Rashes: no rashes MDM MDM MDM Narrative Medical decision making narrative: Patient evaluated for dyspnea and severe mitral regurg on outpatient echocardiogram. She is felt to require involvement of cardiothoracic surgery by cardiology. Patient does have screening labs which are remarkable for LEÓN. Her creatinine is 2.67. Suspect it is from recent diuresis. Patient does have a mild anemia of 10.5 but this appears close to her baseline. BNP is also near her baseline. She was given gentle IV fluid hydration and accepted by Dr. Zarate at [facility]. Patient agreeable this plan of care. Lab Data Labs: Laboratory Results - last 24 hr 03/04/21 03/04/21 03/04/21 12:05 12:05 12:05 WBC 7.4 RBC 3.31 L Hgb 10.5 L Hct 32.2 L MCV 97.3 MCH 31.7 MCHC 32.6 RDW Std Deviation 45.0 H RDW Coeff of Wilner 12.6 Plt Count 268 MPV 10.4 Immature Gran % (Auto) 1.200 H Neut % (Auto) 62.3 Lymph % (Auto) 18.1 L Bee % (Auto) 11.8 H Eos % (Auto) 5.9 H Baso % (Auto) 0.7 Absolute Neuts (auto) 4.6 Absolute Lymphs (auto) 1.35 Nucleated RBC % 0 Sodium 138 Potassium 4.8 Chloride 103 Carbon Dioxide 26.0 Anion Gap 9 BUN 92 H Creatinine 2.67 H Estim Creat Clear Calc 12.69 Est GFR (MDRD) Af Amer 22 L Est GFR (MDRD) Non-Af 18 L BUN/Creatinine Ratio 34.5 H Glucose 101 Calcium 10.0 Total Bilirubin 0.30 AST 20 ALT 20 Alkaline Phosphatase 44 L Troponin I High Sens 30 B-Natriuretic Peptide 368.0 H Total Protein 7.3 Albumin 3.6 Globulin 3.7 Albumin/Globulin Ratio 1.0 Radiography Chest X-Ray - ED: 1 View, Read by ED Physician, Read by Radiologist and No Acute Disease Diagnostic Testing: Clinical Impression(s) from Imaging Studies Chest X-Ray 03/04/21 11:00 IMPRESSION: No acute abnormality is seen. Electronically Signed: Mikel Saha MD at 12:34 EST , Service support , Rhythm Strip Rhythm Strip: Sinus Rhythm Rate: 64 Ectopy: None EKG Initial EKG: Attestation: I personally reviewed and interpreted this EKG as follows: Interpretation: Sinus Rhythm Comments: Normal sinus rhythm at a rate of 64 Normal axis Normal intervals Normal ST segments LVH with repolarization abnormalities No significant change prior to prior EKG on 02/28/2019 Discharge Plan Triage Chief Complaint: Shortness of Breath ED Provider: Maria Esther Sorto Dx/Rx/DC Orders Clinical Impression: Mitral valve regurgitation, Dyspnea, LEÓN (acute kidney injury) Prescriptions: No Action desonide 0.05 % lotion 1 applic TOPICAL DAILY RF: 0 ascorbic acid (vitamin C) 500 mg capsule 1,000 mg PO DAILY RF: 0 metronidazole 0.75 % gel 1 applic topical BID PRN (Reason: Itching) RF: 0 pantoprazole 40 mg tablet,delayed release (DR/EC) 40 mg PO DAILY RF: 0 selenium sulfide 2.5 % shampoo 1 ea topical 2XW RF: 0 cholecalciferol (vitamin D3) 25 mcg (1,000 unit) tablet 50 mcg PO DAILY RF: 0 biotin-silicon ixji-D-pmoovrhv 5,000 mcg -10 mg-50 mg tablet extended release 1 tab PO DAILY RF: 0 oxybutynin chloride 5 mg tablet extended release 24hr 5 mg PO DAILY RF: 0 (DME) spacer See Rx Instructions .ROUTE .MEDSUPPLY Qty: 1 RF: 0 lisinopril 20 mg tablet 10 mg PO BID RF: 0 aspirin 81 MG tablet,chewable 81 mg PO DAILY@0800 RF: 0 B-complex with vitamin C 1 EACH tablet 1 each PO DAILY RF: 0 ndwceqqt-cxk-mscx-FA-lutein 1 EACH tablet 1 each PO DAILY RF: 0 calcium carb-mag ox-zinc sulf 1 EACH tablet 1 each PO DAILY RF: 0 Lactobac 41-B.bifid,lactis-FOS 1 EACH capsule 1 each PO DAILY RF: 0 famotidine 20 mg tablet 20 mg PO DAILY RF: 0 cephalexin [cephalexin] 500 MG capsule 500 mg PO Q6 Qty: 20 RF: 0 simvastatin 20 mg tablet 20 mg PO QHS Qty: 90 RF: 3 metoprolol tartrate 25 mg tablet 25 mg PO BID Qty: 180 RF: 3 furosemide [Lasix] 20 mg tablet See Rx Instructions PO .COMPLEX Qty: 30 RF: 0 budesonide 1 mg/2 mL suspension for nebulization 1 mg inhalation BID Qty: 60 RF: 6 Primary Care Provider: Frantz Mckinney Referrals: Frantz Mckinney [Primary Care Provider] - Disposition Disposition: Acute Care Hospital Discharge Location: [facility]
[2021-03-04] MEDS: 0.9% Normal Saline 1,000 ML 150 ML IV (13:03)
--- NOTE | 2021-03-04 14:12 | NURSING ---
ACCEPTED AT [facility]. DR BARCLAY, NO BED
--- NOTE | 2021-03-04 16:11 | NURSING ---
CALLED [facility] TALKED TO BRAD. NO BED NOW, BUT WILL BE TODAY, PLEASE DON'T ADMIT HER
--- NOTE | 2021-03-04 16:16 | CHAPLAIN ---
Type of Pastoral Visit _x__ Initial Visit ___ Follow-up Visit ___ On-call Visit ___ General Patient Visit ___ Spiritual Assessment ___ Family Conference ___ Bereavement ___ Rapid Response ___ Code Blue ___ Other (describe below) Pastoral Care Referral From _x__ Patient ___ Family ___ Nurse ___ Physician ___ Manager Education ___ Family Services Assistant ___ Other (describe below) Sacrament/Intervention _x__ Active listening ___ Anointing ___ Mosque ___ Bereavement ___ Communion ___ Gail exploration ___ _x__ Life review _x__ Prayer ___ Reconciliation ___ Sacrament of Sick _x__ Supportive presence ___ Wedding ___ Other (describe below) Pastoral Comments
--- NOTE | 2021-03-04 17:45 | PCM.CONS.C ---
Assessment & Plan Assessment/Plan (1) CHF (congestive heart failure): PLAN: The patient appears to demonstrate shortness of breath and dyspnea as described above which appears compatible with an element of worsening chronic CHF (heart failure with preserved ejection fraction) thought secondary to her underlying mitral valve disease process. At the present time she will continue to be monitored. She has undergone reevaluation with a transthoracic echocardiogram. She will continue medical therapy with adjustment of medications including her diuretics/volume status as deemed appropriate. (2) Mitral valve regurgitation: PLAN: The patient has been followed in the past for her mitral valve disease/regurgitation locally and at [facility] via CT surgery. There is concern that her mitral valve regurgitation has worsened based upon a combination of her symptoms as well as her echocardiographic studies. There is concerned that her mitral valve regurgitation is leading to her progressive symptoms and what appears to be an element of chronic CHF (heart failure with preserved ejection fraction). The patient has been treated medically. However, it was felt the patient should be referred back to [facility] CT surgery for reassessment of her mitral valve for consideration of proceeding with mitral valve repair/replacement. (3) Atherosclerotic heart disease of [place] coronary artery without angina pectoris: QUALIFIERS: [place] vs. transplanted heart: [place] heart Qualified Code(s): I25.10 - Atherosclerotic heart disease of [place] coronary artery without angina pectoris PLAN: The patient has undergone noninvasive and invasive valuation in the past. Her studies are as noted. If the patient does proceed with CT surgery for her mitral valve she may need to be reassessed with respect to her coronary anatomy and physiology with repeat noninvasive and/or invasive studies. (4) LEÓN (acute kidney injury): PLAN: The patient's creatinine level has increased. This may be secondary to adjustment of her diuretics based upon concerns of progressive CHF. At the moment her diuretics are on temporary hold. She is receiving IV fluids. She will need to be monitored closely with respect to her fluid balance as to avoid a return to acute on chronic CHF with the development of pulmonary edema/pleural effusions, etc. She may also need input from nephrology as she goes through her CT surgery evaluation and care. (5) Pure hypercholesterolemia: PLAN: The patient should continue risk factor evaluation and care/medical management. (6) Essential hypertension: PLAN: The patient's blood pressure will need to be followed with adjustment of her medications taking into consideration her alteration in renal function, etc. Addt'l Comments The patient's case has been discussed and reviewed with the patient, her son who is present at this time, the [facility] ED staff, and the [facility] CT surgery staff (Dr. Sainz). Dr. Sainz agreed to accept the patient in transfer for further evaluation and care. This note was generated using a voice recognition system and there may be incorrect words, spelling or punctuation that were not noted when reviewing the office note prior to saving. HPI Consult Data Date of Consult: 03/04/21 HPI Narrative HPI Narrative: CHRISTOPHER PINA, is a 85 year old white female who presents for emergency department cardiovascular consultation based upon progressive shortness of breath/dyspnea and worsening mitral valve regurgitation superimposed upon a history of not angiographically significant CAD, hyperlipidemia, and hypertension. The patient states she was at [facility] in January 2021 for concerns of pneumonia (reported COVID-19 negative at that time) with associated pleural effusions. She states she was treated medically. She was told she may need a thoracentesis procedure performed but her pleural effusions improved with medical therapy and thus a thoracentesis was not performed. She was eventually released home for outpatient follow-up. She did present for outpatient follow-up on 02-23-2021. There were concerns of progressive shortness of breath/dyspnea with consideration to her recent reported pneumonia but also concerns of progressive mitral valve regurgitation. Her medications were adjusted at that time. She was asked to have follow-up transthoracic echocardiogram. She presented this today for her transthoracic echocardiogram. At that time she was noted to have difficulty walking down the hallway based upon dyspnea as well as conversational dyspnea. Her echocardiogram was reviewed with the results as noted below. She was referred to the [facility] ED for further evaluation with a request for transfer to [facility] where she has been evaluated by CT surgery for further evaluation of her mitral valve with consideration for mitral valve repair/replacement. In the emergency department she denied ongoing chest discomfort. She was demonstrating conversational dyspnea. She had no concerns of lower extremity peripheral pitting edema. There is been no report of near syncope or syncope. Her laboratory studies noted that her BUN and creatinine had increased from 02-04-2021 of 23 and 1.14 respectively to 92 and 2.67 respectively. Her ECG demonstrated sinus rhythm with voltage criteria for LVH with associated ST and T wave changes. A chest x-ray was performed which demonstrated no acute cardiopulmonary abnormalities. Her case was discussed with her CT surgery team and [facility]. They agreed to accept her in transfer for further evaluation and care. [facility] Medical History (Updated 03/04/21 @ 17:[address] Shon Shabazz MD) Abnormal stress test Anemia Anemia Anxiety Aortic valve sclerosis Atherosclerotic heart disease of [place] coronary artery without angina pectoris Bilateral carotid artery stenosis CAD (coronary artery disease) Carotid bruit CHF (congestive heart failure) Coronary artery disease Depression Encounter for long-term current use of high risk medication Essential hypertension Former smoker GERD (gastroesophageal reflux disease) Hiatal hernia Hypertension IBS (irritable bowel syndrome) Kidney disease Mitral valve disease Non-rheumatic mitral valve disease Nonrheumatic mitral valve regurgitation Palpitations Pure hypercholesterolemia Home Medications B-complex with vitamin C 1 each PO DAILY 09/01/16 [History Last Taken 04/09/19] Lactobac 41-B.bifid,lactis-FOS 1 each PO DAILY 09/01/16 [History Last Taken 04/09/19] aspirin 81 mg PO DAILY@0800 09/01/16 [History Last Taken 04/09/19] calcium carb-mag ox-zinc sulf 1 each PO DAILY 09/01/16 [History Last Taken 04/09/19] jhikvdnp-sqk-yamy-FA-lutein 1 each PO DAILY 09/01/16 [History Last Taken 04/09/19] desonide 0.05 % lotion 1 applic TOPICAL DAILY 02/27/18 [History Last Taken 04/09/19] metronidazole 0.75 % topical gel 1 applic TOPICAL BID PRN 07/21/20 [History Last Taken Unknown] pantoprazole 40 mg tablet,delayed release 40 mg PO DAILY 07/21/20 [History Last Taken Unknown] selenium sulfide 2.5 % shampoo 1 ea TOPICAL 2XW 07/21/20 [History Last Taken Unknown] simvastatin 20 mg tablet 20 mg PO QHS #90 tablet 09/02/20 [Rx Last Taken Unknown] metoprolol tartrate 25 mg tablet 25 mg PO BID #180 tablet 12/01/20 [Rx Last Taken Unknown] ascorbic acid (vitamin C) 500 mg capsule 1,000 mg PO DAILY cap 02/02/21 [History Last Taken Unknown] biotin 5,000 mcg-silicon dioxide 10 xp-V-clckmssc 50 mg tablet ER 1 tab PO DAILY tab 02/02/21 [History Last Taken Unknown] cholecalciferol (vitamin D3) 25 mcg (1,000 unit) tablet 50 mcg PO DAILY tab 02/02/21 [History Last Taken Unknown] oxybutynin chloride 5 mg tablet,extended release 24 hr 5 mg PO DAILY tab 02/02/21 [History Last Taken Unknown] famotidine 20 mg PO DAILY 02/04/21 [History Last Taken Unknown] spacer #1 ea 02/19/21 [Rx Last Taken Unknown] lisinopril 20 mg tablet 10 mg PO BID tab 02/23/21 [History Last Taken Unknown] furosemide 20 mg tablet See Rx Instructions PO .COMPLEX #30 tab 02/24/21 [Rx Last Taken Unknown] budesonide 1 mg/2 mL suspension for nebulization 1 mg INHALATION BID #60 ml 02/26/21 [Rx Last Taken Unknown] cephalexin 500 mg PO Q6 #20 capsule 02/28/21 [Rx Last Taken Unknown] Allergy/AdvReac Type Severity Reaction Status Date / Time chlorhexidine Allergy Rash Verified 03/04/21 11:23 venom-honey bee Allergy Anaphylaxis Verified 03/04/21 11:23 [bee venom (honey bee)] hydrocodone bitartrate AdvReac Other Verified 03/04/21 11:23 [From Vicodin] quinine AdvReac Diarrhea Verified 03/04/21 11:23 Sulfa (Sulfonamide AdvReac Unknown Verified 03/04/21 11:23 Antibiotics) hospital bath blankets Allergy Unknown Uncoded 03/04/21 11:23 Family History Father CAD (coronary artery disease) Hx CABG Myocardial infarction Mother Myocardial infarction CAD (coronary artery disease) Surgical History History of hernia repair (~12/2006) History of local excision of skin lesion History of lung surgery History of tubal ligation Social History household members: none Smoking Status: Former smoker alcohol intake: current alcohol intake frequency: 0-2 drinks per day Alcohol type: other details: Few swigs of Kendal's per day substance use type: does not use caffeine: Yes Type: carbonated beverages and tea what type of physical activity do you participate in: other frequency: daily duration: 15-30 minutes/day seatbelt use: always do you feel safe at home: Yes ROS Constitutional Constitutional: Reports fatigue Eyes Eyes: Reports as per HPI ENT HEENT: Reports as per HPI Cardiovascular Cardiovascular: Reports dyspnea at rest, dyspnea on exertion and fatigue Respiratory/Chest Respiratory/Chest: Reports dyspnea on exertion Gastrointestinal Gastrointestinal: Reports as per HPI Genitourinary Genitourinary: Reports as per HPI Musculoskeletal Musculoskeletal: Reports as per HPI Integumentary Integumentary: Reports as per HPI Neurologic Neurologic: Reports as per HPI Physical Exam Narrative This is an 85-year-old white female who appears to be demonstrating conversational dyspnea. Const alert, oriented x3 and no apparent distress Orientation / Consciousness: awake HEENT normocephalic, head/scalp atraumatic and hearing grossly normal bilaterally Eyes PERRL, EOMs intact bilaterally and conjunctivae normal Neck full ROM, supple and no JVD Resp clear to auscultation bilaterally Cardio regular rate, regular rhythm, S1 normal heart sound and S2 normal heart sound Heart Sounds: murmur systolic III/ other (Holosystolic) left sternal border, apex, axilla and other (Left posterior thorax) GI normal to inspection, nondistended, normoactive bowel sounds Extremity no pedal edema Skin no rashes or lesions noted Neuro oriented x3, moves all extremities, no focal motor deficits and no sensory deficits noted Psych mental status grossly normal Risk Stratification Risk Stratification Applicable: No Procedure Criteria Type of Procedure Procedure Type: Elective Elective Risks - COVID COVID Risk Discussion: The surgeon/proceduralist and patient have discussed in detail the risk of exposure to and/or potential harm posed by the COVID-19 virus with having a surgery/procedure at this time versus the risk of delaying the surgery/procedure. It is not possible to know either the risk of delaying the surgery or procedure or chance of getting an infection with perfect accuracy, but a joint decision was made between the patient and the surgeon/proceduralist to proceed at this time with the scheduled surgery/procedure as indicated on the consent form. Objective Data Vital Signs: Vital Signs Temp Pulse Resp BP Pulse Ox 98.4 F 83 20 H 112/51 L 96 03/04/21 17:13 03/04/21 17:13 03/04/21 17:13 03/04/21 17:13 03/04/21 17:13 Oxygen Delivery Method Room Air Weight: 111 lb Body Mass Index (BMI) 22.4 Lab / Micro Data Result Diagrams: 03/04/21 12:05 03/04/21 12:05 Labs: Laboratory Results - last 24 hr 03/04/21 12:05: WBC 7.4, RBC 3.31 L, Hgb 10.5 L, Hct 32.2 L, MCV 97.3, MCH 31.7, MCHC 32.6, RDW Std Deviation 45.0 H, RDW Coeff of [place]ner 12.6, Plt Count 268, MPV 10.4, Immature Gran % (Auto) 1.200 H, Neut % (Auto) 62.3, Lymph % (Auto) 18.1 L, [place] % (Auto) 11.8 H, Eos % (Auto) 5.9 H, Baso % (Auto) 0.7, Absolute Neuts (auto) 4.6, Absolute Lymphs (auto) 1.35, Nucleated RBC % 0 03/04/21 12:05: Sodium 138, Potassium 4.8, Chloride 103, Carbon Dioxide 26.0, Anion Gap 9, BUN 92 H, Creatinine 2.67 H, Estim Creat Clear Calc 12.69, Est GFR (MDRD) Af Amer 22 L, Est GFR (MDRD) Non-Af 18 L, BUN/Creatinine Ratio 34.5 H, Glucose 101, Calcium 10.0, Total Bilirubin 0.30, AST 20, ALT 20, Alkaline Phosphatase 44 L, Troponin I High Sens 30, Total Protein 7.3, Albumin 3.6, Globulin 3.7, Albumin/Globulin Ratio 1.0 03/04/21 12:05: B-Natriuretic Peptide 368.0 H Micro: Microbiology 03/04/21 12:00 Nasal Secretion SARS-CoV-2 Antigen (Rapid) - Final Rhythm Strip Rhythm Strip: Sinus Rhythm Rate: 64 Ectopy: None Cardiology Labs/Tests 03/04/21 12:05: WBC 7.4, RBC 3.31 L, Hgb 10.5 L, Hct 32.2 L, MCV 97.3, MCH 31.7, MCHC 32.6, Plt Count 268, MPV 10.4, Immature Gran % (Auto) 1.200 H, Neut % (Auto) 62.3, Lymph % (Auto) 18.1 L, [place] % (Auto) 11.8 H, Eos % (Auto) 5.9 H, Baso % (Auto) 0.7, Absolute Neuts (auto) 4.6, Nucleated RBC % 0 03/04/21 12:05: Sodium 138, Potassium 4.8, Chloride 103, Carbon Dioxide 26.0, Anion Gap 9, BUN 92 H, Creatinine 2.67 H, Est GFR (MDRD) Af Amer 22 L, Est GFR (MDRD) Non-Af 18 L, BUN/Creatinine Ratio 34.5 H, Glucose 101, Calcium 10.0, Total Bilirubin 0.30 03/04/21 12:05: B-Natriuretic Peptide 368.0 H Rhythm: Sinus rhythm EKG: As noted above ECHO: 03-04-2021 Interpretation Summary Left ventricular systolic function is hyperdynamic. The estimated ejection fraction is 75 %. Moderate concentric left ventricular hypertrophy. There is mild mitral annular calcification. Anterior leaflet diffuse mitral valve thickening. Severe (4+) mitral valve insufficiency. Trivial tricuspid valve insufficiency. Mild diffuse aortic valve thickening. Mild focal aortic valve calcification. Unable to estimate RV systolic pressure due to insufficient tricuspid regurgitant envelope. Diastolic function is indeterminate. Stress test: 09/02/2016 The patient underwent pharmacologic (regadenoson) evaluation with a peak heart rate of 99 bpm (70% predicted maximal heart rate) with a peak blood pressure 188/60 mmHg. The baseline ECG demonstrated sinus bradycardia with nonspecific ST segment change. The peak pharmacologic ECG demonstrated continued nonspecific ST segment change. The recovery ECG demonstrated continued sinus rhythm with somewhat more pronounced nonspecific ST segment changes/depression especially noted in leads II, III, aVF and V5 and V6. There was gradual resolution of the aforementioned changes towards baseline late in recovery (approximately 55 minutes). There were no cardiac dysrhythmias pretest, during pharmacologic infusion, recovery. The patient noted chest discomfort during recovery. She was treated with oxygen supplement as well as nitroglycerin sublingual ?2. She had gradual improvement in her symptoms. The examination was discontinued secondary to completion of protocol. Impression: 1. Pharmacologic (regadenoson) evaluation 2. Peak pharmacologic ECG demonstrated continued nonspecific ST segment change 3. Recovery ECG demonstrating somewhat more pronounced nonspecific ST segment changes/depression especially noted in leads II, III, aVF and V5 and V6 with gradual resolution of the aforementioned changes towards baseline late in recovery 4. Nuclear images pending Myocardial perfusion imaging study: Technique: The patient was injected with 11.2 mCi of technetium 99m Cardiolite and subsequently rest SPECT Cardiolite nuclear imaging was obtained in the horizontal long, vertical long, and short axis views. The patient underwent pharmacologic (regadenoson) evaluation with a peak heart rate of 99 bpm (70% predicted maximal heart rate) with a peak blood pressure 188/60 mmHg. the patient was injected with 36.0 mCi of technetium 99m Cardiolite and subsequently stress SPECT cardiac nuclear imaging was obtained in the horizontal long, vertical long, and short axis views. A gated Cardiolite study at peak stress was obtained. Interpretation: Rest and stress SPECT Cardiolite nuclear imaging status post realignment, normalization, and attenuation correction, demonstrates relative uniform tracer uptake at rest. Status post stress there is a small area of diminished tracer uptake near the apical area. There is end systolic thickening and brightening. The gated Cardiolite study demonstrates myocardial thickening and in normal motion. The reported LVEF is 63%. The aforementioned changes may be compatible with physiologic apical thinning although an area of apical myocardial ischemia cannot necessarily be excluded. Impression: 1. Rest and stress SPECT Cardiolite nuclear imaging demonstrating an area potentially compatible with the logic apical thinning. However, an area of apical myocardial ischemia cannot necessarily be excluded. 2. The gated correlate study reports an LVEF of 63%. Stress Test Report Date: ? Procedure: Exercise tolerance test/imaging study Indications: Chest pain; mitral valve regurgitation Consent: Per the patient Procedure: The patient exercised on a Frank protocol for 4 minutes completing Stage I and 1 minute of Stage II achieving a peak heart rate of 123 bpm (88 % predicted maximal heart rate) with a peak blood pressure 192/62 mmHg and a peak MET capacity of 6 METs. The baseline ECG demonstrated normal sinus rhythm; nonspecific ST/T wave abnormality. The peak exercise ECG demonstrated continued sinus rhythm with nonspecific ST/T wave abnormality appearing somewhat more prominent compared with baseline. There were no cardiac dysrhythmias pretest, during exercise, or recovery. The functional capacity was considered average. There was no complaint of chest discomfort during exercise or recovery. The examination was discontinued secondary to dyspnea. Impression: 1. Technically adequate (percent predicted maximal heart rate greater than 85%) exercise tolerance test 2. Peak exercise ECG with sinus rhythm with nonspecific ST/T wave abnormality appearing somewhat more prominent compared with baseline 3. There were no cardiac dysrhythmias pretest, during exercise, or recovery 4. Nuclear images pending Myocardial perfusion imaging study: Technique: The patient was injected with 12 mCi of technetium 99m Cardiolite and subsequently rest SPECT Cardiolite nuclear imaging was obtained in the horizontal long, vertical long, and short axis views. The patient exercised on a Frakn protocol for 4 minutes completing Stage I and 1 minute of Stage II achieving a peak heart rate of 123 bpm (88 % predicted maximal heart rate) with a peak blood pressure 192/62 mmHg and a peak MET capacity of 6 METs. The patient was injected with 33 mCi of technetium 99m Cardiolite and subsequently stress SPECT Cardiolite nuclear imaging was obtained in the horizontal long, vertical long, and short axis views. A gated Cardiolite study at peak stress was obtained. Interpretation: Rest and stress SPECT Cardiolite nuclear imaging status post realignment, normalization, and attenuation correction, demonstrates relative uniform tracer uptake and myocardial perfusion appearing within normal limits. There is end systolic thickening and brightening. The gated Cardiolite study demonstrates myocardial thickening and inward wall motion. The reported LVEF is 71 %. Impression: 1. Rest and stress SPECT Cardiolite nuclear imaging demonstrate relative uniform tracer uptake and myocardial perfusion appearing within normal limits. 2. The gated Cardiolite study reports an LVEF of 71 %. Cardiac catheterization: 09-03-16 DOMINANCE: Right Dominant LEFT HEART ASSESSMENT Left Ventricular Ejection Fraction: by LV Gram 75 % Normal LV wall motion Normal Left Ventricular systolic function Elevated Left Ventricular End Diastolic Pressure LVEDP: 16 mmHg LEFT MAIN: Angiographically normal LEFT ANTERIOR DESCENDING ARTERY: PROX LAD: Mild luminal irregularities MID LAD: Mild luminal irregularities CIRCUMFLEX ARTERY: PROX CIRC: Mild luminal irregularities OM 1: Proximal - Mild luminal irregularities OM 2: Proximal - Mild luminal irregularities RIGHT CORONARY ARTERY: MID RCA: Mild luminal irregularities VALVE FINDINGS: Normal Aortic Valve function Mitral Valve Insufficiency - Grade 3 AORTIC ROOT: Angiographically normal Radiography Diagnostic Testing: Radiology Impression Chest X-Ray 03/04/21 11:00 IMPRESSION: No acute abnormality is seen. Electronically Signed: Mikel Saha MD at 12:34 EST , Service support ,
--- NOTE | 2021-03-04 17:52 | NURSING ---
QASIM HUANG [id number] NURSE TO NURSE [phone]
--- NOTE | 2021-03-04 17:52 | NURSING ---
CALLED FOR [facility], ETA IS 3 HRS
== END 2021-03-04 20:55 | disposition short-term general hospital (02) ==
PROVIDERS: Emergency Provider Emergency Medicine; Visit Provider Emergency Medicine
DX: I08.0 Rheumatic disorders of both mitral and aortic valves (principal); N17.9 Acute kidney failure, unspecified; I11.0 Hypertensive heart disease with heart failure; I50.32 Chronic diastolic (congestive) heart failure; R06.02 Shortness of breath; I25.10 Atherosclerotic heart disease of native coronary artery without angina pectoris; I65.23 Occlusion and stenosis of bilateral carotid arteries; E78.00 Pure hypercholesterolemia, unspecified; D64.9 Anemia, unspecified; K21.9 Gastro-esophageal reflux disease without esophagitis; Z79.82 Long term (current) use of aspirin; Z79.899 Other long term (current) drug therapy; Z87.891 Personal history of nicotine dependence; R07.2 Precordial pain; R06.00 Dyspnea, unspecified
CPT/HCPCS: 71045; 80053; 83880; 84484; 85025; 87426; 93005; 93306; 96360; 96361; 99285; A4216

== ENCOUNTER 2021-04-02 10:04 | Outpatient (CLI) | payer MEDICARE, OTHER, SELFPAY ==
[2021-04-02 12:00] LABS: Anion Gap 4 (5-15); BUN 39 mg/dL (7-18); BUN/Creat Ratio 22.4 RATIO (10-20); Calcium,Total 9.3 mg/dL (8.5-10.1); Chloride 102 mmol/L (98-107); Creatinine, Serum 1.74 mg/dL (0.55-1.02); EST Glomerular Filtration Rate 30 mL/min (>60); Est Glom Filt Rate - Afr Amer 36 mL/min (>60); Glucose 104 mg/dL (74-106); Potassium 4.4 mmol/L (3.5-5.1); Sodium Level 135 mmol/L (136-145)
== END 2021-04-02 23:59 | disposition home or self-care (01) ==
LOC: LAB 10:05
PROVIDERS: Referring Provider Physician Assistant Medical; Visit Provider Physician Assistant Medical
DX: R06.02 Shortness of breath (principal); R06.00 Dyspnea, unspecified
CPT/HCPCS: 36415; 80048

== ENCOUNTER 2021-04-21 13:41 | Outpatient (CLI) | payer MEDICARE, OTHER, SELFPAY ==
[2021-04-21 16:30] LABS: Absolute Lymphocyte Count 1.98 X10^3/uL (0.83-4.51); Absolute Neutrophil Count 3.9 X10^3/uL (2.0-7.7); Basophil# 0.05 X10^3/uL; Basophil% 0.7 % (0-1); Eosinophil# 0.48 X10^3/uL; Eosinophils% 6.6 % (0-5); Hematocrit 29.4 % (37-47); Hemoglobin 9.6 g/dL (12.0-15.0); Lymphocyte # 1.98 X10^3/ul (0.83-4.51); Lymphocyte % 27.3 % (19-41); Mean Corp Hgb Conc 32.7 g/dL (32-36); Mean Corpuscular Hgb 32.5 pg (27.0-32.0); Mean Corpuscular Volume 99.7 fL (81-99); Mean Platelet Vol. 10.9 fl (6.2-12.0); Monocyte# 0.76 X10^3/uL; Monocyte% 10.5 % (0-10); NRBC Flagged by Analyzer 0 % (0-5); Neutrophil # 3.93 X10^3/uL (2.7-7.7); Neutrophil % 54.2 % (47-70); Platelet Count 181 K/mm3 (150-450); RBC Distribution Width CV 13.3 % (11.6-14.6); RBC Distribution Width SD 48.8 fl (35.1-43.9); Red Blood Count 2.95 M/mm3 (4.2-5.4); White Blood Count 7.3 K/mm3 (4.4-11.0)
[2021-04-21 16:43] LABS: Protein, Urine (Random) 23.1 mg/dL (<11.9); Protein:Creat Ratio 175 mg/g CRE (0-200)
[2021-04-21 17:12] LABS: Vitamin D,25 Hydroxy 69.2 ng/mL
[2021-04-21 17:19] LABS: Albumin, Serum 3.5 g/dL (3.2-5.0); BUN 40 mg/dL (7-18); BUN/Creat Ratio 26.7 RATIO (10-20); Calcium,Total 8.8 mg/dL (8.5-10.1); Chloride 109 mmol/L (98-107); EST Glomerular Filtration Rate 35 mL/min (>60); Est Glom Filt Rate - Afr Amer 43 mL/min (>60); Glucose 115 mg/dL (74-106); Phosphorus 3.4 mg/dL (2.5-4.9); Potassium 3.8 mmol/L (3.5-5.1); Sodium Level 141 mmol/L (136-145)
[2021-04-22 07:42] LABS: PTHIN 37.8 pg/mL (18.4-80.1)
== END 2021-04-21 23:59 | disposition home or self-care (01) ==
LOC: LAB 05-12 13:41
PROVIDERS: Visit Provider Internal Medicine Nephrology
DX: N18.31 Chronic kidney disease, stage 3a (principal); D64.9 Anemia, unspecified
CPT/HCPCS: 36415; 80069; 82306; 82570; 83970; 84156; 85025

== ENCOUNTER 2021-06-08 07:09 | Emergency (ER) | payer MEDICARE, OTHER, SELFPAY ==
[2021-06-08 07:10] VITALS: BP 118/45; PULSE 59; RESP 16; TEMP 36.8; O2SAT 100; BMI 23.7
--- NOTE | 2021-06-08 07:14 | EKG12_ITS ---
Test Reason : CP Blood Pressure : / mmHG Vent. Rate : 051 BPM Atrial Rate : 051 BPM P-R Int : 214 ms QRS Dur : 110 ms QT Int : 456 ms P-R-T Axes : 049 020 076 degrees QTc Int : 420 ms Sinus bradycardia with 1st degree A-V block Left ventricular hypertrophy with repolarization abnormality Abnormal ECG Confirmed by RENAE NGUYEN, SHAN ([id number]), editor dictionary ODETTE GUILLERMO ([id number]) on 06/09/2021 8:28:02 AM Referred By: HEIDI Confirmed By:SHAN MACDONALD MD
--- NOTE | 2021-06-08 07:15 | EKG12_ITS ---
Test Reason : REPEAT-WITH CP Blood Pressure : / mmHG Vent. Rate : 053 BPM Atrial Rate : 053 BPM P-R Int : 212 ms QRS Dur : 112 ms QT Int : 456 ms P-R-T Axes : 068 026 077 degrees QTc Int : 427 ms Sinus bradycardia with 1st degree A-V block Left ventricular hypertrophy with repolarization abnormality Abnormal ECG Confirmed by RENAE NGUYEN, SHAN ([id number]), editor school photograph ODETTE GUILLERMO ([id number]) on 06/09/2021 8:28:17 AM Referred By: HEIDI Confirmed By:SHAN MACDONALD MD
[2021-06-08 07:29] LABS: Absolute Lymphocyte Count 1.56 X10^3/uL (0.83-4.51); Absolute Neutrophil Count 2.5 X10^3/uL (2.0-7.7); Basophil# 0.04 X10^3/uL; Basophil% 0.8 % (0-1); Eosinophil# 0.47 X10^3/uL; Hematocrit 30.9 % (37-47); Hemoglobin 10.4 g/dL (12.0-15.0); Lymphocyte # 1.56 X10^3/ul (0.83-4.51); Lymphocyte % 29.9 % (19-41); Mean Corp Hgb Conc 33.7 g/dL (32-36); Mean Corpuscular Hgb 32.9 pg (27.0-32.0); Mean Corpuscular Volume 97.8 fL (81-99); Mean Platelet Vol. 10.3 fl (6.2-12.0); Monocyte# 0.59 X10^3/uL; Monocyte% 11.3 % (0-10); NRBC Flagged by Analyzer 0 % (0-5); Neutrophil # 2.54 X10^3/uL (2.7-7.7); Neutrophil % 48.6 % (47-70); Platelet Count 164 K/mm3 (150-450); RBC Distribution Width CV 12.4 % (11.6-14.6); RBC Distribution Width SD 44.3 fl (35.1-43.9); Red Blood Count 3.16 M/mm3 (4.2-5.4); White Blood Count 5.2 K/mm3 (4.4-11.0)
--- NOTE | 2021-06-08 07:35 | EDS_ITS ---
HPI History of Present Illness Chief Complaint: Chest Pain Detail of Chief Complaint: This pain that occurred yesterday and awoke patient from sleep this morning Informant: patient and EMS Onset/Context/Timing Onset: Today (Awaken from sleep at 0430 with chest pain and diaphoresis with minimal shortness of breath) and Yesterday (Chest pain midsternal with diaphoresis at 1530 and duration of 30 minutes) Activity at onset: - (Patient does not recall what she was doing when the pain started yesterday.) Timing: Continuous (Episode that awoke patient from sleep) and Intermittent (Duration 30 minutes regarding episode that occurred yesterday) Quality: Positive for Pain (After given several agitated she states it is more like pressure.) Location: Substernal Current Severity: Mild Maximum Severity: Severe Worsened By: Nothing Relieved By: Nothing Associated Symptoms: Positive for Diaphoresis and Dyspnea; Negative for Nausea, Vomiting, Cough, Fever, Lightheadedness, Acid Reflux and Palpitations Narrative Narrative: Patient is an 86-year-old woman. She is a poor informant. She had a heart cath performed at [facility]. She does not know what the results were. She did comment that her disease is not bad enough for surgery. Not able to tell me if this is related to her valvular heart disease versus atherosclerotic disease since she has both. She does have history of hypertension and hypercholesterolemia. She denies diabetes. She does have history of congestive heart failure. She denies fever, chills night sweats. She denies weight gain or weight loss. She denies ocular, visual auditory symptoms. She denies cough. She denies dyspnea on exertion. She denies o rthopnea. She denies swelling of her legs or feet. She denies black or maroon- colored stool. She does have history of GERD. She states this pain is located in a different position and different. She denies intolerance to greasy or fried foods. The chest discomfort does not radiate anywhere. Prior Similar Symptoms: No Recent Illness/Hospitalization: No CVD Risk Factors: Positive for Hypertension and Hypercholesterolemia; Negative for Diabetes, Family History 1' </=55 and Smoking PE Risk Factors: Negative for Recent Travel/Surgery, Recent Immobilization, Prior DVT or PE, Cancer and OCP + Smoking + >/=35 TAD Risk Factors: Positive for Hypertension; Negative for Marfan's Syndrome and Family History PFSH PFSH Medical History Abnormal stress test Anemia Anemia Anxiety Aortic valve sclerosis Atherosclerotic heart disease of [place] coronary artery without angina pectoris Bilateral carotid artery stenosis CAD (coronary artery disease) Carotid bruit CHF (congestive heart failure) Coronary artery disease Depression Encounter for long-term current use of high risk medication Essential hypertension Former smoker GERD (gastroesophageal reflux disease) Hiatal hernia Hypertension IBS (irritable bowel syndrome) Kidney disease Mitral valve disease Non-rheumatic mitral valve disease Nonrheumatic mitral valve regurgitation Palpitations Pure hypercholesterolemia Home Medications B-complex with vitamin C 1 each PO DAILY 09/01/16 [History Last Taken 04/09/19] aspirin 81 mg PO DAILY@0800 09/01/16 [History Last Taken 04/09/19] exactxtc-hwy-rasx-FA-lutein 1 each PO DAILY 09/01/16 [History Last Taken 04/09/19] desonide 0.05 % lotion 1 applic TOPICAL DAILY 02/27/18 [History Last Taken 04/09/19] metronidazole 0.75 % topical gel 1 applic TOPICAL BID PRN 07/21/20 [History Last Taken Unknown] pantoprazole 40 mg tablet,delayed release 40 mg PO DAILY 07/21/20 [History Last Taken Unknown] simvastatin 20 mg tablet 20 mg PO QHS #90 tablet 09/02/20 [Rx Last Taken Unknown] metoprolol tartrate 25 mg tablet 25 mg PO BID #180 tablet 12/01/20 [Rx Last Taken Unknown] biotin 5,000 mcg-silicon dioxide 10 vh-J-tnfyszpd 50 mg tablet ER 1 tab PO DAILY tab 02/02/21 [History Last Taken Unknown] cholecalciferol (vitamin D3) 25 mcg (1,000 unit) tablet 50 mcg PO DAILY tab 02/02/21 [History Last Taken Unknown] oxybutynin chloride 5 mg tablet,extended release 24 hr 5 mg PO DAILY tab 1 04/05/20 [History Last Taken Unknown] famotidine 20 mg PO DAILY 02/04/21 [History Last Taken Unknown] lisinopril 20 mg tablet 10 mg PO BID tab 02/23/21 [History Last Taken Unknown] furosemide 20 mg tablet 20 mg PO DAILY #30 tab 03/19/21 [Rx Last Taken Unknown] methenamine hippurate 1 gram tablet 1 g PO Q OTHER DAY tab 03/19/21 [History Last Taken Unknown] ascorbic acid (vitamin C) 500 mg capsule 1,000 mg PO Q OTHER DAY cap 04/02/21 [History Last Taken Unknown] calcium carbonate 334 mg-magnesium oxide 134 mg-zinc sulf 5 mg tablet 1 tab PO Q OTHER DAY tab 04/02/21 [History Last Taken Unknown] inhalational spacing device #1 ea 04/02/21 [History Last Taken Unknown] budesonide-formoterol HFA 160 mcg-4.5 mcg/actuation aerosol inhaler 2 puff INHALATION BID #10.2 g 05/11/21 [Rx Last Taken Unknown] metoprolol tartrate 06/08/21 [History Last Taken Unknown] Allergy/AdvReac Type Severity Reaction Status Date / Time chlorhexidine Allergy Rash Verified 05/11/21 12:47 venom-honey bee Allergy Anaphylaxis Verified 05/11/21 12:47 [bee venom (honey bee)] hydrocodone bitartrate AdvReac Other Verified 05/11/21 12:47 [From Vicodin] quinine AdvReac Diarrhea Verified 05/11/21 12:47 Sulfa (Sulfonamide AdvReac Unknown Verified 05/11/21 12:47 Antibiotics) hospital bath wipes Allergy Intermediate rash Uncoded 05/11/21 12:47 Family History (System 05/11/21 @ 12:47 by Gayathri Pedersen) Father CAD (coronary artery disease) Hx CABG Myocardial infarction Mother Myocardial infarction CAD (coronary artery disease) Surgical History History of hernia repair (~12/2006) History of local excision of skin lesion History of lung surgery History of right and left heart catheterization (LHC) (~03/06/21) History of tubal ligation Social History household members: none Smoking Status: Former smoker alcohol intake: current alcohol intake frequency: 0-2 drinks per day Alcohol type: other details: Few swigs of Kendal's per day substance use type: does not use caffeine: Yes Type: carbonated beverages and tea what type of physical activity do you participate in: other frequency: daily duration: 15-30 minutes/day seatbelt use: always do you feel safe at home: Yes ROS ROS ED Constitutional Constitutional ED: Denies chills, fever(s), subjective, sweats or weight loss Eyes Eyes: Reports none ENT ENT ED: Denies ear pain, rhinorrhea or sore throat Cardiovascular Cardiovascular: Reports as per HPI; Denies orthopnea or paroxysmal nocturnal dyspnea Respiratory/Chest Respiratory/Chest: Reports dyspnea; Denies cough, dyspnea on exertion, orthopnea, paroxysmal nocturnal dyspnea or sputum Gastrointestinal Gastrointestinal: Denies abdominal pain, constipation, diarrhea, melena, nausea or vomiting Genitourinary Genitourinary ED: Denies dysuria, hematuria or urinary frequency Musculoskeletal Musculoskeletal: Denies back pain, myalgias or neck pain Integumentary Denies Abrasions or rash Neurologic Neurologic: Denies headache(s), paresthesias or weakness Endocrine Endocrinology: Denies polydipsia, polyphagia or polyuria Hematologic/Lymphatic Hematologic/Lymphatic: Denies easy bleeding or easy bruising EXAM Physical Exam Const Vital Signs: 06/08/21 07:10 06/08/21 07:37 06/08/21 07:38 Temperature 98.2 F Temperature Source Temporal Pulse Rate 59 L 56 L Respiratory Rate 16 15 Blood Pressure 118/45 L 116/39 L Blood Pressure Mean 69 64 Pulse Ox 100 94 98 Oxygen Delivery Method Room Air Room Air Room Air 06/08/21 08:16 06/08/21 09:11 06/08/21 10:05 Temperature Temperature Source Pulse Rate 56 L 59 L 60 Respiratory Rate 10 L 14 23 H Blood Pressure 107/40 L 110/43 L 109/71 Blood Pressure Mean 62 65 83 Pulse Ox 95 97 Oxygen Delivery Method Room Air Room Air Positive well nourished and well developed General Appearance ED: well developed, NAD and pallor HEENT Reports TM's clear and moist mucous membranes HEENT Narrative: Nares patent. Uvula midline. No angioedema. No erythema or exudate of the posterior pharynx normocephalic and atraumatic Tympanic Membrane ED: Yes TM's clear Eyes PERRL and EOMs intact bilaterally General Eye ED: Negative for pale conjunctiva or scleral icterus Neck no lymphadenopathy, supple and no JVD Chest Wall inspection of chest normal and palpation of chest normal Chest: Negative for tenderness Resp normal respiratory effort and No clear to auscultation bilaterally Effort and Inspection: respiratory distress Cardio regular rate, regular rhythm, S1 normal heart sound and S2 normal heart sound GI normal to inspection, nondistended, normoactive bowel sounds, soft to palpation, non-tender, non-distended and no masses; Negative for hepatosplenomegaly Back/Spine no CVA tenderness; Negative for no thoracic nor lumbar tenderness Extremity normal to inspection General Extremety ED: Negative for edema, pulses abnormal or tenderness General Extremity: Negative for edema or pulses abnormal Neuro oriented x3 and CN's II-XII intact bilaterally Sensorium / Orientation: awake and alert Psych mental status grossly normal Skin no rashes or lesions noted and no wounds General Skin Exam: pallor; Negative for jaundice Heart Score History: Slightly/Non-Suspicious ECG: Nonspecific Repolarization Age: >/= 65 years Risk Factors: >/= 3 Risk Factors or History of CAD Troponin: </= Normal Limit Score: 5 MDM MDM MDM Narrative Medical decision making narrative: Patient presents with chest discomfort that occurred yesterday and awoke her from sleep. Need to evaluate for cardiac versus noncardiac. EKG, troponin, CBC, electrolyte panel was obtained. This may represent GERD. This may also represent biliary disease. Lab Data Attestation: I reviewed the patient's lab results. Labs: Laboratory Results - last 24 hr 06/08/21 06/08/21 06/08/21 07:23 07:23 07:23 WBC 5.2 RBC 3.16 L Hgb 10.4 L Hct 30.9 L MCV 97.8 MCH 32.9 H MCHC 33.7 RDW Std Deviation 44.3 H RDW Coeff of Wilner 12.4 Plt Count 164 MPV 10.3 Immature Gran % (Auto) 0.400 Neut % (Auto) 48.6 Lymph % (Auto) 29.9 [place] % (Auto) 11.3 H Eos % (Auto) 9.0 H Baso % (Auto) 0.8 Absolute Neuts (auto) 2.5 Absolute Lymphs (auto) 1.56 Nucleated RBC % 0 Sodium 137 Potassium 4.1 Chloride 102 Carbon Dioxide 28.0 Anion Gap 7 BUN 54 H Creatinine 2.02 H Estim Creat Clear Calc 14.89 Est GFR (MDRD) Af Amer 30 L Est GFR (MDRD) Non-Af 25 L BUN/Creatinine Ratio 26.7 H Glucose 97 Calcium 9.2 Troponin I High Sens 20 06/08/21 09:34 WBC RBC Hgb Hct MCV MCH MCHC RDW Std Deviation RDW Coeff of Wilner Plt Count MPV Immature Gran % (Auto) Neut % (Auto) Lymph % (Auto) [place] % (Auto) Eos % (Auto) Baso % (Auto) Absolute Neuts (auto) Absolute Lymphs (auto) Nucleated RBC % Sodium Potassium Chloride Carbon Dioxide Anion Gap BUN Creatinine Estim Creat Clear Calc Est GFR (MDRD) Af Amer Est GFR (MDRD) Non-Af BUN/Creatinine Ratio Glucose Calcium Troponin I High Sens 19 Per algorithm since troponin is greater than 7 repeat troponin was ordered. Patient does have evidence of anemia. She has history of anemia. 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 Her creatinine is with in the range that is noted reviewing prior levels. Second troponin is 19 which is lower than the first. Plan is to discharge to home with appropriate home-going instructions. Son brought up the fact that she has been eating different foods. This raises concern that this may be due to GERD. Radiography Chest X-Ray - ED: 1 View (Portable chest x-ray shows chronic changes. Cardiac silhouette and size normal. There is calcification of the aortic knob. There is no widening of the mediastinum. The perihilar regions unremarkable. Osseous structures are unremarkable. This was independently reviewed by me at 0808) and Read by ED Physician Diagnostic Testing: Clinical Impression(s) from Imaging Studies Chest X-Ray 06/08/21 08:00 IMPRESSION: Nonacute portable x-ray examination of the chest. Electronically Signed: Glen Sousa MD (Brooks) at 8:13 EDT Reading Location ID and State: [address] [place] [address] , Service support , EKG Initial EKG: Attestation: I personally reviewed and interpreted this EKG as follows: Interpretation: Sinus Bradycardia (Ventricular rate is 51. DE interval is prolonged and consistent with a first-degree heart block at 214 ms. QRS duration 110 ms. QT duration 456 ms. [place] is normal. There is evidence of left ventricular hypertrophy with repolarization abnormality. EKG is unchanged since March 04, 2021) Prior EKG tracings: available for review Prior: Unchanged Follow-up EKG: Attestation: I personally reviewed and interpreted this EKG as follows: Interpretation: Sinus Bradycardia (Ventricular rate is 53 with a first- degree AV block. DE interval is 212 ms. Castration 112 ms. QT duration is 456 ms. [place] is normal. There is evidence of LVH with repolarization abnormality. This EKG is unchanged from prior. This was obtained because she reported having chest pain again.) Discharge Plan Triage Chief Complaint: Chest Pain ED Provider: Tavon Campuzano Dx/Rx/DC Orders Clinical Impression: GERD (gastroesophageal reflux disease), Atherosclerotic heart disease of [place] coronary artery without angina pectoris, Essential hypertension, Non-cardiac chest pain Instructions: GERD Lifestyle Changes, ED Chest Pain, Noncardiac, ED GERD (Adult) Prescriptions: No Action desonide 0.05 % lotion 1 applic TOPICAL DAILY RF: 0 ascorbic acid (vitamin C) 500 mg capsule 1,000 mg PO Q OTHER DAY RF: 0 metronidazole 0.75 % gel 1 applic topical BID PRN (Reason: Itching) RF: 0 pantoprazole 40 mg tablet,delayed release (DR/EC) 40 mg PO DAILY RF: 0 cholecalciferol (vitamin D3) 25 mcg (1,000 unit) tablet 50 mcg PO DAILY RF: 0 biotin-silicon zpvy-D-qapdktyw 5,000 mcg -10 mg-50 mg tablet extended release 1 tab PO DAILY RF: 0 oxybutynin chloride 5 mg tablet extended release 24hr 5 mg PO DAILY RF: 0 lisinopril 20 mg tablet 10 mg PO BID RF: 0 (DME) EasiVent Holding Chamber Spacer See Rx Instructions ea .ROUTE .MEDSUPPLY Qty: 1 RF: 0 aspirin 81 MG tablet,chewable 81 mg PO DAILY@0800 RF: 0 B-complex with vitamin C 1 EACH tablet 1 each PO DAILY RF: 0 mioohlgv-yjy-vobo-FA-lutein 1 EACH tablet 1 each PO DAILY RF: 0 calcium carb-mag ox-zinc sulf 334-134-5 mg tablet 1 tab PO Q OTHER DAY RF: 0 famotidine 20 mg tablet 20 mg PO DAILY RF: 0 metoprolol tartrate 25 mg tablet RF: 0 simvastatin 20 mg tablet 20 mg PO QHS Qty: 90 RF: 3 metoprolol tartrate 25 mg tablet 25 mg PO BID Qty: 180 RF: 3 methenamine hippurate 1 gram tablet 1 g PO Q OTHER DAY RF: 0 furosemide [Lasix] 20 mg tablet 20 mg PO DAILY Qty: 30 RF: 0 budesonide-formoterol 160-4.5 mcg/actuation HFA aerosol inhaler 2 puff inhalation BID Qty: 10.2 RF: 3 Primary Care Provider: Frantz Mckinney Referrals: Frantz Mckinney [Primary Care Provider] - 3-5 Days Disposition Disposition: Home, Self Care
[2021-06-08 07:37] VITALS: BP 116/39; PULSE 56; RESP 15; O2SAT 94
[2021-06-08 07:38] VITALS: O2SAT 98
[2021-06-08 07:44] LABS: Anion Gap 7 (5-15); BUN 54 mg/dL (7-18); BUN/Creat Ratio 26.7 RATIO (10-20); Calcium,Total 9.2 mg/dL (8.5-10.1); Chloride 102 mmol/L (98-107); Creatinine, Serum 2.02 mg/dL (0.55-1.02); EST Glomerular Filtration Rate 25 mL/min (>60); Est Glom Filt Rate - Afr Amer 30 mL/min (>60); Estimated Creatinine Clearance 14.89 ml/min; Glucose 97 mg/dL (74-106); Potassium 4.1 mmol/L (3.5-5.1); Sodium Level 137 mmol/L (136-145)
[2021-06-08 07:50] LABS: Troponin-I HS (w/2H Reflex) 20 pg/mL (3.0-54.0)
--- NOTE | 2021-06-08 08:00 | RAD_ITS ---
STUDY: X-RAY CHEST REASON FOR EXAM: Female, 86 years old. chest pain TECHNIQUE: AP COMPARISON: 03/04/2021 FINDINGS: EKG leads project over the chest. The lungs are clear and expanded. There is pleural fibrotic thickening of the left lung apex. Normal size heart. Normal mediastinum and delfina. Normal visualized pulmonary arteries. Atherosclerosis of the aortic arch. Normal visualized thoracic spine. Normal visualized ribs, clavicles, and shoulders. There is no demonstrated abnormality of the visualized soft tissue structures of the upper abdomen. RAD/Chest 1 View (Portable) IMPRESSION: Nonacute portable x-ray examination of the chest. Electronically Signed: Glen Sousa MD (Brooks) at 8:13 EDT ,
[2021-06-08 08:16] VITALS: BP 107/40; PULSE 56; RESP 10; O2SAT 95
[2021-06-08 09:11] VITALS: BP 110/43; PULSE 59; RESP 14; O2SAT 97
[2021-06-08 09:35] LABS: Reflex Troponin-HS? (from REC) Y
[2021-06-08 09:57] LABS: Troponin-I HS 19 pg/mL (3.0-54.0)
[2021-06-08 10:05] VITALS: BP 109/71; PULSE 60; RESP 23
== END 2021-06-08 10:28 | disposition home or self-care (01) ==
PROVIDERS: Emergency Provider Emergency Medicine; Visit Provider Emergency Medicine
DX: R07.89 Other chest pain (principal); I11.0 Hypertensive heart disease with heart failure; I50.9 Heart failure, unspecified; K21.9 Gastro-esophageal reflux disease without esophagitis; I25.10 Atherosclerotic heart disease of native coronary artery without angina pectoris; Z87.891 Personal history of nicotine dependence; E78.00 Pure hypercholesterolemia, unspecified; Z82.49 Family history of ischemic heart disease and other diseases of the circulatory system
CPT/HCPCS: 36415; 71045; 80048; 84484; 85025; 93005; 99285; A4216

== ENCOUNTER → 2021-08-07 | Outpatient (CLI) | payer MEDICARE, OTHER, SELFPAY ==
[2021-08-07 09:18] LABS: Absolute Lymphocyte Count 2.16 X10^3/uL (0.83-4.51); Absolute Neutrophil Count 3.4 X10^3/uL (2.0-7.7); Basophil# 0.04 X10^3/uL; Basophil% 0.6 % (0-1); Eosinophil# 0.48 X10^3/uL; Eosinophils% 7.2 % (0-5); Hematocrit 31.1 % (37-47); Hemoglobin 10.5 g/dL (12.0-15.0); Lymphocyte # 2.16 X10^3/ul (0.83-4.51); Lymphocyte % 32.2 % (19-41); Mean Corp Hgb Conc 33.8 g/dL (32-36); Mean Corpuscular Hgb 33.3 pg (27.0-32.0); Mean Corpuscular Volume 98.7 fL (81-99); Mean Platelet Vol. 10.8 fl (6.2-12.0); Monocyte# 0.61 X10^3/uL; Monocyte% 9.1 % (0-10); NRBC Flagged by Analyzer 0 % (0-5); Neutrophil # 3.39 X10^3/uL (2.7-7.7); Neutrophil % 50.5 % (47-70); Platelet Count 171 K/mm3 (150-450); RBC Distribution Width CV 12.1 % (11.6-14.6); RBC Distribution Width SD 43.8 fl (35.1-43.9); Red Blood Count 3.15 M/mm3 (4.2-5.4); White Blood Count 6.7 K/mm3 (4.4-11.0)
[2021-08-07 09:45] LABS: Anion Gap 6 (5-15); BUN 68 mg/dL (7-18); BUN/Creat Ratio 31.1 RATIO (10-20); Calcium,Total 9.6 mg/dL (8.5-10.1); Chloride 107 mmol/L (98-107); Creatinine, Serum 2.19 mg/dL (0.55-1.02); EST Glomerular Filtration Rate 23 mL/min (>60); Est Glom Filt Rate - Afr Amer 28 mL/min (>60); Glucose 97 mg/dL (74-106); Potassium 4.3 mmol/L (3.5-5.1); Sodium Level 140 mmol/L (136-145)
[2021-08-07 09:47] LABS: AST(SGOT) 12 U/L (15-37); Alanine Aminotransfer ALT/SGPT 13 U/L (13-56); Albumin, Serum 3.9 g/dL (3.2-5.0); Alkaline Phosphatase 34 U/L (45-117); Bilirubin, Direct 0.11 mg/dL (0.00-0.30); Cholesterol 176 mg/dL (200); Globulin 3.1 g/dL (2.2-4.2); High Density Lipoprotein 60 mg/dL; Triglycerides 90 mg/dL; Very Low Density Lipoprotein 18 mg/dL (5-40)
[2021-08-07 09:52] LABS: BNP,B-Type NATRIURETIC PEPTIDE 505.5 pg/mL (0-100)
== END | disposition home or self-care (01) ==
LOC: LAB 08:35
PROVIDERS: Physician Assistant Medical; Visit Provider Internal Medicine Cardiovascular Disease
DX: E78.00 Pure hypercholesterolemia, unspecified (principal); K21.9 Gastro-esophageal reflux disease without esophagitis; R06.02 Shortness of breath; R06.00 Dyspnea, unspecified
CPT/HCPCS: 36415; 80048; 80061; 80076; 83880; 85025

== ENCOUNTER 2021-09-29 12:54 | Day surgery (SDC) | payer MEDICARE, OTHER, SELFPAY ==
[2021-09-29 13:26] VITALS: BP 123/56; PULSE 60; RESP 18; TEMP 36.2; O2SAT 100; BMI 23.1
[2021-09-29] MEDS: Lactated Ringers 1,000 ML 15 ML IV (13:30)
--- NOTE | 2021-09-29 13:33 | HP.PCM_ITS ---
History and Physical Date of Admission: 09/29/21 ?86 F who presents to the office today for f/u ED visit where she was seen for CP where it was determined to be due to acid reflux. She had been on pantoprazole for years. The ED added famotidine and had her take TUMS with every meal and at bedtime. She took the TUMS? routinely for 2 wks. She still takes both the pantoprazole and the famotidine. She hasn't had chest pain. She has had acid reflux for which she has taken TUMS prn in the last 2 weeks. She doesn't recall having an EGD ever. No diarrhea or constipation. No hematochezia or melena. She had one night of diarrhea with fecal incontinence, wasn't ill at the time. Otherwise bowels have been normal, no diarrhea or constipation. Voice has been hoarse, high-pitched since 2020. She has seen Dr Moncada at [facility], no cause found. No sore throat. 08/20/21 hgb 10.2, iron, 75, ferritin 59 Comorbidities include anemia, anxiety, coronary artery disease, CHF, depression, hypertension, hyperlipidemia, heart valve disease ROS Const Constitutional: Positive for fatigue ENT ENT: No difficulty swallowing Gastro GI: Positive for heartburn; No abdominal pain, belching, bloating, change in bowel habits, change in stool character, coffee ground emesis, constipation, cramping, diarrhea, difficulty swallowing, feeling full early, excessive flatus, incontinent of stools, Vomiting blood/hematemesis, Blood in stool, loose stools, Black,tarry stools, nausea/dyspepsia, pain with swallowing, vomiting or other Musc Musculoskeletal: Positive for sciatica; No joint pain Skin Skin: No yellowing of the eye or itchy eyes Psych Psychiatric: No anxiety and No depression Endo Endocrine: Positive for fatigue Aller/Imm Allergy/Immunologic: No itchy eyes [place] Antonio/Lymp Hematologic/Lymphatic: No easy bleeding or easy bruising Exam Const General: cooperative, comfortable and well developed Orientation: alert, awake and oriented x3 Eyes General: appearance normal, both eyes and all related structures Resp Effort & Inspection: normal respiratory effort GI Inspection: normal to inspection Palpation: soft, no hepatosplenomegaly, no masses and nontender Psych Mood: euthymic mood Affect: normal affect Quality Reporting Tobacco Screening ([facility] 138) Smoking Status: Former smoker Assessment and Plan Assessment and Plan (1) GERD (gastroesophageal reflux disease): ?Status:?Chronic (2) Hoarseness of voice: ?Status:?Acute ?Plan: 86-year-old female with GERD no longer adequately controlled with PPI therapy.? Unclear if hoarse voice is related or not.? We will schedule her for EGD.? She will continue pantoprazole 40 mg every morning. I have re-examined the patient. There are no clinical changes since date of exam.
--- NOTE | 2021-09-29 14:00 | EGD_PTH ---
PATIENT: CHRISTOPHER PINA LOC: EN U#:[id number] AGE/SX: 86/F ROOM: RE09/29/[address]: Dr. Fernando Montemayor DO : 1935 BED: DIS: 09/29/2021 SPEC #: [id number] RECD: 09/29/21 17:09 STATUS: DIMITRI RUBI #: [id number] ALTA: 09/29/21 14:[address]: Fernando Montemayor DEPT: SURGICAL PATHOLOGY RECD BY: Anya Campbell ENTERED: 09/30/21 07:37 SP TYPE: EGD BIOPSY EHSAN DR: Frantz Mckinney Tissues: Esophageal mucous membrane Procedures: Surgery Specimen Level IV HEADER [place] [place] DIAGNOSIS: GERD, hoarseness of voice TISSUE SUBMITTED: Random esophageal biopsy MICROSCOPIC DIAGNOSIS Random esophageal biopsy: Fragments of squamous mucosa with mild chronic inflammation. COMMENT Correlation with clinical, endoscopic findings and appropriate follow up are necessary. MICROSCOPIC DESCRIPTION Slides are reviewed. GROSS DESCRIPTION Received is one container labeled with the patient name and designated random esophageal. The specimen consists of two irregular fragments of light ellis soft tissue that in aggregate measure 1.0 x 0.4 x 0.1 cm. The specimen is totally submitted in one cassette. /SJ:cc 09/30/21 TC:3 [facility]:[id number]
--- NOTE | 2021-09-29 14:54 | OP.EGD_ITS ---
Patient Name: Franci Rodriguez Procedure Date: 09/29/2021 2:26 PM Date of : 1935 Age: 86 Procedure: Upper GI endoscopy Indications: Suspected esophageal reflux Providers: Fernando Montemayor DO Medicines: Monitored Anesthesia Care Patient Profile: This is an 86 year old female. Refer to note in patient chart for documentation of history and physical. Patient has symptoms. Complications: No immediate complications. Procedure: Pre-Anesthesia Assessment: - Prior to the procedure, a History and Physical was performed, and patient medications and allergies were reviewed. The risks and benefits of the procedure and the sedation options and risks were discussed with the patient. All questions were answered and informed consent was obtained. Patient identification and proposed procedure were verified by the physician in the pre-procedure area. Mental Status Examination: alert and oriented. Airway Examination: normal oropharyngeal airway and neck mobility. Respiratory Examination: clear to auscultation. CV Examination: normal. Prophylactic Antibiotics: The patient does not require prophylactic antibiotics. Prior Anticoagulants: The patient has taken no previous anticoagulant or antiplatelet agents. ASA Grade Assessment: II - A patient with mild systemic disease. After reviewing the risks and benefits, the patient was deemed in satisfactory condition to undergo the procedure. The anesthesia plan was to use moderate sedation / analgesia (conscious sedation). Immediately prior to administration of medications, the patient was re-assessed for adequacy to receive sedatives. The heart rate, respiratory rate, oxygen saturations, blood pressure, adequacy of pulmonary ventilation, and response to care were monitored throughout the procedure. The physical status of the patient was re-assessed after the procedure. After obtaining informed consent, the endoscope was passed under direct vision. Throughout the procedure, the patient's blood pressure, pulse, and oxygen saturations were monitored continuously. The gastroscope was introduced through the mouth, and advanced to the second part of duodenum. The upper GI endoscopy was accomplished without difficulty. The patient tolerated the procedure well. Scope In: 2:42:03 PM Scope Out: 2:46:03 PM Total Procedure Duration Time 0 hours 4 minutes 0 seconds Findings: The examined esophagus was normal. Biopsies were obtained from the proximal and distal esophagus with cold forceps for histology of suspected eosinophilic esophagitis. A small hiatal hernia was present. The cardia and gastric fundus were normal on retroflexion. The first portion of the duodenum was normal. Impression: - Normal esophagus. Biopsied. - Small hiatal hernia. - Normal first portion of the duodenum. Recommendation: - Discharge patient to home. - Resume previous diet. - Continue present medications. - Await pathology results. Procedure Code(s): --- Professional --- 34550, Esophagogastroduodenoscopy, flexible, transoral; with biopsy, single or multiple CPT copyright 2017 [employer]. All rights reserved. The codes documented in this report are preliminary and upon bus company manager review may be revised to meet current compliance requirements. Fernando Montemayor DO 09/29/2021 2:53:29 PM This report has been signed electronically. Number of Addenda: 1 Note Initiated On: 09/29/2021 2:26 PM Addendum Number: 1 Addendum Date: 11/19/2021 6:18:58 AM MAC was used as sedation for this procedure. Fernando Montemayor DO 11/19/2021 6:19:02 AM This report has been signed electronically.
--- NOTE | 2021-09-29 14:54 | OP.CCLET_ITS ---
11/19/2021 Frantz Mckinney Re : Upper GI endoscopy procedure for Franci Rodriguez Dear Hank This procedure was performed on Wednesday, September 29, 2021. My impressions and recommendations are as follows: Impressions : - Normal esophagus. Biopsied. - Small hiatal hernia. - Normal first portion of the duodenum. Recommendations : - Discharge patient to home. - Resume previous diet. - Continue present medications. - Await pathology results. My findings are described in the full procedure note, which is enclosed. If I can be of further assistance, please feel free to contact me at . Sincerely, Fernando Montemayor DO 09/29/2021 2:53:29 PM This report has been signed electronically.
[2021-09-29 14:55] VITALS: BP 112/38; BP 123/56; PULSE 79; RESP 14; TEMP 36.8; O2SAT 100
[2021-09-29 15:00] VITALS: BP 105/47; BP 123/56; PULSE 76; RESP 14; O2SAT 100
[2021-09-29 15:05] VITALS: BP 123/56; BP 126/37; PULSE 77; RESP 14; O2SAT 100
[2021-09-29 15:10] VITALS: BP 121/45; BP 123/56; PULSE 71; RESP 14; TEMP 36.8; O2SAT 100
[2021-09-29 16:07] VITALS: BP 123/56
== END 2021-09-29 16:07 | disposition home or self-care (01) ==
LOC: EN 12:55 → AC 12:58
PROVIDERS: Visit Provider Internal Medicine Gastroenterology
PROC: 0DJ08ZZ Inspection of Upper Intestinal Tract, Via Natural or Artificial Opening Endoscopic (ICD-10-PCS; CPT 43235; principal; 2021-09-29 13:55)
DX: K44.9 Diaphragmatic hernia without obstruction or gangrene (principal); R49.0 Dysphonia; K21.9 Gastro-esophageal reflux disease without esophagitis; Z87.891 Personal history of nicotine dependence; R53.83 Other fatigue; I35.8 Other nonrheumatic aortic valve disorders; I25.10 Atherosclerotic heart disease of native coronary artery without angina pectoris; I34.0 Nonrheumatic mitral (valve) insufficiency; E78.00 Pure hypercholesterolemia, unspecified; R05.9 Cough, unspecified
CPT/HCPCS: 43239; 88305; J7120; J2405

== ENCOUNTER → 2021-10-23 | Outpatient (CLI) | payer MEDICARE, OTHER, SELFPAY ==
--- NOTE | 2021-10-23 09:25 | RAD_ITS ---
STUDY: X-RAY - ESOPHAGUS (BARIUM SWALLOW) WITH FLUOROSCOPY REASON FOR EXAM: Female, 86 years old. Difficulty swallowing large pills, hoarse voice TECHNIQUE: 20 view(s) of the esophagus were obtained following swallowing of barium. FLUOROSCOPY TIME (if supplied): (55 seconds) minutes/seconds COMPARISON: None. FINDINGS: There is no demonstrated esophageal foreign body. There is no demonstrated stricture or mucosal abnormality. Normal gastroesophageal junction, without a demonstrated hiatal hernia. The patient ingested a 12 mm tablet of barium without any difficulty. There is atherosclerotic calcification of the aortic arch with tortuosity of the descending aorta. Normal visualized pulmonary parenchyma. There are diffuse degenerative changes of the visualized thoracic spine. RAD/Esophagus Dual Contrast IMPRESSION: Normal plain film x-ray examination (barium swallow) of the esophagus. Electronically Signed: Mikel Saha MD at 13:46 EDT ,
== END | disposition home or self-care (01) ==
LOC: RAD 09:19
PROVIDERS: Referring Provider Nurse Practitioner Adult Health; Visit Provider Nurse Practitioner Adult Health
DX: R13.10 Dysphagia, unspecified (principal); R49.0 Dysphonia
CPT/HCPCS: 74221

== ENCOUNTER 2021-10-29 14:40 | Emergency (ER) | payer MEDICARE, OTHER, SELFPAY ==
[2021-10-29 14:44] VITALS: BP 91/41; PULSE 61; RESP 18; TEMP 36.8; O2SAT 99; BMI 23.6
--- NOTE | 2021-10-29 15:03 | EKG12_ITS ---
Test Reason : SYNCOPE Blood Pressure : / mmHG Vent. Rate : 062 BPM Atrial Rate : 062 BPM P-R Int : 214 ms QRS Dur : 108 ms QT Int : 430 ms P-R-T Axes : 076 034 106 degrees QTc Int : 436 ms Sinus rhythm with 1st degree A-V block Left ventricular hypertrophy with repolarization abnormality ( Sokolow-[place] , Rm product ) Cannot rule out Septal infarct , age undetermined Abnormal ECG Confirmed by ROGER NGUYEN, FRANCINE ([id number]), make up editor JAZMINE CRENSHAW ([id number]) on 10/31/2021 9:32:33 AM Referred By: Confirmed By:FRANCINE DURAN MD
--- NOTE | 2021-10-29 15:04 | EX.ED.DYSGE1 ---
HPI History of Present Illness Chief Complaint: Syncope Narrative Narrative: Patient presents via EMS with possible syncopal episode. She states that she has past medical history of hypertension and took her metoprolol in half of her lisinopril today. She was at the [facility] because she was supposed to present a patriotic blanket to a mechanical technologist. She did not get the chance to do that because she states she was sitting by herself, and felt lightheaded. She denies any fevers or chills. No cough. No nausea or vomiting, no diarrhea. She denies any pain. She states she felt mildly lightheaded but denies any headache. It was reported that someone saw her drop her papers but there was no witnessed syncopal episode. They present her for evaluation because of the lightheadedness and near syncope. [facility] Medical History Abnormal stress test Acute gastritis Alcohol use Anemia Anemia Anxiety Aortic valve sclerosis Atherosclerotic heart disease of [place] coronary artery without angina pectoris Bilateral carotid artery stenosis CAD (coronary artery disease) Cardiology follow-up encounter Carotid bruit CHF (congestive heart failure) Coronary artery disease Depression Encounter for long-term current use of high risk medication Essential hypertension Former smoker Gastric reflux GERD (gastroesophageal reflux disease) Hiatal hernia High cholesterol History of echocardiogram History of IBS History of stress test History of transesophageal echocardiography (ALAN) History of uterine fibroid Hoarseness Hypertension IBS (irritable bowel syndrome) Kidney disease Leg cramps Mitral valve disease Non-rheumatic mitral valve disease Nonrheumatic mitral valve regurgitation Palpitations Post-menopausal Pure hypercholesterolemia Shortness of breath on exertion Wears glasses Home Medications B-complex with vitamin C 1 each PO DAILY SUPPLEMENT 09/01/16 [History Last Taken 04/09/19] aspirin 81 mg chewable tablet 81 mg PO DAILY@0800 [facility] 09/01/16 [History Last Taken 04/09/19] multivit with gwrvgouq-tefh-UX-lutein 8 mg iron-400 mcg-300 mcg tablet 1 each PO DAILY SUPPLEMENT 09/01/16 [History Last Taken 04/09/19] metronidazole 0.75 % topical gel 1 applic topical BID PRN Itching 07/21/20 [History Last Taken Unknown] pantoprazole 40 mg tablet,delayed release 40 mg PO DAILY 07/21/20 [History Last Taken Unknown] metoprolol tartrate 25 mg tablet 25 mg PO BID BLOOD PRESSURE #180 tabs 12/01/20 [Rx Last Taken 09/29/21] biotin 5,000 mcg-silicon dioxide 10 hl-E-fjlyldak 50 mg tablet ER 1 tab PO MOWEFR 02/02/21 [History Last Taken Unknown] oxybutynin chloride 5 mg tablet,extended release 24 hr 5 mg PO DAILY 02/02/21 [History Last Taken Unknown] methenamine hippurate 1 gram tablet 1 g PO Q OTHER DAY 03/19/21 [History Last Taken Unknown] ascorbic acid (vitamin C) 500 mg capsule 1,000 mg PO Q OTHER DAY vitamin 04/02/21 [History Last Taken Unknown] calcium carbonate 334 mg-magnesium oxide 134 mg-zinc sulf 5 mg tablet 1 tab PO MOWEFR SUPPLEMENT 04/02/21 [History Last Taken Unknown] cholecalciferol (vitamin D3) 25 mcg (1,000 unit) tablet 20 mcg PO DAILY 08/12/21 [History Last Taken Unknown] lisinopril 10 mg tablet 5 mg PO DAILY 08/26/21 [History Last Taken Unknown] simvastatin 20 mg tablet 20 mg PO QHS CHOLESTEROL #90 tabs 08/28/21 [Rx Last Taken Unknown] ferrous sulfate 325 mg (65 mg iron) tablet (Iron (ferrous sulfate)) 65 mg PO DAILY 09/14/21 [History Last Taken Unknown] furosemide 20 mg tablet (Lasix) 20 mg PO DAILY #90 tabs 09/14/21 [Rx Last Taken Unknown] Allergy/AdvReac Type Severity Reaction Status Date / Time chlorhexidine Allergy Rash Verified 10/13/21 13:33 venom-honey bee Allergy Anaphylaxis Verified 10/13/21 13:33 [bee venom (honey bee)] hydrocodone bitartrate AdvReac Other Verified 10/13/21 13:33 [From Vicodin] quinine AdvReac Diarrhea Verified 10/13/21 13:33 Sulfa (Sulfonamide AdvReac Unknown Verified 10/13/21 13:33 Antibiotics) hospital bath wipes Allergy Intermediate rash Uncoded 10/13/21 13:33 Family History Father CAD (coronary artery disease) Hx CABG Myocardial infarction Mother Myocardial infarction CAD (coronary artery disease) Brother TIA (transient ischemic attack) Surgical History History of cardiac catheterization History of hernia repair (~12/2006) History of hysteroscopy History of local excision of skin lesion History of lung surgery History of right and left heart catheterization (LHC) (~03/06/21) History of tubal ligation Hx of colonoscopy Social History household members: none Smoking Status: Former smoker alcohol intake: current alcohol intake frequency: 0-2 drinks per day Alcohol type: other details: Few swigs of Kendal's per day substance use type: does not use caffeine: Yes Type: carbonated beverages and tea what type of physical activity do you participate in: other frequency: daily duration: 15-30 minutes/day seatbelt use: always do you feel safe at home: Yes ROS ROS ED ROS Narrative Constitutional: No fever, no chills. HEENT: No sore throat. No neck pain. No loss of vision. No rhinorrhea. Cardiovascular: No chest pain. No palpitations. No pedal edema. Respiratory: No cough, no shortness of breath. Abdominal: No abdominal pain. No nausea. No vomiting. Genitourinary: No dysuria. No hematuria. Musculoskeletal: No myalgias. No arthralgias. Neurologic: No headaches. No dizziness. Positive lightheadedness. Skin: No rash. No change in color. Psychiatric: No depression. No anxiety. EXAM Physical Exam Narrative Exam Narrative: Afebrile. Vital signs noted. HEENT: Normocephalic. Atraumatic. PERRL, EOMI. Neck soft and supple. No point tenderness or step off. Cardiovascular: Regular rate and rhythm. No murmurs, rubs, or gallops appreciated. Respiratory: No tachypnea. Lungs clear to auscultation bilaterally. Gastrointestinal: Abdomen soft, nontender, with normoactive bowel sounds. No rebound or guarding. Neurological: Awake. Alert. Oriented x3. Nonfocal, nonlateralizing. Skin: No rash. Normal color. No pallor. Musculoskeletal: No pedal edema. Full range of motion extremities. Const Vital Signs: 10/29/21 14:44 10/29/21 17:16 Temperature 98.3 F Temperature Source Oral Pulse Rate 61 Respiratory Rate 18 Blood Pressure 91/41 L 124/46 H Blood Pressure Mean 57 72 Pulse Ox 99 Oxygen Delivery Method Room Air MDM MDM MDM Narrative Medical decision making narrative: Patient is hypotensive here at 91/41. However, she is still mentating well. She will be bolused IV fluids. Comprehensive work-up was pursued. EKG was obtained and interpreted by myself. It demonstrates normal sinus rhythm at 62 bpm without ectopy or acute ST changes. No STEMI. Chest x-ray in 1 view interpreted by myself also shows no evidence of an acute process. CBC is grossly normal with a normal white count of 8.0, hemoglobin stable at 9.9, hematocrit 29.4. Electrolyte panel is grossly unremarkable except for BUN of 75 with a creatinine of 2.4, but she has chronic kidney injury. Urinalysis shows 10-25 WBCs but there are 5-10 squamous epithelial cells. I do not feel antibiotics are indicated as she is not having dysuria or hematuria. There are negative ketones in her urine. At this point in time, her blood pressure will be rechecked. I do feel that her near syncope may be related to her transient hypotension. She did state that they recently reduced her lisinopril to 10 mg and she takes it at night most likely because they are titrating downward. Her repeat blood pressure is now 124 systolic. At this point in time, I feel she be discharged safely home with follow-up. Return instructions to the emergency department were reviewed. Disposition is discharged home in stable condition. Lab Data Attestation: I reviewed the patient's lab results. Labs: Laboratory Results - last 24 hr 10/29/21 10/29/21 10/29/21 15:33 15:33 16:01 WBC 8.0 RBC 2.98 L Hgb 9.9 L Hct 29.4 L MCV 98.7 MCH 33.2 H MCHC 33.7 RDW Std Deviation 43.1 RDW Coeff of Wilner 11.9 Plt Count 140 L MPV 10.8 Immature Gran % (Auto) 0.600 Neut % (Auto) 68.6 Lymph % (Auto) 16.7 L [place] % (Auto) 8.1 Eos % (Auto) 5.5 H Baso % (Auto) 0.5 Absolute Neuts (auto) 5.5 Absolute Lymphs (auto) 1.34 Nucleated RBC % 0 Sodium 138 Potassium 4.7 Chloride 102 Carbon Dioxide 25.0 Anion Gap 11 BUN 75 H Creatinine 2.40 H Estim Creat Clear Calc 12.53 Est GFR (MDRD) Af Amer 25 L Est GFR (MDRD) Non-Af 20 L BUN/Creatinine Ratio 31.2 H Glucose 134 H Calcium 9.4 Total Bilirubin 0.40 AST 13 L ALT 15 Alkaline Phosphatase 35 L Total Protein 6.4 Albumin 3.6 Globulin 2.8 Albumin/Globulin Ratio 1.3 Urine Color Yellow Urine Clarity Clear Urine pH 6.0 Ur Specific Brock 1.015 Urine Protein 15 H Urine Glucose (UA) Normal Urine Ketones Negative Urine Occult Blood Negative Urine Nitrite Negative Urine Bilirubin Negative Urine Urobilinogen Normal Ur Leukocyte Esterase 500 H Urine RBC 0 SEEN Urine WBC 10-25 SEEN Ur Squamous Epith Cells 5-10 SEEN Urine Bacteria 2+ Urine Mucus 0 SEEN Urine Yeast 2+ Radiography Diagnostic Testing: Clinical Impression(s) from Imaging Studies Chest X-Ray 10/29/21 15:45 IMPRESSION: There are no acute findings. Electronically Signed: Ryan Blanchard MD at 16:57 EDT Reading Location ID and State: [facility] / [place] , Service support , Discharge Plan Triage Chief Complaint: Syncope ED Provider: Gunner Nathan Dx/Rx/DC Orders Clinical Impression: Near syncope, Transient hypotension Instructions: ED Low Blood Pressure, All Causes, ED Near-Fainting, Uncertain Cause Prescriptions: No Action ascorbic acid (vitamin C) 500 mg capsule 1,000 mg PO Q OTHER DAY metronidazole 0.75 % gel 1 applic topical BID PRN (Reason: Itching) pantoprazole 40 mg tablet,delayed release (DR/EC) 40 mg PO DAILY cholecalciferol (vitamin D3) 25 mcg (1,000 unit) tablet 20 mcg PO DAILY biotin-silicon uxfj-U-jshmdxnu 5,000 mcg -10 mg-50 mg tablet extended release 1 tab PO MOWEFR oxybutynin chloride 5 mg tablet extended release 24hr 5 mg PO DAILY aspirin 81 MG tablet,chewable 81 mg PO DAILY@0800 B-complex with vitamin C 1 EACH tablet 1 each PO DAILY laiclzom-gja-iswl-FA-lutein 1 EACH tablet 1 each PO DAILY calcium carb-mag ox-zinc sulf 334-134-5 mg tablet 1 tab PO MOWEFR lisinopril 10 mg tablet 5 mg PO DAILY ferrous sulfate [Iron (ferrous sulfate)] 325 mg (65 mg iron) Tablet 65 mg PO DAILY metoprolol tartrate 25 mg tablet 25 mg PO BID Qty: 180 3RF methenamine hippurate 1 gram tablet 1 g PO Q OTHER DAY simvastatin 20 mg tablet 20 mg PO QHS Qty: 90 3RF furosemide [Lasix] 20 mg tablet 20 mg PO DAILY Qty: 90 3RF Primary Care Provider: Frantz Mckinney Referrals: Frantz Mckinney [Primary Care Provider] - Activity Restrictions/Additional Instructions: Follow-up with your primary care physician or purchasing/receiving. Continue keeping a log of your blood pressures. Disposition Disposition: Home, Self Care
[2021-10-29] MEDS: 0.9% Normal Saline 1,000 ML 1000 ML IV (15:31)
[2021-10-29 15:38] LABS: Absolute Lymphocyte Count 1.34 X10^3/uL (0.83-4.51); Absolute Neutrophil Count 5.5 X10^3/uL (2.0-7.7); Basophil# 0.04 X10^3/uL; Basophil% 0.5 % (0-1); Eosinophil# 0.44 X10^3/uL; Eosinophils% 5.5 % (0-5); Hematocrit 29.4 % (37-47); Hemoglobin 9.9 g/dL (12.0-15.0); Lymphocyte # 1.34 X10^3/ul (0.83-4.51); Lymphocyte % 16.7 % (19-41); Mean Corp Hgb Conc 33.7 g/dL (32-36); Mean Corpuscular Hgb 33.2 pg (27.0-32.0); Mean Corpuscular Volume 98.7 fL (81-99); Mean Platelet Vol. 10.8 fl (6.2-12.0); Monocyte# 0.65 X10^3/uL; Monocyte% 8.1 % (0-10); NRBC Flagged by Analyzer 0 % (0-5); Neutrophil # 5.49 X10^3/uL (2.7-7.7); Neutrophil % 68.6 % (47-70); Platelet Count 140 K/mm3 (150-450); RBC Distribution Width CV 11.9 % (11.6-14.6); RBC Distribution Width SD 43.1 fl (35.1-43.9); Red Blood Count 2.98 M/mm3 (4.2-5.4)
--- NOTE | 2021-10-29 15:45 | RAD_ITS ---
STUDY: X-RAY CHEST REASON FOR EXAM: Female, 86 years old. CAD TECHNIQUE: XR Chest 1 View COMPARISON: 06.08.21 FINDINGS: There is no demonstrated pleural abnormality. Normal size heart. Normal mediastinum and delfina. Normal visualized pulmonary arteries. There is atherosclerotic calcification of the aortic arch with tortuosity. There are diffuse degenerative changes of the visualized thoracic spine. There is degenerative osteoarthritis of the bilateral shoulders. There is no demonstrated abnormality of the visualized soft tissue structures of the upper abdomen. RAD/Chest 1 View (Portable) IMPRESSION: There are no acute findings. Electronically Signed: Ryan Blanchard MD at 16:57 EDT ,
[2021-10-29 15:59] LABS: ALB/GLOB Ratio 1.3 RATIO (0.9-2.4); AST(SGOT) 13 U/L (15-37); Alanine Aminotransfer ALT/SGPT 15 U/L (13-56); Albumin, Serum 3.6 g/dL (3.2-5.0); Alkaline Phosphatase 35 U/L (45-117); Anion Gap 11 (5-15); BUN 75 mg/dL (7-18); BUN/Creat Ratio 31.2 RATIO (10-20); Calcium,Total 9.4 mg/dL (8.5-10.1); Chloride 102 mmol/L (98-107); EST Glomerular Filtration Rate 20 mL/min (>60); Est Glom Filt Rate - Afr Amer 25 mL/min (>60); Estimated Creatinine Clearance 12.53 ml/min; Globulin 2.8 g/dL (2.2-4.2); Glucose 134 mg/dL (74-106); Potassium 4.7 mmol/L (3.5-5.1); Protein, Total 6.4 g/dL (6.4-8.2); Sodium Level 138 mmol/L (136-145)
[2021-10-29 16:07] LABS: Color, Urine Yellow (Yellow); Glucose, Dipstick Normal (Normal); Ketone-Dipstick Negative (Negative); Leukocyte Esterase-Dipstick 500 /ul (Negative); Mucous, Urine 0 SEEN /hpf (<or=2+); Nitrite-Dipstick Negative (Negative); Occult Blood-Urine Negative /ul (Negative); Protein-Dipstick 15 mg/dl (Negative); Red Blood Cells-Urine 0 SEEN /hpf (0-5); Specific Gravity, Urine 1.015 (1.002-1.030); Urine Bilirubin Dipstick Negative (Negative); Urine Clarity Clear (Clear); Urine Urobilinogen Normal (Normal)
[2021-10-29 16:25] LABS: Squamous Epithelial Cells - UA 5-10 SEEN /hpf (5-10); White Blood Cells 10-25 SEEN /hpf (0-5)
[2021-10-29 16:26] LABS: Bacteria 2+ /hpf (None Seen); Yeast-Urine 2+ /hpf (None Seen)
[2021-10-29 17:16] VITALS: BP 124/46
[2021-10-29 17:42] VITALS: BP 136/34; PULSE 84; RESP 17; O2SAT 99
== END 2021-10-29 17:43 | disposition home or self-care (01) ==
PROVIDERS: Emergency Provider Emergency Medicine; Visit Provider Emergency Medicine
DX: R55 Syncope and collapse (principal); I11.0 Hypertensive heart disease with heart failure; I50.9 Heart failure, unspecified; I95.9 Hypotension, unspecified; I25.10 Atherosclerotic heart disease of native coronary artery without angina pectoris; E78.00 Pure hypercholesterolemia, unspecified; Z79.899 Other long term (current) drug therapy; Z79.82 Long term (current) use of aspirin; Z87.891 Personal history of nicotine dependence
CPT/HCPCS: 71045; 80053; 81001; 85025; 93005; 96360; 99285

== ENCOUNTER → 2021-12-10 | Outpatient (CLI) | payer MEDICARE, OTHER, SELFPAY ==
[2021-12-10 10:41] LABS: Absolute Lymphocyte Count 2.09 X10^3/uL (0.83-4.51); Absolute Neutrophil Count 3.9 X10^3/uL (2.0-7.7); Basophil# 0.06 X10^3/uL; Basophil% 0.8 % (0-1); Eosinophil# 0.64 X10^3/uL; Eosinophils% 8.7 % (0-5); Hematocrit 32.5 % (37-47); Hemoglobin 11.1 g/dL (12.0-15.0); Lymphocyte # 2.09 X10^3/ul (0.83-4.51); Lymphocyte % 28.3 % (19-41); Mean Corp Hgb Conc 34.2 g/dL (32-36); Mean Corpuscular Volume 99.7 fL (81-99); Mean Platelet Vol. 11.1 fl (6.2-12.0); Monocyte# 0.65 X10^3/uL; Monocyte% 8.8 % (0-10); NRBC Flagged by Analyzer 0 % (0-5); Neutrophil # 3.92 X10^3/uL (2.7-7.7); Platelet Count 178 K/mm3 (150-450); RBC Distribution Width CV 12.1 % (11.6-14.6); RBC Distribution Width SD 44.6 fl (35.1-43.9); Red Blood Count 3.26 M/mm3 (4.2-5.4); White Blood Count 7.4 K/mm3 (4.4-11.0)
[2021-12-10 10:52] LABS: Protein:Creat Ratio 286 mg/g CRE (0-200)
[2021-12-10 11:27] LABS: PTHIN 42.1 pg/mL (18.4-80.1)
[2021-12-10 11:37] LABS: AST(SGOT) 12 U/L (15-37); Alanine Aminotransfer ALT/SGPT 17 U/L (13-56); Albumin, Serum 3.8 g/dL (3.2-5.0); Alkaline Phosphatase 43 U/L (45-117); Anion Gap 4 (5-15); BUN 56 mg/dL (7-18); BUN/Creat Ratio 30.8 RATIO (10-20); Bilirubin, Direct 0.12 mg/dL (0.00-0.30); Calcium,Total 8.8 mg/dL (8.5-10.1); Chloride 111 mmol/L (98-107); Cholesterol 185 mg/dL (200); Creatinine, Serum 1.82 mg/dL (0.55-1.02); EST Glomerular Filtration Rate 28 mL/min (>60); Est Glom Filt Rate - Afr Amer 34 mL/min (>60); Globulin 3.2 g/dL (2.2-4.2); Glucose 89 mg/dL (74-106); High Density Lipoprotein 60 mg/dL; Iron 91 ug/dL (50-170); Iron Binding Capacity,Total 300 ug/dL (250-450); PERCENT IRON SATURATION 30.3 % (15.0-55.0); Phosphorus 3.3 mg/dL (2.5-4.9); Potassium 4.5 mmol/L (3.5-5.1); Sodium Level 141 mmol/L (136-145); Thyroid Stim Hormone (TSH) 2.29 uIU/mL (0.358-3.74); Triglycerides 95 mg/dL; Very Low Density Lipoprotein 19 mg/dL (5-40)
== END | disposition home or self-care (01) ==
LOC: LAB 08:59
PROVIDERS: Referring Provider Nurse Practitioner Gerontology; Visit Provider Nurse Practitioner Gerontology
DX: N18.31 Chronic kidney disease, stage 3a (principal); R53.83 Other fatigue; E78.00 Pure hypercholesterolemia, unspecified
CPT/HCPCS: 36415; 80048; 80061; 80076; 82570; 83540; 83550; 83970; 84100; 84156; 84443; 85025

== ENCOUNTER → 2022-04-02 | Outpatient (CLI) | payer MEDICARE, OTHER, SELFPAY ==
[2022-04-02 10:19] LABS: Hematocrit 36.1 % (37-47); Hemoglobin 11.9 g/dL (12.0-15.0); Mean Corpuscular Hgb 32.9 pg (27.0-32.0); Mean Corpuscular Volume 99.7 fL (81-99); Mean Platelet Vol. 10.7 fl (6.2-12.0); Platelet Count 222 K/mm3 (150-450); RBC Distribution Width CV 11.9 % (11.6-14.6); RBC Distribution Width SD 43.1 fl (35.1-43.9); Red Blood Count 3.62 M/mm3 (4.2-5.4)
[2022-04-02 11:02] LABS: Vitamin B12 788 pg/mL (211-911)
[2022-04-02 11:36] LABS: ALB/GLOB Ratio 1.1 RATIO (0.9-2.4); AST(SGOT) 17 U/L (15-37); Alanine Aminotransfer ALT/SGPT 17 U/L (13-56); Albumin, Serum 3.9 g/dL (3.2-5.0); Alkaline Phosphatase 68 U/L (45-117); Anion Gap 10 (5-15); BUN 53 mg/dL (7-18); BUN/Creat Ratio 27.6 RATIO (10-20); Calcium,Total 9.2 mg/dL (8.5-10.1); Chloride 98 mmol/L (98-107); Creatinine, Serum 1.92 mg/dL (0.55-1.02); EST Glomerular Filtration Rate 26 mL/min (>60); Est Glom Filt Rate - Afr Amer 32 mL/min (>60); Globulin 3.5 g/dL (2.2-4.2); Glucose 119 mg/dL (74-106); Magnesium 2.6 mg/dL (1.6-2.6); Potassium 3.3 mmol/L (3.5-5.1); Protein, Total 7.4 g/dL (6.4-8.2); Sodium Level 135 mmol/L (136-145); Thyroid Stim Hormone (TSH) 2.44 uIU/mL (0.358-3.74)
[2022-04-05 16:31] LABS: Vitamin B1, Thiamine 223.5 nmol/L (66.5-200.0)
== END | disposition home or self-care (01) ==
LOC: MTLAB 09:19
PROVIDERS: Referring Provider Psychiatry & Neurology Neurology; Visit Provider Psychiatry & Neurology Neurology
DX: G31.84 Mild cognitive impairment of uncertain or unknown etiology (principal); R09.89 Other specified symptoms and signs involving the circulatory and respiratory systems
CPT/HCPCS: 36415; 80053; 82607; 82746; 83735; 84425; 84443; 85027

== ENCOUNTER → 2022-04-06 | Outpatient (CLI) | payer MEDICARE, OTHER, SELFPAY ==
--- NOTE | 2022-04-06 13:04 | ECHOD_ITS ---
Reason For Study: ATHEROSCLEROSIS Procedure This was a 2D Doppler, Color Flow transthoracic echocardiogram. The study was technically difficult. Exam performed in department. Left Ventricle Normal LV size. Moderate concentric left ventricular hypertrophy. Left ventricular systolic function is normal. The estimated ejection fraction is 70 %. Stage 2 diastolic dysfunction. No regional wall motion abnormalities noted. Right Ventricle Normal RV size. Normal systolic function. Atria The left atrium is mildly enlarged. Normal right atrium. No doppler evidence for ASD. Mitral Valve There is mild mitral annular calcification. Anterior leaflet diffuse mitral valve thickening. Moderately severe (3+) mitral valve insufficiency. Tricuspid Valve Normal tricuspid valve. Trivial tricuspid valve insufficiency. Right ventricular systolic pressure estimated to be 39 mmHg. Aortic Valve Trisinus/trileaflet aortic valve. Normal aortic valve. Pulmonic Valve The pulmonic valve is not well visualized. Trivial pulmonic valve insufficiency. Great Vessels Normal sized aortic root. Pericardium/Pleural No pericardial effusion. MMode/2D Measurements & Calculations RVDd: 3.3 cm IVSd: 1.3 cm Ao root diam: 2.5 cm LVPWd: 1.3 cm LAV(MOD-sp4): 85.3 ml LVAd ap4: 23.2 cm2 SV(MOD-sp4): 45.9 ml LVLd ap4: 7.3 cm EDV(MOD-sp4): 58.8 ml EDV(sp4-el): 62.1 ml LVAs ap4: 8.8 cm2 LVLs ap4: 6.3 cm ESV(MOD-sp4): 12.9 ml ESV(sp4-el): 10.5 ml EF(MOD-sp4): 78.1 % EF(sp4-el): 83.1 % SV(sp4-el): 51.6 ml LA A4 area: 25.1 cm2 LA dimension(2D): 3.7 cm RA A4 area: 9.2 cm2 Time Measurements MV dec time: 0.28 sec Doppler Measurements & Calculations MV E max david: 118.4 cm/sec Lat Peak E' David: 7.3 cm/sec Med Peak E' David: 4.0 cm/sec MV A max david: 89.3 cm/sec E/E' lat: 16.2 E/E' med: 29.8 MV E/A: 1.3 MV V2 max: 126.3 cm/sec Ao V2 max: 203.5 cm/sec MV max P.4 mmHg MV dec slope: 432.8 cm/sec2 Ao max P.6 mmHg MV V2 mean: 60.8 cm/sec Ao V2 mean: 151.3 cm/sec MV mean P.9 mmHg Ao mean P.0 mmHg MV V2 VTI: 37.5 cm Ao V2 VTI: 52.5 cm MR max david: 588.8 cm/sec PA V2 max: 148.0 cm/sec TR max david: 298.4 cm/sec MR max P.7 mmHg PA V2 mean: 99.3 cm/sec TR max P.6 mmHg MR mean david: 470.6 cm/sec MR mean P.2 mmHg MR VTI: 198.3 cm ECHO/Echo Complete Interpretation Summary The study was technically difficult. Left ventricular systolic function is normal. The estimated ejection fraction is 70 %. Moderate concentric left ventricular hypertrophy. The left atrium is mildly enlarged. There is mild mitral annular calcification. Anterior leaflet diffuse mitral valve thickening. Moderately severe (3+) mitral valve insufficiency. Trivial tricuspid valve insufficiency. Trivial pulmonic valve insufficiency. Right ventricular systolic pressure estimated to be 39 mmHg. Stage 2 diastolic dysfunction. Ordering Physician: Shon Shabazz Referring Physician: Shon Shabazz Performed By: Vivienne Carrasco RCS
--- NOTE | 2022-04-06 13:04 | CDU_ITS ---
Reason For Study: Left carotid bruit Rt. Velocities/BP Lt. Velocities/BP Prox CCA 99.8/7.7 cm/sec. Prox CCA 109.7/10.2 cm/sec. Mid CCA 91.2/6.5 cm/sec. Mid CCA 94.9/10.2 cm/sec. Dist CCA 77.7/7.7 cm/sec. Dist CCA 83.9/10.2 cm/sec. Prox ICA 69.1/5.3 cm/sec. Bulb,165.3/18.2 cm/sec. Mid ICA 97.4/12.6 cm/sec. Prox ICA 141.2/11.6 cm/sec. Dist ICA 88.7/9.3 cm/sec. Mid ICA 86.3/15.1 cm/sec. Rt. ICA/CCA = 1.07. Dist ICA 92.05/1106 cm/sec. Prox ECA 165.3 cm/sec. Lt. ICA/CCA = 1.49. Rt. Vert. 71.6/11.4 cm/sec. Prox ECA 358.2 cm/sec. Lt. Vert. 59.7/8 cm/sec. Right Extracranial There is homogeneous, smooth atherosclerotic plaque noted in the right common carotid artery. There is intimal thickening but no significant atherosclerotic plaque noted in the right internal carotid artery. There is heterogeneous, irregular atherosclerotic plaque noted in the right external carotid artery. Antegrade flow is noted in the right vertebral artery. Left Extracranial There is heterogeneous, irregular atherosclerotic plaque noted in the left common carotid artery. There is heterogeneous, irregular atherosclerotic plaque noted in the left internal carotid artery. There is heterogeneous, irregular atherosclerotic plaque noted in the left external carotid artery. Antegrade flow is noted in the left vertebral artery. There is heterogeneous, irregular atherosclerotic plaque noted in the left bulb. Procedure Carotid Duplex 54520. This is a Carotid Duplex examination using B-mode, color flow and specral Doppler. Exam performed in department. VL/Carotid Duplex Ultrasound Interpretation Summary Intimal thickening at the proximal right internal carotid artery with less than 50% stenosis Less than 50% stenosis right external carotid artery Irregular calcific plaque of the left carotid bulb and proximal internal and ex ternal carotid arteries Mildly elevated velocity within the left carotid bulb and 165.3 cm second peak systolic flow of undetermined significance. 50 to 69% stenosis of the left proximal internal carotid Greater than 50% stenosis of the left external carotid Patent and antegrade vertebrals bilaterally Findings appear to be comparable to a previous study of September 28, 2019 [email or web address] the carotid bulb findings were not commented upon at that time Ordering Physician: Vipul Santos Referring Physician: Frantz Mckinney Performed By: Eden Kaplan RVT
== END | disposition home or self-care (01) ==
LOC: CVS 13:02
PROVIDERS: Referring Provider Internal Medicine Cardiovascular Disease; Visit Provider Internal Medicine Cardiovascular Disease
DX: R09.89 Other specified symptoms and signs involving the circulatory and respiratory systems (principal); I25.10 Atherosclerotic heart disease of native coronary artery without angina pectoris; E78.00 Pure hypercholesterolemia, unspecified; I10 Essential (primary) hypertension; I34.0 Nonrheumatic mitral (valve) insufficiency
CPT/HCPCS: 93306; 93880

== ENCOUNTER → 2022-04-19 | Outpatient (CLI) | payer MEDICARE, OTHER, SELFPAY ==
--- NOTE | 2022-04-19 11:20 | MRI_ITS ---
EXAM: MR HEAD WITHOUT INTRAVENOUS CONTRAST CLINICAL INDICATION: Progressive dysphonia; mild cognitive impairment TECHNIQUE: Multiplanar and multisequence MR images of the brain were obtained without intravenous contrast. This report was created using [employer] report generation technology. COMPARISON: CT head without contrast 10/20/2020. FINDINGS: BRAIN AND EXTRA-AXIAL SPACES: T2 FLAIR hyperintensity foci in the white matter of both cerebral hemispheres are chronic white matter ischemic changes. No intra- or extra-axial hemorrhage. No intracranial mass or mass effect. Posterior fossa structures are unremarkable. Ventricles are appropriate for age. No hydrocephalus. Basal cisterns are patent. No diffusion restriction to suspect acute or subacute ischemic infarct. SELLA: Unremarkable. Normal sella turcica, pituitary gland, infundibular stalk, optic chiasm and hypothalamus. AUDITORY SYSTEM: Unremarkable. The internal auditory canals are patent. BONES/JOINTS: Unremarkable. No discrete lytic or blastic abnormalities. SINUSES: Unremarkable as visualized. Clear. MASTOID AIR CELLS: Unremarkable as visualized. Clear. ORBITS: Unremarkable as visualized. Both globes, extraocular muscles, optic nerves and retrobulbar fat appear unremarkable. VASCULATURE: Unremarkable as visualized. Normal flow voids in the major intracranial circulation. MRI/Brain without Contrast IMPRESSION: 1. No MRI evidence of acute or subacute ischemic infarct or acute intracranial abnormality. 2. Few small chronic white matter ischemic changes in both cerebral hemispheres. Electronically Signed: Gunner Baca MD at 14:38 EST ,
== END | disposition home or self-care (01) ==
PROVIDERS: Referring Provider Psychiatry & Neurology Neurology; Visit Provider Psychiatry & Neurology Neurology
DX: J38.3 Other diseases of vocal cords (principal); R49.0 Dysphonia; G31.84 Mild cognitive impairment of uncertain or unknown etiology
CPT/HCPCS: 70551

== ENCOUNTER 2022-04-28 11:30 | Outpatient (RCR) | payer MEDICARE, OTHER, SELFPAY ==
--- NOTE | 2021-10-29 09:28 | HP.SP.EV_ITS ---
History - History Date of Eval: 10/26/21 Medical Diagnosis (from RX): Dysphonia (R49.0) Date of Onset of Diagnosis: February 2021 Previous speech therapy: No Other Relevant Medical History/Diagnoses/Surgery: CHRISTOPHER PINA is an 86 year old female who presents to [facility] for a voice evaluation following nine months of dysphonia. Pt reporting 4 days before 2020 she was having a hard time breathing and went to the hospital - confirmed via chart review. Pt reporting when she left the hospital, she had a hoarse throat - Pt denying being intubated during this admission. Pt reports participating in blood work for thyroid which was unremarkable. Pt reporting ENT consult with Dr. Moncada at [place], ENT which was unremarkable, this [facility] [employer] did not have ENT paperwork to review. Smoking Status: Former smoker Hx Smoking: Yes - QUIT IN 1964 Hx Smoking Cessation Date: 03/26/1964 Hx Tobacco Use: No Hx Smoking Exposure: Yes - Pain Is pain an issue with your current prescribed condition?: No Patient Allergies - Allergies Allergies chlorhexidine Allergy (Verified 10/13/21 13:33) Rash venom-honey bee [bee venom (honey bee)] Allergy (Verified 10/13/21 13:33) Anaphylaxis hydrocodone bitartrate [From Vicodin] Adverse Reaction (Verified 10/13/21 13:33) Other BLOATED AND CONSTIPATION quinine Adverse Reaction (Verified 10/13/21 13:33) Diarrhea Sulfa (Sulfonamide Antibiotics) Adverse Reaction (Verified 10/13/21 13:33) Unknown hospital bath wipes Allergy (Intermediate, Uncoded 10/13/21 13:33) rash Subjective Voice - Intubation Was the Client intubated: Yes If yes, list date, duration, and explanation: February 2021 - Alcoholic Beverage Intake Intake: Daily Liquor (ounces): 3 Objective Voice - Date of Diagnosis Date of diagnosis: February 2021 Previous Speech Therapy (If yes, describe): No - Observational Assessment Pitch Range in octaves: Unable to change pitches Maximum Phonation Time in seconds: 2 S/Z Ratio: 2.3 Sustained /s/: 7 Sustained /z/: 3 Greater than 1:4 (indicates dysfunction): Yes CAPE-V - CAPE-V CAPE-V Administered: Yes CAPE: The Consensus Auditory-Perceptual Evaluation of Voice (CAPE-V) was developed as a tool for clinical auditory-perceptual assessment of voice. Its primary purpose is to describe the subjective severity of auditory-perceptual attributes of a voice problem, in a way that can be communicated among clinicians. Its secondary purpose is to contribute to hypotheses regarding the anatomic and physiological bases of voice problems and to evaluate the need for additional testing. In terms of severity, Pt is considered MILD between 0-40, MODERATE 40-75, and SEVERE >75. Date: 10/26/21 - Overall Severity Overall Severity (n/100): 70 Frequency: Consistent - Roughness Roughness (n/100): 32 - Breathiness Breathiness (n/100): 85 - Strain Strain (n/100): 17 - Pitch Pitch (n/100): 65 - Loudness Loudness (n/100): 70 - Comments Observations -: Pt's voice throughout extensive conversation revealed a quality containing falsetto pitch, aphonic, and pitch instability. Pt demonstrating difficulty with changing pitches from her baseline falsetto pitch. Pt reporting no pain with her voice as well as no strain, despite being perceived as strained to maintain falsetto. Pt unable to maintain prolonged voicing of Z (>3 sec) however, able to voice in short bursts at the beginning of the task. Pt with quick, intermittent voicing during conversation when emphasizing a word with greater volume. During conversation, Pt revealing myriad of personal facts with no prompting including significant marital stressors she experienced prior to her 's passing in 1995 (e.g., buying a house w/o him; getting a job against his desire; etc.). Pt also revealing family facts of other people who are passing away in her family and that this upsets her. Pt reports being a lover of cats and having her current cat for 8 years now d/t her first cat dying after 15.5 years. Pt appearing to have significant psychosocial characteristics. Plan - Plan Plan: Will recommend Pt for skilled outpatient speech therapy to address mild-moderate deficits in vocal function characterized by dysphonia, vocal tension, and impaired volitional control of respiration. Pt would benefit from training in identifying instances of vocal abuse, providing vocal hygiene solutions, training in diaphragmatic breathing, voice facilitation training, and counseling consult. Without skilled speech therapy Pt is at risk for continued vocal abuse and feelings of isolation in a variety of social situations. - Recommendations Treatment Warranted: Yes Treatment Warranted: Voice Comment: MBSS may be warranted given Pt's complaints of large pills sticking. - Frequency Frequency: 1x/Week Duration: 6 Weeks - Goals that are Established Determination:: Goals will be added/modified as deemed necessary and appropriate. Therapy will be discontinued when results of re-evaluation indicate therapy is no longer needed or lack of progress has been documented. - Goal #1-5 Goal #1: To reduce vocal fold tension, Jossie will demonstrate relaxation techniques with 80% acc with min cues. Goal #2: Jossie will establish volitional control of respiration evidenced by utilization of diaphragmatic breathing during structured tasks within 4 weeks with 100% accuracy independently. Goal #3: Jossie will utilize voice facilitation and resonance training to initiate voicing 80% of the time at the short conversation level with fading cues within 6 weeks. Goal #4: Jossie will participate in a counseling consult to assist with alleviating environmental stressors and overall tension. Education - Patient has Indicated that the Following Identified Educational Needs: None The Patient has indicated that they have no educational or learning abilities that may effect their care.: Yes - Patient Instruction Patient Education: Diagnosis, Treatment Plan, Goals Other Education: Requested ENT records to review laryngoscopy results. Person Taught: Patient Teaching Method: Discussion Response to teaching: Return demonstration, Verbalize understanding, Reinforcement needed
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
== END 2022-04-28 19:00 | disposition home or self-care (01) ==
LOC: SP 11:30
PROVIDERS: Referring Provider Nurse Practitioner Adult Health; Visit Provider Nurse Practitioner Adult Health
DX: R49.0 Dysphonia (principal); R49.9 Unspecified voice and resonance disorder
CPT/HCPCS: 92507; 92524

== ENCOUNTER → 2022-05-27 | Outpatient (CLI) | payer MEDICARE, OTHER, SELFPAY ==
[2022-05-27 10:08] LABS: Anion Gap 10 (5-15); BUN 52 mg/dL (7-18); Calcium,Total 9.6 mg/dL (8.5-10.1); Chloride 101 mmol/L (98-107); EST Glomerular Filtration Rate 25 mL/min (>60); Est Glom Filt Rate - Afr Amer 30 mL/min (>60); Glucose 114 mg/dL (74-106); Potassium 3.7 mmol/L (3.5-5.1); Sodium Level 137 mmol/L (136-145); T4 Free Direct 1.13 ng/dL (0.76-1.46); Thyroid Stim Hormone (TSH) 1.85 uIU/mL (0.358-3.74)
== END | disposition home or self-care (01) ==
LOC: PAVLAB 09:10
PROVIDERS: PCP Family Medicine; Referring Provider Nurse Practitioner Acute Care; Visit Provider Nurse Practitioner Acute Care
DX: R06.02 Shortness of breath (principal); R09.89 Other specified symptoms and signs involving the circulatory and respiratory systems; R49.0 Dysphonia; E78.00 Pure hypercholesterolemia, unspecified; D64.9 Anemia, unspecified
CPT/HCPCS: 36415; 80048; 84439; 84443

== ENCOUNTER → 2022-06-08 | Outpatient (CLI) | payer MEDICARE, OTHER, SELFPAY ==
--- NOTE | 2022-06-08 14:27 | CT_ITS ---
STUDY: CT CHEST WITHOUT CONTRAST REASON FOR EXAM: Female, 87 years old. 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 Multiplanar coronal and sagittal images were reformatted. Individualized dose optimization techniques were used for this CT. COMPARISON: Comparison is made with prior CT scan of thorax dated February 04, 2021. FINDINGS: CHEST There are small benign-appearing bilateral axillary lymph nodes. Stable scarring at the lung apices slightly more prominent on the left side. The previously seen bilateral pleural effusions have resolved. There is no demonstrated pleural abnormality. There are calcifications of the coronary arteries. There are multiple small lymph nodes within the mediastinum, which are normal in size and morphology most compatible with reactive lymph hyperplasia. Normal hilar regions. Normal unenhanced pulmonary arteries. There is atherosclerotic calcification of the aortic arch with tortuosity and elongation of the aortic arch and descending thoracic aorta. There is demineralization of the thoracic spine. Increased kyphosis. There is no demonstrated abnormality of the visualized upper abdomen. CT/Chest without Contrast IMPRESSION: Scarring at the lung apices. No acute abnormality is seen. Electronically Signed: Mikel Saha MD at 9:23 EDT ,
== END | disposition home or self-care (01) ==
LOC: CT 14:27
PROVIDERS: PCP Family Medicine; Referring Provider Nurse Practitioner Acute Care; Visit Provider Nurse Practitioner Acute Care
DX: J38.01 Paralysis of vocal cords and larynx, unilateral (principal)
CPT/HCPCS: 71250

== ENCOUNTER 2022-06-30 11:00 | Outpatient (RCR) | payer MEDICARE, OTHER, SELFPAY ==
--- NOTE | 2022-09-13 10:01 | HP.SP.DC ---
Discharge Summary Discharged: Discharge: CHRISTOPHER PINA is a 87 year old female who presented to [facility] on 10/29/2021 d/t concerns with dysphonia by Guillermina Newberry NP. Pt complaint of dysphonia began in January 2021 and had persisted since. Following evaluation, Pt participated in 19 additional treatment visits. At the time of her evaluation in October 2021, I asked her if she participated in an ENT evaluation, and she reported yes, she had seen Dr. Moncada and that the results were unremarkable. I asked her in April 2022 about returning to ENT to participate in another laryngoscopy, and she reported never having a first one. She most recently brought to light that her visit with ENT in October was in fact for her ears and that it was recommended she return for an appointment for her voice ? which she did not follow up on. In April 2022, following re-evaluation, Jossie had made minimal progress since her initial evaluation. 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 Per Dr. Santos?s recommendation, Jossie trialed Baclofen, however she has reported adverse effects and has stopped taking the medication at the recommendation of her home health nurse, per patient?s report. After she relayed this information to ST, it was appropriate to rx a follow up visit with the ENT. She was agreeable to seeing ENT following education of how a scope could help objectively assess her vocal folds. Following her appt with Dr. 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 Dr. Moncada also commented dysphonia and breathiness of her voice is due to the paralysis of the left true vocal cord. The etiology is most likely in the low where the recurrent laryngeal nerve is compromised. She needs a CT of the chest to determine what is going on in her lung. Dr. Moncada rx Pt participate in chest CT to determine etiology of paralysis. ST coordinating a CT order from pulmonology. Dr. Reyes reporting on 06/23/22 following an office visit, Patient appears to be doing okay from a respiratory standpoint. CT of the chest does not show any mediastinal mass to suggest an etiology for her left vocal cord dysfunction. Patient is not complaining of a lot of respiratory complaints to suggest that additional testing would be needed at this time. We will continue to monitor clinically. Asked Pt at the time to return to to discuss her pulmonology appt and future POC but a/o 09/13/22, have not heard back from Pt. She will be d/c from speech therapy caseload at this time, but will re-assess following script from physician. Thank you for allowing me to participate in the care of your Pt.
== END 2022-06-30 19:00 | disposition home or self-care (01) ==
LOC: SP 11:00
PROVIDERS: PCP Family Medicine; Referring Provider Nurse Practitioner Adult Health; Visit Provider Nurse Practitioner Adult Health
DX: R49.0 Dysphonia (principal); R49.9 Unspecified voice and resonance disorder
CPT/HCPCS: 92507

== ENCOUNTER → 2022-07-15 | Outpatient (CLI) | payer MEDICARE, OTHER, SELFPAY ==
--- NOTE | 2022-07-15 13:45 | BI_ITS ---
MAMMOGRAPHY - BILATERAL SCREENING REASON FOR EXAM: Female, 87 years old. Routine annual screening examination. PERTINENT HISTORY: Non-contributory. TECHNIQUE: Digital bilateral breast keanu (3D mammographic acquisition) in the CC and MLO projections. 2-D mediolateral oblique (MLO) and craniocaudad (CC) views of both breasts were obtained. CAD: Full Field Digital Mammography with Computer Added Detection was performed. COMPARISON: Comparison is made with prior outside examination dated March 26, 2021. FINDINGS: Breast Composition: The breasts are heterogeneously dense, which may obscure small masses. There are no dominant masses or suspicious calcifications. No other significant abnormalities are identified. There has been no significant change since the prior study. BI/SCRN MAMM (CAD)W/KEANU BILAT IMPRESSION: Stable bilateral screening mammogram. Yearly follow-up mammogram recommended. (A) ASSESSMENT CATEGORY: BIRADS Category 1: Negative. A letter regarding these results will be sent to the patient by the facility within 30 days. Approximately 10% of breast cancers are not detected by mammography. A normal mammogram should not delay biopsy of a clinically suspicious abnormality. [id number] Electronically Signed: Mikel Saha MD at 15:13 EDT ,
== END | disposition home or self-care (01) ==
LOC: OPBI 13:42
PROVIDERS: PCP Family Medicine; Referring Provider Family Medicine; Visit Provider Family Medicine
DX: Z12.31 Encounter for screening mammogram for malignant neoplasm of breast (principal)
CPT/HCPCS: 77063; 77067

== ENCOUNTER → 2022-07-21 | Outpatient (CLI) | payer MEDICARE, OTHER, SELFPAY ==
--- NOTE | 2022-07-21 12:54 | US_ITS ---
STUDY: THYROID ULTRASOUND REASON FOR EXAM: Female, 87 years old. Left vocal cord paralysis and hoarseness. TECHNIQUE: Ultrasound evaluation of the thyroid was performed with real-time and static tran-scale imaging. COMPARISON: None. FINDINGS: RIGHT LOBE: The right lobe of the thyroid gland measures 3.7 cm x 1.3 cm x 1.8 cm. There is a homogeneous echotexture. 3 subcentimeter solid and complex cysts are seen in the right lobe. The largest measures 7 mm x 6 mm x 5 mm and is complex solid and cystic nodule. LEFT LOBE: The left lobe of the thyroid gland measures 3.2 cm x 1 cm x 1.2 cm. There is a homogeneous echotexture. There are no demonstrated solid, cystic or complex lesions. ISTHMUS: The isthmus measures 4 mm. The regional lymph nodes are normal. US/Thyroid IMPRESSION: 3 small subcentimeter hypoechoic solid and complex cysts as described. Electronically Signed: Mikel Saha MD at 14:43 EDT ,
== END | disposition home or self-care (01) ==
LOC: US 12:47
PROVIDERS: PCP Family Medicine; Referring Provider Otolaryngology Otolaryngology/Facial Plastic Surgery; Visit Provider Otolaryngology Otolaryngology/Facial Plastic Surgery
DX: J38.01 Paralysis of vocal cords and larynx, unilateral (principal)
CPT/HCPCS: 76536

== ENCOUNTER 2022-11-01 05:58 | Day surgery (SDC) | payer MEDICARE, OTHER, SELFPAY ==
[2022-11-01] VITALS (11 sets, daily range): BP systolic 122–168; BP diastolic 42–77; PULSE 63–88; RESP 12–20; TEMP 36.3–37; O2SAT 92–99; BMI 23.7
--- NOTE | 2022-11-01 06:28 | EKG12_ITS ---
Test Reason : PRE OP Blood Pressure : / mmHG Vent. Rate : 059 BPM Atrial Rate : 059 BPM P-R Int : 204 ms QRS Dur : 108 ms QT Int : 434 ms P-R-T Axes : 070 012 077 degrees QTc Int : 429 ms Sinus bradycardia Left ventricular hypertrophy with repolarization abnormality Abnormal ECG When compared with ECG of 29-OCT-2021 15:13, No significant change was found Confirmed by BJ NGUYEN, SANJAY ([id number]), scientific editor JAZMINE CRENSHAW ([id number]) on 11/22/2022 12:18:20 PM Referred By: Franck Moncada Confirmed By:VICKIE LORENZO MD
[2022-11-01] MEDS: Lactated Ringers 1,000 ML 15 ML IV (06:45)
[2022-11-01 06:51] LABS: Hematocrit 33.4 % (37-47); Hemoglobin 11.5 g/dL (12.0-15.0); Mean Corp Hgb Conc 34.4 g/dL (32-36); Mean Corpuscular Hgb 33.7 pg (27.0-32.0); Mean Corpuscular Volume 97.9 fL (81-99); Mean Platelet Vol. 10.4 fl (6.2-12.0); Platelet Count 187 K/mm3 (150-450); RBC Distribution Width CV 11.9 % (11.6-14.6); RBC Distribution Width SD 43.1 fl (35.1-43.9); Red Blood Count 3.41 M/mm3 (4.2-5.4); White Blood Count 7.1 K/mm3 (4.4-11.0)
[2022-11-01 07:32] LABS: Anion Gap 5 (5-15); BUN 33 mg/dL (7-18); BUN/Creat Ratio 19.1 RATIO (10-20); Calcium,Total 8.9 mg/dL (8.5-10.1); Chloride 108 mmol/L (98-107); Creatinine, Serum 1.73 mg/dL (0.55-1.02); EST Glomerular Filtration Rate 30 mL/min (>60); Est Glom Filt Rate - Afr Amer 36 mL/min (>60); Estimated Creatinine Clearance 17.08 ml/min; Glucose 98 mg/dL (74-106); Potassium 4.1 mmol/L (3.5-5.1); Sodium Level 140 mmol/L (136-145)
--- NOTE | 2022-11-01 07:38 | DS.PCM_ITS ---
Providers Primary Care Physician: Dr. Frantz Mckinney MD Reason For Visit: Vocal Cord Injection Medications at Discharge Home Medications aspirin 81 mg chewable tablet 81 mg PO DAILY@0800 [facility] 09/01/16 oxybutynin chloride 5 mg tablet,extended release 24 hr 5 mg PO DAILY 02/02/21 methenamine hippurate 1 gram tablet 1 g PO Q OTHER DAY 03/19/21 ascorbic acid (vitamin C) 500 mg capsule 1,000 mg PO Q OTHER DAY vitamin 04/02/21 cholecalciferol (vitamin D3) 25 mcg (1,000 unit) tablet 20 mcg PO DAILY 08/12/21 ferrous sulfate 325 mg (65 mg iron) tablet (Iron (ferrous sulfate)) 65 mg PO DAILY 09/14/21 metoprolol tartrate 25 mg tablet 25 mg PO BID BLOOD PRESSURE #180 tabs 11/26/21 furosemide 20 mg tablet (Lasix) 20 mg PO DAILY #90 tabs 12/14/21 lisinopril 2.5 mg tablet 2.5 mg PO DAILY #30 tabs 12/22/21 lorazepam 0.5 mg tablet 0.25 mg (1/2 x 0.5 mg) PO QAM #15 tabs 08/05/22 simvastatin 20 mg tablet 20 mg PO QHS CHOLESTEROL #90 tabs 09/21/22 famotidine 20 mg tablet 20 mg PO DAILY 10/25/22 multivitamin (Daily Multi-Vitamin tablet) 1 tab PO DAILY 10/25/22 Weight / BMI Weight Weight: 55.1 kg Body Mass Index (BMI) 23.7 ABG / Lab / Microbiology Data 11/01/22 06:45 11/01/22 06:45 Laboratory: Laboratory Results - last 24 hr 11/01/22 06:45: WBC 7.1, RBC 3.41 L, Hgb 11.5 L, Hct 33.4 L, MCV 97.9, MCH 33.7 H, MCHC 34.4, RDW Std Deviation 43.1, RDW Coeff of Wilner 11.9, Plt Count 187, MPV 10.4, Sodium 140, Potassium 4.1, Chloride 108 H, Carbon Dioxide 27.0, Anion Gap 5, BUN 33 H, Creatinine 1.73 H, Estim Creat Clear Calc 17.08, Est GFR (MDRD) Af Amer 36 L, Est GFR (MDRD) Non-Af 30 L, BUN/Creatinine Ratio 19.1, Glucose 98, Calcium 8.9 D/C Instructions Discharge Diet: No restrictions Discharge Activity: Return to Normal Activity Additional Instructions: Use your voice as little as possible for 3 days Please Follow Up With: Franck Moncada MD When: 2 weeks Meaningful Use Info Meaningful Use Diagnoses (Choose all that apply): None applicable Discharge Plan Admission Attending Provider: Franck Moncada Primary Care Provider: Frantz Mckinney Discharge Orders/Prescriptions Prescriptions: No Action ascorbic acid (vitamin C) 500 mg capsule 1,000 mg PO Q OTHER DAY cholecalciferol (vitamin D3) 25 mcg (1,000 unit) tablet 20 mcg PO DAILY oxybutynin chloride 5 mg tablet extended release 24hr 5 mg PO DAILY lorazepam 0.5 mg tablet 0.25 mg PO QAM Qty: 15 2RF aspirin 81 MG tablet,chewable 81 mg PO DAILY@0800 ferrous sulfate [Iron (ferrous sulfate)] 325 mg (65 mg iron) Tablet 65 mg PO DAILY famotidine 20 mg tablet 20 mg PO DAILY multivitamin [Daily Multi-Vitamin] Tablet 1 tab PO DAILY methenamine hippurate 1 gram tablet 1 g PO Q OTHER DAY metoprolol tartrate 25 mg tablet 25 mg PO BID Qty: 180 3RF furosemide [Lasix] 20 mg tablet 20 mg PO DAILY Qty: 90 3RF lisinopril 2.5 mg tablet 2.5 mg PO DAILY Qty: 30 11RF simvastatin 20 mg tablet 20 mg PO QHS Qty: 90 3RF Referrals / Follow Up: Frantz Mckinney MD [Primary Care Provider] - Disposition Disposition (needs filled in before D/C Order can be placed): Home, Self Care
[2022-11-01] MEDS: Epinephrine (1 mg/ml) 1 MG/ML VIAL (08:07)
--- NOTE | 2022-11-01 08:08 | PCM.OPRPT ---
Report of Operation Date of Procedure: 11/01/22 Pre-Operative Diagnosis: Left vocal cord paralysis Post-Operative Diagnosis: same Surgery/Procedure Performed:: Left vocal cord injection laryngoplasty Surgeon: Franck Moncada Type of Anesthesia: General Anesthesiologist: Curry Weaver Estimated Blood Loss (mL): minimal Description of Procedure: The patient was taken to the operating room on 11/01/2022. She was placed in the supine position on the operating room table. She was given sufficient general endotracheal anesthesia. The table was turned 90 degrees in a clockwise fashion. A gum guard was placed on the upper dentition. The Dedo laryngoscope inserted the patient's mouth and passed into the pharynx. The larynx was exposed. She was then placed in Lewy suspension. The microscope was then brought in for use. The vocal process was identified on the left side. The needle was inserted Anterior and lateral to the vocal process. Prolaryn plus gel was injected into the left vocal cord. The entire syringe was used. The needle was then removed. Hemostasis achieved with adrenaline on Codman's. The Codman's were then removed and hemostasis was ensured. All instrumentation was then removed. The patient was turned back to regular anesthesia position and awoken. She was brought to recovery room in stable condition blood loss minimal, replacement none. sponge, needle, instrument count were correct at the end of the procedure.
--- NOTE | 2022-11-01 08:33 | EKG12_ITS ---
Test Reason : POST OP Blood Pressure : / mmHG Vent. Rate : 068 BPM Atrial Rate : 068 BPM P-R Int : 208 ms QRS Dur : 108 ms QT Int : 444 ms P-R-T Axes : 069 022 112 degrees QTc Int : 472 ms Normal sinus rhythm with sinus arrhythmia Left ventricular hypertrophy with repolarization abnormality Abnormal ECG When compared with ECG of 01-NOV-2022 06:23, MANUAL COMPARISON REQUIRED, DATA IS UNCONFIRMED Confirmed by BJ NGUYEN, SANJAY ([id number]), editor magazine JAZMINE CRENSHAW ([id number]) on 11/22/2022 12:15:50 PM Referred By: Franck Monacda Confirmed By:VICKIE LORENZO MD
== END 2022-11-01 13:00 | disposition home or self-care (01) ==
LOC: SDC 05:59 → AC 06:00
PROVIDERS: PCP Family Medicine; Referring Provider Otolaryngology; Visit Provider Otolaryngology
PROC: (CPT 31571; principal; 2022-11-01 07:20)
DX: J38.01 Paralysis of vocal cords and larynx, unilateral (principal); Z79.82 Long term (current) use of aspirin; I35.8 Other nonrheumatic aortic valve disorders; I25.10 Atherosclerotic heart disease of native coronary artery without angina pectoris; I10 Essential (primary) hypertension; K21.9 Gastro-esophageal reflux disease without esophagitis; J38.3 Other diseases of vocal cords; Z87.891 Personal history of nicotine dependence; R49.0 Dysphonia; R13.13 Dysphagia, pharyngeal phase; E78.00 Pure hypercholesterolemia, unspecified
CPT/HCPCS: 31571; 00320; 80048; 85027; 93005; J7120; J2405

== ENCOUNTER → 2023-01-05 | Outpatient (CLI) | payer MEDICARE, OTHER, SELFPAY ==
--- NOTE | 2023-01-05 09:43 | CDU_ITS ---
Reason For Study: Follow Up Carotid Stenosis Rt. Velocities/BP Lt. Velocities/BP Prox CCA 99/7 cm/sec. Prox CCA 124/12 cm/sec. Mid CCA 101/7 cm/sec. Mid CCA 98/11 cm/sec. Dist CCA 101/7 cm/sec. Dist CCA 127/16 cm/sec. Prox ICA 60/7 cm/sec. Prox ICA 196/28 cm/sec. Mid ICA 93/11 cm/sec. Mid ICA 149/16 cm/sec. Dist ICA 122/16 cm/sec. Dist ICA 190/30 cm/sec. Rt. ICA/CCA = 1.21. Lt. ICA/CCA = 1.94. Prox ECA 140/0 cm/sec. Prox ECA 308/0 cm/sec. Rt. Vert. 89/12 cm/sec. Lt. Vert. 60/7 cm/sec. Right Extracranial There is heterogeneous, irregular atherosclerotic plaque noted in the right common carotid artery. There is heterogeneous, irregular atherosclerotic plaque noted in the right internal carotid artery. There is heterogeneous, irregular atherosclerotic plaque noted in the right external carotid artery. Antegrade flow is noted in the right vertebral artery. Left Extracranial There is heterogeneous, irregular atherosclerotic plaque noted in the left common carotid artery. There is heterogeneous, irregular atherosclerotic plaque noted in the left internal carotid artery. There is heterogeneous, irregular atherosclerotic plaque noted in the left external carotid artery. Antegrade flow is noted in the left vertebral artery. Procedure Carotid Duplex [id number]. This is a Carotid Duplex examination using B-mode, color flow and specral Doppler. Exam performed in department. VL/Carotid Duplex Ultrasound Interpretation Summary Irregular plague at the proximal right internal carotid with <50% stenosis. <50% stenosis right external carotid Irregular plague at the proximal left internal carotid with 50-69% stenosis. Minimal velocity increase in the left carotid bulb >50% stenosis left external carotid <50% stenosis bilateral vertebrals No change from 04/06/2022 Ordering Physician: Vipul Santos Referring Physician: Frantz Mckinney Performed By: Sindy Murillo RDCS, RVT
== END | disposition home or self-care (01) ==
LOC: CVS 09:43
PROVIDERS: PCP Family Medicine; Referring Provider Psychiatry & Neurology Neurology; Visit Provider Psychiatry & Neurology Neurology
DX: R09.89 Other specified symptoms and signs involving the circulatory and respiratory systems (principal); I65.29 Occlusion and stenosis of unspecified carotid artery
CPT/HCPCS: 93880

== ENCOUNTER 2023-02-03 17:31 | Inpatient (IN) | payer MEDICARE, OTHER, SELFPAY ==
[2023-02-03] VITALS (8 sets, daily range): BP systolic 116–140; BP diastolic 59–79; PULSE 87–107; RESP 18–25; TEMP 36.7–37.6; O2SAT 88–98; BMI 23.8; BMI 22.6
[2023-02-03 18:07] LABS: Absolute Lymphocyte Count 1.18 X10^3/uL (0.83-4.51); Absolute Neutrophil Count 5.7 X10^3/uL (2.0-7.7); Basophil# 0.03 X10^3/uL; Basophil% 0.4 % (0-1); Eosinophil# 0.21 X10^3/uL; Eosinophils% 2.6 % (0-5); Hematocrit 34.8 % (37-47); Hemoglobin 11.2 g/dL (12.0-15.0); Lymphocyte # 1.18 X10^3/ul (0.83-4.51); Lymphocyte % 14.7 % (19-41); Mean Corp Hgb Conc 32.2 g/dL (32-36); Mean Corpuscular Hgb 32.1 pg (27.0-32.0); Mean Corpuscular Volume 99.7 fL (81-99); Mean Platelet Vol. 10.3 fl (6.2-12.0); Monocyte# 0.89 X10^3/uL; Monocyte% 11.1 % (0-10); NRBC Flagged by Analyzer 0 % (0-5); Neutrophil % 70.8 % (47-70); Platelet Count 182 K/mm3 (150-450); RBC Distribution Width CV 13.1 % (11.6-14.6); RBC Distribution Width SD 47.7 fl (35.1-43.9); Red Blood Count 3.49 M/mm3 (4.2-5.4)
[2023-02-03 18:20] LABS: Anion Gap 7 (5-15); BUN 27 mg/dL (7-18); BUN/Creat Ratio 19.1 RATIO (10-20); Calcium,Total 9.1 mg/dL (8.5-10.1); Chloride 102 mmol/L (98-107); Creatinine, Serum 1.41 mg/dL (0.55-1.02); EST Glomerular Filtration Rate 38 mL/min (>60); Est Glom Filt Rate - Afr Amer 46 mL/min (>60); Glucose 132 mg/dL (74-106); Sodium Level 138 mmol/L (136-145)
--- NOTE | 2023-02-03 19:32 | EDS_ITS ---
HPI HPI - URI History of Present Illness Chief Complaint: Shortness of Breath Narrative Narrative: 87-year-old female presenting with shortness of breath, cough, rhinorrhea, congestion. This has been ongoing for a week. Patient states that she has a hoarse voice. She states this is why she was sent in. She reported that she was 88% on arrival on no oxygen. Patient states she does not wear oxygen on usual basis. She is reports no fevers or chills. No nausea or vomiting. No body aches. Chest pain. ROS ROS ED Constitutional Constitutional ED: Denies chills or fever(s) Eyes Eyes: Denies change in vision ENT ENT ED: Reports rhinorrhea; Denies sore throat Cardiovascular Cardiovascular: Denies chest pain or palpitations Respiratory/Chest Respiratory/Chest: Reports cough and dyspnea Gastrointestinal Gastrointestinal: Denies abdominal pain, nausea or vomiting Genitourinary Genitourinary ED: Denies dysuria or hematuria Musculoskeletal Musculoskeletal: Denies arthralgias or back pain Integumentary Denies abscess or Abrasions Neurologic Neurologic: Denies headache(s) or paresthesias Psychiatric Psychiatric: Denies anxiety or depression [facility] Medical History (Updated 02/03/23 @ 21:[address] Bao Arroyo, DO) Abnormal stress test Acute gastritis Alcohol use Anemia Anemia Anxiety Aortic valve sclerosis Atherosclerotic heart disease of ione coronary artery without angina pectoris Bilateral carotid artery stenosis CAD (coronary artery disease) Cardiology follow-up encounter Carotid bruit Chest pain CHF (congestive heart failure) Coronary artery disease Depression Encounter for long-term current use of high risk medication Essential hypertension Former smoker Gastric reflux GERD (gastroesophageal reflux disease) Hiatal hernia High cholesterol History of echocardiogram History of IBS History of stress test History of transesophageal echocardiography (ALAN) History of uterine fibroid Hoarseness Hypertension Hypertension IBS (irritable bowel syndrome) Kidney disease Leg cramps Mitral valve disease Non-rheumatic mitral valve disease Nonrheumatic mitral valve regurgitation Palpitations Pneumonia Post-menopausal Pure hypercholesterolemia Shortness of breath on exertion Wears glasses Home Medications aspirin 81 mg chewable tablet 81 mg PO DAILY@0800 [facility] 09/01/16 [History Last Taken 04/09/19] oxybutynin chloride 5 mg tablet,extended release 24 hr 5 mg PO DAILY 02/02/21 [History Last Taken Unknown] methenamine hippurate 1 gram tablet 1 g PO Q OTHER DAY 03/19/21 [History Last Taken Unknown] ascorbic acid (vitamin C) 500 mg capsule 1,000 mg PO Q OTHER DAY vitamin 04/02/21 [History Last Taken Unknown] cholecalciferol (vitamin D3) 25 mcg (1,000 unit) tablet 20 mcg PO DAILY 08/12/21 [History Last Taken Unknown] ferrous sulfate 325 mg (65 mg iron) tablet (Iron (ferrous sulfate)) 65 mg PO DAILY 09/14/21 [History Last Taken Unknown] furosemide 20 mg tablet (Lasix) 20 mg PO DAILY #90 tabs 12/14/21 [Rx Last Taken 11/01/22] lorazepam 0.5 mg tablet 0.25 mg (1/2 x 0.5 mg) PO QAM #15 tabs 08/05/22 [Rx Last Taken Unknown] simvastatin 20 mg tablet 20 mg PO QHS CHOLESTEROL #90 tabs 09/21/22 [Rx Last Taken Unknown] famotidine 20 mg tablet 20 mg PO DAILY 10/25/22 [History Last Taken 11/01/22] multivitamin (Daily Multi-Vitamin tablet) 1 tab PO DAILY 10/25/22 [History Last Taken Unknown] metoprolol tartrate 25 mg tablet See Rx Instructions .Route .COMPLEX #180 tabs 11/22/22 [Rx Last Taken Unknown] lisinopril 2.5 mg tablet 2.5 mg PO DAILY #30 tabs 12/15/22 [Rx Last Taken Unknown] Allergy/AdvReac Type Severity Reaction Status Date / Time chlorhexidine Allergy Rash Verified 02/03/23 17:33 Environmental Allergies: Allergy Rash Verified 02/03/23 17:33 Uncoded venom-honey bee Allergy Anaphylaxis Verified 02/03/23 17:33 [bee venom (honey bee)] hydrocodone bitartrate AdvReac Other Verified 02/03/23 17:33 [From Vicodin] quinine AdvReac Diarrhea Verified 12/27/22 10:54 Sulfa (Sulfonamide AdvReac Unknown Verified 02/03/23 17:33 Antibiotics) Family History Father CAD (coronary artery disease) Hx CABG Myocardial infarction Mother Myocardial infarction CAD (coronary artery disease) Brother TIA (transient ischemic attack) Surgical History History of cardiac catheterization History of hernia repair (~12/2006) History of hysteroscopy History of local excision of skin lesion History of lung surgery History of right and left heart catheterization (LHC) (~03/06/21) History of tubal ligation Hx of colonoscopy Hx of esophagogastroduodenoscopy Social History household members: none Smoking Status: Former smoker alcohol intake: current alcohol intake frequency: 0-2 drinks per day Alcohol type: other details: Few swigs of Kendal's per day substance use type: does not use caffeine: Yes Type: carbonated beverages and tea what type of physical activity do you participate in: other frequency: daily duration: 15-30 minutes/day seatbelt use: always do you feel safe at home: Yes EXAM Physical Exam Const Vital Signs: 02/03/23 17:34 02/03/23 17:36 02/03/23 18:49 Temperature 98.1 F Temperature Source Temporal Pulse Rate 87 Respiratory Rate 22 H Respiratory Effort Respiratory Depth Respiratory Pattern Blood Pressure 140/60 H Blood Pressure Mean 86 Pulse Ox 88 95 Oxygen Delivery Method Room Air Nasal Cannula Nasal Cannula Oxygen Flow Rate (L/min) 2 2 02/03/23 18:50 02/03/23 19:43 02/03/23 20:06 Temperature 99.7 F H Temperature Source Oral Pulse Rate 87 98 Respiratory Rate 25 H 18 Respiratory Effort Short of Breath Respiratory Depth Normal Respiratory Pattern Normal Normal Blood Pressure 138/79 H Blood Pressure Mean 98 Pulse Ox 94 Oxygen Delivery Method Nasal Cannula Oxygen Flow Rate (L/min) 2 02/03/23 21:23 Temperature Temperature Source Pulse Rate 107 H Respiratory Rate 22 H Respiratory Effort Respiratory Depth Respiratory Pattern Blood Pressure 116/59 L Blood Pressure Mean 78 Pulse Ox 93 Oxygen Delivery Method Nasal Cannula Oxygen Flow Rate (L/min) 2 Positive well nourished General Appearance ED: NAD; Negative for pallor HEENT Reports moist mucous membranes normocephalic and atraumatic Throat: posterior oropharynx normal Eyes PERRL and EOMs intact bilaterally Neck no lymphadenopathy and supple Resp normal respiratory effort Auscultation: rhonchi throughout and wheezes throughout GI non-tender and non-distended Extremity normal to inspection Neuro oriented x3 and CN's II-XII intact bilaterally Sensorium / Orientation: alert Psych mental status grossly normal Skin General Skin Exam: Negative for jaundice or pallor MDM MDM MDM Narrative Medical decision making narrative: 87-year-old female with feeling of dyspnea, shortness of breath, hypoxia. Differential includes CHF, ACS, reactive active airway, pneumonia, COVID, influenza, other viral etiology, dehydration, electrolyte abnormalities. COVID and influenza will be obtained. CBC to assess white blood cell count, hemoglobin, platelets. BMP to assess renal function, electrolytes. Patient is wheezing on exam she was given Solu-Medrol and breathing treatments. He showed a normal white blood cell count. Hemoglobin stable 11.2. Platelets normal 182. Renal function and electrolytes unremarkable. Her creatinine is actually better than previous. High-sensitivity troponin is 41. EKG on my interpretation shows a normal sinus rhythm with a ventricular rate of 91 bpm. Chest x-ray my interpretation shows a concern for left lower lobe infiltrate and cardiomegaly. Radiologist interprets this and agrees. BNP is elevated at 905. Reevaluation the patient is still doing well. We will treat the patient with doxycycline and she will be admitted due to the hypoxia. Discussed with the hospitalist. Impression: 1. Pneumonia 2. Hypoxia 3. Debility Lab Data Labs: Laboratory Results - last 24 hr 02/03/23 17:55 WBC 8.0 RBC 3.49 L Hgb 11.2 L Hct 34.8 L MCV 99.7 H MCH 32.1 H MCHC 32.2 RDW Std Deviation 47.7 H RDW Coeff of Wilner 13.1 Plt Count 182 MPV 10.3 Immature Gran % (Auto) 0.400 Neut % (Auto) 70.8 H Lymph % (Auto) 14.7 L Kleberg % (Auto) 11.1 H Eos % (Auto) 2.6 Baso % (Auto) 0.4 Absolute Neuts (auto) 5.7 Absolute Lymphs (auto) 1.18 Nucleated RBC % 0 Sodium 138 Potassium 4.0 Chloride 102 Carbon Dioxide 29.0 Anion Gap 7 BUN 27 H Creatinine 1.41 H Est GFR (MDRD) Af Amer 46 L Est GFR (MDRD) Non-Af 38 L BUN/Creatinine Ratio 19.1 Glucose 132 H Calcium 9.1 Troponin I High Sens 41 B-Natriuretic Peptide 905.0 H Radiography Diagnostic Testing: Clinical Impression(s) from Imaging Studies Chest X-Ray 02/03/23 20:10 IMPRESSION: 1. Left basilar pulmonary opacity may be atelectasis, scarring, or perhaps pneumonia. 2. Mild cardiomegaly correlating with comparison CT. Electronically Signed: Buzz VHansel Reyes DO at 20:41 EST , Discharge Plan Triage Chief Complaint: Shortness of Breath ED Provider: Sunny Garcia Dx/Rx/DC Orders Prescriptions: No Action ascorbic acid (vitamin C) 500 mg capsule 1,000 mg PO Q OTHER DAY cholecalciferol (vitamin D3) 25 mcg (1,000 unit) tablet 20 mcg PO DAILY oxybutynin chloride 5 mg tablet extended release 24hr 5 mg PO DAILY lorazepam 0.5 mg tablet 0.25 mg PO QAM Qty: 15 2RF aspirin 81 MG tablet,chewable 81 mg PO DAILY@0800 ferrous sulfate [Iron (ferrous sulfate)] 325 mg (65 mg iron) Tablet 65 mg PO DAILY famotidine 20 mg tablet 20 mg PO DAILY multivitamin [Daily Multi-Vitamin] Tablet 1 tab PO DAILY methenamine hippurate 1 gram tablet 1 g PO Q OTHER DAY furosemide [Lasix] 20 mg tablet 20 mg PO DAILY Qty: 90 3RF simvastatin 20 mg tablet 20 mg PO QHS Qty: 90 3RF metoprolol tartrate 25 mg tablet See Rx Instructions .ROUTE .COMPLEX Qty: 180 3RF Dose Instruction: TAKE 1 TABLET TWICE A DAY FOR BLOOD PRESSURE Rx Instructions: TAKE 1 TABLET TWICE A DAY FOR BLOOD PRESSURE lisinopril 2.5 mg tablet 2.5 mg PO DAILY Qty: 30 11RF Primary Care Provider: Frantz Mckinney Referrals: Frantz Mckinney MD [Primary Care Provider] -
--- NOTE | 2023-02-03 19:38 | EKG12_ITS ---
Test Reason : SOB Blood Pressure : / mmHG Vent. Rate : 091 BPM Atrial Rate : 091 BPM P-R Int : 180 ms QRS Dur : 098 ms QT Int : 378 ms P-R-T Axes : 073 021 078 degrees QTc Int : 464 ms Normal sinus rhythm Left ventricular hypertrophy with repolarization abnormality ( S[place]olow[place] ) Abnormal ECG Confirmed by ROGER NGUYEN, FRANCINE ([id number]), technical editor ODETTE GUILLERMO ([id number]) on 02/04/2023 1:59:57 PM Referred By: Confirmed By:FRANCINE DURAN MD
[2023-02-03] MEDS: MethylPREDNISolone 125 MG/2 ML Vial IV (19:41)
[2023-02-03] MEDS: Albuterol 2.5 MG/3 ML VIAL.NEB. INHALATION (20:05)
[2023-02-03] MEDS: Ipratropium/Albuterol Sulfate 3 ML AMPUL.NEB INHALATION (20:05)
[2023-02-03 20:06] LABS: Troponin-I HS 41 pg/mL (3.0-54.0)
--- NOTE | 2023-02-03 20:10 | RAD_ITS ---
EXAM: XR CHEST, 1 VIEW CLINICAL INDICATION: cough TECHNIQUE: Frontal view of the chest. COMPARISON: 10/29/2021 and 06/08/2022. FINDINGS: LUNGS AND PLEURAL SPACES: Left basilar pulmonary opacity may be atelectasis, scarring, or perhaps pneumonia. No pneumothorax. No effusion. HEART: Mild cardiomegaly correlating with comparison CT. MEDIASTINUM: Central airways and mediastinal contour are unremarkable. BONES/JOINTS: Degenerative changes in the spine and shoulders. No acute fracture. SOFT TISSUES: No significant abnormality. VASCULATURE: Atherosclerosis. RAD/Chest 1 View (Portable) IMPRESSION: 1. Left basilar pulmonary opacity may be atelectasis, scarring, or perhaps pneumonia. 2. Mild cardiomegaly correlating with comparison CT. Electronically Signed: Buzz Reyes DO at 20:41 EST ,
--- NOTE | 2023-02-03 21:17 | PCM.HP.STD ---
[facility] - General General Date of Admission: 02/03/23 Date of Service: 02/03/23 Chief Complaint: SOB and wheezing. 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 Ms. Rodriguez reports her symptoms began approximately 1 week prior to admission with a gradual onset of dyspnea on exertion that progressed to shortness of breath at rest. She also admits to wheezing and a slight worsening in her chronically hoarse voice but she denies having to wear supplemental oxygen at home. She also denies fever, chills, nausea, vomiting, body aches or chest pain. In the ER her x-rays were positive for an infiltrate in the left lower lobe suspicious for community-acquired pneumonia complicated by clinical evidence of acute bronchitis with bronchospasm in the setting of chronic bronchiectasis causing acute hypoxic respiratory insufficiency compounded by an elevated BNP of 903 pg/mL consistent with suspected mild acute exacerbation of chronic CHF and she was then admitted to the PCU for ongoing care for stay that is expected to be greater than 48 hours. [facility] Medical History (Updated 02/03/23 @ 21:[address] Bao Arroyo, ) Abnormal stress test Acute gastritis Alcohol use Anemia Anemia Anxiety Aortic valve sclerosis Atherosclerotic heart disease of [place] coronary artery without angina pectoris Bilateral carotid artery stenosis CAD (coronary artery disease) Cardiology follow-up encounter Carotid bruit Chest pain CHF (congestive heart failure) Coronary artery disease Depression Encounter for long-term current use of high risk medication Essential hypertension Former smoker Gastric reflux GERD (gastroesophageal reflux disease) Hiatal hernia High cholesterol History of echocardiogram History of IBS History of stress test History of transesophageal echocardiography (ALAN) History of uterine fibroid Hoarseness Hypertension Hypertension IBS (irritable bowel syndrome) Kidney disease Leg cramps Mitral valve disease Non-rheumatic mitral valve disease Nonrheumatic mitral valve regurgitation Palpitations Pneumonia Post-menopausal Pure hypercholesterolemia Shortness of breath on exertion Wears glasses Home Medications aspirin 81 mg chewable tablet 81 mg PO DAILY@0800 [facility] 09/01/16 [History Last Taken 04/09/19] oxybutynin chloride 5 mg tablet,extended release 24 hr 5 mg PO DAILY 02/02/21 [History Last Taken Unknown] methenamine hippurate 1 gram tablet 1 g PO Q OTHER DAY 03/19/21 [History Last Taken Unknown] ascorbic acid (vitamin C) 500 mg capsule 1,000 mg PO Q OTHER DAY vitamin 04/02/21 [History Last Taken Unknown] cholecalciferol (vitamin D3) 25 mcg (1,000 unit) tablet 20 mcg PO DAILY 08/12/21 [History Last Taken Unknown] ferrous sulfate 325 mg (65 mg iron) tablet (Iron (ferrous sulfate)) 65 mg PO DAILY 09/14/21 [History Last Taken Unknown] furosemide 20 mg tablet (Lasix) 20 mg PO DAILY #90 tabs 12/14/21 [Rx Last Taken 11/01/22] lorazepam 0.5 mg tablet 0.25 mg (1/2 x 0.5 mg) PO QAM #15 tabs 08/05/22 [Rx Last Taken Unknown] simvastatin 20 mg tablet 20 mg PO QHS CHOLESTEROL #90 tabs 09/21/22 [Rx Last Taken Unknown] famotidine 20 mg tablet 20 mg PO DAILY 10/25/22 [History Last Taken 11/01/22] multivitamin (Daily Multi-Vitamin tablet) 1 tab PO DAILY 10/25/22 [History Last Taken Unknown] metoprolol tartrate 25 mg tablet See Rx Instructions .Route .COMPLEX #180 tabs 11/22/22 [Rx Last Taken Unknown] lisinopril 2.5 mg tablet 2.5 mg PO DAILY #30 tabs 12/15/22 [Rx Last Taken Unknown] Allergy/AdvReac Type Severity Reaction Status Date / Time chlorhexidine Allergy Rash Verified 02/03/23 17:33 Environmental Allergies: Allergy Rash Verified 02/03/23 17:33 Uncoded venom-honey bee Allergy Anaphylaxis Verified 02/03/23 17:33 [bee venom (honey bee)] hydrocodone bitartrate AdvReac Other Verified 02/03/23 17:33 [From Vicodin] quinine AdvReac Diarrhea Verified 12/27/22 10:54 Sulfa (Sulfonamide AdvReac Unknown Verified 02/03/23 17:33 Antibiotics) Family History Father CAD (coronary artery disease) Hx CABG Myocardial infarction Mother Myocardial infarction CAD (coronary artery disease) Brother TIA (transient ischemic attack) Surgical History History of cardiac catheterization History of hernia repair (~12/2006) History of hysteroscopy History of local excision of skin lesion History of lung surgery History of right and left heart catheterization (LHC) (~03/06/21) History of tubal ligation Hx of colonoscopy Hx of esophagogastroduodenoscopy Social History household members: none Smoking Status: Former smoker alcohol intake: current alcohol intake frequency: 0-2 drinks per day Alcohol type: other details: Few swigs of Kendal[employer] per day substance use type: does not use caffeine: Yes Type: carbonated beverages and tea what type of physical activity do you participate in: other frequency: daily duration: 15-30 minutes/day seatbelt use: always do you feel safe at home: Yes ROS ROS Narrative Review of systems: General: Patient denies fever or chills. HENT: Patient admits to runny nose but denies sore throat. EYES: Denies changes in vision Resp: Patient admits to cough and shortness of breath. Cardiac: Patient denies chest pain or palpitations. GI: Patient denies abdominal pain, denies changes in bowel habits or nausea. : Patient denies changes in urination. Extremity: Denies swelling. Musculoskeletal: Feels somewhat generally weak and unwell. Neuro: Denies any headache, numbness/tingling or focal neurologic weakness. Heme: Denies any bleeding or bruising Skin: Denies rashes Psychiatric: No complaints voiced Endocrine: No polyuria, polydipsia or polyphagia. The rest of the 14 point ROS was negative except for positives in HPI. Vital Signs Vital Signs Vital Signs: 02/03/23 17:34 02/03/23 17:36 02/03/23 18:49 Temperature 98.1 F Temperature Source Temporal Pulse Rate 87 Respiratory Rate 22 H Respiratory Effort Respiratory Depth Respiratory Pattern Blood Pressure 140/60 H Blood Pressure Mean 86 Pulse Ox 88 95 Oxygen Delivery Method Room Air Nasal Cannula Nasal Cannula Oxygen Flow Rate (L/min) 2 2 02/03/23 18:50 02/03/23 19:43 02/03/23 20:06 Temperature 99.7 F H Temperature Source Oral Pulse Rate 87 98 Respiratory Rate 25 H 18 Respiratory Effort Short of Breath Respiratory Depth Normal Respiratory Pattern Normal Normal Blood Pressure 138/79 H Blood Pressure Mean 98 Pulse Ox 94 Oxygen Delivery Method Nasal Cannula Oxygen Flow Rate (L/min) 2 Weight Weight: 122 lb 2.177 oz Body Mass Index (BMI) 23.8 Physical Exam Const alert, oriented x3 and average body habitus General Appearance: cooperative HEENT normocephalic, head/scalp atraumatic, hearing grossly normal bilaterally and moist oral mucous membranes Eyes PERRL and EOMs intact bilaterally Neck no lymphadenopathy and supple Resp Resp Narrative: Diminished breath sounds throughout with scattered rhonchi and wheezing. Cardio regular rate and regular rhythm GI normal to inspection, nondistended, normoactive bowel sounds, soft to palpation, non-tender and non-distended Extremity normal to inspection and full ROM Skin Skin Narrative: Patient has no evidence of rash or jaundice at this time. Neuro oriented x3, CN's II-XII intact bilaterally, moves all extremities and no focal motor deficits Sensorium / Orientation: awake, alert, oriented to person, oriented to place and oriented to time Speech: speech normal Motor Exam: strength 5/5 throughout Psych affect normal Results Medical Records Data Attestation: I reviewed the patient's medical records Lab / Micro Data Attestation: I reviewed the patient's lab results. 02/04/23 04:00 02/03/23 17:55 Labs: Laboratory Results - last 24 hr 02/03/23 17:55: WBC 8.0, RBC 3.49 L, Hgb 11.2 L, Hct 34.8 L, MCV 99.7 H, MCH 32.1 H, MCHC 32.2, RDW Std Deviation 47.7 H, RDW Coeff of [place] 13.1, Plt Count 182, MPV 10.3, Immature Gran % (Auto) 0.400, Neut % (Auto) 70.8 H, Lymph % (Auto) 14.7 L, [place] % (Auto) 11.1 H, Eos % (Auto) 2.6, Baso % (Auto) 0.4, Absolute Neuts (auto) 5.7, Absolute Lymphs (auto) 1.18, Nucleated RBC % 0, Sodium 138, Potassium 4.0, Chloride 102, Carbon Dioxide 29.0, Anion Gap 7, BUN 27 H, Creatinine 1.41 H, Est GFR (MDRD) Af Amer 46 L, Est GFR (MDRD) Non-Af 38 L, BUN/Creatinine Ratio 19.1, Glucose 132 H, Calcium 9.1, Troponin I High Sens 41, B-Natriuretic Peptide 905.0 H Micro: Microbiology 02/03/23 18:40 Nasal Secretion SARS-CoV-2 Antigen (Rapid) - Final Imagaing Radiology Impression Chest X-Ray 02/03/23 20:10 IMPRESSION: 1. Left basilar pulmonary opacity may be atelectasis, scarring, or perhaps pneumonia. 2. Mild cardiomegaly correlating with comparison CT. Electronically Signed: Buzz Reyes DO at 20:41 EST , Assessment & Plan Assessment/Plan (1) Pneumonia: QUALIFIERS: Laterality: left Lung location: lower lobe of lung Pneumonia type: due to unspecified organism Qualified Code(s): J18.9 - Pneumonia, unspecified organism (2) Bronchiectasis: QUALIFIERS: Bronchiectasis type: with acute lower respiratory infection Qualified Code(s): J47.0 - Bronchiectasis with acute lower respiratory infection (3) Respiratory insufficiency: (4) Unilateral vocal cord paralysis: (5) Spasmodic dysphonia: PLAN: Plan 1. Left lower lobe infiltrate on chest x-ray consistent with suspected immunity acquired pneumonia - Admit to PCU. Continue Doxycycline IV and await culture and sensitivity data. Give Mucinex to help thin secretions. Give Tylenol prn for pain or fever. 2. Acute bronchitis with bronchospasm present on admission due to #1 in the setting of known chronic bronchiectasis - Continue antibiotics, steroids and nebulizers outlined above. 3. Elevated BNP of 903 pg/mL present on admission suggestive of mild acute exacerbation of chronic CHF complicating #1 & #2 - Give Lasix 40 mg IV daily plus supplemental KCl and magnesium. Serialize BNP daily to document response to therapy. 4. Acute hypoxic respiratory insufficiency with patient saturating 88% on room air at time of arrival attributable to #1 - #3 - Wean supplemental oxygen as tolerated. 5. Essential hypertension - Continue home medications and also give prn IV hydralazine for systolic blood pressure > 160 mm Hg. 6. Hyperlipidemia - Resume statin and check Lipid Profile. 7. Chronic kidney disease; stage III-IV - Stable with kidney function slightly improved now when compared to her previous levels. 8. Coronary artery disease - Stable. Continue daily BASA as previous. 9. History of aortic valve sclerosis - Noted. Echocardiogram is pending this admission for #3. 10. History of carotid stenosis - Noted. 11. History of vertigo - Stable. Give as needed Antivert if symptoms recur. 12. Chronic spasmodic dysphonia with unilateral vocal cord paralysis and hoarse voice - Stable. 13. Mild cognitive impairment - Noted. 14. Osteoarthritis - Stable. 15. DVT prophylaxis - Lovenox 40 mg sq daily plus SCD's. Total time: Approximately 55 minutes. Charges/Coding Visit Charges Inpatient E&M: 28232 Init Hosp L2
--- NOTE | 2023-02-03 21:22 | ED.RN ---
Pt unaware of home medications.
[2023-02-03] MEDS: Doxycycline 100 MG CAPSULE PO (21:55)
[2023-02-03] MEDS: Furosemide 40 MG/4 ML Vial IV (23:41)
[2023-02-03] MEDS: Magnesium Chloride 64 MG Delay Rel.Tablet 128 MG PO (23:42)
[2023-02-03] MEDS: 0.9% Saline Lock 10 ML Syringe IV (23:44)
[2023-02-04] MEDS: Atorvastatin Calcium 10 MG Tablet PO (00:10)
[2023-02-04 04:31] VITALS: BP 132/47; PULSE 77; RESP 18; TEMP 36.4; O2SAT 98
[2023-02-04 04:31] LABS: Absolute Lymphocyte Count 0.64 X10^3/uL (0.83-4.51); Absolute Neutrophil Count 4.4 X10^3/uL (2.0-7.7); Basophil# 0.01 X10^3/uL; Basophil% 0.2 % (0-1); Hematocrit 34.9 % (37-47); Hemoglobin 11.2 g/dL (12.0-15.0); Lymphocyte # 0.64 X10^3/ul (0.83-4.51); Lymphocyte % 12.3 % (19-41); Mean Corp Hgb Conc 32.1 g/dL (32-36); Mean Corpuscular Hgb 32.3 pg (27.0-32.0); Mean Corpuscular Volume 100.6 fL (81-99); Mean Platelet Vol. 10.5 fl (6.2-12.0); Monocyte# 0.08 X10^3/uL; Monocyte% 1.5 % (0-10); NRBC Flagged by Analyzer 0 % (0-5); Neutrophil # 4.42 X10^3/uL (2.7-7.7); Neutrophil % 85.2 % (47-70); Platelet Count 164 K/mm3 (150-450); RBC Distribution Width CV 13.1 % (11.6-14.6); RBC Distribution Width SD 47.6 fl (35.1-43.9); Red Blood Count 3.47 M/mm3 (4.2-5.4); White Blood Count 5.2 K/mm3 (4.4-11.0)
[2023-02-04 04:38] VITALS: O2SAT 95
[2023-02-04 05:31] LABS: ALB/GLOB Ratio 0.9 RATIO (0.9-2.4); AST(SGOT) 24 U/L (15-37); Alanine Aminotransfer ALT/SGPT 16 U/L (13-56); Albumin, Serum 3.6 g/dL (3.2-5.0); Alkaline Phosphatase 64 U/L (45-117); Anion Gap 8 (5-15); BUN 30 mg/dL (7-18); BUN/Creat Ratio 20.7 RATIO (10-20); Calcium,Total 8.8 mg/dL (8.5-10.1); Chloride 104 mmol/L (98-107); Creatinine, Serum 1.45 mg/dL (0.55-1.02); EST Glomerular Filtration Rate 36 mL/min (>60); Est Glom Filt Rate - Afr Amer 44 mL/min (>60); Estimated Creatinine Clearance 20.37 ml/min; Globulin 3.9 g/dL (2.2-4.2); Glucose 183 mg/dL (74-106); Magnesium 2.6 mg/dL (1.6-2.6); Phosphorus 3.1 mg/dL (2.5-4.9); Potassium 3.7 mmol/L (3.5-5.1); Protein, Total 7.5 g/dL (6.4-8.2); Sodium Level 138 mmol/L (136-145); Thyroid Stim Hormone (TSH) 0.34 uIU/mL (0.358-3.74)
[2023-02-04 06:00] VITALS: BMI 22.6
[2023-02-04 06:32] LABS: Free T3 2.2 pg/mL (2.18-3.98); T4 Free Direct 1.14 ng/dL (0.76-1.46)
[2023-02-04 07:28] VITALS: O2SAT 94
[2023-02-04] MEDS: Multivitamins,Therapeutic Tablet 1 TABLET PO (08:08)
[2023-02-04] MEDS: Aspirin 81 MG TAB.CHEW PO (08:08)
[2023-02-04] MEDS: Ferrous Sulfate 325 MG Tablet PO (08:08)
[2023-02-04] MEDS: Potassium Chloride Oral Tablet 20 MEQ PO (08:09)
--- NOTE | 2023-02-04 08:23 | PN.HOSP_ITS ---
Subjective Subjective Breathing well. Objective Data Objective Data Vital Signs: Vital Signs Temp Pulse Resp BP Pulse Ox O2 Del Method O2 Flow Rate 36.4 C L 77 18 132/47 H 95 Nasal Cannula 2 02/04/23 04:31 02/04/23 04:31 02/04/23 04:31 02/04/23 04:31 02/04/23 04:38 02/04/23 08:01 02/04/23 08:01 Oxygen Flow Rate (L/min) 2 Oxygen Delivery Method Nasal Cannula Weight: 52.5 kg Body Mass Index (BMI) 22.6 Lab / Micro Data 02/04/23 04:00 02/04/23 04:00 Labs: Laboratory Results - last 24 hr 02/03/23 17:55: WBC 8.0, RBC 3.49 L, Hgb 11.2 L, Hct 34.8 L, MCV 99.7 H, MCH 32.1 H, MCHC 32.2, RDW Std Deviation 47.7 H, RDW Coeff of [place] 13.1, Plt Count 182, MPV 10.3, Immature Gran % (Auto) 0.400, Neut % (Auto) 70.8 H, Lymph % (Auto) 14.7 L, [place] % (Auto) 11.1 H, Eos % (Auto) 2.6, Baso % (Auto) 0.4, Absolute Neuts (auto) 5.7, Absolute Lymphs (auto) 1.18, Nucleated RBC % 0, Sodium 138, Potassium 4.0, Chloride 102, Carbon Dioxide 29.0, Anion Gap 7, BUN 27 H, Creatinine 1.41 H, Est GFR (MDRD) Af Amer 46 L, Est GFR (MDRD) Non-Af 38 L , BUN/Creatinine Ratio 19.1, Glucose 132 H, Calcium 9.1, Troponin I High Sens 41, B-Natriuretic Peptide 905.0 H 02/04/23 04:00: WBC 5.2, RBC 3.47 L, Hgb 11.2 L, Hct 34.9 L, MCV 100.6 H, MCH 32.3 H, MCHC 32.1, RDW Std Deviation 47.6 H, RDW Coeff of [place] 13.1, Plt Count 164, MPV 10.5, Immature Gran % (Auto) 0.800, Neut % (Auto) 85.2 H, Lymph % (Auto) 12.3 L, [place] % (Auto) 1.5, Eos % (Auto) 0.0, Baso % (Auto) 0.2, Absolute Neuts (auto) 4.4, Absolute Lymphs (auto) 0.64 L, Nucleated RBC % 0, Sodium 138, Potassium 3.7, Chloride 104, Carbon Dioxide 26.0, Anion Gap 8, BUN 30 H, Creatinine 1.45 H, Estim Creat Clear Calc 20.37, Est GFR (MDRD) Af Amer 44 L, Est GFR (MDRD) Non-Af 36 L, BUN/Creatinine Ratio 20.7 H, Glucose 183 H, Calcium 8.8, Phosphorus 3.1, Magnesium 2.6, Total Bilirubin 0.60, AST 24, ALT 16, Alkaline Phosphatase 64, Total Protein 7.5, Albumin 3.6, Globulin 3.9, Albumin/Globulin Ratio 0.9, TSH 0.34 L, Free T4 1.14, Free T3 pg/dL 2.2 Micro: Microbiology 02/03/23 20:00 Mucosa - Nasopharyngeal Respiratory Panel (PCR) - Final RSV A 02/03/23 18:40 Nasal Secretion SARS-CoV-2 Antigen (Rapid) - Final Radiography Diagnostic Testing: Radiology Impression Chest X-Ray 02/03/23 20:10 IMPRESSION: 1. Left basilar pulmonary opacity may be atelectasis, scarring, or perhaps pneumonia. 2. Mild cardiomegaly correlating with comparison CT. Electronically Signed: Buzz Reyes, at 20:41 EST , Physical Exam Const alert and no apparent distress HEENT head/scalp atraumatic and moist oral mucous membranes Resp normal respiratory effort, no retractions, no use of accessory muscles and clear to auscultation bilaterally Cardio regular rate, regular rhythm, S1 normal heart sound and S2 normal heart sound GI normal to inspection, nondistended, normoactive bowel sounds, soft to palpation, non-tender and non-distended Neuro Sensorium / Orientation: awake and alert Assessment & Plan Assessment/Plan (1) RSV (acute bronchiolitis due to respiratory syncytial virus): PLAN: Plan Acute bronchitis secondary to RSV. * No obvious infiltrate on chest x-ray. Will discontinue antibiotics. Supportive management for the RSV. On methylprednisolone. Transition over to prednisone on the . * Patient was 94% on room air at rest and then 90% on room air while ambulating. Does not require oxygen upon discharge. Elevated BNP * No clear evidence of CHF on chest x-ray. Of 903 pg/mL present on admission suggestive of mild acute exacerbation of chronic CHF complicating #1 & #2 - Give Lasix 40 mg IV daily plus supplemental KCl and magnesium. Serialize BNP daily to document response to therapy. Chronic conditions: * Essential hypertension - Continue home medications and also give prn IV hydralazine for systolic blood pressure > 160 mm Hg. * Hyperlipidemia - Resume statin and check Lipid Profile. * Chronic kidney disease; stage III-IV - Stable with kidney function slightly improved now when compared to her previous levels. * Coronary artery disease - Stable. Continue daily BASA as previous. * History of aortic valve sclerosis -2D echocardiogram on April 06, 2022 showed an EF of 70%, moderate LVH, left atrium mildly enlarged, moderately severe 3+ mitral valve insufficiency. Right ventricular systolic pressure of 39 mmHg. Given the fact I do not feel the patient has CHF exacerbation we will discontinue the echocardiogram. * History of carotid stenosis * History of vertigo - Stable. Give as needed Antivert if symptoms recur. 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 DVT prophylaxis -enoxaparin
[2023-02-04 09:50] VITALS: BP 115/40; PULSE 86; RESP 16; TEMP 36.2; O2SAT 98
[2023-02-04] MEDS: predniSONE 20 MG Tablet 40 MG PO (09:54)
[2023-02-04] MEDS: Tolterodine Tartrate 2 MG CAP.SA PO (09:54)
[2023-02-04] MEDS: LORazepam 0.5 MG Tablet 0.25 MG PO (09:54)
[2023-02-04] MEDS: Furosemide 20 MG Tablet PO (09:55)
[2023-02-04] MEDS: Magnesium Chloride 64 MG Delay Rel.Tablet 128 MG PO (09:55)
[2023-02-04] MEDS: Famotidine 20 MG Tablet PO (09:55)
[2023-02-04] MEDS: Enoxaparin 30 MG/0.3 ML Syringe SC (09:55)
[2023-02-04] MEDS: Cholecalciferol (VIT D3) 25 MCG TABLET (1,000 UNITS) PO (11:07)
[2023-02-04] MEDS: Lisinopril 2.5 MG Tablet PO (11:07)
--- NOTE | 2023-02-04 12:10 | CASEMGMT ---
EDUARD ROMANO Face to Face with patient for initial transition planning/care coordination assessment. RN CM introduced self and role at [facility]. Patient lying in bed, alert and oriented. Patient willing to participate in assessment and is able to answer all questions appropriately. Care providers, pharmacy, and demographics verified. Patient wishes to discharge home with resumption of CCN. Patient states she has no further needs or concerns at this time. CM to follow for discharge planning needs that may arise. PCP: Hank Specialists: FRANSISCO, assistant to the president; Eric, animal pathology teacher; Tom, neuro; Deb, certified physician's assistant Preferred Pharmacy: [facility] Insurance: [employer] Prescription Benefit: yes Living Will/HPOA: yes, son Hugo Rodriguez LNOK: son Living Arrangements: Patient lives alone in a 2 story home with bed and bath on first floor, 2 steps and railing to enter the home. Ansley is independent at home. Transportation: self, son DME/HHC: Patient has cane at home. Patient is active with CCN. No previous HHC or SNF Disposition Plan: Patient to discharge home with family support and follow-up plans in place. Will monitor for home oxygen. Eden BANEGAS, RN, CM
[2023-02-04 13:22] VITALS: O2SAT 90; O2SAT 94
--- NOTE | 2023-02-04 13:43 | DS.PCM_ITS ---
Providers Date of Admission: 02/03/23 Primary Care Physician: Dr. Frantz Mckinney MD Reason For Visit: LEFT LOWER LOBE PNEUMONIA, ACUTE ASTHMATIC Diagnosis Discharge Diagnosis (1) RSV (acute bronchiolitis due to respiratory syncytial virus): Status: Acute Code(s): J21.0 - Acute bronchiolitis due to respiratory syncytial virus Plan Acute bronchitis secondary to RSV. * No obvious infiltrate on chest x-ray. Will discontinue antibiotics. Supportive management for the RSV. On methylprednisolone. Transition over to prednisone on the . * Patient was 94% on room air at rest and then 90% on room air while ambulating. Does not require oxygen upon discharge. Elevated BNP * No clear evidence of CHF on chest x-ray. Of 903 pg/mL present on admission suggestive of mild acute exacerbation of chronic CHF complicating #1 & #2 - Give Lasix 40 mg IV daily plus supplemental KCl and magnesium. Serialize BNP daily to document response to therapy. Chronic conditions: * Essential hypertension - Continue home medications and also give prn IV hydralazine for systolic blood pressure > 160 mm Hg. * Hyperlipidemia - Resume statin and check Lipid Profile. * Chronic kidney disease; stage III-IV - Stable with kidney function slightly improved now when compared to her previous levels. * Coronary artery disease - Stable. Continue daily BASA as previous. * History of aortic valve sclerosis -2D echocardiogram on April 06, 2022 showed an EF of 70%, moderate LVH, left atrium mildly enlarged, moderately severe 3+ mitral valve insufficiency. Right ventricular systolic pressure of 39 mmHg. Given the fact I do not feel the patient has CHF exacerbation we will discontinue the echocardiogram. * History of carotid stenosis * History of vertigo - Stable. Give as needed Antivert if symptoms recur. 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 DVT prophylaxis -enoxaparin Medications at Discharge Home Medications aspirin 81 mg chewable tablet 81 mg PO DAILY@0800 HEART [facility] 09/01/16 oxybutynin chloride 5 mg tablet,extended release 24 hr 5 mg PO DAILY overactive bladder 02/02/21 methenamine hippurate 1 gram tablet 1 g PO Q OTHER DAY Prevent UTI 03/19/21 ascorbic acid (vitamin C) 500 mg capsule 1,000 mg PO Q OTHER DAY vitamin 04/02/21 cholecalciferol (vitamin D3) 25 mcg (1,000 unit) tablet 20 mcg PO DAILY supplement 08/12/21 ferrous sulfate 325 mg (65 mg iron) tablet (Iron (ferrous sulfate)) 65 mg PO DAILY supplement 09/14/21 furosemide 20 mg tablet (Lasix) 20 mg PO DAILY #90 tabs 12/14/21 lorazepam 0.5 mg tablet 0.25 mg (1/2 x 0.5 mg) PO QAM #15 tabs 08/05/22 simvastatin 20 mg tablet 20 mg PO QHS CHOLESTEROL #90 tabs 09/21/22 famotidine 20 mg tablet 20 mg PO DAILY gerd 10/25/22 multivitamin (Daily Multi-Vitamin tablet) 1 tab PO DAILY supplement 10/25/22 metoprolol tartrate 25 mg tablet See Rx Instructions .Route .COMPLEX #180 tabs 11/22/22 lisinopril 2.5 mg tablet 2.5 mg PO DAILY #30 tabs 12/15/22 pantoprazole 40 mg tablet,delayed release 40 mg PO DAILY gerd 02/04/23 prednisone 20 mg tablet 40 mg (2 x 20 mg) PO BREAKFAST #5 tabs 02/04/23 Hospital Course Operations None Procedures None Summary of Care Provided Minutes Spent on Discharge: 32 Hospital Course: Patient developed shortness of breath. Patient had RSV. No evidence of pneumonia or heart failure. Patient will was treated with steroids and was ambulated and did not require oxygen. Patient be discharged home to complete a prednisone burst. Weight / BMI Weight Weight: 52.5 kg Body Mass Index (BMI) 22.6 ABG / Lab / Microbiology Data 02/04/23 04:00 02/04/23 04:00 Laboratory: Laboratory Results - last 24 hr 02/03/23 17:55: WBC 8.0, RBC 3.49 L, Hgb 11.2 L, Hct 34.8 L, MCV 99.7 H, MCH 32.1 H, MCHC 32.2, RDW Std Deviation 47.7 H, RDW Coeff of Wilner 13.1, Plt Count 182, MPV 10.3, Immature Gran % (Auto) 0.400, Neut % (Auto) 70.8 H, Lymph % (Auto) 14.7 L, Wise % (Auto) 11.1 H, Eos % (Auto) 2.6, Baso % (Auto) 0.4, Abso lute Neuts (auto) 5.7, Absolute Lymphs (auto) 1.18, Nucleated RBC % 0, Sodium 138, Potassium 4.0, Chloride 102, Carbon Dioxide 29.0, Anion Gap 7, BUN 27 H, Creatinine 1.41 H, Est GFR (MDRD) Af Amer 46 L, Est GFR (MDRD) Non-Af 38 L, BUN/Creatinine Ratio 19.1, Glucose 132 H, Calcium 9.1, Troponin I High Sens 41, B-Natriuretic Peptide 905.0 H 02/04/23 04:00: WBC 5.2, RBC 3.47 L, Hgb 11.2 L, Hct 34.9 L, MCV 100.6 H, MCH 32.3 H, MCHC 32.1, RDW Std Deviation 47.6 H, RDW Coeff of Wilner 13.1, Plt Count 164, MPV 10.5, Immature Gran % (Auto) 0.800, Neut % (Auto) 85.2 H, Lymph % (Auto) 12.3 L, Wise % (Auto) 1.5, Eos % (Auto) 0.0, Baso % (Auto) 0.2, Absolute Neuts (auto) 4.4, Absolute Lymphs (auto) 0.64 L, Nucleated RBC % 0, Sodium 138, Potassium 3.7, Chloride 104, Carbon Dioxide 26.0, Anion Gap 8, BUN 30 H, Creatinine 1.45 H, Estim Creat Clear Calc 20.37, Est GFR (MDRD) Af Amer 44 L, Est GFR (MDRD) Non-Af 36 L, BUN/Creatinine Ratio 20.7 H, Glucose 183 H, Calcium 8.8, Phosphorus 3.1, Magnesium 2.6, Total Bilirubin 0.60, AST 24, ALT 16, Alkaline Phosphatase 64, Total Protein 7.5, Albumin 3.6, Globulin 3.9, Albumin/Globulin Ratio 0.9, TSH 0.34 L, Free T4 1.14, Free T3 pg/dL 2.2 Microbiology: Microbiology 02/03/23 20:00 Mucosa - Nasopharyngeal Respiratory Panel (PCR) - Final RSV A 02/03/23 18:40 Nasal Secretion SARS-CoV-2 Antigen (Rapid) - Final Radiography Diagnostic Testing: Radiology Impression Chest X-Ray 02/03/23 20:10 IMPRESSION: 1. Left basilar pulmonary opacity may be atelectasis, scarring, or perhaps pneumonia. 2. Mild cardiomegaly correlating with comparison CT. Electronically Signed: Buzz RestrepocitlallikseniaDO at 20:41 EST , D/C Instructions Discharge Diet: No restrictions Meaningful Use Info Meaningful Use Diagnoses (Choose all that apply): None applicable Discharge Plan Admission Admit Date/Time: 02/03/23 21:48 Primary Reason for Your Visit: RSV Attending Provider: Héctor Partida Primary Care Provider: Frantz Mckinney Consulting Providers: Bao Arroyo Discharge Orders/Prescriptions Prescriptions: New prednisone 20 mg Tablet 40 mg PO BREAKFAST Qty: 5 0RF Continued ascorbic acid (vitamin C) 500 mg capsule 1,000 mg PO Q OTHER DAY cholecalciferol (vitamin D3) 25 mcg (1,000 unit) tablet 20 mcg PO DAILY oxybutynin chloride 5 mg tablet extended release 24hr 5 mg PO DAILY lorazepam 0.5 mg tablet 0.25 mg PO QAM Qty: 15 2RF aspirin 81 MG tablet,chewable 81 mg PO DAILY@0800 ferrous sulfate [Iron (ferrous sulfate)] 325 mg (65 mg iron) Tablet 65 mg PO DAILY famotidine 20 mg tablet 20 mg PO DAILY multivitamin [Daily Multi-Vitamin] Tablet 1 tab PO DAILY pantoprazole 40 mg tablet,delayed release (DR/EC) 40 mg PO DAILY methenamine hippurate 1 gram tablet 1 g PO Q OTHER DAY furosemide [Lasix] 20 mg tablet 20 mg PO DAILY Qty: 90 3RF simvastatin 20 mg tablet 20 mg PO QHS Qty: 90 3RF metoprolol tartrate 25 mg tablet See Rx Instructions .ROUTE .COMPLEX Qty: 180 3RF Dose Instruction: TAKE 1 TABLET TWICE A DAY FOR BLOOD PRESSURE Rx Instructions: TAKE 1 TABLET TWICE A DAY FOR BLOOD PRESSURE lisinopril 2.5 mg tablet 2.5 mg PO DAILY Qty: 30 11RF Referrals / Follow Up: Frantz Mckinney MD [Primary Care Provider] - Within 2 Weeks Disposition Disposition (needs filled in before D/C Order can be placed): Home, Self Care Charges/Coding Visit Charges Inpatient E&M: 80782 Disch Hosp >30min
--- NOTE | 2023-02-04 14:03 | CHAPLAIN ---
Type of Pastoral Visit _x__ Initial Visit ___ Follow-up Visit ___ On-call Visit ___ General Patient Visit ___ Spiritual Assessment ___ Family Conference ___ Bereavement ___ Rapid Response ___ Code Blue ___ Other (describe below) Pastoral Care Referral From _x__ Patient ___ Family ___ Nurse ___ Physician ___ Syrup Machine Laborer ___ Industrial Safety And Health Technician ___ Other (describe below) Sacrament/Intervention _x__ Active listening ___ Anointing ___ Anabaptism ___ Bereavement ___ Communion ___ Gail exploration ___ ___ Life review _x__ Prayer ___ Reconciliation ___ Sacrament of Sick _x__ Supportive presence ___ Wedding ___ Other (describe below) Pastoral Comments 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
[2023-02-04 14:48] VITALS: BP 139/62; PULSE 96; RESP 16; TEMP 36.7; O2SAT 96
--- NOTE | 2023-02-04 15:01 | CASEMGMT ---
Patient has order for discharge. Patient does not qualify for home oxygen. RN CM in to discuss discharge with patient. Patient denied needs or help at home. Patient had no further questions or concerns.
== END 2023-02-04 15:55 | disposition home or self-care (01) | DRG 202 ==
LOC: ED 21:35 → PCU 22:20
PROVIDERS: Admitting Provider Internal Medicine; Emergency Provider Student in an Organized Health Care Education/Training Program; PCP Family Medicine
DX: J21.0 Acute bronchiolitis due to respiratory syncytial virus (principal); J47.0 Bronchiectasis with acute lower respiratory infection; J38.00 Paralysis of vocal cords and larynx, unspecified; N18.30 Chronic kidney disease, stage 3 unspecified; D64.9 Anemia, unspecified; I08.0 Rheumatic disorders of both mitral and aortic valves; I12.9 Hypertensive chronic kidney disease with stage 1 through stage 4 chronic kidney disease, or unspecified chronic kidney disease; I25.10 Atherosclerotic heart disease of native coronary artery without angina pectoris; G31.84 Mild cognitive impairment of uncertain or unknown etiology; M19.90 Unspecified osteoarthritis, unspecified site; E78.5 Hyperlipidemia, unspecified; J20.9 Acute bronchitis, unspecified; Z87.891 Personal history of nicotine dependence; R53.81 Other malaise; Z79.82 Long term (current) use of aspirin
CPT/HCPCS: 36415; 71045; 80048; 80053; 83735; 83880; 84100; 84439; 84443; 84481; 84484; 85025; 87633; 87811; 93005; 94640; 94668; 97802; 99283; A4216; J1940

== ENCOUNTER → 2023-05-02 | Outpatient (CLI) | payer MEDICARE, OTHER, SELFPAY ==
--- NOTE | 2023-05-02 12:56 | ECHOCS_ITS ---
Reason For Study: Murmur Procedure This was a 2D Doppler, Color Flow transthoracic echocardiogram. The study was technically difficult. Contrast injection was performed. Exam performed in department. Left Ventricle Normal LV size. The left ventricular ejection fraction is 75 %. No regional wall motion abnormalities noted. Right Ventricle Normal RV size. Normal systolic function. Atria Normal left atrium. Normal right atrium. Mitral Valve Bileaflet diffuse mitral valve thickening. Moderately severe (3+) eccentric mitral valve insufficiency. Tricuspid Valve Normal tricuspid valve. Mild (1+) tricuspid valve insufficiency. Pulmonary artery systolic pressure is 40 mmHg. Aortic Valve Trisinus/trileaflet aortic valve. Pulmonic Valve Normal pulmonic valve. Great Vessels Normal aortic root. The pulmonary artery is normal size. Inferior vena cava collapse with respiration. Pericardium/Pleural No pericardial effusion. Medication 22 gauge I.V. with prn adaptor inserted into right arm. Diluted definity 1ml given slow IV push to enhance endocardial definition. MMode/2D Measurements & Calculations LVIDd: 4.0 cm IVSd: 1.3 cm Ao root diam: 2.6 cm LVIDs: 2.0 cm LVPWd: 1.0 cm ACS: 1.6 cm RVDd: 3.4 cm FS: 50.4 % LA dimension: 4.1 cm LAV(MOD-bp): 62.2 ml LVAd ap4: 28.1 cm2 SV(MOD-sp4): 64.4 ml LAV(MOD-bp) Indexed: 42.1 ml/m2 LVLd ap4: 7.7 cm LAV(MOD-sp2): 62.3 ml EDV(MOD-sp4): 83.1 ml LAV(MOD-sp4): 55.0 ml EDV(sp4-el): 86.9 ml LVAs ap4: 11.1 cm2 LVLs ap4: 5.3 cm ESV(MOD-sp4): 18.8 ml ESV(sp4-el): 19.9 ml EF(MOD-sp4): 77.4 % EF(sp4-el): 77.1 % SV(sp4-el): 67.0 ml Aortic Valve Planimetry: 1.6 cm2 LA A4 area: 18.3 cm2 RA A4 area: 12.1 cm2 TAPSE: 1.8 cm Time Measurements MV dec time: 0.21 sec Doppler Measurements & Calculations MV E max david: 129.4 cm/sec Lat Peak E' David: 4.8 cm/sec Med Peak E' David: 5.7 cm/sec MV A max david: 88.6 cm/sec E/E' lat: 27.0 E/E' med: 22.5 MV E/A: 1.5 MV V2 max: 180.0 cm/sec MV dec slope: 604.1 cm/sec2 Ao V2 max: 197.0 cm/sec MV max P.0 mmHg Ao max P.6 mmHg MV V2 mean: 88.2 cm/sec Ao V2 mean: 126.6 cm/sec MV mean P.9 mmHg Ao mean P.3 mmHg MV V2 VTI: 52.5 cm Ao V2 VTI: 42.2 cm PA V2 max: 90.2 cm/sec TR max david: 299.1 cm/sec TR max P.8 mmHg ECHO/Echo Complete W/ Contrast Interpretation Summary Normal LV size. The left ventricular ejection fraction is 75 %. Bileaflet diffuse mitral valve thickening. Moderately severe (3+) eccentric mitral valve insufficiency. Pulmonary artery systolic pressure is 40 mmHg. Ordering Physician: Karuna Gimenez Referring Physician: Karuna Gimenez Performed By: David Murdock RCS
== END | disposition home or self-care (01) ==
PROVIDERS: PCP Family Medicine; Referring Provider Physician Assistant Medical; Visit Provider Physician Assistant Medical
DX: I25.10 Atherosclerotic heart disease of native coronary artery without angina pectoris (principal)
CPT/HCPCS: 93306; Q9957; A4216; C8929

== ENCOUNTER 2023-05-09 10:22 | Emergency (ER) | payer OTHER, MEDICARE, SELFPAY ==
[2023-05-09 10:27] VITALS: BP 129/45; PULSE 75; RESP 19; TEMP 36.7; O2SAT 88; BMI 25.5
[2023-05-09 10:33] VITALS: O2SAT 95
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
[2023-05-09 11:41] LABS: Absolute Lymphocyte Count 1.29 X10^3/uL (0.83-4.51); Absolute Neutrophil Count 10.4 X10^3/uL (2.0-7.7); Basophil# 0.06 X10^3/uL; Basophil% 0.5 % (0-1); Eosinophil# 0.17 X10^3/uL; Eosinophils% 1.3 % (0-5); Hemoglobin 10.4 g/dL (12.0-15.0); Lymphocyte # 1.29 X10^3/ul (0.83-4.51); Lymphocyte % 9.8 % (19-41); Mean Corp Hgb Conc 32.5 g/dL (32-36); Mean Corpuscular Hgb 32.4 pg (27.0-32.0); Mean Corpuscular Volume 99.7 fL (81-99); Mean Platelet Vol. 10.1 fl (6.2-12.0); Monocyte% 8.4 % (0-10); NRBC Flagged by Analyzer 0 % (0-5); Neutrophil # 10.37 X10^3/uL (2.7-7.7); Neutrophil % 79.1 % (47-70); Platelet Count 173 K/mm3 (150-450); RBC Distribution Width CV 12.6 % (11.6-14.6); RBC Distribution Width SD 45.9 fl (35.1-43.9); Red Blood Count 3.21 M/mm3 (4.2-5.4); White Blood Count 13.1 K/mm3 (4.4-11.0)
[2023-05-09 11:56] LABS: AST(SGOT) 18 U/L (15-37); Alanine Aminotransfer ALT/SGPT 16 U/L (13-56); Albumin, Serum 3.5 g/dL (3.2-5.0); Alkaline Phosphatase 56 U/L (45-117); Anion Gap 6 (5-15); BUN 38 mg/dL (7-18); BUN/Creat Ratio 18.7 RATIO (10-20); Bilirubin, Direct 0.29 mg/dL (0.00-0.30); Calcium,Total 8.8 mg/dL (8.5-10.1); Chloride 100 mmol/L (98-107); Creatinine, Serum 2.03 mg/dL (0.55-1.02); EST Glomerular Filtration Rate 25 mL/min (>60); Est Glom Filt Rate - Afr Amer 30 mL/min (>60); Estimated Creatinine Clearance 16.02 ml/min; Globulin 3.2 g/dL (2.2-4.2); Glucose 118 mg/dL (74-106); Lipase 53 U/L (13-75); Protein, Total 6.7 g/dL (6.4-8.2); Sodium Level 134 mmol/L (136-145)
--- NOTE | 2023-05-09 12:15 | CT_ITS ---
STUDY: CT ABDOMEN AND PELVIS WITHOUT CONTRAST REASON FOR EXAM: Female, 88 years old. Diffuse abdominal pain. RADIATION DOSAGE (If Supplied By Facility): CTDIvol = ( 6.19 ) mGy, DLP = ( 259.75 ) mGycm TECHNIQUE: Transaxial images were obtained from the dome of the diaphragm to the symphysis pubis without oral contrast, and without intravenous contrast. Sagittal and coronal images were reconstructed. Individualized dose optimization techniques were used for this CT. COMPARISON: Comparison is made with prior study dated May 10, 2020. FINDINGS: Tiny bilateral pleural effusions slightly worse on the right side with bibasilar pulmonary infiltrates more prominent at the left lung base. Follow-up recommended. Coronary artery calcification. Normal liver. Normal gallbladder and extrahepatic biliary system. Normal spleen. Normal pancreas. Normal bilateral adrenal glands. Normal right kidney. Normal left kidney. Normal visualized stomach. Normal small intestine. Normal colon. The appendix is visualized and appears normal. There is diffuse atherosclerotic calcification of the abdominal aorta and its major visceral branches, without a demonstrated aneurysm. Normal inferior vena cava. Normal retroperitoneum. Normal urinary bladder. Calcified fibroid uterus. Evidence of prior ventral hernia repair with a mesh. There are degenerative changes of the visualized lumbar spine. Stable grade 1 anterolisthesis of L4 on L5 most likely secondary to facet joint osteoarthritis and hypertrophy. CT/Abdomen/Pelvis without Cont IMPRESSION: Small bilateral pleural effusions right greater than left with bibasilar infiltrates more prominent at the left lung base. Radiographic follow-up is recommended. Electronically Signed: Mikel Saha MD at 13:34 EDT ,
[2023-05-09 12:24] VITALS: BP 128/72; PULSE 72; RESP 16; O2SAT 86
[2023-05-09 12:30] LABS: Bacteria 0 SEEN /hpf (None Seen); Mucous, Urine 0 SEEN /hpf (<or=2+); Red Blood Cells-Urine 0 SEEN /hpf (0-5); Squamous Epithelial Cells - UA 0 SEEN /hpf (5-10); White Blood Cells 0 SEEN /hpf (0-5)
[2023-05-09 12:33] LABS: Color, Urine Yellow (Yellow); Glucose, Dipstick Normal (Normal); Ketone-Dipstick Negative (Negative); Leukocyte Esterase-Dipstick 25 /ul (Negative); Nitrite-Dipstick Negative (Negative); Occult Blood-Urine Negative /ul (Negative); Protein-Dipstick Negative (Negative); Specific Gravity, Urine 1.015 (1.002-1.030); Urine Bilirubin Dipstick Negative (Negative); Urine Clarity Sl. Cloudy (Clear); Urine Urobilinogen Normal (Normal)
[2023-05-09 12:40] VITALS: O2SAT 95
--- NOTE | 2023-05-09 13:55 | RAD_ITS ---
STUDY: X-RAY - RIGHT TIBIA AND FIBULA REASON FOR EXAM: Female, 88 years old. pain TECHNIQUE: 2 view(s) of the tibia and fibula were obtained. COMPARISON: None. FINDINGS: Normal visualized tibia. Normal visualized fibula. Mild soft tissue swelling. RAD/Tibia & Fibula 2 Views IMPRESSION: Mild soft tissue swelling. Electronically Signed: Mikel Saha MD at 14:13 EDT ,
--- NOTE | 2023-05-09 13:55 | RAD_ITS ---
STUDY: X-RAY CHEST REASON FOR EXAM: Female, 88 years old. Effusions TECHNIQUE: Single AP portable view of the chest. COMPARISON: Comparison is made with prior study dated February 03, 2023. FINDINGS: EKG electrodes are seen. Mild degree of vascular congestion and CHF. Increased markings at the lung bases suggestive of a bibasilar atelectasis. Blunting of both costo phrenic angles. Normal size heart. Normal mediastinum and delfina. Normal visualized pulmonary arteries. There is atherosclerotic calcification of the aortic arch with tortuosity. There are diffuse degenerative changes of the visualized thoracic spine. Normal visualized ribs, clavicles, and shoulders. There is no demonstrated abnormality of the visualized soft tissue structures of the upper abdomen. RAD/Chest 1 View (Portable) IMPRESSION: Vascular congestion and mild CHF with blunting of both costophrenic angles and bibasilar atelectasis. Electronically Signed: Mikel Saha MD at 14:12 EDT ,
[2023-05-09 14:00] VITALS: BP 136/45; PULSE 68; RESP 14; O2SAT 94
--- NOTE | 2023-05-09 14:27 | ED.RN ---
Pt's Spo2 drops when sleeping, remains within normal limits when awake and reminded to breathe normally. Pt taking small breaths because my ribs hurt. Pt educated on need to take nice deep breaths to prevent pneumonia.
[2023-05-09 15:21] VITALS: BP 119/74; PULSE 78; RESP 15; TEMP 36.2; O2SAT 96
== END 2023-05-09 15:23 | disposition home or self-care (01) ==
PROVIDERS: Emergency Provider Emergency Medicine; PCP Family Medicine; Visit Provider Emergency Medicine
DX: S80.01XA Contusion of right knee, initial encounter (principal); I11.0 Hypertensive heart disease with heart failure; R10.9 Unspecified abdominal pain; Z87.891 Personal history of nicotine dependence; R07.89 Other chest pain; V49.40XA Driver injured in collision with unspecified motor vehicles in traffic accident, initial encounter; Y92.410 Unspecified street and highway as the place of occurrence of the external cause; I25.10 Atherosclerotic heart disease of native coronary artery without angina pectoris; E78.00 Pure hypercholesterolemia, unspecified; Z79.82 Long term (current) use of aspirin; Z79.899 Other long term (current) drug therapy; Z98.51 Tubal ligation status; S80.02XA Contusion of left knee, initial encounter; J98.11 Atelectasis
CPT/HCPCS: 71045; 73590; 74176; 80048; 80076; 81001; 83690; 85025; 99283; A4216

== ENCOUNTER → 2023-05-13 | Outpatient (CLI) | payer OTHER, MEDICARE, SELFPAY ==
--- NOTE | 2023-05-13 10:52 | VDLE_ITS ---
Reason For Study: BIlateral leg pain and swelling RIGHT LEFT GSV is normal. GSV is normal. CFV is compressible, spontaneous, phasic, CFV is compressible, spontaneous, phasic, competent and demonstrates normal competent, and demonstrates normal augmentation. augmentation. FV is compressible, spontaneous, phasic, FV is compressible, spontaneous, phasic, competent and demonstrates normal competent and demonstrates normal augmentation. augmentation. POP V is compressible, spontaneous, phasic, POP V is compressible, spontaneous, phasic, competent and demonstrates normal competent and demonstrates normal augmentation. augmentation. T/P Trunk is compressible. T/P Trunk is compressible. PTV is compressible. PTV is compressible. RT PerV is compressible. LT PerV is compressible. Procedure This is a venous duplex using B-mode, color flow and spectral Doppler. Exam performed in department. A preliminary report was called and/or faxed to Dr. Mckinney. VL/Venous Duplex US - [place] Extrem Interpretation Summary Deep veins of the lower extremities are bilaterally patent and compressible seg mentally. There is no evidence of deep vein thrombosis on either side. Valvular competence appears in tact within the proximal deep venous systems bilaterally. The great saphenous veins appear bila terally patent and compressible segmentally. Ordering Physician: Frantz Mckinney Referring Physician: Frantz Mckinney Performed By: Eden Kaplan RVT
== END | disposition home or self-care (01) ==
PROVIDERS: PCP Family Medicine; Referring Provider Family Medicine; Visit Provider Family Medicine
DX: M79.604 Pain in right leg (principal); M79.605 Pain in left leg; R60.9 Edema, unspecified
CPT/HCPCS: 93970

== ENCOUNTER → 2023-08-12 | Outpatient (CLI) | payer MEDICARE, OTHER, SELFPAY ==
--- NOTE | 2023-08-12 13:02 | BI_ITS ---
MAMMOGRAPHY - BILATERAL SCREENING 3-D TOMOSYNTHESIS REASON FOR EXAM: Female, 88 years old. SCREENING PERTINENT HISTORY: No significant family history. TECHNIQUE: 2-D mammograms and 3-D Tomosynthesis of the breast (s) were performed. CAD was performed. COMPARISON: 07/15/2022 FINDINGS: The breast composition is composed of scattered fibroglandular density. Scattered benign calcifications are seen. No dense spiculated masses or suspicious microcalcifications are identified. No architectural distortion is identified. There is no skin thickening or retraction. There has been no significant change since the prior study. Bilateral benign vascular calcifications can be seen in coronary artery disease. BI/SCRN MAMM (CAD)W/KEANU BILAT IMPRESSION: No mammographic signs of malignancy. Routine yearly mammograms recommended. ASSESSMENT CATEGORY: BIRADS Category 2: Benign. A letter regarding these results will be sent to the patient by the facility within 30 days. FOLLOW UP RECOMMENDATION: Yearly follow up mammogram recommended. (A) Approximately 10% of breast cancers are not detected by mammography. A normal mammogram should not delay biopsy of a clinically suspicious abnormality. Electronically Signed: Omar Echols MD at 13:52 EDT ,
== END | disposition home or self-care (01) ==
LOC: OPBI 13:00
PROVIDERS: PCP Family Medicine; Referring Provider Family Medicine; Visit Provider Family Medicine
DX: Z12.31 Encounter for screening mammogram for malignant neoplasm of breast (principal)
CPT/HCPCS: 77063; 77067

== ENCOUNTER → 2023-10-12 | Outpatient (CLI) | payer MEDICARE, OTHER, SELFPAY ==
--- NOTE | 2023-10-12 10:23 | CDU_ITS ---
Reason For Study: Lt ICA Stenosis Rt. Velocities/BP Lt. Velocities/BP Prox CCA 114.3/8.4 cm/sec. Prox CCA 166.0/18.9 cm/sec. Mid CCA 118.0/12.1 cm/sec. Mid CCA 137.4/16.7 cm/sec. Dist CCA 97.9/10.2 cm/sec. Dist CCA 94.1/9.3 cm/sec. Prox ICA 66.8/10.2 cm/sec. Prox ICA 211.5/30.1 cm/sec. Mid ICA 101.6/12.1 cm/sec. Mid ICA 146.7/19.7 cm/sec. Dist ICA 81.3/11.0 cm/sec. Dist ICA 166.8/37.5 cm/sec. Rt. ICA/CCA = 0.9. Lt. ICA/CCA = 1.5. Prox ECA 128.9/2.9 cm/sec. Prox ECA 346.3/12.1 cm/sec. Rt. Vert. 62.0/11.0 cm/sec. Lt. Vert. 67.7/8.4 cm/sec. Right Extracranial There is homogeneous, smooth atherosclerotic plaque noted in the right common carotid artery. There is homogeneous, smooth atherosclerotic plaque noted in the right internal carotid artery. There is heterogeneous, irregular atherosclerotic plaque noted in the right external carotid artery. Antegrade flow is noted in the right vertebral artery. Left Extracranial There is homogeneous, smooth atherosclerotic plaque noted in the left common carotid artery. There is heterogeneous, irregular atherosclerotic plaque noted in the left internal carotid artery. There is heterogeneous, irregular atherosclerotic plaque noted in the left external carotid artery. Antegrade flow is noted in the left vertebral artery. Procedure Carotid Duplex 52760. This is a Carotid Duplex examination using B-mode, color flow and specral Doppler. The exam was diagnostic. Exam performed in department. VL/Carotid Duplex Ultrasound Interpretation Summary Mild (<50%) stenosis right extracranial internal carotid. Moderate (50-69%) stenosis left extracranial internal carotid. Patent and antegrade vertebrals bilaterally. Ordering Physician: Vipul Santos Referring Physician: Vipul Santos Performed By: Jona Pavon RVT
== END | disposition home or self-care (01) ==
LOC: CVS 10:21
PROVIDERS: PCP Family Medicine; Referring Provider Psychiatry & Neurology Neurology; Visit Provider Psychiatry & Neurology Neurology
DX: I65.22 Occlusion and stenosis of left carotid artery (principal)
CPT/HCPCS: 93880

== ENCOUNTER → 2024-02-17 | Outpatient (CLI) | payer MEDICARE, OTHER, SELFPAY ==
[2024-02-17 11:49] LABS: Hematocrit 31.4 % (37-47); Hemoglobin 10.2 g/dL (12.0-15.0); Mean Corp Hgb Conc 32.5 g/dL (32-36); Mean Corpuscular Hgb 32.1 pg (27.0-32.0); Mean Corpuscular Volume 98.7 fL (81-99); Platelet Count 166 K/mm3 (150-450); RBC Distribution Width CV 12.6 % (11.6-14.6); RBC Distribution Width SD 45.6 fl (35.1-43.9); Red Blood Count 3.18 M/mm3 (4.2-5.4); White Blood Count 5.7 K/mm3 (4.4-11.0)
[2024-02-17 12:08] LABS: PTHIN 39.6 pg/mL (18.4-80.1)
[2024-02-17 12:10] LABS: Albumin, Serum 3.3 g/dL (3.2-5.0); BUN 33 mg/dL (7-18); BUN/Creat Ratio 24.8 RATIO (10-20); Calcium,Total 8.8 mg/dL (8.5-10.1); Chloride 110 mmol/L (98-107); Creatinine, Serum 1.33 mg/dL (0.55-1.02); EST Glomerular Filtration Rate 40 mL/min (>60); Est Glom Filt Rate - Afr Amer 49 mL/min (>60); Glucose 92 mg/dL (74-106); Phosphorus 3.2 mg/dL (2.5-4.9); Potassium 4.3 mmol/L (3.5-5.1); Sodium Level 139 mmol/L (136-145)
[2024-02-17 12:23] LABS: Protein, Urine (Random) 41.1 mg/dL (<11.9); Protein:Creat Ratio 272 mg/g CRE (0-200)
[2024-02-17 12:28] LABS: Vitamin D,25 Hydroxy 44.5 ng/mL
== END | disposition home or self-care (01) ==
PROVIDERS: PCP Family Medicine; Referring Provider Internal Medicine Nephrology; Visit Provider Internal Medicine Nephrology
DX: N18.32 Chronic kidney disease, stage 3b (principal); E55.9 Vitamin D deficiency, unspecified
CPT/HCPCS: 36415; 80069; 82306; 82570; 83970; 84156; 85027